=== PATIENT | male | born 1955 | race Caucasian/White ===

== ENCOUNTER 2017-05-23 20:20 | Inpatient (IN) ==
--- NOTE | 2017-05-23 21:07 | Emergency Department Note ---
Disposition Clinical Impression: Left foot infection, Artery occlusion Disposition: Admitted As Inpatient Time of Disposition: 23:22 General Adult HPI - General Chief complaint: ED Wound/Laceration Stated complaint: left great toe black Time Seen by Provider: 05/23/17 20:53 Source: patient Limitations: physical limitation Nursing Notes Reviewed: Yes Vital Signs Reviewed: Yes - History of Present Illness HPI Narrative: 62-year-old male past medical history of diabetes, smoking, peripheral arterial disease, chronic ulcer on left large toe, recent angioplasty, presents to the emergency department with concern for increasing plaque ulceration. Patient also states that they have been having wound care following redness in the left foot. Patient states that the redness has been increasing. Patient also reports subjective fevers. Pain Scale: 10 - Related Data Home Medications Medication Instructions Recorded Confirmed Gabapentin [Neurontin] 300 mg PO QID 05/18/15 05/16/17 OxyCODONE/APAP 7.5/325 [Percocet 1 each PO Q8HR PRN 05/18/15 05/16/17 7.5/325] Insulin NPH Hum/Reg Insulin Hm 20 - 30 unit SQ BID 05/15/17 05/16/17 [Novolin 70-30 100 Unit/ml Vial] Lovastatin [Altoprev] 40 mg PO HS 05/15/17 05/16/17 metFORMIN [Glucophage] 500 mg PO BIDWM 05/16/17 05/16/17 Previous Rx's Medication Instructions Recorded Clopidogrel Bisulfate [Plavix] 75 mg PO DAILY #30 tablet 05/15/17 Allergies Allergy/AdvReac Type Severity Reaction Status Date / Time ticlopidine [From Ticlid] Allergy Hives Verified 05/16/17 17:18 All systems ED: reviewed and negative except as stated. Review of Systems: As Per HPI Constitutional: Reports: fever Musculoskeletal: Reports: other (foot pain, redness) Past Medical History - Past Medical History Medical history: Reports: arthritis, asthma, atrial fibrillation, cardiomyopathy , CHF, COPD, coronary artery disease, diabetes, GERD, hyperlipidemia, hypertension, myocardial infarction Surgical history: Reports: angioplasty/stent, coronary bypass (CABG), orthopedic , other, pacemaker/AICD, other Psychiatric history: Reports: anxiety, depression - Social History Smoking Status: Former smoker Smokeless Tobacco Status: No Alcohol use: Reports: none Drug use: Reports: none Physical Exam General: 62-year-old male, rocking back and forth, appears uncomfortable Head: autraumatic, EOMI, no conjuncitval pallor, no scleral icterus, Mouth: oral mucous membranes moist Neck: neck soft, trachea midline Chest:: Equal chest wall rise Lungs: Normal lungs sounds bilaterally, no wheezes, no respiratory distress Heart: normal heart sounds, normal rate and rhythm, Abdomen: soft, non-tender, no rigidity, no guarding, no rebdound tenderness Lower Extremities: no pedal edema, calves non-tender, black eschar on the dorsum of the left hallux, 1+ dorsalis pedis pulse, erythema extending into the midfoot, warmth Integumentary: Skin warm, dry, and intact Neuro: Alert Psych: normal affect, normal mood - General Limitations: physical limitation General appearance: alert Course Vital Signs Temperature 98.1 F 05/23/17 20:23 Pulse Rate 74 05/23/17 20:23 Respiratory Rate 16 05/23/17 20:23 Blood Pressure 150/79 05/23/17 20:23 O2 Sat by Pulse Oximetry 98 05/23/17 20:23 Temperature 98.1 F 05/23/17 20:23 Pulse Rate 69 05/23/17 23:10 Respiratory Rate 18 05/23/17 23:10 Blood Pressure 121/70 05/23/17 23:10 O2 Sat by Pulse Oximetry 99 05/23/17 23:10 Oxygen Delivery Oxygen Delivery Room Air Medical Decision Making - [facility] Narrative Medical decision making narrative: 62-year-old male presents to the emergency department with concern for possible osteomyelitis, cellulitis, gangrene, vessel occlusion of the left foot. We are obtaining a CTA to further identify possible etiology, CBC, BMP as well. We will provide analgesia with morphine. The patient's CTA of the left lower extremity reveals occlusion of the left anterior tibial artery. Plastic surgery was consulted regarding recommendations case. They stated that this did not warrant any surgery at this time as this is a chronic wound and most likely foot infection. He also has a mild leukocytosis of 12.1. Patient has diabetes which is concerning for possible organismss such as pseudomonas. I have provided the patient with vancomycin and Zosyn as broad-spectrum antibiotics. I admitted the patient to the hospitalist. I discussed the plan with the patient and . Patient's is not in any pain at this time. Aorta w/Runoff CTA 05/23/17 20:59 IMPRESSION: 1. Moderate aortoiliac plaque disease. No significant inflow disease. 2. Bilateral renal artery stenosis. The left renal artery stenosis is complex and likely high-grade. 3. Right-sided runoff evaluation is limited by motion artifact. Patent SFA and popliteal artery likely with cereal disease, difficult to quantitate. Three-vessel runoff proximally. Primary runoff distally via the posterior tibial artery. Consider correlation with duplex study. 4. Cereal SFA and popliteal disease on the left. No focal high-grade stenosis. Three-vessel runoff with occlusion of the anterior tibial artery as it crosses the ankle. 5. Bilateral nonobstructive nephrolithiasis. 6. Mild diffuse colonic stool burden. 7. Mild anasarca. D/ / 05/23/2017 22:56:05 Torey Barnes MD / [email or web address] Interpreting Provider: Torey Barnes MD Vital Signs Temperature 98.1 F 05/23/17 20:23 Pulse Rate 74 05/23/17 20:23 Respiratory Rate 16 05/23/17 20:23 Blood Pressure 150/79 05/23/17 20:23 O2 Sat by Pulse Oximetry 98 05/23/17 20:23 Temperature 98.1 F 05/23/17 20:23 Pulse Rate 69 05/23/17 23:10 Respiratory Rate 18 05/23/17 23:10 Blood Pressure 121/70 05/23/17 23:10 O2 Sat by Pulse Oximetry 99 05/23/17 23:10 Oxygen Delivery Oxygen Delivery Room Air - Lab Data Result diagrams: 05/23/17 21:09 05/23/17 21:09 Lab Results 05/23/17 05/23/17 Range/Units 21:09 21:09 WBC 12.1 H (4.3-11.1) K/mcL RBC 4.76 (4.19-5.50) M/mcL Hgb 14.3 (12.9-16.9) g/dL Hct 42.4 (37.5-50.1) % MCV 89.1 (83.0-100.0) fL MCH 30.0 (28.0-33.3) pg MCHC 33.7 (31.6-35.5) g/dL RDW 12.8 (11.5-14.5) % Plt Count 368 (140-400) K/mcL MPV 9.4 (9.4-12.4) fL Immature Gran % 0.5 (0-4) % Seg Neutrophils % 65.2 % Lymphocytes % 23.2 % Monocytes % 9.3 % Eosinophils % 1.2 % Basophils % 0.6 % Neutrophils # 7.9 (1.6-8.9) K/mcL Lymphocytes # 2.8 (0.6-4.6) K/mcL Monocytes # 1.1 (0.0-1.3) K/mcL Eosinophils # 0.1 (0.0-0.6) K/mcL Basophils # 0.1 (0.0-0.2) K/mcL Sodium 136 (136-145) mEq/L Potassium 3.9 (3.5-4.5) mEq/L Chloride 102 (98-109) mEq/L Carbon Dioxide 27 (19-29) mEq/L BUN 8 (8-26) mg/dL Creatinine 0.74 (0.72-1.25) mg/dL Est GFR ( Amer) > 60 (> 60) Est GFR (Non-Af Amer) > 60 (> 60) BUN/Creatinine Ratio 11 (6-26) Glucose 133 H (70-99) mg/dL Calculated Osmolality 282 (280-300) Calcium 9.9 (8.6-10.8) mg/dL Attestation Statement - Attestation Attestation: I examined this patient and my medical decision-making was reviewed with the Resident Physician. I agree with the documented findings, disposition and treatment plan as described except to the extent set forth below. Patient presents to the ED with a chief complaint of a purple toe. Patient is status post angioplasty to the SFA and popliteal on the left with Dr. Estrada on the . He has been doing fine until a few days ago. His great toe is progressively gone black. Mr. Lan Escher on the dorsum of it. Erythema extending two thirds of the way up the foot. Plan. CTA aorta with runoff.
[2017-05-23] MEDS ORDERED: *HR* Morphine 2 MG/ML SYRINGE IVP ONE (21:08)
[2017-05-23 21:22] LABS: Basophils # 0.1 K/mcL (0.0-0.2); Basophils % 0.6 %; Eosinophils # 0.1 K/mcL (0.0-0.6); Eosinophils % 1.2 %; Hematocrit 42.4 % (37.5-50.1); Hemoglobin 14.3 g/dL (12.9-16.9); Immature Granulocytes % 0.5 % (0-4); Lymphocytes # 2.8 K/mcL (0.6-4.6); Lymphocytes % 23.2 %; Mean Corpuscular HGB Conc 33.7 g/dL (31.6-35.5); Mean Corpuscular Volume 89.1 fL (83.0-100.0); Mean Platelet Volume 9.4 fL (9.4-12.4); Monocytes # 1.1 K/mcL (0.0-1.3); Monocytes % 9.3 %; Neutrophils # 7.9 K/mcL (1.6-8.9); Platelet Count 368 K/mcL (140-400); Red Blood Count 4.76 M/mcL (4.19-5.50); Red Cell Distribution Width 12.8 % (11.5-14.5); Segmented Neutrophils % 65.2 %
[2017-05-23 21:34] LABS: BUN/Creatinine Ratio 11 (6-26); Blood Urea Nitrogen 8 mg/dL (8-26); Calcium 9.9 mg/dL (8.6-10.8); Carbon Dioxide 27 mEq/L (19-29); Chloride 102 mEq/L (98-109); Glucose 133 mg/dL (70-99); Osmolality,Calculated 282 (280-300); Potassium 3.9 mEq/L (3.5-4.5); Sodium 136 mEq/L (136-145); eGFR For African Americans > 60 (> 60); eGFR For Non-African Americans > 60 (> 60)
[2017-05-23] MEDS ORDERED: Vancomycin 1,250 MG in D5% in Water 250 ML IVPB ONE (23:12)
[2017-05-23] MEDS ORDERED: Piperacillin/Tazobactam 4.5 GM in D5% in Water (Mini-Bag+) 100 ML IVPB ONE (23:13)
[2017-05-24] MEDS ORDERED: Ondansetron 4 MG/2 ML VIAL IVP PRN ×2 (01:06→19:09)
[2017-05-24] MEDS ORDERED: Naloxone 0.4 MG/ML INJ IVP PRN ×2 (01:06→19:09)
[2017-05-24] MEDS ORDERED: *HR* Heparin 5,000 UNIT/ML VIAL IVP ONE (01:06)
[2017-05-24] MEDS ORDERED: *HR* Heparin 5,000 UNIT/ML VIAL IVP PRN ×2 (01:06)
[2017-05-24] MEDS ORDERED: Acetaminophen 325 MG TABLET PO PRN ×2 (01:06→19:09)
[2017-05-24] MEDS ORDERED: Dextrose Gel 15 GM PO PRN ×4 (01:10→19:09)
[2017-05-24] MEDS ORDERED: *HR* Dextrose 50 % in Water (Syg) 50 ML SYRINGE IVP PRN ×2 (01:10→19:09)
[2017-05-24] MEDS ORDERED: D5% in Water 1,000 ML IVC PRN ×2 (01:10→19:09)
--- NOTE | 2017-05-24 01:14 | Internal Med History&Physical ---
<Reyes Chin - Last Filed: 05/24/17 01:41> Date of Encounter: 05/24/17 Time of Encounter: 01:12 Assessment and Plan (1) Left foot infection Current visit: Yes Status: Chronic - Pt reports black eschar on left great toe secondary to uncontrolled diabetes. - Pt reports worsening of wound with surrounding erythema and edema extending to mid foot. - Serous drainage. No dorsalis pedis pulses palpable. Non septic. Normal lactic acid. - CTA showed occlusion of the anterior tibial artery on left as it crosses the ankle. No soft tissues changes noted. - BOLIVAR, Arterial doppler, foot xray pending. - Vascular surgery consulted for concern of ischemia. Recommended obtaining the above labs and will see the patient in the morning. - Will start vanc, zosyn, heparin gtt (2) Ischemic ulcer of left foot Current visit: Yes Status: Suspected Distal tip of left great toe. - Reports no sensation, no pain. Black in color. - Possibly secondary to ischemia vs diabetic infection. - Further management as above. - Additional ulcers in left heel and lateral distal foot. Chronic, sees wound care as outpatient. Qualifiers: Non-pressure ulcer stage: limited to breakdown of skin Qualified Code(s): L97.521 - Non-pressure chronic ulcer of other part of left foot limited to breakdown of skin (3) Coronary artery disease Current visit: Yes Status: Chronic - Pt denies chest pain. - Has been on plavix since arterial ballooning on 05/15. Reports no other prescribed blood thinners. - Stable. Qualifiers: Coronary Disease-Associated Artery/Lesion type: bypass graft Ruby vs. transplanted heart: morongo heart Associated angina: without angina Qualified Code(s): I25.810 - Atherosclerosis of coronary artery bypass graft(s) without angina pectoris (4) Hypertension Current visit: Yes Status: Chronic - Evidence of bilateral renal artery stenosis on CTA done in ED . - Severe on left. - BP under control in ED. - Continue home meds and further workup and management as outpatient. Qualifiers: Hypertension type: secondary to other renal disorders Qualified Code(s): I15.1 - Hypertension secondary to other renal disorders; N28.89 - Other specified disorders of kidney and ureter; N28.89 - Other specified disorders of kidney and ureter (5) CHF (congestive heart failure) Current visit: Yes Status: Chronic - With evidence of ischemic cardiomyopathy s/p CABG - Pt takes home plavix. - No ASA use. Will be cautious with fluids. Qualifiers: Congestive heart failure type: unspecified congestive heart failure type Congestive heart failure chronicity: chronic Qualified Code(s): I50.9 - Heart failure, unspecified (6) COPD (chronic obstructive pulmonary disease) Current visit: Yes Status: Chronic - Admits to continuing to smoke every day. - No SOB - Encouraged to quit smoking. Qualifiers: COPD type: emphysema Emphysema type: unspecified Qualified Code(s): J43.9 - Emphysema, unspecified (7) Tobacco dependence Current visit: Yes Status: Chronic - Encouraged to quit smoking. Pt states he has cut down but is unwilling to quit. (8) Renal artery stenosis Current visit: Yes Status: Chronic - As demonstrated in CTA in ED. - Bilateral with severe on left. - BP and renal function wnl. - Manage as outpatient. (9) Diabetes mellitus Current visit: Yes Status: Chronic - Diabetes with complications involving peripheral circulation. - Multiple non healing ulcers on left foot - Black eschar on 1st toe and lateral left foot. - Uncontrolled per pt and chart review. - Will obtain new A1c. 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 Not on A/C per cardiolgist - Continue BB. Heparin gtt started for toe ischemia. Qualifiers: Atrial fibrillation type: chronic Qualified Code(s): I48.2 - Chronic atrial fibrillation (11) DVT prophylaxis Current visit: Yes Status: Acute - Heparin drip for possible ischemia as above., Internal Medicine - H&P: HPI Chief complaint: left foot infection Admitted From: Emergency Dept Plans for Post Hospital Care: Home History of present illness: Mr. Wylie is a 62 year old male with past medical history of uncontrolled diabetes, peripheral vascular disease, CAD status post CABG, tobacco abuse, atrial fibrillation, congestive heart failure presents emergency room with concerns of a left foot infection. He states that he has been dealing with a chronic left great toe eschar for the past couple of months. He recently underwent a balloon angioplasty on 05/[address] Hopkins with good results. 2 days following his procedure, he has noticed the wounds increasing in size, with surrounding erythema and edema. His has noticed a thin yellow discharge from the wound. They also note a fever of 100.5. Patient admits to some nausea and has noticed that the tip of his great toe has turned purple/ black and has no feeling. He does have a history of diabetic neuropathy and states that prior to his procedure he had no feelings in his extremity at all, however he does feel some sensation now. He denies any symptoms of chills, shortness of breath from baseline, is in bowel movements, vomiting, weakness. He denies any pain in the extremity, however he does feel tingling, and paresthesias. In the emergency department, vital signs were stable. He did have a mildly elevated white count at 12.1. Lactic acid within normal limits. CTA runoff the lower shrubbery was obtained due to concern of ischemic change, showed undetermine patency of angioplasties however did note complete occlusion of the anterior tibial artery as it crosses the ankle. Vascular surgery was consulted in the emergency department and will see in the morning. Of note, admitting team again called vascular surgery due to further concerns of ischemia and inability to feel dorsalis pedis pulse. Recommend obtaining BOLIVAR as well as arterial Doppler studies on left lower extremity. Do not believe this is an surgical emergency at this time. Past Med Surg Social Fam HX - Past Medical History Medical history: arthritis, asthma, atrial fibrillation, cardiomyopathy, CHF, COPD, coronary artery disease, diabetes, GERD, hyperlipidemia, hypertension, myocardial infarction Psychiatric history: anxiety, depression - Past Surgical History Surgical History: angioplasty/stent, coronary bypass (CABG), orthopedic, other, pacemaker/AICD, other - Social History Smoking Status: Former smoker Smokeless Tobacco Status: No Alcohol use: none Drug use: none - Family History Father Hx Family Cancer: Yes Mother Living Status: Still Living Hx Family Cancer: Yes (kidney cancer) Internal Medicine - H&P: Meds Gabapentin [Neurontin] 300 mg PO QID 05/18/15 [History] OxyCODONE/APAP 7.5/325 [Percocet 7.5/325] 1 each PO Q8HR PRN 05/18/15 [History] Clopidogrel Bisulfate [Plavix] 75 mg PO DAILY #30 tablet 05/15/17 [Rx] Insulin NPH Hum/Reg Insulin Hm [Novolin 70-30 100 Unit/ml Vial] 20 - 30 unit SQ BID 05/15/17 [History] Lovastatin [Altoprev] 40 mg PO HS 05/15/17 [History] metFORMIN [Glucophage] 500 mg PO BIDWM 05/16/17 [History] 3 Allergy/AdvReac Type Severity Reaction Status Date / Time ticlopidine [From Ticlid] Allergy Hives Verified 05/16/17 17:18 All Systems PM: A 10-system review of systems was performed and is negative for pertinent findings except as documented above in the HPI. - Constitutional Constitutional: chills, fever(s), no fatigue, no lethargy - Cardiovascular Cardiovascular ROS IM: claudication, edema, irregular heart rhythm, no chest pain, no dyspnea, no dyspnea on exertion, no lightheadedness, no palpitations - Respiratory Respiratory: no cough, no dyspnea, no dyspnea on exertion - Gastrointestinal Gastrointestinal: nausea, no abdominal pain, no constipation, no diarrhea, no vomiting - Musculoskeletal Musculoskeletal ROS IM: limited range of motion, numbness, stiffness, tingling - Integumentary Integumentary IM: erythema, new lesions, non-healing lesions, sores - Neurological Neurological ROS: numbness, tingling - Constitutional Vitals: Temp Pulse Resp BP Pulse Ox 98.1 F 69 18 121/70 99 05/23/17 20:23 05/23/17 23:10 05/23/17 23:10 05/23/17 23:10 05/23/17 23:10 Exam: Gen.: Vitals noted. No acute distress. AAOx3. Tremors during interview. HEENT: PERRL/EOMI, oropharynx clear, Normocephalic, atraumatic. MMM. Cardiac: Irregularly irregular, no murmur, +S1/S2 Pulmonary: CTA bilaterally, no wheezes, rales or rhonchi, equal chest expansion Abdomen: soft, nontender, BS noted, no guarding Extremities: Erythema and edema of left foot extending to midfoot. Black eschar on dorsal great toe as well as left lateral foot. Non healing ulcer on left heal. No dorsalis pedis or tibial pulses appreciated. No sensation in distal toe. Black distal tip of toe. Temperature normal to touch. Able to move toe. Neuro: A&Ox3, moves all extremities Psych: Appropriate mood and behavior Internal Med - H&P Results - Labs CBC & Chem 7: 05/23/17 21:09 05/23/17 21:09 <Nahid Arevalo T - Last Filed: 05/24/17 02:36> Date of Encounter: 05/24/17 Internal Medicine - H&P: HPI History of present illness: Mr. Wylie is a 62 year old male All Systems PM: A 10-system review of systems was performed and is negative for pertinent findings except as documented above in the HPI. - Constitutional Vitals: Temp Pulse Resp BP Pulse Ox 97.6 F 78 16 122/71 99 05/24/17 01:22 05/24/17 01:22 05/24/17 01:22 05/24/17 01:22 05/24/17 01:22 Internal Med - H&P Results - Labs CBC & Chem 7: 05/23/17 21:09 05/23/17 21:09 - Attending Attestation I have independently seen and examined this patient on 05/24/17 and discussed plan of care with the patient, his at the bedside and the resident physician 59 M with tobacco abuse, CHF, CAD, Afib not on anticoagulation, DM, PAD with recent angioplasty to LLE , presented with worsening size of chronic L big toe arterial ulcer, associated with pain, swelling and redness, he also had a fever of 100.5 at home. He denies hx of trauma preceding these symptoms, symptoms have been ongoing for one week On exam, he is no form of distress, significant finding is in hid LLE which showed erythema up to mid Lt foot, Lt big toe eschar about the size of a quarter , with surrounding collection , Right big toe is purple. He has no dorsalis pedis pulsation and his Left tibia artery pulsation is faint Labs and Imaging reviewed: Leukocytosis with left shift, Chem WNL. Aortogram shows bilateral YUVAL, Left >R (high grade), occlusion of tibia artery as it crossed the ankle A/P: Left foot cellulitis, Left big toe gangrene. YUVAL. PAD. CHF. Tobacco abuse Uncontrolled DM Start heparin drip, agree with Zahra, Dr. Sandoval was contacted and knows about the patient. Foot X-ray to rule out gas gangrene. Check A1C. Pain Control. YUVAL to be worked up by PCP-patient has no renal abnormalities and his blood pressure is acceptable, resume home meds Rest of details as in resident physicians documentation
[2017-05-24] MEDS ORDERED: Heparin 25,000 UNIT/500 ML D5W 25,000 UNIT/500 ML MLS IVC SCH (01:15)
[2017-05-24 01:36] LABS: Prothrombin Time 11.1 Seconds (9.4-12.1)
[2017-05-24 01:38] LABS: Activated Partial Thrombo Time 33.5 Seconds (26.0-36.0)
[2017-05-24] MEDS ORDERED: Vancomycin 1,250 MG in D5% in Water 250 ML IVPB SCH ×2 (02:00→14:00)
[2017-05-24 02:42] LABS: Hemoglobin A1C 12.1 %
[2017-05-24 04:42] LABS: Basophils # 0.1 K/mcL (0.0-0.2); Basophils % 0.7 %; Eosinophils # 0.3 K/mcL (0.0-0.6); Eosinophils % 2.6 %; Hematocrit 41.3 % (37.5-50.1); Hemoglobin 13.8 g/dL (12.9-16.9); Immature Granulocytes % 0.6 % (0-4); Lymphocytes # 3.5 K/mcL (0.6-4.6); Lymphocytes % 29.2 %; Mean Corpuscular HGB Conc 33.4 g/dL (31.6-35.5); Mean Corpuscular Hemoglobin 29.9 pg (28.0-33.3); Mean Corpuscular Volume 89.6 fL (83.0-100.0); Mean Platelet Volume 9.7 fL (9.4-12.4); Monocytes # 1.1 K/mcL (0.0-1.3); Monocytes % 9.4 %; Neutrophils # 6.9 K/mcL (1.6-8.9); Platelet Count 362 K/mcL (140-400); Red Blood Count 4.61 M/mcL (4.19-5.50); Red Cell Distribution Width 12.9 % (11.5-14.5); Segmented Neutrophils % 57.5 %
[2017-05-24 04:57] LABS: BUN/Creatinine Ratio 10 (6-26); Blood Urea Nitrogen 7 mg/dL (8-26); Calcium 10.1 mg/dL (8.6-10.8); Carbon Dioxide 30 mEq/L (19-29); Chloride 101 mEq/L (98-109); Glucose 111 mg/dL (70-99); Osmolality,Calculated 279 (280-300); Potassium 3.7 mEq/L (3.5-4.5); Sodium 135 mEq/L (136-145); eGFR For African Americans > 60 (> 60); eGFR For Non-African Americans > 60 (> 60)
[2017-05-24] MEDS: *HR* HYDROcodone/Acet 5/325 mg TABLET PO PRN ×2 (05:18→12:19)
--- NOTE | 2017-05-24 08:43 | Vascular/Endovasc Consult Note ---
Date of Encounter: 05/24/17 Time of Encounter: 08:30 Assessment and Plan (1) Left foot infection Current Visit: Yes Status: Chronic The patient has had successful revascularization of the left lower extremity however the left great toe was completely necrotic and now has led to cellulitis and infection associated with diabetes in the left foot. I recommended left great toe amputation. He will require intravenous antibiotic therapy. He will also require aggressive treatment of his diabetes. The bleeding is higher on aspirin and Plavix. However, I think maintaining aspirin and Plavix is a central because of his recent angioplasty. - History of Present Illness Consult date: 05/24/17 Consult reason: Necrotic right great toe History of present illness: Mr. Wylie is a 62 year old male followed in the wound clinic by Dr. Morfin. He had a left heel ulcer as well as a left great toe ulcer. This was found to be ischemic. He underwent treatment by vascular surgery with angioplasty of left superficial femoral artery occlusion and left popliteal artery stenosis. The angioplasty was successful and the patient was placed on aspirin and Plavix. He was seen in the wound clinic last week and his right great toe was necrotic. Treatment was changed from segmental and gentamicin to Betadine paint. The patient has developed more pain and leukocytosis and his left foot. The left great toe was completely necrotic and now an area of erythema has formed on the dorsum of the foot. He has leukocytosis. His foot is warm and pink. I can feel a posterior tibial pulse. CTA arteriogram demonstrates anterior tibial artery occlusion however the areas of angioplasty of the superficial femoral artery and popliteal artery are patent. I have recommended amputation of the left great toe with debridement. It should be done on an urgent basis. Past Med Surg Social Fam HX - Past Medical History Medical history: arthritis, asthma, atrial fibrillation, cardiomyopathy, CHF, COPD, coronary artery disease, diabetes, GERD, hyperlipidemia, hypertension, myocardial infarction Psychiatric history: anxiety, depression - Past Surgical History Surgical History: angioplasty/stent, coronary bypass (CABG), orthopedic, other, pacemaker/AICD, other - Social History Smoking Status: Former smoker Smokeless Tobacco Status: No Alcohol use: none Drug use: none - Family History Mother Living Status: Still Living Hx Family Cancer: Yes (kidney cancer) Father Living Status: Age at : 61 Hx Family Cancer: Yes Medications and Allergies Gabapentin [Neurontin] 300 mg PO QID 05/18/15 [History] OxyCODONE/APAP 7.5/325 [Percocet 7.5/325] 1 each PO Q8HR PRN 05/18/15 [History] Clopidogrel Bisulfate [Plavix] 75 mg PO DAILY #30 tablet 05/15/17 [Rx] Insulin NPH Hum/Reg Insulin Hm [Novolin 70-30 100 Unit/ml Vial] 20 - 30 unit SQ BID 05/15/17 [History] Lovastatin [Altoprev] 40 mg PO HS 05/15/17 [History] metFORMIN [Glucophage] 500 mg PO BIDWM 05/16/17 [History] 3 Allergy/AdvReac Type Severity Reaction Status Date / Time ticlopidine [From Ticlid] Allergy Hives Verified 05/16/17 17:18 All Systems Review: A 10-system review of systems was performed and is negative for pertinent findings except as documented above in the HPI. Exam Vital Signs, Last 4 Hours Temp Pulse Resp BP Pulse Ox 05/24/17 07:48 97.9 F 70 16 145/98 98 General: Present: Conversant, No Apparent Distress HEENT: Present: Atraumatic, Normocephaly, Trachea midline, Pupils equal Neck: Present: Other (No adenopathy neck is supple with good range of motion.) Cardiac: Present: Reg Rate and Rhythm, Normal S1 and S2, No Murmur Lungs: Present: Normal Breath Sounds, No Wheeze, Rales, Rhonchi Neuro: Present: Alert and responsive, No focal deficits noted, Cranial nerves grossly intact, Motor nerves grossly intact, Other (Diabetic peripheral neuropathy ) Abdomen: Present: Soft, Non-tender, Other (Masses ) Vascular: Present: Pulse, normal (Left posterior tibial pulses palpable. His foot is warm and pink. There is erythema on the dorsum of the foot. Plantar aspect is free of any infection. The left great toe was completely necrotic ) Skin: Present: Wound/ulcer(s) (Left heel ulceration previously measured and described. Left great toe completely necrotic. Dorsum of the foot is erythematous.) Consult Discharge Plan - Plan Referrals: Cora Pinto CNP [Primary Care Provider] -
--- NOTE | 2017-05-24 08:45 | Event Note ---
Date of Encounter: 05/24/17 Time of Encounter: 08:44 62-year-old male with history of hypertension, diabetes, peripheral arterial disease, coronary artery disease, admitted with black discoloration and pain in left toe. Patient was noted to have wet gangrene of left first toe associated with surrounding cellulitis and lower extremity edema. Patient seen and examined at bedside. Reports pain and swelling left leg and foot, awaiting OR. Chest-S1, S2 heard. Lungs are clear to auscultation. Left great toe-black, wet gangrene with surrounding erythema, tenderness, edema in the left foot and lower leg Left great toe gangrene due to PAD, DM- Vascular surgery consulted, plan for left 1st toe amputation today; has been started on IV Heparin drip for possible acute arterial occlusion; continue Plavix; pain control with PRN IV Dilaudid; DM- Type 2, on insulin, with PAD- continue Accu-Chek blood glucose monitoring with basal bolus insulin regimen. Hemoglobin A1c noted to be tall 0.1%. Blood sugars noted to be elevated. Diabetic diet when tolerated.
[2017-05-24] MEDS: Insulin LISPRO 300 UNITS/3 ML VIAL SQ SCH ×3 (08:50→16:35)
[2017-05-24] MEDS: Gabapentin 300 MG CAPSULE PO SCH ×3 (09:06→21:35)
[2017-05-24] MEDS: Piperacillin/Tazobactam 3.375 GM in D5% in Water 50 ML IVPB SCH ×2 (09:07→16:38)
[2017-05-24] MEDS ORDERED: *HR* OxyCODONE/APAP 7.5/325 TABLET PO PRN ×2 (12:46→19:09)
--- NOTE | 2017-05-24 15:34 | Anesthesia Evaluation PreOp ---
Date of Encounter: 05/24/17 Time of Encounter: 17:25 - Past History Planned Operation: Lap. 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: Denies Any Significant HX Other Medical History: Renal (renal artery stenosis), GERD, Other (Iscemic Left Foot Ulcer, myoclonus RUE) Anesthesia History: No Prior Anesthetic Complications, Past Anesthesia Alcohol Use: none Drug use: none Medications and Allergies Gabapentin [Neurontin] 300 mg PO QID 05/18/15 [History] OxyCODONE/APAP 7.5/325 [Percocet 7.5/325] 1 each PO Q6H PRN 05/18/15 [History] Clopidogrel Bisulfate [Plavix] 75 mg PO DAILY #30 tablet 05/15/17 [Rx] Insulin NPH Hum/Reg Insulin Hm [Novolin 70-30 100 Unit/ml Vial] 25 unit SQ QAM 05/15/17 [History] Lovastatin [Altoprev] 40 mg PO HS 05/15/17 [History] metFORMIN [Glucophage] 500 mg PO BIDWM 05/16/17 [History] Baclofen [Lioresal] 10 mg PO TID 05/24/17 [History] Carvedilol 12.5 mg PO BID 05/24/17 [History] Duloxetine HCl [Cymbalta] 60 mg PO BID 05/24/17 [History] Insulin NPH Hum/Reg Insulin Hm [Novolin 70-30 100 Unit/ml Vial] 30 unit SQ QPM 05/24/17 [History] Pantoprazole Sodium [Protonix] 40 mg PO DAILY 05/24/17 [History] 3 Allergy/AdvReac Type Severity Reaction Status Date / Time ticlopidine [From Ticlid] Allergy Hives Verified 05/24/17 10:04 - Meds/Allergy Pre-op Review Medications Reviewed: Yes Allergies Reviewed: Yes Beta Blockers on Current Med List: No Anesthesia Results - Labs 05/24/17 03:43 05/24/17 03:43 Echo 2014 Low normal EF, - Imaging EKG: report reviewed (ELECTRONIC VENTRICULAR PACEMAKER BASELINE ARTIFACT COMPLICATES ACCURATE INTERPRETATION) Anesthesia Exam O2 Sat Height 1.88 m Height 1.88 m Height 1.88 m Weight 86.8 kg Weight 87.5 kg Weight 78.471 kg O2 Sat by Pulse Oximetry 99 O2 Sat by Pulse Oximetry 98 O2 Sat by Pulse Oximetry 98 O2 Sat by Pulse Oximetry 99 O2 Sat by Pulse Oximetry 99 O2 Sat by Pulse Oximetry 98 Vital Signs Temp Pulse Resp BP Pulse Ox 98.1 F 74 16 150/79 98 05/23/17 20:23 05/23/17 20:23 05/23/17 20:23 05/23/17 20:23 05/23/17 20:23 Vital Signs/O2 Sat, Most Current Temp Pulse Resp BP Pulse Ox 97.8 F 71 18 161/84 99 05/24/17 12:03 05/24/17 12:03 05/24/17 12:03 05/24/17 12:03 05/24/17 12:03 Height: 6'2'' Weight: 191# NPO (# of Hours): > 8 hrs Pain Scale: 0 Pain Scale Used: Numeric (1 - 10) - HEENT Pupil (Motor): Pupils equal, EOMI Mallampati: III Teeth: Edentulous Oral Opening: Greater than 3 - 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
[2017-05-24] MEDS ORDERED: *HR* Midazolam HCl 2 MG/2 ML VIAL ONE (16:34)
[2017-05-24] MEDS ORDERED: *HR* Propofol 200 MG/20 ML VIAL IVP ONE (16:34)
[2017-05-24] MEDS ORDERED: *HR* Succinylcholine 200 MG/10 ML VIAL IVP ONE (16:37)
[2017-05-24] MEDS ORDERED: Dexamethasone 4 MG/ML VIAL ONE (16:37)
[2017-05-24] MEDS ORDERED: Lidocaine -MPF 2% 2 ML VIAL ONE (16:37)
[2017-05-24] MEDS ORDERED: Ondansetron 4 MG/2 ML VIAL ONE (16:37)
[2017-05-24] MEDS ORDERED: Albuterol 2.5 MG/3 ML NEBULIZER ONE (16:40)
[2017-05-24] MEDS ORDERED: *HR* Promethazine 25 MG/ML VIAL IVP PRN ×2 (17:25→19:09)
[2017-05-24] MEDS ORDERED: *HR* Labetalol 20 MG/4 ML SYRINGE IVP PRN ×2 (17:25→19:09)
[2017-05-24] MEDS ORDERED: *HR* HYDROmorphone (PF) 1 MG/ML SYRINGE IVP PRN ×3 (17:25→19:09)
[2017-05-24] MEDS ORDERED: Ondansetron 4 MG/2 ML VIAL IVP ONE ×2 (17:25→19:09)
[2017-05-24] MEDS ORDERED: Albuterol 2.5 MG/3 ML NEBULIZER IH ONE ×2 (17:25→19:09)
--- NOTE | 2017-05-24 18:24 | Operative Note ---
Date of procedure: 05/24/17 Pre-op diagnosis: Left great toe necrosis with left foot cellulitis Post-op diagnosis: other (#1 left great toe necrosis #2 tenosynovitis extensor tendon #3 osteomyelitis metatarsal head) Procedure: #1 left great toe amputation #2 left first metatarsal head resection #3 debridement left extensor tendon Anesthesia: DULCE MARIA Surgeon: Yoseph Sandoval Estimated blood loss (cc): 20 Specimen: #1 left great toe #2 left metatarsal head #3 left extensor tendon first dig Condition: stable Disposition: PACU Procedure in Detail: After informed consent the patient is taken to the major operative suite and placed in supine position and given adequate general anesthetic. The left foot is prepped and draped in sterile fashion utilizing Betadine solution and sterile draping techniques. Timeouts taken. The patient is identified. The lateralizing garcia identified. I made a teardrop-shaped incision around the base of the left great toe extension on the dorsum of the foot. I dissected down to the level of the first metatarsal head. This circumferentially dissected. The flexor tendon was divided and the plantar fascia was divided. The extensor tendon was full of pus. This was drawn out of the sheath until all the pus was gone and the tendon appeared normal. The tendon was divided at this point.(The head of the metatarsal bone was soft and crumbled medially. This was right where the extensor tendon came into contact with the dorsum of the metatarsal head. This appeared to be osteomyelitis. I decided to divide the first metatarsal to midshaft. Using periosteal elevator made at circumferential dissection at the midshaft and divided the midshaft first metatarsal. This is done with a oscillating saw. Hemostasis was excellent. The first digit and first metatarsal head were both removed. There were 2 sesamoid bones embedded in the plantar fascia. I felt that these were contaminated in the inflammatory process of the metatarsal head and I resected both bones. I irrigated with copious amounts IN-containing solution electrocautery was used for hemostasis. All tissues appear well vascularized and the debridement and resection had removed all devitalized tissue. I again reviewed with copious amounts of antibiotic containing solution. Cultures of the joint capsule and base of the first phalangeal head were cultured. I close the deep tissue with interrupted 2-0 Vicryl subcutaneous tissue with interrupted 2-0 Vicryl and I left the skin open. I placed iodoform packs at 3 locations deep in the wound. A bulky dressing was applied. He tolerated the procedure well.
--- NOTE | 2017-05-24 19:01 | Anesthesia Evaluation Post Op ---
Date of Encounter: 05/24/17 Time of Encounter: 19:00 - Vital Signs Vital Signs: Last Vital Signs Temp 97.8 F 05/24/17 18:33 Pulse 70 05/24/17 18:53 Resp 18 05/24/17 18:53 BP 133/77 05/24/17 18:53 Pulse Ox 98 05/24/17 18:53 - Lungs Lungs: Clear Ascult./Percussion - Airway Airway: Non-obstructed - Cardiovascular Regular Rate - Mental Status Mental Status: Alert & Oriented, Answers Appropriately - Pain Pain Scale: 3 - Nausea Vomiting Nausea Vomiting: Not Present - Hydration Hydration: NPO - Discharge PostOp Status: Transfer Patient to floor
[2017-05-24] MEDS ORDERED: Piperacillin/Tazobactam 3.375 GM in D5% in Water 50 ML IVPB SCH (20:00)
[2017-05-25] MEDS ORDERED: Piperacillin/Tazobactam 3.375 GM in D5% in Water 50 ML IVPB SCH
[2017-05-25] MEDS: Vancomycin 1,250 MG in D5% in Water 250 ML IVPB SCH ×2 (02:15→14:47)
[2017-05-25] MEDS: Piperacillin/Tazobactam 3.375 GM in D5% in Water 50 ML IVPB SCH ×3 (06:03→20:59)
[2017-05-25] MEDS ORDERED: GI Cocktail 40 ML EACH PO ONE (06:25)
[2017-05-25] MEDS ORDERED: Acetaminophen 325 MG TABLET PO PRN (08:27)
[2017-05-25] MEDS: Insulin LISPRO 300 UNITS/3 ML VIAL SQ SCH ×4 (08:48→20:55)
[2017-05-25] MEDS: Gabapentin 300 MG CAPSULE PO SCH ×4 (08:48→20:54)
[2017-05-25 08:58] LABS: Basophils # 0.1 K/mcL (0.0-0.2); Basophils % 0.6 %; Eosinophils % 0.3 %; Hematocrit 42.3 % (37.5-50.1); Hemoglobin 14.1 g/dL (12.9-16.9); Immature Granulocytes % 0.7 % (0-4); Lymphocytes # 2.4 K/mcL (0.6-4.6); Mean Corpuscular HGB Conc 33.3 g/dL (31.6-35.5); Mean Corpuscular Hemoglobin 29.4 pg (28.0-33.3); Mean Corpuscular Volume 88.3 fL (83.0-100.0); Mean Platelet Volume 9.6 fL (9.4-12.4); Monocytes % 8.3 %; Platelet Count 439 K/mcL (140-400); Red Blood Count 4.79 M/mcL (4.19-5.50); Red Cell Distribution Width 12.6 % (11.5-14.5); Segmented Neutrophils % 69.1 %
--- NOTE | 2017-05-25 08:59 | Internal Med Progress Note ---
Date of Encounter: 05/25/17 Time of Encounter: 08:55 - Assessment and plan (1) Gangrene due to peripheral vascular disease Current Visit: Yes Status: Acute Assessment and plan: Presented with painful wet gangrene of left first toe. Vascular surgery consulted, status post amputation of left first toe, left first metatarsal head resection and debridement of left extensor tendon, postoperative day one. Continue pain control with when necessary IV Dilaudid and oral Percocet. Physical and occupational therapy evaluation. Local wound care per surgery recommendations. On IV Vancomycin and Zosyn, f/up blood cultures; IV anticoagulation has been discontinued. Continue Plavix. (2) Ischemic ulcer of left foot Current Visit: Yes Status: Acute Assessment and plan: plan as above; Qualifiers: Non-pressure ulcer stage: limited to breakdown of skin Qualified Code(s): L97.521 - Non-pressure chronic ulcer of other part of left foot limited to breakdown of skin (3) PAD (peripheral artery disease) Current Visit: Yes Status: Chronic Assessment and plan: continue Plavix; (4) Coronary artery disease Current Visit: Yes Status: Chronic Assessment and plan: continue home meds; Qualifiers: Coronary Disease-Associated Artery/Lesion type: bypass graft [place] vs. transplanted heart: [place] heart Associated angina: without angina Qualified Code(s): I25.810 - Atherosclerosis of coronary artery bypass graft(s) without angina pectoris (5) Hypertension Current Visit: Yes Status: Chronic Assessment and plan: BP elevated; not on Coreg at home, not filled script recently; resume Coreg; Qualifiers: Hypertension type: essential hypertension Qualified Code(s): I10 - Essential (primary) hypertension (6) Ischemic cardiomyopathy Current Visit: Yes Status: Chronic (7) COPD (chronic obstructive pulmonary disease) Current Visit: Yes Status: Chronic Qualifiers: COPD type: emphysema Emphysema type: unspecified Qualified Code(s): J43.9 - Emphysema, unspecified (8) Tobacco dependence Current Visit: Yes Status: Chronic Assessment and plan: Nicotine transdermal patch; (9) Diabetes mellitus Current Visit: Yes Status: Chronic Assessment and plan: Blood sugars elevated; start basal insulin and continue Accucheck blood glucose monitoring with sliding scale insulin; diabetic diet; HbA1C noted to be 11.8%; Qualifiers: Diabetes mellitus type: type 2 Diabetes mellitus complication status: with circulatory complication Diabetes mellitus complication detail: with peripheral angiopathy with gangrene Diabetes mellitus care home insulin use: with care home use Qualified Code(s): 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 2 diabetes mellitus with diabetic peripheral angiopathy with gangrene; Z79.4 - prison (current) use of insulin; Z79.4 - prison (current) use of insulin; Z79.4 - prison ( current) use of insulin; Z79.4 - prison (current) use of insulin (10) Atrial fibrillation Current Visit: Yes Status: Chronic Assessment and plan: continue Coreg; not on anticoagulation as outpatient; Qualifiers: Atrial fibrillation type: chronic Qualified Code(s): I48.2 - Chronic atrial fibrillation - Subjective Interval history: Feels better; left foot pain is controlled with pain meds; tolerates oral diet; blood sugars noted to be high; - Constitutional Vitals: Temp Pulse Resp BP Pulse Ox 97.5 F L 71 16 162/83 92 05/25/17 07:31 05/25/17 07:31 05/25/17 07:31 05/25/17 07:31 05/25/17 07:31 General appearance: Present: A&O X 3, answers questions appropriately - Respiratory Respiratory exam: Present: CTAB. Absent: accessory muscle use, rales, rhonchi, wheezes - Cardiovascular Cardiovascular exam: Present: RRR, +S1, +S2. Absent: diastolic murmur, gallop, rubs, systolic murmur - GI/Abdominal GI/Abdominal exam: Present: normal bowel sounds, soft, no peritoneal signs. Absent: distended, tenderness - Extremities Exam Extremities exam: Present: warm, radial pulses palpable and symmetrical. Absent : calf tenderness, cyanotic, pedal edema Additional comments: left great toe amputation; in surgical dressing Internal Medicine: Result - Labs CBC & Chem 7: 05/25/17 08:36 05/25/17 08:36 - ABG Interpretation ABG results: PT/INR, D-dimer PT 11.1 Seconds (9.4-12.1) 05/23/17 21:29 - VTE Documentation of Mechanical Device: Intermittent pneumatic compression device Consult Discharge Plan - Plan Referrals: Cora Pinto, PROP SETTER [Primary Care Provider] -
[2017-05-25 09:09] LABS: BUN/Creatinine Ratio 15 (6-26); Blood Urea Nitrogen 14 mg/dL (8-26); Calcium 9.9 mg/dL (8.6-10.8); Carbon Dioxide 25 mEq/L (19-29); Chloride 100 mEq/L (98-109); Glucose 483 mg/dL (70-99); Osmolality,Calculated 298 (280-300); Potassium 4.7 mEq/L (3.5-4.5); Sodium 133 mEq/L (136-145); eGFR For African Americans > 60 (> 60); eGFR For Non-African Americans > 60 (> 60)
[2017-05-25] MEDS: Insulin DETEMIR 100 UNIT/ML X5UNITS SQ SCH ×2 (10:16→20:59)
--- NOTE | 2017-05-25 13:53 | General Surgery Progress Note ---
<AminataKerry Fortino - Last Filed: 05/25/17 13:57> Date of Encounter: 05/25/17 Time of Encounter: 13:00 - Assessment and Plan (1) Left foot infection Current Visit: Yes Status: Chronic POD #1 left great toe amputation, left first metatarsal head resection, debridement left extensor tendon IV antibiotics- Vancomycin, Zosyn Cultures pending Daily wound care Supportive care and pain control Will continue to follow and assess progress (2) PAD (peripheral artery disease) Current Visit: Yes Status: Chronic (3) CHF (congestive heart failure) Current Visit: Yes Status: Chronic Qualifiers: Congestive heart failure type: unspecified congestive heart failure type Congestive heart failure chronicity: chronic Qualified Code(s): I50.9 - Heart failure, unspecified (4) COPD (chronic obstructive pulmonary disease) Current Visit: Yes Status: Chronic Qualifiers: COPD type: emphysema Emphysema type: unspecified Qualified Code(s): J43.9 - Emphysema, unspecified (5) Coronary artery disease Current Visit: Yes Status: Chronic Qualifiers: Coronary Disease-Associated Artery/Lesion type: bypass graft [place] vs. transplanted heart: [place] heart Associated angina: without angina Qualified Code(s): I25.810 - Atherosclerosis of coronary artery bypass graft(s) without angina pectoris (6) Diabetes mellitus Current Visit: Yes Status: Chronic Qualifiers: Diabetes mellitus type: type 2 Diabetes mellitus complication status: with circulatory complication Diabetes mellitus complication detail: with peripheral angiopathy without gangrene Diabetes mellitus long term care pharmacist insulin use : with prison use Qualified Code(s): E11.51 - Type 2 diabetes mellitus with diabetic peripheral angiopathy without gangrene; Z79.4 - jail (current ) use of insulin; Z79.4 - jail (current) use of insulin; Z79.4 - jail (current) use of insulin; Z79.4 - jail (current) use of insulin (7) Tobacco dependence Current Visit: Yes Status: Chronic (8) Heel ulcer Current Visit: No Status: Chronic Qualifiers: Laterality: left Non-pressure ulcer stage: unspecified non-pressure ulcer stage Qualified Code(s): L97.429 - Non-pressure chronic ulcer of left heel and midfoot with unspecified severity Subjective Patient reports: no new complaints, feels better, still having pain, pain is less, tolerating a regular diet, voiding w/o difficulty, afebrile Objective Vital Signs - Last 8 Hours Temp Pulse Resp BP Pulse Ox 05/25/17 11:41 98 F 71 16 126/78 97 05/25/17 10:52 123/67 05/25/17 07:31 97.5 F L 71 16 162/83 92 Intake and Output 05/24/17 05/25/17 05/25/17 23:59 07:59 15:59 Intake Total 987 / 987 50 / 50 530 / 530 Output Total 140 / 140 500 / 500 750 / 750 Balance 847 / 847 -450 / -450 -220 / -220 Intake: IV Fluids 167 / 167 50 / 50 50 / 50 Zosyn 3.375 GM In Dextrose 5% ( 50 / 50 50 / 50 ADD-[place]) 50 ML @ 12.5 mls/ hr IVPB Q8H ANT Rx#:[id number] Vancocin 1,250 MG In Dextrose 5 167 / 167 % 250 ML @ 166.667 mls/hr IVPB Q12H ANT Rx#:[id number] Oral 820 / 820 480 / 480 Output: Urine 120 / 120 500 / 500 750 / 750 Estimated Blood Loss Other: Meal Breakfast Percent of Meal Consumed 40% # Voids 1 Weight 87.3 kg Blood Glucose* 165 374 383 Patient Weight 05/25/17 23:59 Weight 87.3 kg - General physical appearance well developed, well nourished, no distress - Eyes normal ocular movement - ENT normal mucosa, atraumatic, normocephalic - Neck Neck exam: trachea midline - Respiratory normal respiratory effort, clear to auscultation - Abdomen Abdomen: Present: soft, non tender - Incision Incision: Present: serosanguinous (small amount), open (Left great toe amputation) - Neurologic CN 2-12 grossly intact, other (Tremor noted) - Psychiatric oriented to time, oriented to person, oriented to place, speech is normal, memory intact - Labs 05/25/17 08:36 05/25/17 08:36 Diabetes panel 05/25/17 Range/Units 08:36 Sodium 133 L (136-145) mEq/L Potassium 4.7 H D (3.5-4.5) mEq/L Chloride 100 (98-109) mEq/L Carbon Dioxide 25 (19-29) mEq/L BUN 14 (8-26) mg/dL Creatinine 0.95 (0.72-1.25) mg/dL Glucose 483 H (70-99) mg/dL Calcium 9.9 (8.6-10.8) mg/dL Calcium panel 05/25/17 Range/Units 08:36 Calcium 9.9 (8.6-10.8) mg/dL Pituitary panel 05/25/17 Range/Units 08:36 Sodium 133 L (136-145) mEq/L Potassium 4.7 H D (3.5-4.5) mEq/L Chloride 100 (98-109) mEq/L Carbon Dioxide 25 (19-29) mEq/L BUN 14 (8-26) mg/dL Creatinine 0.95 (0.72-1.25) mg/dL Glucose 483 H (70-99) mg/dL Calcium 9.9 (8.6-10.8) mg/dL Adrenal panel 05/25/17 Range/Units 08:36 Sodium 133 L (136-145) mEq/L Potassium 4.7 H D (3.5-4.5) mEq/L Chloride 100 (98-109) mEq/L Carbon Dioxide 25 (19-29) mEq/L BUN 14 (8-26) mg/dL Creatinine 0.95 (0.72-1.25) mg/dL Glucose 483 H (70-99) mg/dL Calcium 9.9 (8.6-10.8) mg/dL - VTE Documentation of Mechanical Device: Intermittent pneumatic compression device Consult Discharge Plan - Plan Referrals: Cora Pitno, MANAGER GOLF [Primary Care Provider] - - Attending Attestation For this encounter, I have reviewed the BIT SANDER or PA documentation, treatment plan, and medical decision making; and I have had face to face time with this patient. <Yoseph Sandoval - Last Filed: 05/26/17 07:06> Date of Encounter: 05/25/17 - Assessment and Plan (1) Left foot infection Current Visit: Yes Status: Chronic Objective Vital Signs - Last 8 Hours Temp Pulse Resp BP Pulse Ox 05/26/17 03:52 97.4 F L 71 15 121/74 96 05/26/17 00:24 98 F 69 16 113/77 93 Intake and Output 05/25/17 05/25/17 05/26/17 15:59 23:59 07:59 Intake Total 530 / 530 420 / 420 50 / 50 Output Total 750 / 750 700 / 700 550 / 550 Balance -220 / -220 -280 / -280 -500 / -500 Intake: IV Fluids 50 / 50 300 / 300 50 / 50 Zosyn 3.375 GM In Dextrose 5% ( 50 / 50 50 / 50 50 / 50 ADD-[place]) 50 ML @ 12.5 mls/ hr IVPB Q8H ANT Rx#:[id number] Vancocin 1,000 MG In Dextrose 5 250 / 250 % 250 ML @ 167 mls/hr IVPB Q12H ANT Rx#:[id number] Oral 480 / 480 120 / 120 Output: Urine 750 / 750 700 / 700 550 / 550 Other: Meal Breakfast Dinner Percent of Meal Consumed 40% 100% Weight 94.6 kg Blood Glucose* 383 141 Patient Weight 05/26/17 23:59 Weight 94.6 kg - Labs 05/26/17 05:20 05/26/17 05:20 Diabetes panel 05/25/17 05/26/17 Range/Units 08:36 05:20 Sodium 133 L 139 (136-145) mEq/L Potassium 4.7 H D 4.0 (3.5-4.5) mEq/L Chloride 100 104 (98-109) mEq/L Carbon Dioxide 25 30 H (19-29) mEq/L BUN 14 11 (8-26) mg/dL Creatinine 0.95 0.76 (0.72-1.25) mg/dL Glucose 483 H 67 L (70-99) mg/dL Calcium 9.9 9.8 (8.6-10.8) mg/dL Calcium panel 05/25/17 05/26/17 Range/Units 08:36 05:20 Calcium 9.9 9.8 (8.6-10.8) mg/dL Pituitary panel 05/25/17 05/26/17 Range/Units 08:36 05:20 Sodium 133 L 139 (136-145) mEq/L Potassium 4.7 H D 4.0 (3.5-4.5) mEq/L Chloride 100 104 (98-109) mEq/L Carbon Dioxide 25 30 H (19-29) mEq/L BUN 14 11 (8-26) mg/dL Creatinine 0.95 0.76 (0.72-1.25) mg/dL Glucose 483 H 67 L (70-99) mg/dL Calcium 9.9 9.8 (8.6-10.8) mg/dL Adrenal panel 05/25/17 05/26/17 Range/Units 08:36 05:20 Sodium 133 L 139 (136-145) mEq/L Potassium 4.7 H D 4.0 (3.5-4.5) mEq/L Chloride 100 104 (98-109) mEq/L Carbon Dioxide 25 30 H (19-29) mEq/L BUN 14 11 (8-26) mg/dL Creatinine 0.95 0.76 (0.72-1.25) mg/dL Glucose 483 H 67 L (70-99) mg/dL Calcium 9.9 9.8 (8.6-10.8) mg/dL - Attending Attestation The patient was seen and evaluated on morning rounds. His dressing is dry. His preoperative pain in his left foot is gone. We will initiate once a day iodoform packing and transition to negative pressure wound therapy as soon as possible. Yoseph Sandoval MD FACS
[2017-05-25] MEDS: Vancomycin 1,000 MG in D5% in Water 250 ML IVPB SCH (14:53)
[2017-05-25] MEDS: *HR* OxyCODONE/APAP 7.5/325 TABLET PO PRN (18:04)
[2017-05-25] MEDS: *HR* Heparin 5,000 UNIT/ML VIAL SQ SCH (18:42)
[2017-05-25] MEDS: *HR* HYDROmorphone (PF) 1 MG/ML SYRINGE IVP PRN (22:20)
[2017-05-25] MEDS: Melatonin 3 MG TABLET PO PRN (22:20)
[2017-05-26] MEDS: Vancomycin 1,000 MG in D5% in Water 250 ML IVPB SCH ×2 (01:14→13:50)
[2017-05-26] MEDS: Piperacillin/Tazobactam 3.375 GM in D5% in Water 50 ML IVPB SCH ×3 (05:29→21:10)
[2017-05-26] MEDS: *HR* Heparin 5,000 UNIT/ML VIAL SQ SCH ×2 (05:29→17:00)
[2017-05-26 06:16] LABS: Basophils # 0.1 K/mcL (0.0-0.2); Basophils % 0.6 %; Eosinophils # 0.2 K/mcL (0.0-0.6); Eosinophils % 1.9 %; Hematocrit 39.7 % (37.5-50.1); Immature Granulocytes % 0.3 % (0-4); Lymphocytes # 3.2 K/mcL (0.6-4.6); Mean Corpuscular HGB Conc 32.7 g/dL (31.6-35.5); Mean Corpuscular Hemoglobin 29.5 pg (28.0-33.3); Mean Platelet Volume 9.6 fL (9.4-12.4); Monocytes # 0.8 K/mcL (0.0-1.3); Monocytes % 8.4 %; Neutrophils # 5.2 K/mcL (1.6-8.9); Platelet Count 388 K/mcL (140-400); Red Blood Count 4.41 M/mcL (4.19-5.50); Red Cell Distribution Width 12.8 % (11.5-14.5); Segmented Neutrophils % 54.8 %
[2017-05-26 06:34] LABS: BUN/Creatinine Ratio 14 (6-26); Blood Urea Nitrogen 11 mg/dL (8-26); Calcium 9.8 mg/dL (8.6-10.8); Carbon Dioxide 30 mEq/L (19-29); Chloride 104 mEq/L (98-109); Glucose 67 mg/dL (70-99); Osmolality,Calculated 286 (280-300); Sodium 139 mEq/L (136-145); eGFR For African Americans > 60 (> 60); eGFR For Non-African Americans > 60 (> 60)
[2017-05-26] MEDS: Gabapentin 300 MG CAPSULE PO SCH ×5 (07:44→20:50)
[2017-05-26] MEDS: *HR* OxyCODONE/APAP 7.5/325 TABLET PO PRN ×2 (07:52→20:52)
[2017-05-26] MEDS: Insulin LISPRO 300 UNITS/3 ML VIAL SQ SCH ×5 (07:53→21:11)
[2017-05-26] MEDS: Insulin DETEMIR 100 UNIT/ML X5UNITS SQ SCH ×2 (07:53→21:11)
[2017-05-26] MEDS: *HR* HYDROmorphone (PF) 1 MG/ML SYRINGE IVP PRN (10:51)
--- NOTE | 2017-05-26 11:49 | General Surgery Progress Note ---
<AminataKerry Fortino - Last Filed: 05/26/17 11:46> Date of Encounter: 05/26/17 Time of Encounter: 10:30 - Assessment and Plan (1) Left foot infection Current Visit: Yes Status: Chronic POD #2 left great toe amputation, left first metatarsal head resection, debridement left extensor tendon IV antibiotics- Vancomycin, Zosyn Cultures pending Daily wound care- iodoform packing Place wound vac 05/27/17 Will need home wound vac therapy and home health at discharge Consult to home health care initiated Supportive care and pain control Will continue to follow and assess progress (2) PAD (peripheral artery disease) Current Visit: Yes Status: Chronic (3) CHF (congestive heart failure) Current Visit: Yes Status: Chronic Stable without exacerbation Management per medicine service Qualifiers: Congestive heart failure type: unspecified congestive heart failure type Congestive heart failure chronicity: chronic Qualified Code(s): I50.9 - Heart failure, unspecified (4) COPD (chronic obstructive pulmonary disease) Current Visit: Yes Status: Chronic Stable without exacerbation Management per medicine service Qualifiers: COPD type: emphysema Emphysema type: unspecified Qualified Code(s): J43.9 - Emphysema, unspecified (5) Coronary artery disease Current Visit: Yes Status: Chronic Qualifiers: Coronary Disease-Associated Artery/Lesion type: bypass graft [place] vs. 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: with retirement use Qualified Code(s): 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 2 diabetes mellitus with diabetic peripheral angiopathy with gangrene; Z79.4 - watermaster (current) use of insulin; Z79.4 - watermaster (current) use of insulin; Z79.4 - FPC ( current) use of insulin; Z79.4 - FPC (current) use of insulin (7) Tobacco dependence Current Visit: Yes Status: Chronic Smoking cessation education (8) Heel ulcer Current Visit: No Status: Chronic Qualifiers: Laterality: left Non-pressure ulcer stage: unspecified non-pressure ulcer stage Qualified Code(s): L97.429 - Non-pressure chronic ulcer of left heel and midfoot with unspecified severity Subjective Patient reports: no new complaints, still having pain, pain is less, tolerating a regular diet, voiding w/o difficulty, afebrile Objective Vital Signs - Last 8 Hours Temp Pulse Resp BP Pulse Ox 05/26/17 11:34 97.6 F 70 12 132/74 98 05/26/17 07:32 97.9 F 70 16 135/67 97 05/26/17 03:52 97.4 F L 71 15 121/74 96 Intake and Output 05/25/17 05/26/17 05/26/17 23:59 07:59 15:59 Intake Total 420 / 420 80 / 80 480 / 480 Output Total 700 / 700 1300 / 1300 Balance -280 / -280 -1220 / -1220 480 / 480 Intake: IV Fluids 300 / 300 50 / 50 Zosyn 3.375 GM In Dextrose 5% ( 50 / 50 50 / 50 ADD-Collins) 50 ML @ 12.5 mls/ hr IVPB Q8H [facility] Rx#:[id number] Vancocin 1,000 MG In Dextrose 5 250 / 250 % 250 ML @ 167 mls/hr IVPB Q12H [facility] Rx#:[id number] Oral 120 / 120 30 / 30 480 / 480 Output: Urine 700 / 700 1300 / 1300 Other: Meal Dinner Breakfast Percent of Meal Consumed 100% 100% Weight 94.6 kg Blood Glucose* 141 53 157 Patient Weight 05/26/17 23:59 Weight 94.6 kg - General physical appearance well developed, well nourished, no distress, chronically ill - Eyes normal ocular movement - ENT atraumatic, normocephalic - Neck Neck exam: trachea midline - Respiratory normal respiratory effort - Abdomen Abdomen: Present: soft, non tender - Integumentary other (Left foot with small amount of serous drainage noted from wound. No surrounding erythema or induration noted. Measures 6 X 1 X 2cm without tunnelling or undermining. ) - Neurologic CN 2-12 grossly intact - Psychiatric oriented to time, oriented to person, oriented to place, speech is normal, memory intact - Labs 05/26/17 05:20 05/26/17 05:20 Diabetes panel 05/26/17 Range/Units 05:20 Sodium 139 (136-145) mEq/L Potassium 4.0 (3.5-4.5) mEq/L Chloride 104 (98-109) mEq/L Carbon Dioxide 30 H (19-29) mEq/L BUN 11 (8-26) mg/dL Creatinine 0.76 (0.72-1.25) mg/dL Glucose 67 L (70-99) mg/dL Calcium 9.8 (8.6-10.8) mg/dL Calcium panel 05/26/17 Range/Units 05:20 Calcium 9.8 (8.6-10.8) mg/dL Pituitary panel 05/26/17 Range/Units 05:20 Sodium 139 (136-145) mEq/L Potassium 4.0 (3.5-4.5) mEq/L Chloride 104 (98-109) mEq/L Carbon Dioxide 30 H (19-29) mEq/L BUN 11 (8-26) mg/dL Creatinine 0.76 (0.72-1.25) mg/dL Glucose 67 L (70-99) mg/dL Calcium 9.8 (8.6-10.8) mg/dL Adrenal panel 05/26/17 Range/Units 05:20 Sodium 139 (136-145) mEq/L Potassium 4.0 (3.5-4.5) mEq/L Chloride 104 (98-109) mEq/L Carbon Dioxide 30 H (19-29) mEq/L BUN 11 (8-26) mg/dL Creatinine 0.76 (0.72-1.25) mg/dL Glucose 67 L (70-99) mg/dL Calcium 9.8 (8.6-10.8) mg/dL - VTE Documentation of Mechanical Device: Intermittent pneumatic compression device Consult Discharge Plan - Plan Referrals: Cora Pinto, ENERGY PROJECT ENGINEER [Primary Care Provider] - - Attending Attestation For this encounter, I have reviewed the SHALE MINER or PA documentation, treatment plan, and medical decision making; and I have had face to face time with this patient. <Yoseph Sandoval - Last Filed: 05/27/17 07:11> Date of Encounter: 05/19/17 - Assessment and Plan (1) Left foot infection Current Visit: Yes Status: Chronic Objective Vital Signs - Last 8 Hours Temp Pulse Resp BP Pulse Ox 05/27/17 06:59 97.5 F L 73 16 152/88 95 05/27/17 04:32 97.9 F 73 16 125/77 96 05/27/17 00:01 98.2 F 72 16 121/78 95 Intake and Output 05/26/17 05/26/17 05/27/17 15:59 23:59 07:59 Intake Total 1140 / 1140 290 / 290 50 / 50 Output Total 800 / 800 500 / 500 Balance 340 / 340 290 / 290 -450 / -450 Intake: IV Fluids 300 / 300 50 / 50 50 / 50 Zosyn 3.375 GM In Dextrose 5% ( 50 / 50 50 / 50 50 / 50 ADD-Collins) 50 ML @ 12.5 mls/ hr IVPB Q8H [facility] Rx#:[id number] Vancocin 1,000 MG In Dextrose 5 250 / 250 % 250 ML @ 167 mls/hr IVPB Q12H [facility] Rx#:[id number] Oral 840 / 840 240 / 240 Output: Urine 800 / 800 500 / 500 Other: Meal Lunch Dinner Percent of Meal Consumed 100% 80% Weight 94.6 kg Blood Glucose* 231 205 135 Patient Weight 05/27/17 23:59 Weight 94.6 kg - Labs 05/27/17 00:31 05/27/17 00:31 Diabetes panel 05/27/17 Range/Units 00:31 Sodium 139 (136-145) mEq/L Potassium 3.9 (3.5-4.5) mEq/L Chloride 106 (98-109) mEq/L Carbon Dioxide 26 (19-29) mEq/L BUN 10 (8-26) mg/dL Creatinine 0.73 (0.72-1.25) mg/dL Glucose 137 H (70-99) mg/dL Calcium 9.4 (8.6-10.8) mg/dL Calcium panel 05/27/17 Range/Units 00:31 Calcium 9.4 (8.6-10.8) mg/dL Pituitary panel 05/27/17 Range/Units 00:31 Sodium 139 (136-145) mEq/L Potassium 3.9 (3.5-4.5) mEq/L Chloride 106 (98-109) mEq/L Carbon Dioxide 26 (19-29) mEq/L BUN 10 (8-26) mg/dL Creatinine 0.73 (0.72-1.25) mg/dL Glucose 137 H (70-99) mg/dL Calcium 9.4 (8.6-10.8) mg/dL Adrenal panel 05/27/17 Range/Units 00:31 Sodium 139 (136-145) mEq/L Potassium 3.9 (3.5-4.5) mEq/L Chloride 106 (98-109) mEq/L Carbon Dioxide 26 (19-29) mEq/L BUN 10 (8-26) mg/dL Creatinine 0.73 (0.72-1.25) mg/dL Glucose 137 H (70-99) mg/dL Calcium 9.4 (8.6-10.8) mg/dL - Attending Attestation The patient was seen and evaluated on morning rounds. The wound this Condition. We will continue with iodoform packing at this point and transitioning to negative pressure wound dressing in the near future. Yoseph Sandoval MD FACS
[2017-05-26] MEDS ORDERED: *HR* HYDROmorphone (PF) 1 MG/ML SYRINGE IVP PRN (13:28)
[2017-05-26] MEDS: Melatonin 3 MG TABLET PO PRN (20:50)
--- NOTE | 2017-05-26 22:17 | Internal Med Progress Note ---
Date of Encounter: 05/26/17 Time of Encounter: 15:14 - Assessment and plan (1) Status post amputation of left foot Current Visit: Yes Status: Acute Assessment and plan: POD #2 left great toe amputation, Continue Vancomycin, Zosyn Surgery following, recommendations appreciated. Follow-up cultures. Wound vac placement tomorrow. (2) Coronary artery disease Current Visit: Yes Status: Chronic Assessment and plan: continue home meds; Qualifiers: Coronary Disease-Associated Artery/Lesion type: bypass graft [place] vs. transplanted heart: [place] heart Associated angina: without angina Qualified Code(s): I25.810 - Atherosclerosis of coronary artery bypass graft(s) without angina pectoris (3) Nicotine dependence with nicotine-induced disorder Current Visit: No Status: Chronic Qualifiers: Nicotine product type: cigarettes Qualified Code(s): F17.219 - Nicotine dependence, cigarettes, with unspecified nicotine-induced disorders (4) CHF (congestive heart failure) Current Visit: Yes Status: Chronic Assessment and plan: Suspected HF reduced EF from echo in 2015, but stated that was poorly visualized Qualifiers: Congestive heart failure type: unspecified congestive heart failure type Congestive heart failure chronicity: chronic Qualified Code(s): I50.9 - Heart failure, unspecified (5) COPD (chronic obstructive pulmonary disease) Current Visit: Yes Status: Chronic Qualifiers: COPD type: emphysema Emphysema type: unspecified Qualified Code(s): J43.9 - Emphysema, unspecified (6) Diabetes mellitus Current Visit: Yes Status: Chronic Assessment and plan: Basal insulin and continue Accucheck blood glucose monitoring with sliding scale insulin; diabetic diet; HbA1C noted to be 11.8%; Reduce HS insulin to prevent any further hypoglycemic episodes. 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 supervisor insulin use: with extermination supervisor use Qualified Code(s): 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 2 diabetes mellitus with diabetic peripheral angiopathy with gangrene; Z79.4 - halfway (current) use of insulin; Z79.4 - halfway (current) use of insulin; Z79.4 - technician terminal and repeater ( current) use of insulin; Z79.4 - halfway (current) use of insulin (7) Atrial fibrillation Current Visit: Yes Status: Chronic Qualifiers: Atrial fibrillation type: chronic Qualified Code(s): I48.2 - Chronic atrial fibrillation (8) PAD (peripheral artery disease) Current Visit: Yes Status: Chronic - Subjective Interval history: No complaints, no acute events. - Constitutional Vitals: Temp Pulse Resp BP Pulse Ox 97.9 F 69 16 143/88 96 05/26/17 19:42 05/26/17 19:42 05/26/17 19:42 05/26/17 19:42 05/26/17 19:42 General appearance: Present: A&O X 3, answers questions appropriately Internal Medicine: Result - Labs CBC & Chem 7: 05/26/17 05:20 05/26/17 05:20 Labs: Short CBC 05/26/17 Range/Units 05:20 WBC 9.5 (4.3-11.1) K/mcL Hgb 13.0 (12.9-16.9) g/dL Hct 39.7 (37.5-50.1) % Plt Count 388 (140-400) K/mcL Neutrophils # 5.2 (1.6-8.9) K/mcL BMP 05/26/17 05:20 Sodium 139 Potassium 4.0 Chloride 104 Carbon Dioxide 30 H BUN 11 Creatinine 0.76 Glucose 67 L Calcium 9.8 - ABG Interpretation ABG results: PT/INR, D-dimer PT 11.1 Seconds (9.4-12.1) 05/23/17 21:29 - VTE Documentation of Mechanical Device: Intermittent pneumatic compression device Consult Discharge Plan - Plan Referrals: Cora Pinto, SENIOR ENVIRONMENTAL ENGINEER [Primary Care Provider] -
[2017-05-27 00:39] LABS: Basophils # 0.1 K/mcL (0.0-0.2); Basophils % 0.9 %; Eosinophils # 0.2 K/mcL (0.0-0.6); Hematocrit 37.3 % (37.5-50.1); Hemoglobin 12.5 g/dL (12.9-16.9); Immature Granulocytes % 0.5 % (0-4); Lymphocytes # 2.9 K/mcL (0.6-4.6); Lymphocytes % 32.8 %; Mean Corpuscular HGB Conc 33.5 g/dL (31.6-35.5); Mean Corpuscular Hemoglobin 29.8 pg (28.0-33.3); Mean Corpuscular Volume 88.8 fL (83.0-100.0); Mean Platelet Volume 9.1 fL (9.4-12.4); Monocytes # 0.8 K/mcL (0.0-1.3); Monocytes % 8.6 %; Neutrophils # 4.9 K/mcL (1.6-8.9); Platelet Count 406 K/mcL (140-400); Red Cell Distribution Width 12.5 % (11.5-14.5); Segmented Neutrophils % 55.2 %
[2017-05-27 00:51] LABS: BUN/Creatinine Ratio 14 (6-26); Blood Urea Nitrogen 10 mg/dL (8-26); Calcium 9.4 mg/dL (8.6-10.8); Carbon Dioxide 26 mEq/L (19-29); Chloride 106 mEq/L (98-109); Glucose 137 mg/dL (70-99); Osmolality,Calculated 289 (280-300); Potassium 3.9 mEq/L (3.5-4.5); Sodium 139 mEq/L (136-145); eGFR For African Americans > 60 (> 60); eGFR For Non-African Americans > 60 (> 60)
[2017-05-27] MEDS: Vancomycin 1,000 MG in D5% in Water 250 ML IVPB SCH (01:04)
[2017-05-27] MEDS: Piperacillin/Tazobactam 3.375 GM in D5% in Water 50 ML IVPB SCH (04:32)
[2017-05-27] MEDS: *HR* Heparin 5,000 UNIT/ML VIAL SQ SCH ×2 (04:32→16:52)
[2017-05-27] MEDS: *HR* OxyCODONE/APAP 7.5/325 TABLET PO PRN ×4 (04:36→21:00)
[2017-05-27] MEDS: Gabapentin 300 MG CAPSULE PO SCH ×4 (08:07→21:01)
[2017-05-27] MEDS ORDERED: Aminoglycoside Consult 1 EACH MC ONE (08:08)
[2017-05-27] MEDS: Insulin DETEMIR 100 UNIT/ML X5UNITS SQ SCH ×2 (08:11→21:41)
[2017-05-27] MEDS: Insulin LISPRO 300 UNITS/3 ML VIAL SQ SCH ×4 (08:15→21:40)
[2017-05-27] MEDS: Melatonin 3 MG TABLET PO PRN (21:01)
--- NOTE | 2017-05-27 21:54 | Internal Med Progress Note ---
Date of Encounter: 05/27/17 Time of Encounter: 13:50 - Assessment and plan (1) Status post amputation of left foot Current Visit: Yes Status: Acute Assessment and plan: POD #3 left great toe amputation. Change antibiotics to PO Augmentin and Cipro Post surgical wound care Plan is home with home health with wound vac. Will have pt/ot evaluate patient to see if this is appropriate or if needing SNF. (2) Coronary artery disease Current Visit: Yes Status: Chronic Assessment and plan: continue home meds; Qualifiers: Coronary Disease-Associated Artery/Lesion type: bypass graft [place] vs. transplanted heart: [place] heart Associated angina: without angina Qualified Code(s): I25.810 - Atherosclerosis of coronary artery bypass graft(s) without angina pectoris (3) Nicotine dependence with nicotine-induced disorder Current Visit: No Status: Chronic Qualifiers: Nicotine product type: cigarettes Qualified Code(s): F17.219 - Nicotine dependence, cigarettes, with unspecified nicotine-induced disorders (4) CHF (congestive heart failure) Current Visit: Yes Status: Chronic Qualifiers: Congestive heart failure type: unspecified congestive heart failure type Congestive heart failure chronicity: chronic Qualified Code(s): I50.9 - Heart failure, unspecified (5) COPD (chronic obstructive pulmonary disease) Current Visit: Yes Status: Chronic Qualifiers: COPD type: emphysema Emphysema type: unspecified Qualified Code(s): J43.9 - Emphysema, unspecified (6) Diabetes mellitus Current Visit: Yes Status: Chronic Qualifiers: Diabetes mellitus type: type 2 Diabetes mellitus complication status: with circulatory complication Diabetes mellitus complication detail: with peripheral angiopathy with gangrene Diabetes mellitus residential insulin use: with facilities supervisor use Qualified Code(s): 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 2 diabetes mellitus with diabetic peripheral angiopathy with gangrene; Z79.4 - penitentiary (current) use of insulin; Z79.4 - penitentiary (current) use of insulin; Z79.4 - penitentiary ( current) use of insulin; Z79.4 - penitentiary (current) use of insulin (7) Atrial fibrillation Current Visit: Yes Status: Chronic Qualifiers: Atrial fibrillation type: chronic Qualified Code(s): I48.2 - Chronic atrial fibrillation (8) PAD (peripheral artery disease) Current Visit: Yes Status: Chronic - Subjective Interval history: 05/27. Wound vac for today. Patient has swayed back and forth between home with HH versus SNF. Patient insists he cannot go home at this point. He lists several different reasons, including his dogs in the way, and fear that wound wont heal properly at home. He states that it is best for him to stay until Thursday, 05/29 or to go to SNF. He does not mention why this specific date. He denies fevers/chills/n/v. - Constitutional Vitals: Temp Pulse Resp BP Pulse Ox 98.1 F 80 17 149/81 92 05/27/17 19:48 05/27/17 19:48 05/27/17 19:48 05/27/17 19:48 05/27/17 19:48 General appearance: Present: A&O X 3, answers questions appropriately - Respiratory Respiratory exam: Present: CTAB. Absent: accessory muscle use, rales, rhonchi, wheezes - Cardiovascular Cardiovascular exam: Present: RRR, +S1, +S2. Absent: diastolic murmur, gallop, rubs, systolic murmur - Extremities Exam Additional comments: Left foot dressing c/d/i, no erythema, no purulent drainage. Internal Medicine: Result - Labs CBC & Chem 7: 05/27/17 00:31 05/27/17 00:31 Labs: Short CBC 05/27/17 Range/Units 00:31 WBC 8.9 (4.3-11.1) K/mcL Hgb 12.5 L (12.9-16.9) g/dL Hct 37.3 L (37.5-50.1) % Plt Count 406 H (140-400) K/mcL Neutrophils # 4.9 (1.6-8.9) K/mcL BMP 05/27/17 00:31 Sodium 139 Potassium 3.9 Chloride 106 Carbon Dioxide 26 BUN 10 Creatinine 0.73 Glucose 137 H Calcium 9.4 - ABG Interpretation ABG results: PT/INR, D-dimer PT 11.1 Seconds (9.4-12.1) 05/23/17 21:29 - VTE Documentation of Mechanical Device: Intermittent pneumatic compression device Consult Discharge Plan - Plan Referrals: Cora Pinto, RN RADIATION [Primary Care Provider] -
[2017-05-28 04:40] LABS: Basophils # 0.1 K/mcL (0.0-0.2); Basophils % 0.9 %; Eosinophils # 0.2 K/mcL (0.0-0.6); Eosinophils % 2.4 %; Hematocrit 38.2 % (37.5-50.1); Hemoglobin 12.6 g/dL (12.9-16.9); Immature Granulocytes % 0.5 % (0-4); Lymphocytes # 3.3 K/mcL (0.6-4.6); Lymphocytes % 37.8 %; Mean Corpuscular Hemoglobin 29.6 pg (28.0-33.3); Mean Corpuscular Volume 89.7 fL (83.0-100.0); Mean Platelet Volume 9.4 fL (9.4-12.4); Monocytes # 0.8 K/mcL (0.0-1.3); Monocytes % 8.6 %; Neutrophils # 4.3 K/mcL (1.6-8.9); Platelet Count 423 K/mcL (140-400); Red Blood Count 4.26 M/mcL (4.19-5.50); Red Cell Distribution Width 12.7 % (11.5-14.5); Segmented Neutrophils % 49.8 %
[2017-05-28 04:47] LABS: BUN/Creatinine Ratio 17 (6-26); Blood Urea Nitrogen 12 mg/dL (8-26); Calcium 9.9 mg/dL (8.6-10.8); Carbon Dioxide 27 mEq/L (19-29); Chloride 107 mEq/L (98-109); Glucose 146 mg/dL (70-99); Osmolality,Calculated 288 (280-300); Potassium 3.9 mEq/L (3.5-4.5); Sodium 138 mEq/L (136-145); eGFR For African Americans > 60 (> 60); eGFR For Non-African Americans > 60 (> 60)
[2017-05-28] MEDS: *HR* Heparin 5,000 UNIT/ML VIAL SQ SCH ×2 (06:34→17:42)
[2017-05-28] MEDS: Gabapentin 300 MG CAPSULE PO SCH ×4 (08:22→21:20)
[2017-05-28] MEDS: Insulin DETEMIR 100 UNIT/ML X5UNITS SQ SCH ×2 (08:23→21:21)
[2017-05-28] MEDS: Insulin LISPRO 300 UNITS/3 ML VIAL SQ SCH ×4 (08:26→21:21)
[2017-05-28] MEDS: *HR* OxyCODONE/APAP 7.5/325 TABLET PO PRN ×2 (16:47→21:46)
--- NOTE | 2017-05-28 22:39 | Internal Med Progress Note ---
Date of Encounter: 05/28/17 Time of Encounter: 13:36 - Assessment and plan (1) Status post amputation of left foot Current Visit: Yes Status: Acute Assessment and plan: 05/24 left great toe amputation. Augmentin and Cipro Post-op Management per surgery, recommendations appreciated. PT/OT recs SNF upon discharge. (2) Coronary artery disease Current Visit: Yes Status: Chronic Assessment and plan: continue home meds; Qualifiers: Coronary Disease-Associated Artery/Lesion type: bypass graft [place] vs. transplanted heart: [place] heart Associated angina: without angina Qualified Code(s): I25.810 - Atherosclerosis of coronary artery bypass graft(s) without angina pectoris (3) Nicotine dependence with nicotine-induced disorder Current Visit: No Status: Chronic Qualifiers: Nicotine product type: cigarettes Qualified Code(s): F17.219 - Nicotine dependence, cigarettes, with unspecified nicotine-induced disorders (4) CHF (congestive heart failure) Current Visit: Yes Status: Chronic Assessment and plan: Suspected HF reduced EF from echo in 2014, but stated that was poorly visualized Qualifiers: Congestive heart failure type: unspecified congestive heart failure type Congestive heart failure chronicity: chronic Qualified Code(s): I50.9 - Heart failure, unspecified (5) COPD (chronic obstructive pulmonary disease) Current Visit: Yes Status: Chronic Qualifiers: COPD type: emphysema Emphysema type: unspecified Qualified Code(s): J43.9 - Emphysema, unspecified (6) Diabetes mellitus Current Visit: Yes Status: Chronic Assessment and plan: Basal insulin and continue Accucheck blood glucose monitoring with sliding scale insulin; diabetic diet; HbA1C noted to be 11.8%; Qualifiers: Diabetes mellitus type: type 2 Diabetes mellitus complication status: with circulatory complication Diabetes mellitus complication detail: with peripheral angiopathy with gangrene Diabetes mellitus chcf insulin use: with chcf use Qualified Code(s): 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 2 diabetes mellitus with diabetic peripheral angiopathy with gangrene; Z79.4 - halfway (current) use of insulin; Z79.4 - halfway (current) use of insulin; Z79.4 - termite renewal inspector ( current) use of insulin; Z79.4 - halfway (current) use of insulin (7) Atrial fibrillation Current Visit: Yes Status: Chronic Qualifiers: Atrial fibrillation type: chronic Qualified Code(s): I48.2 - Chronic atrial fibrillation (8) PAD (peripheral artery disease) Current Visit: Yes Status: Chronic - Subjective Interval history: 05/27. Wound vac placed, PT/OT recs SNF 05/28: no complaints, no acute events. Unsure if he wants to go to SNF or home. Today is ving and tomorrow is Thursday, he will have a limited window to get approval for SNF. Original plan was for home with wound vac. - Constitutional Vitals: Temp Pulse Resp BP Pulse Ox 97.3 F L 70 17 124/76 94 05/28/17 19:45 05/28/17 19:45 05/28/17 19:45 05/28/17 19:45 05/28/17 19:45 General appearance: Present: A&O X 3, answers questions appropriately Exam: - Respiratory Respiratory exam: Present: CTAB. Absent: accessory muscle use, rales, rhonchi, wheezes - Cardiovascular Cardiovascular exam: Present: RRR, +S1, +S2. Absent: diastolic murmur, gallop, rubs, systolic murmur - Extremities Exam Additional comments: Left foot wound vac on region of amputation Internal Medicine: Result - Labs CBC & Chem 7: 05/28/17 04:11 05/28/17 04:11 Labs: Short CBC 05/28/17 Range/Units 04:11 WBC 8.7 (4.3-11.1) K/mcL Hgb 12.6 L (12.9-16.9) g/dL Hct 38.2 (37.5-50.1) % Plt Count 423 H (140-400) K/mcL Neutrophils # 4.3 (1.6-8.9) K/mcL BMP 05/28/17 04:11 Sodium 138 Potassium 3.9 Chloride 107 Carbon Dioxide 27 BUN 12 Creatinine 0.69 L Glucose 146 H Calcium 9.9 - ABG Interpretation ABG results: PT/INR, D-dimer PT 11.1 Seconds (9.4-12.1) 05/23/17 21:29 - VTE Documentation of Mechanical Device: Intermittent pneumatic compression device Consult Discharge Plan - Plan Referrals: Cora Pinto, INSTRUCTOR NURSE [Primary Care Provider] -
[2017-05-29 03:37] LABS: Basophils # 0.1 K/mcL (0.0-0.2); Basophils % 1.2 %; Eosinophils # 0.2 K/mcL (0.0-0.6); Eosinophils % 2.6 %; Hematocrit 38.9 % (37.5-50.1); Hemoglobin 12.8 g/dL (12.9-16.9); Immature Granulocytes % 0.9 % (0-4); Lymphocytes # 3.6 K/mcL (0.6-4.6); Lymphocytes % 41.9 %; Mean Corpuscular HGB Conc 32.9 g/dL (31.6-35.5); Mean Corpuscular Hemoglobin 29.2 pg (28.0-33.3); Mean Corpuscular Volume 88.8 fL (83.0-100.0); Mean Platelet Volume 9.5 fL (9.4-12.4); Monocytes # 0.7 K/mcL (0.0-1.3); Neutrophils # 3.9 K/mcL (1.6-8.9); Platelet Count 453 K/mcL (140-400); Red Blood Count 4.38 M/mcL (4.19-5.50); Red Cell Distribution Width 12.6 % (11.5-14.5); Segmented Neutrophils % 45.4 %
[2017-05-29 03:50] LABS: BUN/Creatinine Ratio 12 (6-26); Blood Urea Nitrogen 10 mg/dL (8-26); Calcium 9.4 mg/dL (8.6-10.8); Carbon Dioxide 25 mEq/L (19-29); Chloride 108 mEq/L (98-109); Glucose 287 mg/dL (70-99); Osmolality,Calculated 296 (280-300); Potassium 4.1 mEq/L (3.5-4.5); Sodium 138 mEq/L (136-145); eGFR For African Americans > 60 (> 60); eGFR For Non-African Americans > 60 (> 60)
[2017-05-29] MEDS: *HR* OxyCODONE/APAP 7.5/325 TABLET PO PRN ×2 (04:49→21:51)
[2017-05-29] MEDS: *HR* Heparin 5,000 UNIT/ML VIAL SQ SCH ×2 (05:55→17:46)
[2017-05-29] MEDS: Gabapentin 300 MG CAPSULE PO SCH ×4 (08:17→21:51)
[2017-05-29] MEDS: Insulin LISPRO 300 UNITS/3 ML VIAL SQ SCH ×4 (08:18→21:53)
[2017-05-29] MEDS: Insulin DETEMIR 100 UNIT/ML X5UNITS SQ SCH ×2 (09:14→21:57)
--- NOTE | 2017-05-29 13:07 | Event Note ---
Date of Encounter: 05/29/17 Time of Encounter: 12:30 Wound Vac change completed. Wound beds with granulation tissue. No s/s of infection noted. aprox 50 ml SS drainage noted in canister prior to [place] change. Pt tolerated well. - Patient Status Disposition: Still a Patient Condition: Good - Discharge Instructions Follow Up With: Cora Pinto CNP [Primary Care Provider] - Yoseph Sandoval MD [Partnered Physician] - (In WOUND CARE aprox 1-2 weeks after d/ c) - Diet and Activity Activity: as per physical therapy, increase activity as tolerated Diet: diabetic diet
--- NOTE | 2017-05-29 18:27 | Internal Med Progress Note ---
Date of Encounter: 05/29/17 Time of Encounter: 18:25 - Assessment and plan (1) Status post amputation of left foot Current Visit: Yes Status: Acute Assessment and plan: 05/24 left great toe amputation. Now on Augmentin and Cipro Awaiting placement to SNF (2) Coronary artery disease Current Visit: Yes Status: Chronic Assessment and plan: continue home meds; Qualifiers: Coronary Disease-Associated Artery/Lesion type: bypass graft [place] vs. transplanted heart: [place] heart Associated angina: without angina Qualified Code(s): I25.810 - Atherosclerosis of coronary artery bypass graft(s) without angina pectoris (3) Nicotine dependence with nicotine-induced disorder Current Visit: No Status: Chronic Qualifiers: Nicotine product type: cigarettes Qualified Code(s): F17.219 - Nicotine dependence, cigarettes, with unspecified nicotine-induced disorders (4) CHF (congestive heart failure) Current Visit: Yes Status: Chronic Assessment and plan: Suspected HF reduced EF from echo in 2014, but stated that was poorly visualized Qualifiers: Congestive heart failure type: unspecified congestive heart failure type Congestive heart failure chronicity: chronic Qualified Code(s): I50.9 - Heart failure, unspecified (5) COPD (chronic obstructive pulmonary disease) Current Visit: Yes Status: Chronic Qualifiers: COPD type: emphysema Emphysema type: unspecified Qualified Code(s): J43.9 - Emphysema, unspecified (6) Diabetes mellitus Current Visit: Yes Status: Chronic Assessment and plan: Basal insulin and continue Accucheck blood glucose monitoring with sliding scale insulin; diabetic diet; HbA1C noted to be 11.8%; Qualifiers: Diabetes mellitus type: type 2 Diabetes mellitus complication status: with circulatory complication Diabetes mellitus complication detail: with peripheral angiopathy with gangrene Diabetes mellitus custodial insulin use: with conservation science officer use Qualified Code(s): 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 2 diabetes mellitus with diabetic peripheral angiopathy with gangrene; Z79.4 - care home (current) use of insulin; Z79.4 - care home (current) use of insulin; Z79.4 - care home ( current) use of insulin; Z79.4 - care home (current) use of insulin (7) Atrial fibrillation Current Visit: Yes Status: Chronic Assessment and plan: continue Coreg; not on anticoagulation as outpatient; Qualifiers: Atrial fibrillation type: chronic Qualified Code(s): I48.2 - Chronic atrial fibrillation (8) PAD (peripheral artery disease) Current Visit: Yes Status: Chronic Assessment and plan: continue Plavix; - Subjective Interval history: 05/27. Wound vac placed, PT/OT recs SNF 05/28: no complaints, no acute events. Unsure if he wants to go to SNF or home. 05/29: doing well medically, awaiting placement. - Constitutional Vitals: Temp Pulse Resp BP Pulse Ox 98.2 F 72 18 132/77 94 05/29/17 16:56 05/29/17 16:56 05/29/17 16:56 05/29/17 16:56 05/29/17 16:56 General appearance: Present: A&O X 3, answers questions appropriately Exam: - Respiratory Respiratory exam: Present: CTAB. Absent: accessory muscle use, rales, rhonchi, wheezes - Cardiovascular Cardiovascular exam: Present: RRR, +S1, +S2. Absent: diastolic murmur, gallop, rubs, systolic murmur - Extremities Exam Additional comments: Left foot wound vac on region of amputation Internal Medicine: Result - Labs CBC & Chem 7: 05/29/17 02:51 05/29/17 02:51 Labs: Short CBC 05/29/17 Range/Units 02:51 WBC 8.5 (4.3-11.1) K/mcL Hgb 12.8 L (12.9-16.9) g/dL Hct 38.9 (37.5-50.1) % Plt Count 453 H (140-400) K/mcL Neutrophils # 3.9 (1.6-8.9) K/mcL BMP 05/29/17 02:51 Sodium 138 Potassium 4.1 Chloride 108 Carbon Dioxide 25 BUN 10 Creatinine 0.84 Glucose 287 H Calcium 9.4 - ABG Interpretation ABG results: PT/INR, D-dimer PT 11.1 Seconds (9.4-12.1) 05/23/17 21:29 - VTE Documentation of Mechanical Device: Intermittent pneumatic compression device Consult Discharge Plan - Plan Referrals: Yoseph Sandoval MD [Partnered Physician] - (In WOUND CARE aprox 1-2 weeks after d/ c) Cora Pinto CNP [Primary Care Provider] -
[2017-05-30] MEDS: *HR* OxyCODONE/APAP 7.5/325 TABLET PO PRN ×2 (05:43→20:24)
[2017-05-30] MEDS: *HR* Heparin 5,000 UNIT/ML VIAL SQ SCH ×2 (05:43→17:27)
[2017-05-30 06:29] LABS: Basophils # 0.1 K/mcL (0.0-0.2); Basophils % 1.3 %; Eosinophils # 0.3 K/mcL (0.0-0.6); Eosinophils % 3.1 %; Hematocrit 41.3 % (37.5-50.1); Hemoglobin 13.3 g/dL (12.9-16.9); Immature Granulocytes % 0.8 % (0-4); Lymphocytes # 3.2 K/mcL (0.6-4.6); Lymphocytes % 37.1 %; Mean Corpuscular HGB Conc 32.2 g/dL (31.6-35.5); Mean Corpuscular Hemoglobin 28.6 pg (28.0-33.3); Mean Corpuscular Volume 88.8 fL (83.0-100.0); Mean Platelet Volume 9.4 fL (9.4-12.4); Monocytes # 0.7 K/mcL (0.0-1.3); Monocytes % 7.6 %; Neutrophils # 4.4 K/mcL (1.6-8.9); Platelet Count 496 K/mcL (140-400); Red Blood Count 4.65 M/mcL (4.19-5.50); Red Cell Distribution Width 12.6 % (11.5-14.5); Segmented Neutrophils % 50.1 %
[2017-05-30 06:42] LABS: BUN/Creatinine Ratio 16 (6-26); Blood Urea Nitrogen 12 mg/dL (8-26); Calcium 9.7 mg/dL (8.6-10.8); Carbon Dioxide 26 mEq/L (19-29); Chloride 106 mEq/L (98-109); Glucose 177 mg/dL (70-99); Osmolality,Calculated 290 (280-300); Potassium 3.4 mEq/L (3.5-4.5); Sodium 138 mEq/L (136-145); eGFR For African Americans > 60 (> 60); eGFR For Non-African Americans > 60 (> 60)
[2017-05-30] MEDS: Insulin LISPRO 300 UNITS/3 ML VIAL SQ SCH ×7 (08:05→20:54)
[2017-05-30] MEDS: Gabapentin 300 MG CAPSULE PO SCH ×4 (08:05→20:24)
[2017-05-30] MEDS: Insulin DETEMIR 100 UNIT/ML X5UNITS SQ SCH ×2 (08:58→20:55)
--- NOTE | 2017-05-30 17:15 | Internal Med Progress Note ---
Date of Encounter: 05/30/17 Time of Encounter: 17:12 - Assessment and plan (1) Status post amputation of left foot Current Visit: Yes Status: Acute Assessment and plan: 05/24 left great toe amputation. Now on Augmentin and Cipro Awaiting placement to SNF (2) Coronary artery disease Current Visit: Yes Status: Chronic Assessment and plan: continue home meds; Qualifiers: Coronary Disease-Associated Artery/Lesion type: bypass graft [place] vs. transplanted heart: [place] heart Associated angina: without angina Qualified Code(s): I25.810 - Atherosclerosis of coronary artery bypass graft(s) without angina pectoris (3) Nicotine dependence with nicotine-induced disorder Current Visit: No Status: Chronic Qualifiers: Nicotine product type: cigarettes Qualified Code(s): F17.219 - Nicotine dependence, cigarettes, with unspecified nicotine-induced disorders (4) CHF (congestive heart failure) Current Visit: Yes Status: Chronic Assessment and plan: Suspected HF reduced EF from echo in 2014, but stated that was poorly visualized Qualifiers: Congestive heart failure type: unspecified congestive heart failure type Congestive heart failure chronicity: chronic Qualified Code(s): I50.9 - Heart failure, unspecified (5) COPD (chronic obstructive pulmonary disease) Current Visit: Yes Status: Chronic Qualifiers: COPD type: emphysema Emphysema type: unspecified Qualified Code(s): J43.9 - Emphysema, unspecified (6) Diabetes mellitus Current Visit: Yes Status: Chronic Assessment and plan: Basal insulin and continue Accucheck blood glucose monitoring with sliding scale insulin; diabetic diet; HbA1C noted to be 11.8%; Qualifiers: Diabetes mellitus type: type 2 Diabetes mellitus complication status: with circulatory complication Diabetes mellitus complication detail: with peripheral angiopathy with gangrene Diabetes mellitus intermediate insulin use: with watermelon harvesting supervisor use Qualified Code(s): 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 2 diabetes mellitus with diabetic peripheral angiopathy with gangrene; Z79.4 - FDC (current) use of insulin; Z79.4 - FDC (current) use of insulin; Z79.4 - FDC ( current) use of insulin; Z79.4 - FDC (current) use of insulin (7) Atrial fibrillation Current Visit: Yes Status: Chronic Assessment and plan: continue Coreg; not on anticoagulation as outpatient; Qualifiers: Atrial fibrillation type: chronic Qualified Code(s): I48.2 - Chronic atrial fibrillation (8) PAD (peripheral artery disease) Current Visit: Yes Status: Chronic Assessment and plan: continue Plavix; - Subjective Interval history: 05/27. Wound vac placed, PT/OT recs SNF 05/28: no complaints, no acute events. Unsure if he wants to go to SNF or home. 05/30: doing well. Awaiting placement to SNF - Constitutional Vitals: Temp Pulse Resp BP Pulse Ox 98.2 F 73 17 156/89 98 05/30/17 16:19 05/30/17 16:19 05/30/17 16:19 05/30/17 16:19 05/30/17 16:19 General appearance: Present: A&O X 3, answers questions appropriately Exam: - Respiratory Respiratory exam: Present: CTAB. Absent: accessory muscle use, rales, rhonchi, wheezes - Cardiovascular Cardiovascular exam: Present: RRR, +S1, +S2. Absent: diastolic murmur, gallop, rubs, systolic murmur - Extremities Exam Additional comments: Left foot wound vac on region of amputation Internal Medicine: Result - Labs CBC & Chem 7: 05/30/17 05:04 05/30/17 05:04 Labs: Short CBC 05/30/17 Range/Units 05:04 WBC 8.7 (4.3-11.1) K/mcL Hgb 13.3 (12.9-16.9) g/dL Hct 41.3 (37.5-50.1) % Plt Count 496 H (140-400) K/mcL Neutrophils # 4.4 (1.6-8.9) K/mcL BMP 05/30/17 05:04 Sodium 138 Potassium 3.4 L Chloride 106 Carbon Dioxide 26 BUN 12 Creatinine 0.76 Glucose 177 H Calcium 9.7 - ABG Interpretation ABG results: PT/INR, D-dimer PT 11.1 Seconds (9.4-12.1) 05/23/17 21:29 - VTE Documentation of Mechanical Device: Intermittent pneumatic compression device Consult Discharge Plan - Plan Referrals: Yoseph Sandoval MD [Partnered Physician] - (In WOUND CARE aprox 1-2 weeks after d/ c) Cora Pinto CNP [Primary Care Provider] -
[2017-05-31] MEDS: *HR* OxyCODONE/APAP 7.5/325 TABLET PO PRN ×2 (05:35→21:07)
[2017-05-31] MEDS: *HR* Heparin 5,000 UNIT/ML VIAL SQ SCH ×2 (05:35→17:23)
[2017-05-31 07:05] LABS: Basophils # 0.1 K/mcL (0.0-0.2); Basophils % 1.3 %; Eosinophils # 0.3 K/mcL (0.0-0.6); Eosinophils % 2.6 %; Hematocrit 39.9 % (37.5-50.1); Hemoglobin 13.2 g/dL (12.9-16.9); Immature Granulocytes % 0.8 % (0-4); Lymphocytes % 31.2 %; Mean Corpuscular HGB Conc 33.1 g/dL (31.6-35.5); Mean Corpuscular Hemoglobin 29.6 pg (28.0-33.3); Mean Corpuscular Volume 89.5 fL (83.0-100.0); Mean Platelet Volume 9.1 fL (9.4-12.4); Monocytes # 0.8 K/mcL (0.0-1.3); Monocytes % 8.1 %; Neutrophils # 5.4 K/mcL (1.6-8.9); Platelet Count 493 K/mcL (140-400); Red Blood Count 4.46 M/mcL (4.19-5.50); Red Cell Distribution Width 12.9 % (11.5-14.5)
[2017-05-31 07:19] LABS: BUN/Creatinine Ratio 17 (6-26); Blood Urea Nitrogen 14 mg/dL (8-26); Calcium 9.4 mg/dL (8.6-10.8); Carbon Dioxide 25 mEq/L (19-29); Chloride 105 mEq/L (98-109); Glucose 232 mg/dL (70-99); Osmolality,Calculated 290 (280-300); Sodium 136 mEq/L (136-145); eGFR For African Americans > 60 (> 60); eGFR For Non-African Americans > 60 (> 60)
[2017-05-31] MEDS: Insulin LISPRO 300 UNITS/3 ML VIAL SQ SCH ×7 (07:59→20:56)
[2017-05-31] MEDS: Gabapentin 300 MG CAPSULE PO SCH ×4 (07:59→21:07)
[2017-05-31] MEDS: Insulin DETEMIR 100 UNIT/ML X5UNITS SQ SCH ×2 (08:02→20:56)
--- NOTE | 2017-05-31 18:07 | Internal Med Progress Note ---
Date of Encounter: 05/31/17 Time of Encounter: 14:18 - Assessment and plan (1) Status post amputation of left foot Current Visit: Yes Status: Acute Assessment and plan: 05/24 left great toe amputation. Now on Augmentin and Cipro. Awaiting placement to SNF (2) Coronary artery disease Current Visit: Yes Status: Chronic Assessment and plan: continue home meds; Qualifiers: Coronary Disease-Associated Artery/Lesion type: bypass graft [place] vs. transplanted heart: [place] heart Associated angina: without angina Qualified Code(s): I25.810 - Atherosclerosis of coronary artery bypass graft(s) without angina pectoris (3) Nicotine dependence with nicotine-induced disorder Current Visit: No Status: Chronic Qualifiers: Nicotine product type: cigarettes Qualified Code(s): F17.219 - Nicotine dependence, cigarettes, with unspecified nicotine-induced disorders (4) CHF (congestive heart failure) Current Visit: Yes Status: Chronic Assessment and plan: Suspected HF reduced EF from echo in 2014, but stated that was poorly visualized Qualifiers: Congestive heart failure type: unspecified congestive heart failure type Congestive heart failure chronicity: chronic Qualified Code(s): I50.9 - Heart failure, unspecified (5) COPD (chronic obstructive pulmonary disease) Current Visit: Yes Status: Chronic Qualifiers: COPD type: emphysema Emphysema type: unspecified Qualified Code(s): J43.9 - Emphysema, unspecified (6) Diabetes mellitus Current Visit: Yes Status: Chronic Assessment and plan: Basal insulin and continue Accucheck blood glucose monitoring with sliding scale insulin; diabetic diet; HbA1C noted to be 11.8%; Qualifiers: Diabetes mellitus type: type 2 Diabetes mellitus complication status: with circulatory complication Diabetes mellitus complication detail: with peripheral angiopathy with gangrene Diabetes mellitus half-way insulin use: with exterminator termite use Qualified Code(s): 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 2 diabetes mellitus with diabetic peripheral angiopathy with gangrene; Z79.4 - termite inspector (current) use of insulin; Z79.4 - halfway (current) use of insulin; Z79.4 - halfway ( current) use of insulin; Z79.4 - halfway (current) use of insulin (7) Atrial fibrillation Current Visit: Yes Status: Chronic Assessment and plan: continue Coreg; not on anticoagulation as outpatient; Qualifiers: Atrial fibrillation type: chronic Qualified Code(s): I48.2 - Chronic atrial fibrillation (8) PAD (peripheral artery disease) Current Visit: Yes Status: Chronic Assessment and plan: continue Plavix; - Subjective Interval history: Wound vac placed 05/27. Currently awaiting SNF - Constitutional Vitals: Temp Pulse Resp BP Pulse Ox 97.7 F 100 17 154/96 97 05/31/17 11:31 05/31/17 15:32 05/31/17 15:32 05/31/17 15:32 05/31/17 15:32 General appearance: Present: A&O X 3, answers questions appropriately Exam: - Respiratory Respiratory exam: Present: CTAB. Absent: accessory muscle use, rales, rhonchi, wheezes - Cardiovascular Cardiovascular exam: Present: RRR, +S1, +S2. Absent: diastolic murmur, gallop, rubs, systolic murmur - Extremities Exam Additional comments: Left foot wound vac on, clean Internal Medicine: Result - Labs CBC & Chem 7: 05/31/17 06:41 05/31/17 06:41 Labs: Short CBC 05/31/17 Range/Units 06:41 WBC 9.6 (4.3-11.1) K/mcL Hgb 13.2 (12.9-16.9) g/dL Hct 39.9 (37.5-50.1) % Plt Count 493 H (140-400) K/mcL Neutrophils # 5.4 (1.6-8.9) K/mcL BMP 05/31/17 06:41 Sodium 136 Potassium 4.0 Chloride 105 Carbon Dioxide 25 BUN 14 Creatinine 0.84 Glucose 232 H Calcium 9.4 - ABG Interpretation ABG results: PT/INR, D-dimer PT 11.1 Seconds (9.4-12.1) 05/23/17 21:29 - VTE Documentation of Mechanical Device: Intermittent pneumatic compression device Consult Discharge Plan - Plan Referrals: Yoseph Sandoval MD [Partnered Physician] - (In WOUND CARE aprox 1-2 weeks after d/ c) Cora Pinto CNP [Primary Care Provider] -
[2017-06-01] MEDS: *HR* Heparin 5,000 UNIT/ML VIAL SQ SCH ×2 (05:19→18:16)
[2017-06-01] MEDS: *HR* OxyCODONE/APAP 7.5/325 TABLET PO PRN ×3 (05:20→21:04)
[2017-06-01] MEDS: Gabapentin 300 MG CAPSULE PO SCH ×4 (08:22→21:04)
[2017-06-01] MEDS: Insulin LISPRO 300 UNITS/3 ML VIAL SQ SCH ×7 (08:22→23:18)
[2017-06-01] MEDS: Insulin DETEMIR 100 UNIT/ML X5UNITS SQ SCH ×2 (08:23→21:04)
--- NOTE | 2017-06-01 14:38 | Event Note ---
Date of Encounter: 06/01/17 Time of Encounter: 14:35 Left great toe amputation site: Wound vac in place. Three areas require packing/foam bridge. 1)midline area and 2 areas on the dorsal aspect (all surgical incision areas). Pack with black foam. Cover with wound vac tape. Bridge areas and cover with wound vac tape every M/W/F. Per SW, unsure if patient will be d/c'd today as it requires prior authorization from insurance. Bedside RN to complete wound vac change if he does not d/c. OK to d/c from surgical perspective and follow-up in wound care in two weeks
--- NOTE | 2017-06-02 02:35 | Discharge Summary ---
Date of Encounter: 06/01/17 Time of Encounter: 18:33 - Discharge Diagnosis (1) Gangrene due to peripheral vascular disease Priority: Primary Status: Acute (2) Status post amputation of toe of left foot Priority: Secondary Status: Acute Comments: 05/24/17: Left great toe amputation, left first metatarsal head resection, debridement left extensor tendon (3) Coronary artery disease Priority: Secondary Status: Chronic Qualifiers: Coronary Disease-Associated Artery/Lesion type: bypass graft [place] vs. transplanted heart: [place] heart Associated angina: without angina Qualified Code(s): I25.810 - Atherosclerosis of coronary artery bypass graft(s) without angina pectoris (4) Nicotine dependence with nicotine-induced disorder Priority: Secondary Status: Chronic Qualifiers: Nicotine product type: cigarettes Qualified Code(s): F17.219 - Nicotine dependence, cigarettes, with unspecified nicotine-induced disorders (5) CHF (congestive heart failure) Priority: Secondary Status: Chronic Qualifiers: Congestive heart failure type: unspecified congestive heart failure type Congestive heart failure chronicity: chronic Qualified Code(s): I50.9 - Heart failure, unspecified (6) COPD (chronic obstructive pulmonary disease) Priority: Secondary Status: Chronic Qualifiers: COPD type: emphysema Emphysema type: unspecified Qualified Code(s): J43.9 - Emphysema, unspecified (7) Diabetes mellitus Priority: Secondary Status: Chronic Qualifiers: Diabetes mellitus type: type 2 Diabetes mellitus complication status: with circulatory complication Diabetes mellitus complication detail: with peripheral angiopathy with gangrene Diabetes mellitus terminologist insulin use: with terminologist use Qualified Code(s): 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 2 diabetes mellitus with diabetic peripheral angiopathy with gangrene; Z79.4 - long-term (current) use of insulin; Z79.4 - long-term (current) use of insulin; Z79.4 - terminal gauger ( current) use of insulin; Z79.4 - long-term (current) use of insulin (8) Atrial fibrillation Priority: Secondary Status: Chronic Qualifiers: Atrial fibrillation type: chronic Qualified Code(s): I48.2 - Chronic atrial fibrillation (9) PAD (peripheral artery disease) Priority: Secondary Status: Chronic (10) Ischemic ulcer of heel with fat layer exposed Priority: Secondary Status: Acute Qualifiers: Laterality: left Qualified Code(s): L97.422 - Non-pressure chronic ulcer of left heel and midfoot with fat layer exposed - Discharge Medications Home Medications: Gabapentin [Neurontin] 300 mg PO TID 05/18/15 [History] OxyCODONE/APAP 7.5/325 [Percocet 7.5/325] 1 each PO Q6H PRN 05/18/15 [History] Clopidogrel Bisulfate [Plavix] 75 mg PO DAILY #30 tablet 05/15/17 [Rx] Insulin NPH Hum/Reg Insulin Hm [Novolin 70-30 100 Unit/ml Vial] 20 unit SQ QAM 05/15/17 [History] Lovastatin [Altoprev] 40 mg PO HS 05/15/17 [History] Baclofen [Lioresal] 10 mg PO TID 05/24/17 [History] Carvedilol 3.125 mg PO BIDWM 05/24/17 [History] Duloxetine HCl [Cymbalta] 60 mg PO BID 05/24/17 [History] Insulin NPH Hum/Reg Insulin Hm [Novolin 70-30 100 Unit/ml Vial] 30 unit SQ QPM 05/24/17 [History] Pantoprazole Sodium [Protonix] 40 mg PO DAILY 05/24/17 [History] Metformin HCl [Glucophage] 1,000 mg PO BID 05/25/17 [History] Allergies/Adverse Reactions: 3 Allergy/AdvReac Type Severity Reaction Status Date / Time ticlopidine [From Ticlid] Allergy Hives Verified 05/25/17 08:37 Date of admission: 05/24/17 00:39 Primary care physician: Cora Pinto CNP Consults: 05/24/17 01:11 Consult to Vascular Surgery [CONS] Stat Consulting Provider: Vascular Surgery [place] Reason for Consult: left great toe ischemia r/o Call Completed: Yes 05/26/17 05:01 Consult to Physical Therapy [CONS] Routine Comment: Evaluate, develop and implement POC Reason for Consult: Left great toe amputated OT [Consult to Occupational Therapy] [CONS] Routine Comment: Evaluate, develop and implement POC Reason for Consult: Left great toe amputated 05/26/17 11:45 Consult to Caseworker [CONS] Routine Reason for SW Consult: will need wound vac and home health at discharge; surgery team will place wound vac 05/27/17 prior to discharge and home health will need to see Thursday for next change. Scheduled changes every MWF. 05/27/17 15:49 Consult to Wound Care [CONS] Routine Reason for Consult: diabetic wound to left heel Time Notified: 15:51 Call Completed: Yes 05/27/17 16:02 Consult to Physician [CONS] Routine Consulting Provider: Tanmay Morfin Reason for Consult: ulcer to left heel Call Completed: Yes - Patient Status Disposition: Transfer SNF Condition: Good Functional capacity at discharge: wheelchair bound Overall status at discharge: patient is progressing back to baseline - Discharge Instructions Follow Up With: Yoseph Sandoval MD [Partnered Physician] - (In WOUND CARE aprox 1-2 weeks after d/ c) Cora Pinto CNP [Primary Care Provider] - (Office will not make the patient follow up until we have discharge order in. Ask for us to please call back at that time or to have the patient call and schedule themselfs) - Diet and Activity Activity: as per physical therapy Diet: diabetic diet Hospital course: Mr. Wylie is a 62 year old male with past medical history of diabetic neuropathy and ulcer, peripheral vascular disease, CAD status post CABG, tobacco abuse, atrial fibrillation, congestive heart failure who presented to ED for left foot infection. He had left great toe eschar for past few months. He did a balloon angioplasty on 05/15 with good results. Two days following procedure, the wound increased in size and became erythematous and edematous with yellow discharge and eventually turned black. He also complained of fevers during that time. In ED his vital signs were stable, with mildly elevated WBC of 12.1. Lactic acid was within normal limits. A CTA runoff of lower [place] was obtained due to concern of ischemic change. It showed undetermined patency of angioplasties. 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 Vascular surgery was consulted. Since the left great toe was completely necrotic and and led to cellulitis and infection associated with diabetes in the left foot. It was recommended that he undergoes amputation. He was continued on IV vancomycin and Zosyn. His chances of bleeding was higher on aspirin and Plavix. However, this needed continued whenever able due to his recent angioplasty. On 05/24, patient underwent left great toe amputation, left first metatarsal head resection, and debridement left extensor tendon. He tolerated procedure well. He was continued on IV vancomycin and Zosyn for 3 days post-operatively. In conjunction with Hospitalist and Surgical team, patient was switched to PO Cipro and Augmentin. Patient did well post-operatively as he had no leukocytosis and remained afebrile. Wound vac was placed on 05/27. A holiday weekend delayed disposition. Patient was evaluated by PT/OT whom recommended SNF for patient. He will be discharged with 14 days total of Augmentin and Cipro to complete 3 weeks of therapy post-operatively. He may resume his home medications. - Time Spent with Patient Total time spent providing and/or coordinating discharge services: - Constitutional Vitals: Temp Pulse Resp BP Pulse Ox 97.8 F 71 17 146/77 96 06/01/17 23:45 06/01/17 23:45 06/01/17 23:45 06/01/17 23:45 06/01/17 23:45 General appearance: Present: A&O X 3, answers questions appropriately Exam: - Respiratory Respiratory exam: Present: CTAB. Absent: accessory muscle use, rales, rhonchi, wheezes - Cardiovascular Cardiovascular exam: Present: RRR, +S1, +S2. Absent: diastolic murmur, gallop, rubs, systolic murmur - Extremities Exam Additional comments: Left foot wound vac on region of amputation - VTE Documentation of Mechanical Device: Intermittent pneumatic compression device
[2017-06-02] MEDS ORDERED: *HR* Morphine 2 MG/ML SYRINGE IVP ONE (04:30)
[2017-06-02] MEDS ORDERED: *HR* Morphine 2 MG/ML SYRINGE ONE (04:30)
[2017-06-02] MEDS: *HR* OxyCODONE/APAP 7.5/325 TABLET PO PRN ×2 (05:04→15:12)
[2017-06-02] MEDS: *HR* Heparin 5,000 UNIT/ML VIAL SQ SCH ×2 (05:05→17:54)
[2017-06-02] MEDS: Insulin LISPRO 300 UNITS/3 ML VIAL SQ SCH ×7 (07:49→21:13)
[2017-06-02] MEDS: Gabapentin 300 MG CAPSULE PO SCH ×4 (09:01→21:11)
[2017-06-02] MEDS: Insulin DETEMIR 100 UNIT/ML X5UNITS SQ SCH ×2 (09:01→21:11)
--- NOTE | 2017-06-02 15:51 | Event Note ---
Date of Encounter: 06/02/17 Time of Encounter: 10:00 I independently saw and examined this patient on 06/02/17, plan of care is as detailed in the resident physician's documentation 62 M DM, CAD, COPD, CHF, s/p Lt toe amputation due to gangrene He is clinically stable for discharge and is just awaiting placement He denies new complains Physical exam is unremarkable, dressing on Lt big toe is clear and underlying skin is clear Labs are not recent but unremarkable Agree with current management, for discharge when medically clear Rest as in resident physician's documentation
--- NOTE | 2017-06-02 16:51 | Internal Med Progress Note ---
<RebeccaMatt chase - Last Filed: 06/02/17 16:49> Date of Encounter: 06/02/17 Time of Encounter: 08:00 - Assessment and plan (1) Status post amputation of toe of left foot Current Visit: Yes Status: Acute Assessment and plan: 05/24 left great toe amputation. Now on Augmentin and Cipro. We are awaiting precertification for placement to SNF ([facility]) Also awaiting approval of wound VAC (2) Coronary artery disease Current Visit: Yes Status: Chronic Assessment and plan: continue home meds; Qualifiers: Coronary Disease-Associated Artery/Lesion type: bypass graft [place] vs. transplanted heart: [place] heart Associated angina: without angina Qualified Code(s): I25.810 - Atherosclerosis of coronary artery bypass graft(s) without angina pectoris (3) Nicotine dependence with nicotine-induced disorder Current Visit: No Status: Chronic Assessment and plan: Encourage smoking cessation Qualifiers: Nicotine product type: cigarettes Qualified Code(s): F17.219 - Nicotine dependence, cigarettes, with unspecified nicotine-induced disorders (4) CHF (congestive heart failure) Current Visit: Yes Status: Chronic Assessment and plan: Judicious with fluid replacement Suspected HF reduced EF from echo in 2015, but stated that was poorly visualized Qualifiers: Congestive heart failure type: unspecified congestive heart failure type Congestive heart failure chronicity: chronic Qualified Code(s): I50.9 - Heart failure, unspecified (5) COPD (chronic obstructive pulmonary disease) Current Visit: Yes Status: Chronic Assessment and plan: Stable. Not in exacerbation this hospitalization Qualifiers: COPD type: emphysema Emphysema type: unspecified Qualified Code(s): J43.9 - Emphysema, unspecified (6) Diabetes mellitus Current Visit: Yes Status: Chronic Assessment and plan: Blood glucose has been in the low-mid 100s during hospital stay Basal insulin and continue Accucheck blood glucose monitoring with sliding scale insulin; diabetic diet; HbA1C noted to be 11.8%; Qualifiers: Diabetes mellitus type: type 2 Diabetes mellitus complication status: with circulatory complication Diabetes mellitus complication detail: with peripheral angiopathy with gangrene Diabetes mellitus fci insulin use: with fci use Qualified Code(s): 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 2 diabetes mellitus with diabetic peripheral angiopathy with gangrene; Z79.4 - FCI (current) use of insulin; Z79.4 - [facility]CI (current) use of insulin; Z79.4 - long term care administrator ( current) use of insulin; Z79.4 - [facility]CI (current) use of insulin (7) Atrial fibrillation Current Visit: Yes Status: Chronic Assessment and plan: Rate has been well controlled in 70s during hospital stay continue Coreg; not on anticoagulation as outpatient; Qualifiers: Atrial fibrillation type: chronic Qualified Code(s): I48.2 - Chronic atrial fibrillation (8) PAD (peripheral artery disease) Current Visit: Yes Status: Chronic Assessment and plan: continue Plavix; - Subjective Interval history: Patient seen and examined at bedside this morning. He says he is having some foot pain but this is getting better. He denies chest pain, shortness of breath or new complaints. There is a wound VAC in place - Constitutional Vitals: Temp Pulse Resp BP Pulse Ox 97.9 F 71 18 137/81 92 06/02/17 16:09 06/02/17 16:09 06/02/17 16:09 06/02/17 16:09 06/02/17 16:09 General appearance: Present: A&O X 3, answers questions appropriately - Respiratory Respiratory exam: Present: CTAB. Absent: accessory muscle use, rales, rhonchi, wheezes - Cardiovascular Cardiovascular exam: Present: RRR, +S1, +S2. Absent: diastolic murmur, gallop, rubs, systolic murmur - GI/Abdominal GI/Abdominal exam: Present: normal bowel sounds, soft, no peritoneal signs. Absent: distended, tenderness Internal Medicine: Result - Labs CBC & Chem 7: 05/31/17 06:41 05/31/17 06:41 - ABG Interpretation ABG results: PT/INR, D-dimer PT 11.1 Seconds (9.4-12.1) 05/23/17 21:29 - VTE Documentation of Mechanical Device: Intermittent pneumatic compression device Consult Discharge Plan - Plan Referrals: Yoseph Sandoval MD [Partnered Physician] - (In WOUND CARE aprox 1-2 weeks after d/ c) Cora Pinto CNP [Primary Care Provider] - (Office will not make the patient follow up until we have discharge order in. Ask for us to please call back at that time or to have the patient call and schedule themselfs) <Nahid Arevalo - Last Filed: 06/02/17 17:38> Date of Encounter: 06/02/17 - Constitutional Vitals: Temp Pulse Resp BP Pulse Ox 97.9 F 71 18 137/81 92 06/02/17 16:09 06/02/17 16:09 06/02/17 16:09 06/02/17 16:09 06/02/17 16:09 Internal Medicine: Result - Labs CBC & Chem 7: 05/31/17 06:41 05/31/17 06:41 - ABG Interpretation ABG results: PT/INR, D-dimer PT 11.1 Seconds (9.4-12.1) 05/23/17 21:29 - Attending Attestation Seen and examined independently on 06/02/17, see my event note of same day Clinically stable
[2017-06-03] MEDS: *HR* Heparin 5,000 UNIT/ML VIAL SQ SCH (05:02)
[2017-06-03] MEDS: Insulin LISPRO 300 UNITS/3 ML VIAL SQ SCH ×6 (08:50→17:12)
[2017-06-03] MEDS: Gabapentin 300 MG CAPSULE PO SCH ×3 (08:50→17:13)
[2017-06-03] MEDS: Insulin DETEMIR 100 UNIT/ML X5UNITS SQ SCH (09:04)
--- NOTE | 2017-06-03 12:06 | Event Note ---
Date of Encounter: 06/03/17 Time of Encounter: 12:04 I independently saw and examined this patient on 06/03/17, plan of care is as detailed in the resident physician's documentation, and is as discussed with the patient 62 M DM, CAD, PAD with multiple procedures, COPD, CHFrEF, Afib s/p Lt toe amputation due to gangrene He is clinically stable for discharge and is just awaiting placement He is very agitated this morning, and insisting on being discharged home. Past social work case manager, patient has obliterated [employer] and it is waiting for a wound VAC to be elevated. This was explained to the patient, and he does not seem to be palliated. He however denies new complains Physical exam is unremarkable, dressing on Lt big toe is clear and underlying skin is clear Labs are not recent but unremarkable Agree with current management, for discharge when socially cleared Rest as in resident physician's documentation
--- NOTE | 2017-06-03 12:52 | Physician Discharge Referral ---
ExtendedCare Referral Info Transfer To: [facility] Provider in Charge: Christ Arevalo Provider in Charge after Transfer: PCP Institutional Level of Care: Skilled - Diagnosis (1) Coronary artery disease Priority: Secondary Status: Chronic (2) Hypertension Priority: Secondary Status: Chronic (3) Nicotine dependence with nicotine-induced disorder Priority: Secondary Status: Chronic (4) Ischemic cardiomyopathy Priority: Secondary Status: Chronic (5) CHF (congestive heart failure) Priority: Secondary Status: Chronic (6) COPD (chronic obstructive pulmonary disease) Priority: Secondary Status: Chronic (7) Ischemic ulcer of left foot Priority: Secondary Status: Acute (8) Renal artery stenosis Priority: Secondary Status: Chronic (9) Diabetes mellitus Priority: Secondary Status: Chronic (10) Atrial fibrillation Priority: Secondary Status: Chronic (11) PAD (peripheral artery disease) Priority: Secondary Status: Chronic (12) Gangrene due to peripheral vascular disease Priority: Primary Status: Resolved (13) Status post amputation of toe of left foot Priority: Primary Status: Acute Prognosis: Fair Aware of Diagnosis: Patient Aware of Prognosis: Patient - Transfer Medications Home Medications: Gabapentin [Neurontin] 300 mg PO TID 05/18/15 [History] OxyCODONE/APAP 7.5/325 [Percocet 7.5/325] 1 each PO Q6H PRN 05/18/15 [History] Clopidogrel Bisulfate [Plavix] 75 mg PO DAILY #30 tablet 05/15/17 [Rx] Insulin NPH Hum/Reg Insulin Hm [Novolin 70-30 100 Unit/ml Vial] 20 unit SQ QAM 05/15/17 [History] Lovastatin [Altoprev] 40 mg PO HS 05/15/17 [History] Baclofen [Lioresal] 10 mg PO TID 05/24/17 [History] Carvedilol 3.125 mg PO BIDWM 05/24/17 [History] Duloxetine HCl [Cymbalta] 60 mg PO BID 05/24/17 [History] Insulin NPH Hum/Reg Insulin Hm [Novolin 70-30 100 Unit/ml Vial] 30 unit SQ QPM 05/24/17 [History] Pantoprazole Sodium [Protonix] 40 mg PO DAILY 05/24/17 [History] Metformin HCl [Glucophage] 1,000 mg PO BID 05/25/17 [History] Amoxicillin/Clavulanate [Augmentin] 875 mg PO BIDWM tablet 06/03/17 [Rx] Ciprofloxacin [Cipro] 500 mg PO BID tablet 06/03/17 [Rx] Allergies/Adverse Reactions: 3 Allergy/AdvReac Type Severity Reaction Status Date / Time ticlopidine [From Ticlid] Allergy Hives Verified 05/25/17 08:37 - Respiratory Orders Oxygen / L per min (2-3 L PRN) Smoking Cessation: Smoking cessation has been advised. For more information, call the [place] Tobacco Quit Line at 4-491-PMZR-NOW. - Advance Directives Code Status: Full Code - Mobility Orders Ambulate - Rehabiliation Orders Rehab Potential: Good - Diet Orders No Added Salt (PARAG), Renal, Cardiac CERTIFICATION: I certify that the transfer of the above named patient to an Extended Care Facility is necessary for the continuing treatment of the diagnosis listed. The above information is true and accurate reflection of patient's current condition. Confidential - Redisclosure prohibited without a patient's written consent.
[2017-06-03] MEDS: *HR* OxyCODONE/APAP 7.5/325 TABLET PO PRN (14:21)
[2017-06-03 16:33] VITALS: BP 148/72
== END 2017-06-03 18:10 | DRG 256 ==
LOC: 2ANU 20:20 → EMEROO 20:20 → SUATTDRO 05-24 00:39 → 2ANU 05-24 00:47
PROVIDERS: ADMIT Internal Medicine; ATTEND Internal Medicine

== ENCOUNTER 2018-04-25 20:17 | Inpatient (IN) ==
[2018-04-25] MEDS ORDERED: Piperacillin/Tazobactam 3.375 GM in 0.9 % Sodium Chloride Mini Bag 100 ML IVPB ONE (22:18)
--- NOTE | 2018-04-25 22:21 | Emergency Department Note ---
Disposition Clinical Impression: Diabetic foot, Necrotic toes Cellulitis Qualifiers: Site of cellulitis: extremity Site of cellulitis of extremity: toe Laterality: right Qualified Code(s): L03.031 - Cellulitis of right toe Disposition: Admitted As Inpatient Condition: Fair Time of Disposition: 23:17 General Adult HPI - General Chief complaint: ED Extremity Injury, Lower Stated complaint: "Necrosis of Right Big Toe" Time Seen by Provider: 04/25/18 21:42 Source: patient Mode of arrival: ambulatory Limitations: no limitations Nursing Notes Reviewed: Yes Vital Signs Reviewed: Yes - History of Present Illness HPI Narrative: 63-year-old male with history of diabetes and prior [id number] agitation presents for evaluation of a necrotic right big toe. Patient states these had a diabetic right toe chronically. States he does follow with Dr. Morfin. Does see Dr. Morfin in the wound care clinic. Family is concerned because it looks more necrotic and black than typically. States that the necrosis has progressed over the past 24 hours. Denies any fevers. Denies any other symptoms. No chest penetrance of breath. No nausea vomiting. Family states that the patient recently had an angioplasty with Dr. Hopkins earlier this last week as a attempted to place stents however they were unsuccessful. Family states that they do anticipate to do a bypass in 2 days. Patient states he is not on any type of blood thinning medication. No fevers. Pain Scale: 6 - Related Data Home Medications Medication Instructions Recorded Confirmed Gabapentin [Neurontin] 300 mg PO TID 05/18/15 01/09/18 Lovastatin [Altoprev] 40 mg PO HS 05/15/17 01/09/18 Baclofen [Lioresal] 10 mg PO TID 05/24/17 01/09/18 Carvedilol 3.125 mg PO BIDWM 05/24/17 01/09/18 Duloxetine HCl [Cymbalta] 60 mg PO BID 05/24/17 01/09/18 Pantoprazole Sodium [Protonix] 40 mg PO DAILY 05/24/17 01/09/18 Metformin HCl [Glucophage] 1,000 mg PO BID 05/25/17 01/09/18 Previous Rx's Medication Instructions Recorded Clopidogrel Bisulfate [Plavix] 75 mg PO DAILY #30 tablet 05/15/17 Acetaminophen [Tylenol] 650 mg PO Q6HR PRN tablet 01/20/18 Folic Acid 1 mg PO DAILY tablet 01/20/18 HYDROcodone/Acet 5/325 mg [[place] 1 tab PO Q6HR PRN 3 Days #12 tablet 01/20/18 5-325 mg] Heparin 5,000 unit SQ Q12HCO vial 01/20/18 Insulin DETEMIR [Levemir] 12 unit SQ HS [id number] 01/20/18 Insulin LISPRO [HumaLOG] 0 units SQ HS vial 01/20/18 Insulin LISPRO [HumaLOG] 0 units SQ TIDAC vial 01/20/18 Lisinopril [Zestril] 10 mg PO DAILY tablet 01/20/18 Nicotine Patch [Nicoderm] 21 mg TD DAILY patch.td24 01/20/18 OxyCODONE/APAP 7.5/325 [Percocet 1 each PO Q6H PRN 3 Days #12 tablet 01/20/18 7.5/325 MG] Polyethylene Glycol 3350 [MiraLAX] 17 gm PO BID PRN powd.pack 01/20/18 Potassium Chloride 20 meq PO BID tab.er.prt 01/20/18 Thiamine (B-1) [Vitamin B-1] 100 mg PO TID tablet 01/20/18 amLODIPine [Norvasc] 10 mg PO DAILY tablet 01/20/18 Doxycycline 100 mg PO BID #20 capsule 03/01/18 Allergies Allergy/AdvReac Type Severity Reaction Status Date / Time ticlopidine [From Ticlid] Allergy Hives Verified 05/25/17 08:37 carbidopa [From Sinemet] AdvReac Confusion Verified 06/08/17 15:42 levodopa [From Sinemet] AdvReac Confusion Verified 06/08/17 15:42 All systems ED: reviewed and negative except as stated. Constitutional: Denies: fever Cardiovascular: Denies: chest pain Respiratory: Denies: cough, dyspnea, wheezes Gastrointestinal: Denies: abdominal pain, nausea, vomiting Past Medical History - Past Medical History Source: patient Medical history: Reports: arthritis, asthma, atrial fibrillation, car diomyopathy, CHF, COPD, coronary artery disease, diabetes, GERD, hyperlipidemia, hypertension, myocardial infarction Surgical history: Reports: angioplasty/stent, coronary bypass (CABG), orthopedic, other, pacemaker/AICD, other Psychiatric history: Reports: anxiety, depression - Social History Smoking Status: Current every day smoker Smokeless Tobacco Status: No Alcohol use: Reports: none Drug use: Reports: none Physical Exam - General Limitations: no limitations General appearance: alert, in no apparent distress, other (Appears chronically ill) - Head Head exam: atraumatic, normocephalic, normal inspection - Eye Eye exam: Present: normal appearance, PERRL, EOMI - ENT ENT exam: normal exam - Neck Neck exam: Present: normal inspection - Chest Chest inspection: Present: normal inspection, symmetric chest wall rise - Respiratory Respiratory exam: Absent: respiratory distress, accessory muscle use - Cardiovascular Cardiovascular exam: Present: regular rate, normal rhythm - Abdominal Exam Abdominal exam: Present: soft, Non-Tender - Expanded Lower Extremity Exam Hip/Pelvis exam: Present: normal inspection, full ROM. Absent: tenderness Upper leg exam: Present: normal inspection, full ROM. Absent: tenderness Knee exam: Present: other (Left lzsfx-[id number]-plau amputation) Lower leg exam: Present: normal inspection Ankle exam: Present: normal inspection Foot/toe exam: Present: other (Patient does have necrotic with black eschar involving the right great toe. Patient does have some blueness surrounding the base of the right great toe. Capillary refill just proximal to that is approximately 4-5 seconds. Mild mottling at the base of the toe.) - Back Exam Back exam: Present: normal inspection - Neurological Exam Neurological exam: Present: alert, oriented X3 - Skin Skin exam: Present: warm, dry, intact, normal color Course Course Narrative: Patient presents for concerns of a necrotic toe. Patient will get basic labs will discuss the case with podiatry. Patient will likely require admission with antibiotics given the extent of necrosis. - Consultations Consultation #1: Discussed the case with Dr. Gillette who recommends admission and they will see the patient tomorrow. Time: 22:19 Vital Signs Temperature 98.1 F 04/25/18 20:25 Pulse Rate 82 04/25/18 20:25 Respiratory Rate 18 04/25/18 20:25 Blood Pressure 149/82 04/25/18 20:25 O2 Sat by Pulse Oximetry 97 04/25/18 20:25 Temperature 98.1 F 04/25/18 20:25 Pulse Rate 82 04/25/18 20:25 Respiratory Rate 18 04/25/18 20:25 Blood Pressure 149/82 04/25/18 20:25 O2 Sat by Pulse Oximetry 97 04/25/18 20:25 Oxygen Delivery Oxygen Delivery Room Air Medical Decision Making - MDM Narrative Medical decision making narrative: Patient presents for concerns of worsening necrotic right great toe. Patient's had a history of necrotic ulcer given prior chart review. Family is concerned because it has progressed over the past 24 hours. Patient has been evaluated by vascular surgery. Does have plan vascular intervention next week. This case was discussed with the on-call examining chair assembler who recommended admitting the patient to hospitalist and they will see the patient to plan for interventions. Patient does have concerns of necrotic ulceration of the right great toe. Given the extensive necrosis as well as x-ray findings concerning a cellulitis the patient was started on broad-spectrum antibiotics. Patient did get basic labs. Patient's agreeable with current plan of care. - Lab Data Result diagrams: 04/25/18 22:59 04/25/18 22:59 - Radiology Data Radiology results reviewed: Yes I reviewed the patient's radiology results. Toe X-Ray 04/25/18 22:09 IMPRESSION: Soft tissue swelling of the 1st digit and forefoot suggesting cellulitis. No soft tissue gas. No acute bone or joint abnormality. D/ / 04/25/2018 22:52:58 Mario Munoz MD / danelle Interpreting Provider: Mario Munoz MD S.B.ANonaRNona - S.B.ANonaRNona Situation: Demographics Background: Presenting Complaint Assessment: Vital Signs, Course and respsone to treatment Recommendation: Barrier(s) to disposition, Recommendation based on pending studies, treatments, or consults S.B.A.R. Report Given to: Dr. Sawant S.B.ANonaRNona Repor Time: 23:17 Attestation Statement - Attestation Attestation: I, Tanmay Tafoya, examined this patient and my medical decision-making was reviewed with the INCOME TAX ANALYST/PA/Advanced Practice Nurse/Resident Physician. I agree with the documented findings, disposition and treatment plan as described except to the extent set forth below. 63-year-old male presents emergency Department with concerns of pain and discoloration to the right great toe. Patient has a history of necrosis which is following Dr. Morfin and Dr. Estrada. He had a recent catheterization of the right lower extremity which was unable to be stented. Dr. Estrada has recommended vascular bypass surgery to try to salvage the right toe. We spoke with the examining chair assembler, Dr. Dupont, who agreed with plan for admission to the hospital for further care and evaluation of the right toe. Patient started on antibiotics emergency department.
[2018-04-25 23:20] LABS: Basophils # 0.2 K/mcL (0.0-0.2); Eosinophils # 0.3 K/mcL (0.0-0.6); Hematocrit 43.5 % (37.5-50.1); Hemoglobin 14.4 g/dL (12.9-16.9); Immature Granulocytes % 0.6 % (0-4); Lymphocytes # 3.9 K/mcL (0.6-4.6); Lymphocytes % 27.3 %; Mean Corpuscular HGB Conc 33.1 g/dL (31.6-35.5); Mean Corpuscular Hemoglobin 27.6 pg (28.0-33.3); Mean Corpuscular Volume 83.3 fL (83.0-100.0); Mean Platelet Volume 9.8 fL (9.4-12.4); Monocytes # 0.8 K/mcL (0.0-1.3); Monocytes % 5.6 %; Neutrophils # 9.1 K/mcL (1.6-8.9); Platelet Count 499 K/mcL (140-400); Red Blood Count 5.22 M/mcL (4.19-5.50); Red Cell Distribution Width 13.2 % (11.5-14.5); Segmented Neutrophils % 63.5 %
[2018-04-25 23:39] LABS: BUN/Creatinine Ratio 22 (6-26); Blood Urea Nitrogen 20 mg/dL (8-23); Calcium 10.4 mg/dL (8.6-10.3); Carbon Dioxide 24 mEq/L (23-29); Chloride 101 mEq/L (98-107); Glucose 324 mg/dL (70-105); Osmolality,Calculated 293 (280-300); Potassium 3.7 mEq/L (3.5-5.1); Sodium 134 mEq/L (136-145); eGFR For Non-African Americans > 60 (> 60)
[2018-04-26] MEDS ORDERED: 0.9 % Sodium Chloride 1,000 ML IVC ONE (00:06)
[2018-04-26] MEDS ORDERED: OXYCODONE Oral CONC 10 MG/0.5 ML ORAL.SYG SL PRN ×2 (02:24)
[2018-04-26] MEDS ORDERED: Naloxone 0.4 MG/ML INJ IVP PRN ×2 (02:24→07:35)
[2018-04-26] MEDS ORDERED: *HR* Dextrose 50 % in Water (Syg) 50 ML SYRINGE IVP PRN (07:38)
[2018-04-26] MEDS ORDERED: D5% in Water 1,000 ML IVC PRN (07:38)
[2018-04-26] MEDS ORDERED: Dextrose Gel 15 GM/37.5 ML TUBE PO PRN ×2 (07:38)
[2018-04-26] MEDS ORDERED: *HR* HYDROcodone/Acet 5/325 mg TABLET PO PRN (07:40)
--- NOTE | 2018-04-26 07:46 | Internal Med History&Physical ---
Date of Encounter: 04/26/18 Time of Encounter: 07:45 Internal Medicine - H&P: HPI Chief complaint: gangrene of the left foretoe Admitted From: Home Plans for Post Hospital Care: Home History of present illness: Mr. Wylie is a 63 year old male past medical history significant for arthritis, peripheral artery disease, diabetes, left BKA, A. fib, hypertension, and CHF. Patient presented to ED because as per patient his right big toe has been turning blue for the past couple of days. Patient denies trauma to the extrem ity, denies pain, fever/chills. He reports that he is scheduled to have a some vascular procedure done of that extremity tomorrow. And also reports that a vascular procedure was attempt on that extremity but that it was not successful. Patient also reports that he had a similar issue with his left leg about in December and they decided to amputate the extremity. Patient denies nausea, vomiting, abdominal pain, shortness of breath or headache. Past Med Surg Social Fam HX - Past Medical History Medical history: arthritis, asthma, atrial fibrillation, cardiomyopathy, CHF, COPD, coronary artery disease, diabetes, GERD, hyperlipidemia, hypertension, myocardial infarction Additional medical history: tremors Psychiatric history: anxiety, depression - Past Surgical History Surgical History: angioplasty/stent, coronary bypass (CABG), orthopedic, other, pacemaker/AICD, other Additional surgical history: left BKA - Social History Smoking Status: Current every day smoker Packs per day: 1 Smokeless Tobacco Status: No Alcohol use: none Drug use: none - Family History Mother Living Status: Still Living Hx Family Cancer: Yes (kidney cancer) Father Living Status: Hx Family Cancer: Yes Internal Medicine - H&P: Meds Gabapentin [Neurontin] 300 mg PO TID 05/18/15 [History] Clopidogrel Bisulfate [Plavix] 75 mg PO DAILY #30 tablet 05/15/17 [Rx] Lovastatin [Altoprev] 40 mg PO HS 05/15/17 [History] Baclofen [Lioresal] 10 mg PO TID 05/24/17 [History] Carvedilol 3.125 mg PO BIDWM 05/24/17 [History] Duloxetine HCl [Cymbalta] 60 mg PO BID 05/24/17 [History] Pantoprazole Sodium [Protonix] 40 mg PO DAILY 05/24/17 [History] Metformin HCl [Glucophage] 1,000 mg PO BID 05/25/17 [History] Acetaminophen [Tylenol] 650 mg PO Q6HR PRN tablet 01/20/18 [Rx] Folic Acid 1 mg PO DAILY tablet 01/20/18 [Rx] HYDROcodone/Acet 5/325 mg [[place] 5-325 mg] 1 tab PO Q6HR PRN 3 Days #12 tablet 01/20/18 [Rx] Heparin 5,000 unit SQ Q12HCO vial 01/20/18 [Rx] Insulin DETEMIR [Levemir] 12 unit SQ HS [id number] 01/20/18 [Rx] Insulin LISPRO [HumaLOG] 0 units SQ HS vial 01/20/18 [Rx] Insulin LISPRO [HumaLOG] 0 units SQ TIDAC vial 01/20/18 [Rx] Lisinopril [Zestril] 10 mg PO DAILY tablet 01/20/18 [Rx] Nicotine Patch [Nicoderm] 21 mg TD DAILY patch.td24 01/20/18 [Rx] OxyCODONE/APAP 7.5/325 [Percocet 7.5/325 MG] 1 each PO Q6H PRN 3 Days #12 tablet 01/20/18 [Rx] Polyethylene Glycol 3350 [MiraLAX] 17 gm PO BID PRN powd.pack 01/20/18 [Rx] Potassium Chloride 20 meq PO BID tab.er.prt 01/20/18 [Rx] Thiamine (B-1) [Vitamin B-1] 100 mg PO TID tablet 01/20/18 [Rx] amLODIPine [Norvasc] 10 mg PO DAILY tablet 01/20/18 [Rx] Doxycycline 100 mg PO BID #20 capsule 03/01/18 [Rx] Allergy/AdvReac Type Severity Reaction Status Date / Time ticlopidine [From Ticlid] Allergy Hives Verified 05/25/17 08:37 carbidopa [From Sinemet] AdvReac Confusion Verified 06/08/17 15:42 levodopa [From Sinemet] AdvReac Confusion Verified 06/08/17 15:42 All Systems PM: A 10-system review of systems was performed and is negative for pertinent findings except as documented above in the HPI. - Constitutional Constitutional: no anorexia, no chills, no fever(s), no weakness - EENT Eyes: no irritation Nose, mouth and throat: no nasal congestion - Cardiovascular Cardiovascular ROS IM: no chest pain, no dyspnea on exertion, no irregular heart rhythm, no orthopnea, no paroxysmal nocturnal dyspnea - Respiratory Respiratory: no cough, no dyspnea, no snoring - Gastrointestinal Gastrointestinal: no abdominal pain, no nausea, no vomiting - Genitourinary Genitourinary ROS male: no dysuria, no urinary frequency, no urinary urgency - Musculoskeletal Musculoskeletal ROS IM: no joint swelling - Integumentary Integumentary IM: no erythema - Neurological Neurological ROS: no behavioral changes - Psychiatric Psychiatric: no anxiety - Endocrine Endocrine IM: no polydipsia, no polyphagia, no polyuria - Allergic/Immunologic Allergic/Immunologic: no wheezing Additional comments: Rest of the review of systems negative. - Constitutional Vitals: Temp Pulse Resp BP Pulse Ox 97.9 F 69 15 154/81 98 04/26/18 06:57 04/26/18 06:57 04/26/18 06:57 04/26/18 06:57 04/26/18 06:57 Exam: General: Alert and oriented 4. In mild distress due to gangrene in his right toe Skin: Normal color, no rash, no lesions. HEENT: EOM, pupils equal, round and reactive. Cardiovascular: Irregularly irregular, Normal S1 & S2, no rubs, murmurs or gallops. Lungs: Clear to auscultation, no wheezes or crackles. Abdomen: Soft, non-tender, no rigidity. NABS in all 4 quadrants. Extremities: Left BKA, gangrene of the right big toe. Neurological: Normal cognition and motor skills. Rest of the physical exam is non contributory Internal Med - H&P Results - Labs CBC & Chem 7: 04/25/18 22:59 04/25/18 22:59 Labs: Short CBC 04/25/18 Range/Units 22:59 WBC 14.3 H (4.3-11.1) K/mcL Hgb 14.4 (12.9-16.9) g/dL Hct 43.5 (37.5-50.1) % Plt Count 499 H (140-400) K/mcL Neutrophils # 9.1 H (1.6-8.9) K/mcL BMP 04/25/18 22:59 Sodium 134 L Potassium 3.7 Chloride 101 Carbon Dioxide 24 BUN 20 Creatinine 0.93 Glucose 324 H Calcium 10.4 H - Impressions ITS Impressions Toe X-Ray 04/25/18 22:09 IMPRESSION: Soft tissue swelling of the 1st digit and forefoot suggesting cellulitis. No soft tissue gas. No acute bone or joint abnormality. D/ / 04/25/2018 22:52:58 Mario Munoz MD / [email or web address] Interpreting Provider: Mario Munoz MD - Assessment and plan (1) Necrotic toes Current Visit: Yes Status: Acute Assessment and plan: Patient with gangrene of the right foretoe. Plan started on empiric antibiotics Telesales Supervisor consult will consult vascular surgery as patient is scheduled for an angioplasty tomorrow. wound care consult Pain control with norco 5/325mg/PO Q6HRs (2) Type 2 diabetes mellitus Current Visit: No Status: Chronic Assessment and plan: hyperglycemic on presentation. Plan started on levemir 10 units SubQ BID Lispro sliding scale ac Lispro 4 units AC carb controlled diet. 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 no acutely exacerbated. Plan patient on carvedilol and lisinopril will consider adding low dose furosemide. Qualifiers: Heart failure type: unspecified Heart failure chronicity: chronic Qualified Code(s): I50.9 - Heart failure, unspecified (4) Coronary artery disease Current Visit: No Status: Chronic Assessment and plan: Patient on Plavix and aspirin. Qualifiers: Coronary Disease-Associated Artery/Lesion type: unspecified vessel or lesion type Associated angina: angina presence unspecified Qualified Code(s): I25.10 - Atherosclerotic heart disease of [place] coronary artery without angina pectoris (5) PAD (peripheral artery disease) Current Visit: Yes Status: Acute Assessment and plan: Patient on dual antiplatelet therapy. Vascular surgery has been consulted as patient is a scheduled for angioplasty tomorrow. (6) Atrial fibrillation Current Visit: No Status: Chronic Assessment and plan: Patient with a Hx of A. fib rate controlled on Cavedilol. Continue current management. unclear why not on anticoagulation. Qualifiers: Atrial fibrillation type: chronic Qualified Code(s): I48.2 - Chronic atrial fibrillation (7) DVT prophylaxis Current Visit: No Status: Acute Assessment and plan: Started on heparin 5000 units subcutaneous twice a day for DVT prophylaxis. (8) GERD (gastroesophageal reflux disease) Current Visit: Yes Status: Chronic Assessment and plan: Continue PPI. Qualifiers: Esophagitis presence: esophagitis presence not specified Qualified Code(s): K21.9 - Gastro-esophageal reflux disease without esophagitis - Time Spent With Patient Total time spent is greater than 50% in coordination of care (as documented) at patient's floor/unit and/or counseling patient: 25 - 35 minutes
[2018-04-26 08:27] LABS: Basophils # 0.2 K/mcL (0.0-0.2); Basophils % 1.4 %; Eosinophils # 0.5 K/mcL (0.0-0.6); Hematocrit 37.3 % (37.5-50.1); Immature Granulocytes % 0.4 % (0-4); Lymphocytes # 3.6 K/mcL (0.6-4.6); Lymphocytes % 32.4 %; Mean Corpuscular HGB Conc 33.8 g/dL (31.6-35.5); Mean Corpuscular Hemoglobin 27.9 pg (28.0-33.3); Mean Corpuscular Volume 82.7 fL (83.0-100.0); Mean Platelet Volume 9.7 fL (9.4-12.4); Monocytes # 0.7 K/mcL (0.0-1.3); Monocytes % 6.4 %; Neutrophils # 6.2 K/mcL (1.6-8.9); Platelet Count 407 K/mcL (140-400); Red Blood Count 4.51 M/mcL (4.19-5.50); Red Cell Distribution Width 13.2 % (11.5-14.5); Segmented Neutrophils % 55.4 %
[2018-04-26 08:36] LABS: Prothrombin Time 11.6 Seconds (9.4-12.1)
[2018-04-26 08:38] LABS: Activated Partial Thrombo Time 34.3 Seconds (26.0-36.0)
[2018-04-26 08:49] LABS: BUN/Creatinine Ratio 19 (6-26); Blood Urea Nitrogen 13 mg/dL (8-23); Calcium 9.4 mg/dL (8.6-10.3); Carbon Dioxide 23 mEq/L (23-29); Chloride 107 mEq/L (98-107); Glucose 285 mg/dL (70-105); Magnesium 1.5 mg/dL (1.6-2.6); Osmolality,Calculated 292 (280-300); Phosphorous 2.7 mg/dL (2.7-4.5); Potassium 3.1 mEq/L (3.5-5.1); Sodium 136 mEq/L (136-145); eGFR For Non-African Americans > 60 (> 60)
[2018-04-26 08:57] LABS: Hemoglobin 12.6 g/dL (12.9-16.9)
[2018-04-26] MEDS ORDERED: Magnesium Oxide 400 MG TABLET PO ONE (09:08)
[2018-04-26] MEDS: Piperacillin/Tazobactam 3.375 GM in 0.9 % Sodium Chloride Mini Bag 100 ML IVPB SCH ×3 (10:08→23:55)
[2018-04-26] MEDS: amLODIPine 5 MG TABLET PO SCH (10:15)
[2018-04-26] MEDS: Insulin LISPRO 300 UNITS/3 ML VIAL SQ SCH ×5 (10:15→18:17)
--- NOTE | 2018-04-26 10:43 | Podiatry Consult Note ---
Date of Encounter: 04/26/18 Time of Encounter: 09:00 Assessment and Plan (1) Dry gangrene Current visit: Yes Status: Acute Necrotic right hallux Cleanse with warm soap and water, apply Adaptic, cover loosely with cleaning, NO compression Dressing to be changed daily. Antibiotics as ordered per primary. Will order ESR, CRP, hemoglobin A1c. Vascular consulted per primary. Will await recommendations. Plan amputation of right hallux after vascular recommendations. (2) PAD (peripheral artery disease) Current visit: Yes Status: Acute Vascular to follow. Will await recommendations (3) Type 2 diabetes mellitus Current visit: Yes Status: Chronic Strict glucose control while in hospital. Primary to follow. Continue diabetic diet. Will order HGB A1C. 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 Wylie is a 63 year old male who presented to the hospital last evening 04/25/18, for worsening right hallux necrosis. Patient has PMH of arthritis, asthma, A.FIB, cardiomyopathy, CHF, COPD, CAD, DM, GERD, hyperlipidemia, HTN, MS, tremors, anxiety, depression, angioplasty/stent, coronary bypass (CABG), orthopedic, pacemaker/AICD, left BKA. Patient reports blood glucose levels at home running anywhere from 110-400. Rates taking long-acting and short-acting insulin. Patient reports smoking 1 PPD. Denies any alcohol or illicit drug use. Patient follows with Dr. Estrada. Last seen 04/22/18 for angiogram. 100% blockage to right mid and distal superficial, 100% to right anterior tibial, 75% to left renal, and 100% 2 left peroneal. Patient reports he was to have right lower extremity bypass tomorrow 04/27/18. Patient is known to the podiatry clinic follows with Dr. Morfin in the wound clinic. Patient reports he has had issues with his vasculature for " a long time." Reports over the last few months the right hallux has been getting worse despite following in wound care. Reports over the last 2 days necrosis was worsened which prompted him to come to the ER. Denies any N/V/D. Denies any fevers or chills. Past Med Surg Social Fam HX - Past Medical History Medical history: arthritis, asthma, atrial fibrillation, cardiomyopathy, CHF, COPD, coronary artery disease, diabetes, GERD, hyperlipidemia, hypertension, myocardial infarction Additional medical history: tremors Psychiatric history: anxiety, depression - Past Surgical History Surgical History: angioplasty/stent, coronary bypass (CABG), orthopedic, other, pacemaker/AICD, other Additional surgical history: left BKA - Social History Smoking Status: Current every day smoker Packs per day: 1 Smokeless Tobacco Status: No Alcohol use: none Drug use: none - Family History Mother Living Status: Still Living Hx Family Cancer: Yes (kidney cancer) Father Living Status: Hx Family Cancer: Yes Medications and Allergies Gabapentin [Neurontin] 300 mg PO TID 05/18/15 [History] Clopidogrel Bisulfate [Plavix] 75 mg PO DAILY #30 tablet 05/15/17 [Rx] Lovastatin [Altoprev] 40 mg PO HS 05/15/17 [History] Baclofen [Lioresal] 10 mg PO TID 05/24/17 [History] Carvedilol 3.125 mg PO BIDWM 05/24/17 [History] Duloxetine HCl [Cymbalta] 60 mg PO BID 05/24/17 [History] Pantoprazole Sodium [Protonix] 40 mg PO DAILY 05/24/17 [History] Metformin HCl [Glucophage] 1,000 mg PO BID 05/25/17 [History] Acetaminophen [Tylenol] 650 mg PO Q6HR PRN tablet 01/20/18 [Rx] Folic Acid 1 mg PO DAILY tablet 01/20/18 [Rx] HYDROcodone/Acet 5/325 mg [[place] 5-325 mg] 1 tab PO Q6HR PRN 3 Days #12 tablet 01/20/18 [Rx] Heparin 5,000 unit SQ Q12HCO vial 01/20/18 [Rx] Insulin DETEMIR [Levemir] 12 unit SQ HS q9noras 01/20/18 [Rx] Insulin LISPRO [HumaLOG] 0 units SQ HS vial 01/20/18 [Rx] Insulin LISPRO [HumaLOG] 0 units SQ TIDAC vial 01/20/18 [Rx] Lisinopril [Zestril] 10 mg PO DAILY tablet 01/20/18 [Rx] Nicotine Patch [Nicoderm] 21 mg TD DAILY patch.td24 01/20/18 [Rx] OxyCODONE/APAP 7.5/325 [Percocet 7.5/325 MG] 1 each PO Q6H PRN 3 Days #12 tablet 01/20/18 [Rx] Polyethylene Glycol 3350 [MiraLAX] 17 gm PO BID PRN powd.pack 01/20/18 [Rx] Potassium Chloride 20 meq PO BID tab.er.prt 01/20/18 [Rx] Thiamine (B-1) [Vitamin B-1] 100 mg PO TID tablet 01/20/18 [Rx] amLODIPine [Norvasc] 10 mg PO DAILY tablet 01/20/18 [Rx] Doxycycline 100 mg PO BID #20 capsule 03/01/18 [Rx] Allergy/AdvReac Type Severity Reaction Status Date / Time ticlopidine [From Ticlid] Allergy Hives Verified 05/25/17 08:37 carbidopa [From Sinemet] AdvReac Confusion Verified 06/08/17 15:42 levodopa [From Sinemet] AdvReac Confusion Verified 06/08/17 15:42 All Systems Reviewed: The remainder of the systems were reviewed and are negative Review of systems: Constitutional: Denies recent weight gain or weight loss Vascular: Known PVD, CAD, reports neuropathy Neurologic: Denies fainting or seizures. Dermatologic: Reports wounds to right great to and top of foot. Musculoskeletal: L BKA, reports difficulty walking due previous BKA and tremors Physical Exam - Constitutional Vitals: Temp Pulse Resp BP Pulse Ox 97.9 F 69 15 154/81 98 04/26/18 06:57 04/26/18 06:57 04/26/18 06:57 04/26/18 06:57 04/26/18 06:57 Exam: Constitiutional: Alert oriented 3. Pleasant disposition Vascular: Doppler PT/DP right foot, doppler popliteal artery left BKA, CFT sluggish right foot toes 25, trace edema right foot Neurologic: Diminished light touch and pinprick test, normal plantar response Dermatologic: Necrotic right hallux consistent with dry gangrene, right dorsal wound with necrotic center measuring 2 x 2 centimeters Musculoskeletal: 3/5 muscle strength to right foot. Minimal active range of motion to dorsiflexion, plantar flexion, inversion, and eversion to right foot Results - Labs Result Diagrams: 04/26/18 08:05 04/26/18 08:05 Labs: Abnormal lab results WBC 11.2 K/mcL (4.3-11.1) H 04/26/18 08:05 Hgb 12.6 g/dL (12.9-16.9) L D 04/26/18 08:05 Hct 37.3 % (37.5-50.1) L 04/26/18 08:05 MCV 82.7 fL (83.0-100.0) L 04/26/18 08:05 MCH 27.9 pg (28.0-33.3) L 04/26/18 08:05 Plt Count 407 K/mcL (140-400) H 04/26/18 08:05 Potassium 3.1 mEq/L (3.5-5.1) L 04/26/18 08:05 Glucose 285 mg/dL (70-105) H 04/26/18 08:05 Magnesium 1.5 mg/dL (1.6-2.6) L 04/26/18 08:05 H & H 04/25/18 04/26/18 Range/Units 22:59 08:05 Hgb 14.4 12.6 L D (12.9-16.9) g/dL Hct 43.5 37.3 L (37.5-50.1) % All other labs normal. Consult Discharge Plan - Plan Referrals: Cora Pinto, WATCH ENGINEER [Primary Care Provider] -
--- NOTE | 2018-04-26 11:44 | Event Note ---
Date of Encounter: 04/26/18 Time of Encounter: 11:20 I was alerted by the hospitalist service that the patient was admitted overnight because of progression of the right first toe ischemia. The patient is scheduled for a right femoral to below the knee popliteal artery bypass graft tomorrow. We will proceed with this operation as planned. I reviewed again with the patient what our operative intervention is in explain the operation as well. The patient agrees to proceed as recommended. Patient will be nothing by mouth after midnight except for medications. Anticipate surgery for tomorrow for the right lower extremity at approximately 11:30 AM to noon.
[2018-04-26] MEDS: Insulin DETEMIR 100 UNIT/ML X5UNITS SQ SCH ×2 (12:00→21:32)
[2018-04-26] MEDS: Aspirin Enteric Coated 81 MG Tablet PO SCH (12:00)
[2018-04-26 13:44] LABS: Estimated Average Glucose 243 mg/dl; Hemoglobin A1C 10.1 %
[2018-04-26] MEDS: traMADol 50 MG TABLET PO PRN ×2 (15:59→19:46)
[2018-04-26] MEDS: Potassium Chloride Elixir 20 MEQ/15 ML UDC PO SCH ×2 (16:02→21:32)
[2018-04-26] MEDS ORDERED: Ondansetron 4 MG/2 ML VIAL IVP PRN (18:28)
[2018-04-27] MEDS: traMADol 50 MG TABLET PO PRN (06:26)
[2018-04-27 08:16] LABS: Basophils # 0.1 K/mcL (0.0-0.2); Basophils % 1.1 %; Eosinophils # 0.4 K/mcL (0.0-0.6); Eosinophils % 3.1 %; Hematocrit 39.4 % (37.5-50.1); Hemoglobin 12.9 g/dL (12.9-16.9); Immature Granulocytes % 0.4 % (0-4); Lymphocytes # 2.7 K/mcL (0.6-4.6); Lymphocytes % 20.9 %; Mean Corpuscular HGB Conc 32.7 g/dL (31.6-35.5); Mean Corpuscular Hemoglobin 27.7 pg (28.0-33.3); Mean Corpuscular Volume 84.5 fL (83.0-100.0); Mean Platelet Volume 9.8 fL (9.4-12.4); Monocytes # 0.8 K/mcL (0.0-1.3); Monocytes % 6.4 %; Neutrophils # 8.7 K/mcL (1.6-8.9); Platelet Count 428 K/mcL (140-400); Red Blood Count 4.66 M/mcL (4.19-5.50); Red Cell Distribution Width 13.3 % (11.5-14.5); Segmented Neutrophils % 68.1 %
[2018-04-27 08:27] LABS: Alanine Aminotransferase 6 Units/L (7-52); Albumin 2.8 g/dL (3.5-5.7); Alkaline Phosphatase 95 Units/L (34-104); Aspartate Amino Transferase 6 Units/L (13-39); BUN/Creatinine Ratio 13 (6-26); Bilirubin,Total 0.3 mg/dL (0.3-1.0); Blood Urea Nitrogen 9 mg/dL (8-23); Calcium 9.7 mg/dL (8.6-10.3); Carbon Dioxide 24 mEq/L (23-29); Chloride 109 mEq/L (98-107); Globulin 2.8 g/dL (2.4-3.5); Glucose 183 mg/dL (70-105); Osmolality,Calculated 289 (280-300); Potassium 3.5 mEq/L (3.5-5.1); Sodium 138 mEq/L (136-145); Total Protein 5.6 g/dL (6.4-8.9); eGFR For Non-African Americans > 60 (> 60)
[2018-04-27] MEDS: Insulin LISPRO 300 UNITS/3 ML VIAL SQ SCH ×2 (09:23→09:24)
[2018-04-27] MEDS ORDERED: *HR* FentaNYL (PF) 100 MCG/2 ML VIAL ONE ×3 (09:24→17:43)
[2018-04-27] MEDS ORDERED: *HR* Propofol 200 MG/20 ML VIAL IVP ONE (09:24)
[2018-04-27] MEDS ORDERED: *HR* Succinylcholine 200 MG/10 ML VIAL IVP ONE (09:24)
[2018-04-27] MEDS ORDERED: *HR* Midazolam HCl 2 MG/2 ML VIAL ONE ×2 (09:24→19:58)
[2018-04-27] MEDS ORDERED: Lidocaine -MPF 2% 2 ML VIAL ONE (09:24)
[2018-04-27] MEDS ORDERED: *HR* Rocuronium Bromide 50 MG/5 ML VIAL ONE ×2 (09:24→14:09)
[2018-04-27] MEDS ORDERED: *HR* Heparin 5,000 UNIT/ML VIAL ONE (09:36)
[2018-04-27] MEDS: Potassium Chloride Elixir 20 MEQ/15 ML UDC PO SCH ×2 (09:40→21:16)
[2018-04-27] MEDS: amLODIPine 5 MG TABLET PO SCH (09:40)
[2018-04-27] MEDS: Aspirin Enteric Coated 81 MG Tablet PO SCH (09:41)
[2018-04-27] MEDS: Piperacillin/Tazobactam 3.375 GM in 0.9 % Sodium Chloride Mini Bag 100 ML IVPB SCH ×2 (09:41→22:56)
[2018-04-27] MEDS: Insulin DETEMIR 100 UNIT/ML X5UNITS SQ SCH ×2 (09:42→21:16)
[2018-04-27] MEDS ORDERED: EPHEDrine 50 MG/ML VIAL ONE (10:35)
[2018-04-27] MEDS ORDERED: Heparin 1,000 UNITS/500 mL 500 ML ONE (11:05)
[2018-04-27] MEDS ORDERED: ceFAZolin 1,000 MG, Sodium Chloride IRRigation 1,000 ML IR ONE ×2 (11:10→20:15)
--- NOTE | 2018-04-27 11:25 | Anesthesia Evaluation PreOp ---
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 (anxiety/depression, tremors) Other Medical History: Renal, Diabetes Type II Anesthesia History: No Prior Anesthetic Complications, Past Anesthesia (CABG, AICD, stents, left AKA(6 days ago)) Alcohol Use: none Drug use: none Medications and Allergies Gabapentin [Neurontin] 300 mg PO TID 05/18/15 [History] Clopidogrel Bisulfate [Plavix] 75 mg PO DAILY #30 tablet 05/15/17 [Rx] Lovastatin [Altoprev] 40 mg PO HS 05/15/17 [History] Baclofen [Lioresal] 10 mg PO TID 05/24/17 [History] Carvedilol 3.125 mg PO BIDWM 05/24/17 [History] Duloxetine HCl [Cymbalta] 60 mg PO BID 05/24/17 [History] Pantoprazole Sodium [Protonix] 40 mg PO DAILY 05/24/17 [History] Metformin HCl [Glucophage] 1,000 mg PO BID 05/25/17 [History] Acetaminophen [Tylenol] 650 mg PO Q6HR PRN tablet 01/20/18 [Rx] Folic Acid 1 mg PO DAILY tablet 01/20/18 [Rx] HYDROcodone/Acet 5/325 mg [[place] 5-325 mg] 1 tab PO Q6HR PRN 3 Days #12 tablet 01/20/18 [Rx] Heparin 5,000 unit SQ Q12HCO vial 01/20/18 [Rx] Insulin DETEMIR [Levemir] 12 unit SQ HS [id number] 01/20/18 [Rx] Insulin LISPRO [HumaLOG] 0 units SQ HS vial 01/20/18 [Rx] Insulin LISPRO [HumaLOG] 0 units SQ TIDAC vial 01/20/18 [Rx] Lisinopril [Zestril] 10 mg PO DAILY tablet 01/20/18 [Rx] Nicotine Patch [Nicoderm] 21 mg TD DAILY patch.td24 01/20/18 [Rx] OxyCODONE/APAP 7.5/325 [Percocet 7.5/325 MG] 1 each PO Q6H PRN 3 Days #12 tablet 01/20/18 [Rx] Polyethylene Glycol 3350 [MiraLAX] 17 gm PO BID PRN powd.pack 01/20/18 [Rx] Potassium Chloride 20 meq PO BID tab.er.prt 01/20/18 [Rx] Thiamine (B-1) [Vitamin B-1] 100 mg PO TID tablet 01/20/18 [Rx] Doxycycline 100 mg PO BID #20 capsule 03/01/18 [Rx] Omeprazole [PriLOSEC] 20 mg PO DAILY 04/27/18 [History] Sertraline [Zoloft] 25 mg PO DAILY 04/27/18 [History] amLODIPine [Norvasc] 5 mg PO DAILY 04/27/18 [History] risperiDONE [Risperidone] 0.5 mg PO DAILY 04/27/18 [History] 3 Allergy/AdvReac Type Severity Reaction Status Date / Time ticlopidine [From Ticlid] Allergy Hives Verified 05/25/17 08:37 carbidopa [From Sinemet] AdvReac Confusion Verified 06/08/17 15:42 levodopa [From Sinemet] AdvReac Confusion Verified 06/08/17 15:42 - Meds/Allergy Pre-op Review Medications Reviewed: Yes Allergies Reviewed: Yes Beta Blockers on Current Med List: Yes (coreg) If Beta Blockers taken, Date/Time (Last Dose taken): today 0940 Anesthesia Results - Labs 04/27/18 07:56 04/27/18 07:56 - Imaging EKG: report reviewed (ELECTRONIC VENTRICULAR PACEMAKER ABNORMAL RHYTHM ECG) Additional studies: echo 2015: poor quality, appears to have low normal EF, no pulm HTN Anesthesia Exam Selected Entries 04/27/18 10:10 Temperature 97.6 F Pulse Rate 70 Respiratory Rate 15 Blood Pressure 156/89 O2 Sat by Pulse Oximetry 96 Oxygen Delivery Method Room Air Weight: 86kg NPO (# of Hours): 8 - HEENT Pupil (Motor): EOMI Mallampati: II Teeth: Missing, Poor dentition Oral Opening: Greater than 3 - 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
[2018-04-27] MEDS ORDERED: Heparin 1,000 UNITS/500 mL 1,000 ML ONE (12:40)
[2018-04-27] MEDS ORDERED: *HR* Phenylephrine 10 MG/ML VIAL ONE (12:47)
[2018-04-27 13:31] LABS: ABG Base Excess -3 mEq/L (-2 to 3); ABG Chloride 106 mEq/L (98-107); ABG Glucose 141 mg/dL (60-95); ABG HCO3 21 mEq/L (21-27); ABG Ionized Calcium 1.36 mmol/L (1.15-1.35); ABG Oxygen Saturation 100 % (95-98); ABG PCO2 32 mmHg (35-45); ABG PH 7.41 pH Units (7.32-7.45); ABG PO2 312 mmHg (85-104); ABG TCO2 22 mEq/L (20-26)
[2018-04-27] MEDS ORDERED: Ondansetron 4 MG/2 ML VIAL ONE (13:36)
[2018-04-27] MEDS ORDERED: *HR* Labetalol 20 MG/4 ML SYRINGE IVP PRN ×2 (14:24→20:15)
[2018-04-27] MEDS ORDERED: *HR* HYDROmorphone (PF) 1 MG/ML SYRINGE IVP PRN ×2 (14:24→20:15)
[2018-04-27] MEDS ORDERED: *HR* Promethazine 25 MG/ML VIAL IVP PRN ×2 (14:24→20:15)
[2018-04-27] MEDS ORDERED: *HR* OxyCODONE Immed Rel 5 MG TABLET PO PRN (14:24)
[2018-04-27] MEDS ORDERED: Neostigmine Methylsulfate 3 MG/3 ML SYRINGE ONE (15:28)
--- NOTE | 2018-04-27 15:30 | Internal Med Progress Note ---
<Vaishali Trevino - Last Filed: 04/27/18 16:10> Hospitalist Progress Note - Encounter Date of Encounter: 04/27/18 Time of Encounter: 15:22 - Subjective Interval History: Pt seen and examined at bedside in no acute distress. Plan for surgery today: right femoral to below knee politeal artery bypass graft. Notes mild abdominal pain, but denies fevers/chills, headache, SOB, chest pain, nausea, vomiting, diarrhea. - Exam Vitals: Temp Pulse Resp BP Pulse Ox 97.6 F 70 15 156/89 96 04/27/18 10:10 04/27/18 10:10 04/27/18 10:10 04/27/18 10:10 04/27/18 10:10 Exam: GEN: Pt resting comfortably in bed; in no acute distres; VSS HEENT: Normocephalic, atraumatic; EOMI; full ROM of neck CARDIO: RRR, no murmurs, rubs, gallops RESP: CTAB, no wheezes, rales, rhonchi ABD: soft, non-distended, non-tender NEURO: CN II - XII intact EXT: Left BKA; Right necrotic first toe of R Foot - Assessment and Plan (1) Necrotic toes Current Visit: Yes Status: Acute Assessment and Plan: Presents with dry gangrene of right hallux Surgery Today: Right femoral to below knee popliteal artery bypass graft Podiatry recommendation: clean with warm soap and water daily; apply adaptic; Dressing changes daily PLAN: Cont Vanc and Pip/Tazo F/U Vascular Surgery Recommendation Podiatry plans for right hallux amputation upon f/u with vascular (2) PAD (peripheral artery disease) Current Visit: Yes Status: Acute Assessment and Plan: Dual-antiplatelet therapy PLAN: Cont Aspirin and Plavix F/U with vascular consultations (3) Type 2 diabetes mellitus Current Visit: Yes Status: Chronic Assessment and Plan: Hx of DM Type II PLAN: Cont Levemir 10U BID Sliding Scale Carb Controlled Diet F/U HbA1c (4) Coronary artery disease Current Visit: No Status: Chronic Assessment and Plan: Cont on Aspirin and Plavix (5) CHF (congestive heart failure) Current Visit: No Status: Chronic Assessment and Plan: PE: No SOB, chest pain PLAN: Cont carvedilol and lisinopril (6) Atrial fibrillation Current Visit: No Status: Chronic Assessment and Plan: RAte controlled on Carvedilol. Dual antiplatelet therapy CHADS-VASc Score = 4 PLAN: Cont carvedilol Cont aspirin, Plavix (7) GERD (gastroesophageal reflux disease) Current Visit: No Status: Chronic Assessment and Plan: Stable on medication PLAN: Cont prilosec and zofran PRN (8) DVT prophylaxis Current Visit: No Status: Acute Assessment and Plan: Dual antiplatelet therapy PLAN: Cont aspirin and plavix (9) History of left below knee amputation Current Visit: No Status: Chronic (10) AICD (automatic cardioverter/defibrillator) present Current Visit: No Status: Chronic - Time Spent with Patient Total time spent is greater than 50% in coordination of care (as documented) at patient's floor/unit and/or counseling patient: less than 15 minutes Plan of Care Discussed with: patient Internal Medicine: Result - Labs CBC & Chem 7: 04/27/18 07:56 04/27/18 07:56 Labs: Short CBC 04/27/18 Range/Units 07:56 WBC 12.8 H (4.3-11.1) K/mcL Hgb 12.9 (12.9-16.9) g/dL Hct 39.4 (37.5-50.1) % Plt Count 428 H (140-400) K/mcL Neutrophils # 8.7 (1.6-8.9) K/mcL BMP 04/27/18 07:56 Sodium 138 Potassium 3.5 Chloride 109 H Carbon Dioxide 24 BUN 9 Creatinine 0.67 L Glucose 183 H Calcium 9.7 Liver Function 04/27/18 Range/Units 07:56 Total Bilirubin 0.3 (0.3-1.0) mg/dL AST 6 L (13-39) Units/L ALT 6 L (7-52) Units/L Alkaline Phosphatase 95 (34-104) Units/L Albumin 2.8 L (3.5-5.7) g/dL - ABG Interpretation ABG results: ABG ABG pH 7.41 pH Units (7.32-7.45) 04/27/18 13:28 ABG pCO2 32 mmHg (35-45) L 04/27/18 13:28 ABG pO2 312 mmHg (85-104) H 04/27/18 13:28 ABG O2 Saturation 100 % (95-98) H 04/27/18 13:28 PT/INR, D-dimer PT 11.6 Seconds (9.4-12.1) 04/26/18 08:05 Consult Discharge Plan - Plan Referrals: Cora Pinto, KINESEOLOGIST [Primary Care Provider] - <Lucas Winters - Last Filed: 04/27/18 17:46> Hospitalist Progress Note - Exam Vitals: Temp Pulse Resp BP Pulse Ox 97.6 F 70 15 156/89 96 04/27/18 10:10 04/27/18 10:10 04/27/18 10:10 04/27/18 10:10 04/27/18 10:10 - Assessment and Plan (1) Coronary artery disease Current Visit: No Status: Chronic (2) CHF (congestive heart failure) Current Visit: No Status: Chronic (3) DVT prophylaxis Current Visit: No Status: Acute (4) Atrial fibrillation Current Visit: No Status: Chronic (5) Type 2 diabetes mellitus Current Visit: Yes Status: Chronic (6) Necrotic toes Current Visit: Yes Status: Acute (7) PAD (peripheral artery disease) Current Visit: Yes Status: Acute (8) GERD (gastroesophageal reflux disease) Current Visit: Yes Status: Chronic - Time Spent with Patient Total time spent is greater than 50% in coordination of care (as documented) at patient's floor/unit and/or counseling patient: Internal Medicine: Result - Labs CBC & Chem 7: 04/27/18 07:56 04/27/18 07:56 Labs: Short CBC 04/27/18 Range/Units 07:56 WBC 12.8 H (4.3-11.1) K/mcL Hgb 12.9 (12.9-16.9) g/dL Hct 39.4 (37.5-50.1) % Plt Count 428 H (140-400) K/mcL Neutrophils # 8.7 (1.6-8.9) K/mcL BMP 04/27/18 07:56 Sodium 138 Potassium 3.5 Chloride 109 H Carbon Dioxide 24 BUN 9 Creatinine 0.67 L Glucose 183 H Calcium 9.7 Liver Function 04/27/18 Range/Units 07:56 Total Bilirubin 0.3 (0.3-1.0) mg/dL AST 6 L (13-39) Units/L ALT 6 L (7-52) Units/L Alkaline Phosphatase 95 (34-104) Units/L Albumin 2.8 L (3.5-5.7) g/dL - ABG Interpretation ABG results: ABG ABG pH 7.41 pH Units (7.32-7.45) 04/27/18 13:28 ABG pCO2 32 mmHg (35-45) L 04/27/18 13:28 ABG pO2 312 mmHg (85-104) H 04/27/18 13:28 ABG O2 Saturation 100 % (95-98) H 04/27/18 13:28 PT/INR, D-dimer PT 11.6 Seconds (9.4-12.1) 04/26/18 08:05 - Attending Attestation I examined this patient and my medical decision-making was reviewed with the Resident Physician. I agree with the documented findings, disposition and treatment plan as described except to the extent set forth below. _ <Vaishali Trevino - Last Filed: 04/27/18 16:10> (3) Type 2 diabetes mellitus Qualifiers: Diabetes mellitus jail insulin use: unspecified special education assistant insulin use status Diabetes mellitus complication status: with other specified complication Qualified Code(s): E11.69 - Type 2 diabetes mellitus with other specified complication (4) Coronary artery disease Qualifiers: Coronary Disease-Associated Artery/Lesion type: unspecified vessel or lesion type Associated angina: angina presence unspecified Qualified Code(s): I25.10 - Atherosclerotic heart disease of [place] coronary artery without angina pectoris (5) CHF (congestive heart failure) Qualifiers: Heart failure type: unspecified Heart failure chronicity: chronic Qualified Code(s): I50.9 - Heart failure, unspecified (6) Atrial fibrillation Qualifiers: Atrial fibrillation type: chronic Qualified Code(s): I48.2 - Chronic atrial fibrillation (7) GERD (gastroesophageal reflux disease) Qualifiers: Esophagitis presence: esophagitis presence not specified Qualified Code(s): K21.9 - Gastro-esophageal reflux disease without esophagitis <TravisdoreenBiju Jeniffertamera - Last Filed: 04/27/18 17:46> (1) Coronary artery disease Qualifiers: Coronary Disease-Associated Artery/Lesion type: unspecified vessel or lesion type Associated angina: angina presence unspecified Qualified Code(s): I25.10 - Atherosclerotic heart disease of [place] coronary artery without angina pectoris (2) CHF (congestive heart failure) Qualifiers: Heart failure type: unspecified Heart failure chronicity: chronic Qualified Code(s): I50.9 - Heart failure, unspecified (4) Atrial fibrillation Qualifiers: Atrial fibrillation type: chronic Qualified Code(s): I48.2 - Chronic atrial fibrillation (5) Type 2 diabetes mellitus Qualifiers: Diabetes mellitus jail insulin use: unspecified special education assistant insulin use status Diabetes mellitus complication status: with other specified complication Qualified Code(s): E11.69 - Type 2 diabetes mellitus with other specified complication (8) GERD (gastroesophageal reflux disease) Qualifiers: Esophagitis presence: esophagitis presence not specified Qualified Code(s): K21.9 - Gastro-esophageal reflux disease without esophagitis
--- NOTE | 2018-04-27 18:43 | Operative Note ---
Date of procedure: 04/27/18 Pre-op diagnosis: limb threatening ischemia of right foot Post-op diagnosis: same Procedure: right femoral-posterior tibial in situ saphenous vein bypass graft right common femoral endarterectomy Complications: 0 Anesthesia: GETA Surgeon: Roberto Estrada Was there an clinical data assistant present: No Estimated blood loss (cc): 200 Specimen: 0 Condition: stable Disposition: PACU Procedure in Detail: History Mr. Wylie is a 63-year-old white male with severe peripheral vascular occlusive disease. He is 30 status post a left [id number] amputation. He has developed marked ischemia of the right first toe. He now comes the operating room for limb salvage for the right lower extremity. Procedure After informed consent was obtained the patient was taken to the operating room. General anesthesia was established. The right lower extremity was sterilely prepped and draped. A timeout protocol was observed. An incision was made in the right groin to dissect the femoral artery. After control was obtained of the femoral artery the greater saphenous vein was identified. This was then dissected further length of the thigh and proximal calf through interrupted incisions. The vein was found to be soft and normal in size and caliber. It was judged appropriate to be used for vascular conduit for bypass grafting. Also because of the high quality of the vein it was judged reasonable to proceed with in situ saphenous vein bypass grafting. Dissection was then made of the tibial peroneal trunk and posterior tibial artery. The preoperative angiogram had identified that there was a single vessel runoff to the right leg through the posterior tibial artery. There was significant stenosis at the takeoff of the tibial peroneal trunk. Therefore the anastomosis needed to be created onto the proximal posterior tibial artery itself. This vessel was normal in size but calcific. 5000 units of heparin were then administered intravenously. After 3 minute delay the greater saphenous vein was dissected at its point of entry into the common femoral vein and clamped. It was then divided and the proximal aspect was oversewn with a 6-0 Prolene. An arteriotomy was then made of the distal common femoral artery. A large plaque was identified. A formal endarterectomy was necessary of this plaque. This was performed of the distal common femoral artery as well as the orifice of the profunda femoris artery. The area was then copiously irrigated with heparinized saline. The proximal anastomosis was then made using Endo vein to side of artery using 6-0 Prolene suture. After this was done the vein was divided distally. It was then flushed antegrade with heparinized saline. A 2 and 2.5 mm diameter valvulotome was then inserted. These valvulotomes lyse the valves and excellent pulsatile flow was achieved through the bypass graft. The vein was then back flushed with heparinized saline and clamped. An arteriotomy was then made at the proximal posterior tibial artery. The vein was then anastomosed in end-to-side fashion to the proximal posterior tibial artery using 6-0 Prolene suture. After appropriate backbleeding and flushing the graft was opened. Pulsatile flow was achieved into the posterior tibial artery. Excellent Doppler signals were identified throughout the area and at the level of the posterior tibial artery at the ankle. The wounds were then irrigated and hemostasis achieved. The vein was then checked for any residual AV fistulas. These were identified and ligated. The wounds were then closed after irrigation with antibiotic containing solution. Nonabsorbable sutures were used. Dry sterile dressings were applied. The patient was extubated. He was taken from the operating room to the recovery room in stable condition. There were no intraoperative complications.
[2018-04-27] MEDS ORDERED: Dexamethasone 4 MG/ML VIAL ONE (19:42)
[2018-04-27] MEDS ORDERED: *HR* Dextrose 50 % in Water (Syg) 50 ML SYRINGE IVP PRN (20:15)
[2018-04-27] MEDS ORDERED: *HR* HYDROcodone/Acet 5/325 mg TABLET PO PRN (20:15)
[2018-04-27] MEDS ORDERED: D5% in Water 1,000 ML IVC PRN (20:15)
[2018-04-27] MEDS ORDERED: Naloxone 0.4 MG/ML INJ IVP PRN (20:15)
[2018-04-27] MEDS ORDERED: traMADol 50 MG TABLET PO PRN (20:15)
[2018-04-27] MEDS ORDERED: Dextrose Gel 15 GM/37.5 ML TUBE PO PRN ×2 (20:15)
[2018-04-27] MEDS: Baclofen 10 MG TABLET PO SCH (21:17)
[2018-04-27] MEDS: Gabapentin 300 MG CAPSULE PO SCH (21:17)
[2018-04-27] MEDS: *HR* OxyCODONE/APAP 7.5/325 TABLET PO PRN (21:17)
--- NOTE | 2018-04-27 22:15 | Anesthesia Evaluation Post Op ---
Date of Encounter: 04/27/18 Time of Encounter: 22:14 - Vital Signs Vital Signs: Vital Signs/O2 Sat, Most Current Temp Pulse Resp BP Pulse Ox 97.5 F L 70 16 138/69 98 04/27/18 19:54 04/27/18 19:54 04/27/18 19:54 04/27/18 19:54 04/27/18 19:54 - Lungs Lungs: Clear Ascult./Percussion - Airway Airway: Non-obstructed - Cardiovascular Regular Rate - Mental Status Mental Status: Alert & Oriented, Answers Appropriately - Pain Pain Scale: 4 Pain Scale used: Numeric (1 - 10) - Nausea Vomiting Nausea Vomiting: Not Present - Hydration Hydration: Tolerates oral liquids, Bhagat catheter - Discharge PostOp Status: Transfer Patient to floor
[2018-04-28] MEDS: *HR* OxyCODONE/APAP 7.5/325 TABLET PO PRN (06:07)
[2018-04-28] MEDS ORDERED: Magnesium Sulfate 2 GM in D5% in Water 100 ML IVPB ONE (08:02)
--- NOTE | 2018-04-28 08:09 | Internal Med Progress Note ---
Hospitalist Progress Note - Encounter Date of Encounter: 04/28/18 Time of Encounter: 08:07 - Subjective Interval History: No issues, no acute events. Denies fevers/chills, n/v, diaphoresis. Does have typical post-op pain in right leg. - Exam Vitals: Temp Pulse Resp BP Pulse Ox 98.5 F 70 18 132/80 98 04/28/18 07:11 04/28/18 07:11 04/28/18 07:11 04/28/18 07:11 04/28/18 07:11 Exam: GEN: Pt resting comfortably in bed; NAD HEENT: NT/AC CARDIO: RRR, no m/r/g RESP: CTAB EXT: Left AKA. Right foot in clean dressing without drainage or bleeding. - Assessment and Plan (1) Necrotic toes Current Visit: Yes Status: Acute Assessment and Plan: Was started on Vanc/Zosyn emperically. Will consult ID for antibiotic recommendations. POD #1 s/p Right femoral-posterior tibial saphenous vein bypass graft and right common femoral endarterectomy. Stable. Continue aspirin/Plavix. Vascular following, recommendations appreciated. (2) Coronary artery disease Current Visit: No Status: Chronic Assessment and Plan: Patient on Plavix and aspirin. (3) CHF (congestive heart failure) Current Visit: No Status: Chronic Assessment and Plan: euvolemic. no acutely exacerbated. Plan patient on carvedilol and lisinopril (4) Atrial fibrillation Current Visit: No Status: Chronic Assessment and Plan: Patient with a Hx of A. fib rate controlled on Cavedilol. Continue current management. unclear why not on anticoagulation. Med rec not done, we will review and see. (5) Type 2 diabetes mellitus Current Visit: Yes Status: Chronic Assessment and Plan: hyperglycemic on presentation. Plan Continue Basal and sliding scale. carb controlled diet. (6) PAD (peripheral artery disease) Current Visit: Yes Status: Acute Assessment and Plan: POD #1 s/p Right femoral-posterior tibial saphenous vein bypass graft and right common femoral endarterectomy. Stable. Continue aspirin/Plavix. Vascular following, recommendations appreciated. (7) GERD (gastroesophageal reflux disease) Current Visit: Yes Status: Chronic Assessment and Plan: Continue PPI. (8) DVT prophylaxis Current Visit: No Status: Acute Assessment and Plan: Heparin SQ BID. - Time Spent with Patient Total time spent is greater than 50% in coordination of care (as documented) at patient's floor/unit and/or counseling patient: Internal Medicine: Result - Labs CBC & Chem 7: 04/27/18 07:56 04/27/18 07:56 Labs: Short CBC 04/27/18 Range/Units 07:56 WBC 12.8 H (4.3-11.1) K/mcL Hgb 12.9 (12.9-16.9) g/dL Hct 39.4 (37.5-50.1) % Plt Count 428 H (140-400) K/mcL Neutrophils # 8.7 (1.6-8.9) K/mcL BMP 04/27/18 07:56 Sodium 138 Potassium 3.5 Chloride 109 H Carbon Dioxide 24 BUN 9 Creatinine 0.67 L Glucose 183 H Calcium 9.7 Liver Function 04/27/18 Range/Units 07:56 Total Bilirubin 0.3 (0.3-1.0) mg/dL AST 6 L (13-39) Units/L ALT 6 L (7-52) Units/L Alkaline Phosphatase 95 (34-104) Units/L Albumin 2.8 L (3.5-5.7) g/dL - ABG Interpretation ABG results: ABG ABG pH 7.41 pH Units (7.32-7.45) 04/27/18 13:28 ABG pCO2 32 mmHg (35-45) L 04/27/18 13:28 ABG pO2 312 mmHg (85-104) H 04/27/18 13:28 ABG O2 Saturation 100 % (95-98) H 04/27/18 13:28 PT/INR, D-dimer PT 11.6 Seconds (9.4-12.1) 04/26/18 08:05 Consult Discharge Plan - Plan Referrals: Cora Pinto, [employer] ON CALL [Primary Care Provider] - (2) Coronary artery disease Qualifiers: Coronary Disease-Associated Artery/Lesion type: unspecified vessel or lesion type Associated angina: angina presence unspecified Qualified Code(s): I25.10 - Atherosclerotic heart disease of [place] coronary artery without angina pectoris (3) CHF (congestive heart failure) Qualifiers: Heart failure type: unspecified Heart failure chronicity: chronic Qualified Code(s): I50.9 - Heart failure, unspecified (4) Atrial fibrillation Qualifiers: Atrial fibrillation type: chronic Qualified Code(s): I48.2 - Chronic atrial fibrillation (5) Type 2 diabetes mellitus Qualifiers: 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
--- NOTE | 2018-04-28 09:06 | Podiatry Progress Note ---
Date of Encounter: 04/28/18 Time of Encounter: 09:00 - Assessment and Plan (1) Dry gangrene Current Visit: Yes Status: Acute Necrotic right hallux Cleansed right hallux and right dorsal foot with warm soap and water, applied Adaptic, covered loosely with Kerlex and secured with medipore NO compression. Dressing to be changed daily. Continue antibiotics as ordered per primary. ESR 44, CRP 14, HGB A1C 10.4% Vascular recommends waiting 48 hours post right fem-tib bypass and right femoral endarterectomy prior to right hallux amputation Plan amputation of right hallux evening or Thursday. We will make nothing by mouth after breakfast . (2) PAD (peripheral artery disease) Current Visit: Yes Status: Acute Right fem-tib bypass and right femoral endarterectomy 04/27/18. Vascular to follow. (3) Type 2 diabetes mellitus Current Visit: Yes Status: Chronic Recommend strict glucose control while in hospital. Blood glucose levels greater than 170 on medium sliding scale. Continue diabetic diet. Hemoglobin A1c 10.4 Primary managing. 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 Eating breakfast in bed. Patient reports minimal pain rating 3/10. Patient nurse and room reports patient being transferred to [facility]. Objective - Vital Signs Vital Signs: Vital Signs Temp Pulse Resp BP Pulse Ox 04/28/18 07:11 98.5 F 70 18 132/80 98 04/28/18 04:02 99.1 F 70 16 130/79 98 04/28/18 04:00 70 130/79 04/28/18 03:00 70 133/78 04/28/18 02:00 70 141/75 04/28/18 01:00 70 138/78 04/28/18 00:00 71 141/74 04/27/18 23:00 70 133/74 04/27/18 22:00 70 128/85 04/27/18 21:30 98.3 F 69 18 132/84 98 04/27/18 21:00 70 126/71 04/27/18 20:45 70 122/67 04/27/18 20:30 70 129/75 04/27/18 20:15 97.4 F L 70 22 120/72 100 04/27/18 19:54 97.5 F L 70 16 138/69 98 04/27/18 19:44 97.5 F L 70 18 126/74 99 04/27/18 19:34 97.5 F L 70 15 130/83 98 04/27/18 19:24 97.5 F L 70 14 135/64 98 04/27/18 19:14 70 14 124/73 98 04/27/18 19:04 70 16 127/78 98 04/27/18 18:54 98.3 F 70 16 128/80 98 04/27/18 10:10 97.6 F 70 15 156/89 96 Intake and Output 04/27/18 04/28/18 04/28/18 23:59 07:59 15:59 Intake Total 250 / 250 Output Total 1100 / 1100 400 / 400 Balance -1100 / -1100 -150 / -150 Intake: IV Fluids 250 / 250 Vancocin 1,250 MG In 0.9 % 250 / 250 Sodium Chloride 250 ML @ 166.67 mls/hr IVPB Q12H [facility] Rx#: [id number] Output: Estimated Blood Loss 200 / 200 Urine Amount (Catheter) 600 / 600 Catheter 300 / 300 400 / 400 Other: Weight 86.5 kg Blood Glucose* 128 126 Patient Weight 04/28/18 23:59 Weight 86.5 kg - Exam Exam: Constitutional: Awake alert oriented 3 Vascular: Doppler DP/PT right, Doppler popliteal left. Neurologic: diminished light touch and pinprick sensation right lower extremity, normal plantar response Dermatologic: dorsal aspect of right foot with large erythema with necrotic center measuring 2 x 2 centimeters, right hallux necrotic with petechiae noted at the base. Musculoskeletal: left BKA, 3/5 muscle strength right lower extremity - Lab Result Diagrams: 04/27/18 07:56 04/27/18 07:56 Labs: Abnormal lab results WBC 12.8 K/mcL (4.3-11.1) H 04/27/18 07:56 MCH 27.7 pg (28.0-33.3) L 04/27/18 07:56 Plt Count 428 K/mcL (140-400) H 04/27/18 07:56 ESR 44 mm/hr (0-10) H 04/26/18 12:47 ABG pCO2 32 mmHg (35-45) L 04/27/18 13:28 ABG pO2 312 mmHg (85-104) H 04/27/18 13:28 ABG O2 Saturation 100 % (95-98) H 04/27/18 13:28 ABG Base Excess -3 mEq/L (-2 to 3) L 04/27/18 13:28 ABG Hematocrit 34.0 % (37.5-50.1) L 04/27/18 13:28 Glucose 141 mg/dL (60-95) H 04/27/18 13:28 Chloride 109 mEq/L (98-107) H 04/27/18 07:56 Creatinine 0.67 mg/dL (0.70-1.30) L 04/27/18 07:56 Glucose 183 mg/dL (70-105) H 04/27/18 07:56 POC Glucose 128 mg/dL (70-99) H 04/27/18 20:45 Hemoglobin A1c 10.1 % (-5.6) H 04/26/18 12:47 Magnesium 1.5 mg/dL (1.6-2.6) L 04/26/18 08:05 AST 6 Units/L (13-39) L 04/27/18 07:56 ALT 6 Units/L (7-52) L 04/27/18 07:56 C-Reactive Protein 14 mg/L (Less than 10) H 04/26/18 12:47 Serum Total Protein 5.6 g/dL (6.4-8.9) L 04/27/18 07:56 Albumin 2.8 g/dL (3.5-5.7) L 04/27/18 07:56 Albumin/Globulin Ratio 1.0 (1.1-2.2) L 04/27/18 07:56 Arterial Blood Ionized Calcium 1.36 mmol/L (1.15-1.35) H 04/27/18 13:28 Vancomycin Trough 14 mcg/mL (5-10) H 04/28/18 00:30 Consult Discharge Plan - Plan Referrals: Cora Pinto, [employer] PROGRAMMER [Primary Care Provider] -
[2018-04-28] MEDS: amLODIPine 5 MG TABLET PO SCH (09:08)
[2018-04-28] MEDS: Aspirin Enteric Coated 81 MG Tablet PO SCH (09:09)
[2018-04-28] MEDS: Gabapentin 300 MG CAPSULE PO SCH ×3 (09:09→22:27)
[2018-04-28] MEDS: Baclofen 10 MG TABLET PO SCH ×2 (09:10→20:54)
[2018-04-28] MEDS: Piperacillin/Tazobactam 3.375 GM in 0.9 % Sodium Chloride Mini Bag 100 ML IVPB SCH (09:20)
[2018-04-28] MEDS: Insulin LISPRO 300 UNITS/3 ML VIAL SQ SCH ×6 (09:24→20:50)
[2018-04-28] MEDS: Potassium Chloride Elixir 20 MEQ/15 ML UDC PO SCH ×2 (09:33→22:27)
[2018-04-28] MEDS: Insulin DETEMIR 100 UNIT/ML X5UNITS SQ SCH ×2 (12:00→20:50)
--- NOTE | 2018-04-28 12:22 | Infectious Disease Consult ---
Date of Encounter: 04/28/18 Time of Encounter: 12:20 Assessment and Plan (1) Leukocytosis Status: Acute Assessment and plan: The patient had leukocytosis on admission. Likely secondary to right great toe gangrene. Improved initially, but back up yesterday. Repeat CBC now and daily while hospitalized. Qualifiers: Qualified Code(s): D72.829 - Elevated white blood cell count, unspecified (2) Dry gangrene Status: Acute Assessment and plan: Location: Right foot great toe. Likely secondary to PAD. X-ray of the right foot shows soft tissue swelling, but no bone abnormality or soft tissue gas. Podiatry consulted. Planning to perform amputation later this week. No cultures have been obtained since there is no drainage and nothing to culture. ESR 44, CRP 14. Clinically, I do not think this is infectious, but will continue IV antibiotics for now until we get intra-op culture/pathology back. Wound care and activity restrictions per the Podiatry team. Continue Vancomycin IV. Pharmacy to dose. Goal trough ~15. Continue Zosyn 3.375 grams IV Q8H. Duration of treatment depends on the clinical picture. Monitor renal function and for drug toxicity and dose-adjust antibiotics. (3) Altered mental state Status: Acute Assessment and plan: Etiology unclear: medication? Consider CT of the head. Further workup and management per the primary team. Qualifiers: Qualified Code(s): R41.0 - Disorientation, unspecified (4) PAD (peripheral artery disease) Status: Chronic Assessment and plan: Vascular surgery consulted. Status post right femoral-tibial in situ saphenous vein bypass graft and right common endarterectomy 04/27/[address] Estrada. (5) Hypertension Status: Chronic Qualifiers: Qualified Code(s): I10 - Essential (primary) hypertension (6) Ischemic cardiomyopathy Status: Chronic (7) COPD (chronic obstructive pulmonary disease) Status: Chronic Qualifiers: Qualified Code(s): J44.9 - Chronic obstructive pulmonary disease, unspecified (8) Diabetes mellitus Status: Chronic Assessment and plan: Uncontrolled. HgbA1C 10.1%. Recommend aggressive glucose monitoring and control to promote wound healing and prevent re-infection. Management per the primary team. Qualifiers: Qualified Code(s): 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 2 diabetes mellitus with diabetic peripheral angiopathy with gangrene; Z79.4 - half-way (current) use of insulin; Z79.4 - half-way (current) use of insulin; Z79.4 - technician terminal and repeater (current) use of insulin; Z79.4 - technician terminal and repeater (current) use of insulin (9) Atrial fibrillation Status: Chronic Qualifiers: Qualified Code(s): I48.2 - Chronic atrial fibrillation (10) History of left below knee amputation Status: Chronic Assessment and plan: Status post left AKA 01/2018 secondary to PAD and necrosis of the left foot. (11) AICD (automatic cardioverter/defibrillator) present Status: Chronic Infectious Disease HPI - Data of Consult Patient: known to practice within the last 3 years Consult date: 04/28/18 Requesting Physician: William Rodriguez MD Primary Care Provider: Cora Pinto CNP - Consult Narrative Reason for consult: Right great toe necrosis History of present illness: Mr. Wylie is a 63 year old male with a past medical history of uncontrolled diabetes, asthma, A. fib, cardiomyopathy, CHF, COPD, hypertension, left AKA 01/14/18 secondary to PAD. The patient was admitted to the hospital April 25 for right great toe necrosis. We are consulted April 28 for antibiotic recommendations for right great toe necrosis. Briefly, the patient's a 63-year-old male with past medical history as stated above. The patient is noted to the ID services we were consulted on his case back in January. At that time, the patient presented with complaints of a left foot second toe that was dusky. The left foot second toe was amputated and he continued to have necrosis of toes # 3, 4, and #5 and the plantar aspect of the left foot. Vascular eventually took him back to surgery and performed a left AKA as the foot was deemed unsalvageable. Since then, the patient has developed a necrotic ulcer to the right great toe. He has been following with Dr. Morfin in the wound clinic and had worsening of the wound last week. On 04/22/18 he underwent angiogram that showed 100% blockage of the right mid and distal SFA, 100% anterior tibial, 75% left renal, and 100% left peroneal. These blockages were not amenable to stenting and he was scheduled for vascular procedure to be completed yesterday. In the interim, the patient's toe progressively got more black so he presented to the ER for evaluation. Upon arrival to the ER , the patient was afebrile and hemodynamically stable. WBC was elevated at 14 with neutrophilic predominance. Right great toe x-ray showed soft tissue swelling of the 1st digit and forefoot consistent with cellulitis, but no gas or bone abnormality. Blood cultures were drawn x 2 sets. He was started on IV antibiotics and admitted to the hospital for further evaluation. Since admission, the patient has been evaluated by Podiatry who plans to take the patient to the OR later this week for amputation of the right great toe. Vascular surgery has been consulted and took the patient to OR 04/27/18 and performed a right femoral-posterior tibial in situ saphenous vein bypass graft and right common femoral endarterectomy. His WBC initially normalized, but went back up yesterday. No labs have been checked today. Blood cultures drawn on the ED are NGTD. Currently, the patient is on IV Vanc and Zosyn. We've been asked to evaluate and make further recommendations. During my exam today, the patient appears somnolent and minimally participative in the exam. He states he hurts "all over" but does not provide any other ROS information. CC: William Rodriguez MD Past Med Surg Social Fam HX - Past Medical History Source: old records reviewed, nursing notes reviewed Medical history: arthritis, asthma, atrial fibrillation, cardiomyopathy, CHF, COPD, coronary artery disease, diabetes, GERD, hyperlipidemia, hypertension, myocardial infarction Additional medical history: tremors Psychiatric history: anxiety, depression - Past Surgical History Surgical History: angioplasty/stent, coronary bypass (CABG), orthopedic, other, pacemaker/AICD, other Additional surgical history: left BKA - Social History Smoking Status: Current every day smoker Packs per day: 1 Smokeless Tobacco Status: No Alcohol use: none Drug use: none - Family History Father Living Status: Hx Family Cancer: Yes Mother Living Status: Still Living Hx Family Cancer: Yes (kidney cancer) Infectious Disease-CN:Meds RX: Gabapentin [Neurontin] 300 mg PO TID 05/18/15 [History] RX: Acetaminophen [Tylenol] 650 mg PO Q6HR PRN tablet 01/20/18 [Rx] RX: Folic Acid 1 mg PO DAILY tablet 01/20/18 [Rx] RX: Lisinopril [Zestril] 10 mg PO DAILY tablet 01/20/18 [Rx] RX: OxyCODONE/APAP 7.5/325 [Percocet 7.5/325 MG] 1 each PO Q6H PRN 3 Days #12 tablet 01/20/18 [Rx] RX: Thiamine (B-1) [Vitamin B-1] 100 mg PO TID tablet 01/20/18 [Rx] RX: Omeprazole [PriLOSEC] 20 mg PO DAILY 04/27/18 [History] RX: Sertraline [Zoloft] 25 mg PO DAILY 04/27/18 [History] RX: amLODIPine [Norvasc] 5 mg PO DAILY 04/27/18 [History] risperiDONE [Risperidone] 0.5 mg PO DAILY 04/27/18 [History] Magnesium Oxide [Magnesium] 400 mg PO DAILY 04/28/18 [History] RX: Fluconazole [Diflucan] 100 mg PO QID 04/28/18 [History] RX: Insulin DETEMIR [Levemir] 27 unit SQ HS 04/28/18 [History] RX: Insulin LISPRO [HumaLOG] 14 units SQ TIDAC 04/28/18 [History] Allergy/AdvReac Type Severity Reaction Status Date / Time ticlopidine [From Ticlid] Allergy Hives Verified 05/25/17 08:37 carbidopa [From Sinemet] AdvReac Confusion Verified 06/08/17 15:42 levodopa [From Sinemet] AdvReac Confusion Verified 06/08/17 15:42 All systems: reviewed and no additional remarkable complaints except as stated Exam - Constitutional Vitals: Temp Pulse Resp BP Pulse Ox 97.6 F 70 18 99/65 92 04/28/18 10:29 04/28/18 10:29 04/28/18 10:29 04/28/18 10:29 04/28/18 10:29 General appearance: average body habitus, no acute distress, no febrile - Head Head exam: Present: atraumatic, normal inspection, normocephalic - Eye Eye exam: Present: EOMI, normal appearance, PERRL Pupils: Present: normal accommodation - ENT ENT exam: Present: mucous membranes moist - Neck Neck exam: Present: normal inspection - Respiratory Respiratory exam: Present: CTAB. Absent: rales, respiratory distress, rhonchi, wheezes - Cardiovascular Cardiovascular exam: Present: irregular rhythm, +S1, +S2. Absent: tachycardia - GI/Abdominal GI/Abdominal exam: Present: normal bowel sounds, soft. Absent: distended, tenderness - Extremities Exam Extremities exam: Present: pedal edema (Mild, right foot.). Absent: joint sw elling, normal inspection (RLE surgical sites with dressing with small amount of shadow drainage noted. Right great toe necrotic and non-tender. ), tenderness Additional comments: Left AKA well-healed with small scab noted. No erythema, warmth, or edema noted. - Neurological Exam Neurological exam: Present: alert, oriented X3, no focal deficits - Psychiatric Psychiatric exam: Present: normal affect, normal mood - Skin Skin exam: Present: dry, intact, normal color, warm Infectious Disease CN: Results - Labs CBC & Chem 7: 04/29/18 04:09 04/29/18 04:09 Cultures: Cultures 04/25/18 23:04 Blood Culture - Preliminary Peripheral Venipuncture Culture is incubating and being continuously monitored for growth. Final report to follow. 04/25/18 23:01 Blood Culture - Preliminary Peripheral Venipuncture Culture is incubating and being continuously monitored for growth. Final report to follow. Consult Discharge Plan - Plan Referrals: Roberto Estrada MD [Partnered Physician] - (Follow-up with Dr. Estrada in vascular surgery clinic in 2 weeks.) Cora Pinto CNP [Primary Care Provider] - - Attending Attestation I examined this patient and my medical decision-making was reviewed with the Resident Physician. I agree with the documented findings, disposition and treatment plan as described except to the extent set forth below. This is an addendum to original report dictated by Anahi Gordillo CNP. Please refer to Anahi's note for full detail. Patient is a 63-year-old gentleman who is known to our service has severe peripheral artery disease history dry necrosis of the left great toe and the le ft foot eventually had a left [id number] amputation in January had right great toe dusky looking dry gangrene. Patient underwent an angiogram of the right lower extremity on 04/22/2018 which revealed 100% anterior tibial, 75% left renal and 100% of the left peroneal arteries were blocked. Patient underwent a right femoral posterior tibial in situ saphenous vein bypass graft and right common femoral endarterectomy on 04/27/2018 and we were consulted for recommendations. Assessment and plan: Leukocytosis Dry gangrene Altered mental status Peripheral artery disease Hypertension Ischemic cardiomyopathy COPD Recommendations: I am not sure that there is an infectious etiology to his dry gangrene but we are unable to really find out right now until we get further information. In the meantime continue broad-spectrum antibiotics until pathology and cultures are back and it that time we will make further recommendations. Monitor labs and for drug toxicity
--- NOTE | 2018-04-28 12:33 | Vascular/[facility] Progress Note ---
Date of Encounter: 04/28/18 Time of Encounter: 08:05 - Assessment and plan (1) PAD (peripheral artery disease) Current Visit: Yes Status: Chronic Patent right lower extremity bypass graft and endarterectomy site. Improve perfusion with improved color and temperature to right lower extremity. Improved Doppler signals at right ankle. From vascular surgery perspective patient may proceed with toe amputation as early as tomorrow. - Subjective Procedure(s) Performed: Patient is postoperative day #1 following right femoral to posterior tibial artery bypass graft with in situ saphenous vein and right common femoral artery endarterectomy. Patient complains of burning along surgical incisions on right thigh. Right foot is warm and pink. Increased color and temperature and capillary refill as compared to preoperatively. Patient has multiphasic Doppler signal present at right posterior tibial artery. Vital Signs, Last 4 Hours Temp Pulse Resp BP Pulse Ox 04/28/18 10:29 97.6 F 70 18 99/65 92 04/28/18 10:00 96 - Physical Examination General: Present: Conversant, No Apparent Distress Vascular: Present: Color/Temperature (Increase and improved color and temperature to right foot.), Surgical incisions (Dry dressings over right lower extremity surgical sites.), Other (Patient has multiphasic Doppler signal over right posterior tibial artery. Patient has now Doppler signals over the dorsalis pedis and peroneal artery at the ankle. These last 2 Doppler signals were not present immediately following surgery last night.). Absent: Cyanosis, Edema Results 04/27/18 07:56 04/27/18 07:56 Consult Discharge Plan - Plan Referrals: Cora Pinto CNP [Primary Care Provider] - Roberto Estrada MD [Partnered Physician] - (Follow-up with Dr. Estrada in vascular surgery clinic in 2 weeks.)
[2018-04-28 13:06] LABS: BUN/Creatinine Ratio 9 (6-26); Blood Urea Nitrogen 11 mg/dL (8-23); Calcium 9.2 mg/dL (8.6-10.3); Carbon Dioxide 24 mEq/L (23-29); Chloride 110 mEq/L (98-107); Glucose 67 mg/dL (70-105); Osmolality,Calculated 286 (280-300); Potassium 3.6 mEq/L (3.5-5.1); Sodium 139 mEq/L (136-145); eGFR For Non-African Americans 59 (> 60)
[2018-04-28 13:24] LABS: Hematocrit 33.3 % (37.5-50.1); Hemoglobin 10.9 g/dL (12.9-16.9); Immature Granulocytes % 0.5 % (0-4); Lymphocytes % 19.3 %; Mean Corpuscular HGB Conc 32.7 g/dL (31.6-35.5); Mean Corpuscular Hemoglobin 28.4 pg (28.0-33.3); Mean Corpuscular Volume 86.7 fL (83.0-100.0); Mean Platelet Volume 9.6 fL (9.4-12.4); Monocytes % 8.2 %; Platelet Count 357 K/mcL (140-400); Red Blood Count 3.84 M/mcL (4.19-5.50); Red Cell Distribution Width 13.7 % (11.5-14.5); Segmented Neutrophils % 69.2 %
[2018-04-28 13:25] LABS: Basophils # 0.1 K/mcL (0.0-0.2); Basophils % 0.7 %; Eosinophils # 0.3 K/mcL (0.0-0.6); Eosinophils % 2.1 %; Lymphocytes # 2.5 K/mcL (0.6-4.6); Monocytes # 1.1 K/mcL (0.0-1.3)
[2018-04-28 15:49] LABS: ABG Base Excess 0 mEq/L (-2 to 3); ABG HCO3 26 mEq/L (21-27); ABG Oxygen Saturation 91 % (95-98); ABG PCO2 47 mmHg (35-45); ABG PH 7.35 pH Units (7.32-7.45); ABG PO2 65 mmHg (85-104); ABG TCO2 27 mEq/L (20-26)
--- NOTE | 2018-04-28 15:49 | Event Note ---
Date of Encounter: 04/28/18 Time of Encounter: 15:34 Re assessing this afternoon I noted patient to be more somnolent. He is responsive to stimuli and obeys commands but appears confused as well. Neuro exam showed no focal neuro deficits. CN II-XII were grossly in tact. Sensation was normal. Lower extremity function could not be done because patient has left AKA and right foot post-op. CVS: RRR, lungs had course breath sounds with wheezing and rales. He is in no acute distress. Vital signs at bedside reviewed. BP, HR, normal. Saturating 98% O2 on room air, afebrile. He is able to say his name but does display some confusion. Glucose was lower in AM as well at 67. No sedating and/or pain medications were given today. - Stat ABG, BMP, LFT, CBC - Stat CT head - Stat glucose POC - Ammonia, CXR, neurochecks. - Hold sedating medications.
[2018-04-28 16:43] LABS: Basophils # 0.1 K/mcL (0.0-0.2); Basophils % 0.7 %; Eosinophils # 0.3 K/mcL (0.0-0.6); Eosinophils % 2.3 %; Hematocrit 35.7 % (37.5-50.1); Hemoglobin 11.5 g/dL (12.9-16.9); Immature Granulocytes % 0.4 % (0-4); Lymphocytes # 2.5 K/mcL (0.6-4.6); Lymphocytes % 18.4 %; Mean Corpuscular HGB Conc 32.2 g/dL (31.6-35.5); Mean Corpuscular Hemoglobin 28.1 pg (28.0-33.3); Mean Corpuscular Volume 87.3 fL (83.0-100.0); Mean Platelet Volume 9.6 fL (9.4-12.4); Monocytes # 1.1 K/mcL (0.0-1.3); Neutrophils # 9.5 K/mcL (1.6-8.9); Platelet Count 368 K/mcL (140-400); Red Blood Count 4.09 M/mcL (4.19-5.50); Red Cell Distribution Width 13.5 % (11.5-14.5); Segmented Neutrophils % 70.2 %
[2018-04-28 17:01] LABS: Alanine Aminotransferase 5 Units/L (7-52); Albumin 2.7 g/dL (3.5-5.7); Alkaline Phosphatase 81 Units/L (34-104); Aspartate Amino Transferase 8 Units/L (13-39); BUN/Creatinine Ratio 8 (6-26); Bilirubin,Total 0.4 mg/dL (0.3-1.0); Blood Urea Nitrogen 11 mg/dL (8-23); Calcium 9.6 mg/dL (8.6-10.3); Carbon Dioxide 25 mEq/L (23-29); Chloride 109 mEq/L (98-107); Globulin 2.8 g/dL (2.4-3.5); Glucose 96 mg/dL (70-105); Osmolality,Calculated 289 (280-300); Potassium 3.4 mEq/L (3.5-5.1); Sodium 140 mEq/L (136-145); Total Protein 5.5 g/dL (6.4-8.9); eGFR For Non-African Americans 51 (> 60)
[2018-04-28] MEDS ORDERED: Ringers Solution, Lactated 500 ML IVC ONE (17:14)
[2018-04-28] MEDS ORDERED: Piperacillin/Tazobactam 3.375 GM in 0.9 % Sodium Chloride Mini Bag 100 ML IVPB SCH (22:00)
[2018-04-28] MEDS: Ringers Solution, Lactated 1,000 ML IVC SCH (22:55)
[2018-04-29 04:32] LABS: Basophils # 0.1 K/mcL (0.0-0.2); Basophils % 0.7 %; Eosinophils # 0.3 K/mcL (0.0-0.6); Hemoglobin 11.2 g/dL (12.9-16.9); Immature Granulocytes % 0.4 % (0-4); Lymphocytes # 2.5 K/mcL (0.6-4.6); Lymphocytes % 18.9 %; Mean Corpuscular Hemoglobin 27.9 pg (28.0-33.3); Mean Corpuscular Volume 87.3 fL (83.0-100.0); Monocytes # 1.1 K/mcL (0.0-1.3); Monocytes % 8.5 %; Neutrophils # 9.4 K/mcL (1.6-8.9); Platelet Count 351 K/mcL (140-400); Red Blood Count 4.01 M/mcL (4.19-5.50); Red Cell Distribution Width 13.6 % (11.5-14.5); Segmented Neutrophils % 69.5 %
[2018-04-29 04:49] LABS: Calcium 9.3 mg/dL (8.6-10.3); Potassium 3.8 mEq/L (3.5-5.1)
[2018-04-29] MEDS ORDERED: *HR* Heparin 5,000 UNIT/ML VIAL SQ SCH (06:00)
[2018-04-29] MEDS: amLODIPine 5 MG TABLET PO SCH (08:40)
[2018-04-29] MEDS: Gabapentin 300 MG CAPSULE PO SCH ×2 (08:41→14:59)
[2018-04-29] MEDS: Ringers Solution, Lactated 1,000 ML IVC SCH ×2 (08:41→08:42)
[2018-04-29] MEDS: Aspirin Enteric Coated 81 MG Tablet PO SCH (08:41)
[2018-04-29] MEDS: Potassium Chloride Elixir 20 MEQ/15 ML UDC PO SCH ×2 (08:43→22:51)
[2018-04-29] MEDS: Piperacillin/Tazobactam 3.375 GM in 0.9 % Sodium Chloride Mini Bag 100 ML IVPB SCH ×2 (08:43→17:31)
[2018-04-29] MEDS: Insulin LISPRO 300 UNITS/3 ML VIAL SQ SCH ×4 (08:44→17:25)
[2018-04-29] MEDS: Insulin DETEMIR 100 UNIT/ML X5UNITS SQ SCH (08:53)
--- NOTE | 2018-04-29 10:46 | Podiatry Progress Note ---
Date of Encounter: 04/29/18 Time of Encounter: 08:00 - Assessment and Plan (1) Dry gangrene Current Visit: Yes Status: Acute Necrotic right hallux Doppler right foot DP/PT pulses. Cleansed right hallux and right dorsal foot with warm soap and water, applied Adaptic, covered loosely with 4x4 dry gauze, Kerlex, and secured with paper tape NO compression. Dressing to be changed daily. Continue antibiotics as ordered per primary. ESR 44, CRP 14, HGB A1C 10.4% on 04/26/18, recheck ESR and CRP Vascular recommends waiting 48 hours post right fem-tib bypass and right femoral endarterectomy prior to right hallux amputation Plan amputation of right hallux Thursday. We will make nothing by mouth when appropriate. (2) PAD (peripheral artery disease) Current Visit: Yes Status: Chronic Right fem-tib bypass and right femoral endarterectomy 04/27/18. Vascular to follow. (3) Type 2 diabetes mellitus Current Visit: Yes Status: Chronic Recommend strict glucose control while in hospital. Blood glucose levels running low 100s on medium sliding scale. Patient had episode of hypoglycemia yesterday. On diabetic diet. Primary managing Hemoglobin A1c 10.4 Qualifiers: Diabetes mellitus exterminator termite insulin use: unspecified exterminator termite insulin use status Diabetes mellitus complication status: with other specified complication Qualified Code(s): E11.69 - Type 2 diabetes mellitus with other specified complication Subjective Interval history: Patient awake alert oriented x 1. Laying in bed. Patient reports worsening pain to right foot. Objective - Vital Signs Vital Signs: Vital Signs Temp Pulse Resp BP Pulse Ox 04/29/18 07:22 69 18 140/79 97 04/29/18 05:07 70 17 135/69 97 04/29/18 01:13 62 17 134/72 99 04/28/18 21:00 95 04/28/18 20:43 97.8 F 70 18 95 04/28/18 15:35 98.4 F 70 17 113/71 95 04/28/18 12:00 92 04/28/18 10:29 97.6 F 70 18 99/65 92 04/28/18 10:00 96 Intake and Output 04/28/18 04/29/18 04/29/18 23:59 07:59 15:59 Intake Total 0 / 0 560 / 560 Output Total 175 / 175 0 / 0 Balance -175 / -175 560 / 560 Intake: IV Fluids 560 / 560 Lactated Ringers 1,000 ML @ 100 210 / 210 mls/hr IVC .Q10H ANT Rx#: [id number] Zosyn 3.375 GM In 0.9 % Sodium 100 / 100 Chloride (Mini-Bag +) 100 ML @ 25 mls/hr IVPB Q8H ANT Rx#: [id number] Vancocin 1,250 MG In 0.9 % 250 / 250 Sodium Chloride 250 ML @ 166.67 mls/hr IVPB Q12H ANT Rx#: [id number] Oral 0 / 0 Output: Urine 0 / 0 0 / 0 Straight Cath 175 / 175 Other: Meal Dinner Percent of Meal Consumed 0% Weight 85 kg Blood Glucose* 85 134 Patient Weight 04/29/18 23:59 Weight 85 kg - Exam Exam: Constitiutional: Alert and oriented x1 -person. Vascular: doppler DP/PT bilaterally, CFT <3 sec, sluggish, to digits 2-5 right foot, LBKA, warm to cool from tibia to toes RLE Neurologic: Diminished light touch and pinprick test, Abnormal position sense dorsiflexion/plantar flexion Dermatologic: Dorsal right foot wound, with 2 areas of opening 1 Necrotic center. measuring 2 x 2 centimeters, 1 with beefy red center measuring 1 x 1 cm, right hallux necrotic with petichiae at base. Musculoskeletal: 3/5 muscle strength RLE, tremors noted. - Lab Result Diagrams: 04/29/18 04:09 04/29/18 04:09 Labs: Abnormal lab results WBC 13.5 K/mcL (4.3-11.1) H 04/29/18 04:09 RBC 4.01 M/mcL (4.19-5.50) L 04/29/18 04:09 Hgb 11.2 g/dL (12.9-16.9) L 04/29/18 04:09 Hct 35.0 % (37.5-50.1) L 04/29/18 04:09 MCH 27.9 pg (28.0-33.3) L 04/29/18 04:09 Neutrophils # 9.4 K/mcL (1.6-8.9) H 04/29/18 04:09 ESR 44 mm/hr (0-10) H 04/26/18 12:47 ABG pCO2 47 mmHg (35-45) H 04/28/18 15:46 ABG pO2 65 mmHg (85-104) L 04/28/18 15:46 ABG Total CO2 27 mEq/L (20-26) H 04/28/18 15:46 ABG O2 Saturation 91 % (95-98) L 04/28/18 15:46 ABG Hematocrit 34.0 % (37.5-50.1) L 04/27/18 13:28 Glucose 141 mg/dL (60-95) H 04/27/18 13:28 Chloride 110 mEq/L (98-107) H 04/29/18 04:09 Carbon Dioxide 21 mEq/L (23-29) L 04/29/18 04:09 Creatinine 1.45 mg/dL (0.70-1.30) H 04/29/18 04:09 Est GFR ( Amer) 59 (> 60) L 04/29/18 04:09 Est GFR (Non-Af Amer) 49 (> 60) L 04/29/18 04:09 Glucose 108 mg/dL (70-105) H 04/29/18 04:09 Hemoglobin A1c 10.1 % (-5.6) H 04/26/18 12:47 Magnesium 1.5 mg/dL (1.6-2.6) L 04/26/18 08:05 AST 8 Units/L (13-39) L 04/28/18 16:23 ALT 5 Units/L (7-52) L 04/28/18 16:23 C-Reactive Protein 14 mg/L (Less than 10) H 04/26/18 12:47 Serum Total Protein 5.5 g/dL (6.4-8.9) L 04/28/18 16:23 Albumin 2.7 g/dL (3.5-5.7) L 04/28/18 16:23 Albumin/Globulin Ratio 1.0 (1.1-2.2) L 04/28/18 16:23 Arterial Blood Ionized Calcium 1.36 mmol/L (1.15-1.35) H 04/27/18 13:28 Vancomycin Trough 14 mcg/mL (5-10) H 04/28/18 00:30 Microbiology, Last 48 Hours 04/28/18 18:00 Blood Culture - Preliminary Peripheral Venipuncture Culture is incubating and being continuously monitor ed for growth. Final report to follow. 04/28/18 18:20 Blood Culture - Preliminary Peripheral Venipuncture Culture is incubating and being continuously monitored for growth. Final report to follow. Consult Discharge Plan - Plan Referrals: Roberto Estrada MD [Partnered Physician] - (Follow-up with Dr. Estrada in vascular surgery clinic in 2 weeks.) Cora Pinto CNP [Primary Care Provider] -
--- NOTE | 2018-04-29 10:57 | Infectious Disease Progress No ---
Date of Encounter: 04/29/18 Time of Encounter: 10:44 - Assessment and Plan (1) Leukocytosis Current Visit: No Status: Acute The patient had leukocytosis on admission. Likely secondary to right great toe gangrene. Improved initially, but back up yesterday. Remains mildly elevated this morning. Repeat CBC daily while hospitalized. Qualifiers: Leukocytosis type: unspecified Qualified Code(s): D72.829 - Elevated white blood cell count, unspecified (2) Dry gangrene Current Visit: Yes Status: Acute Location: Right foot great toe. Likely secondary to PAD. X-ray of the right foot shows soft tissue swelling, but no bone abnormality or soft tissue gas. Podiatry consulted. Planning to perform amputation later this week. No cultures have been obtained since there is no drainage and nothing to culture. ESR 44, CRP 14. Clinically, I do not think this is infectious, but will continue IV antibiotics for now until we get intra-op culture/pathology back. Wound care and activity restrictions per the Podiatry team. Continue Vancomycin IV. Pharmacy to dose. Goal trough ~15. Continue Zosyn 3.375 grams IV Q8H. Duration of treatment depends on the clinical picture. Monitor renal function and for drug toxicity and dose-adjust antibiotics. (3) Altered mental state Current Visit: No Status: Resolved Etiology unclear, but likely secondary to recent anesthesia. CT head negative. More awake today, but remains confused. Further workup and management per the primary team. Qualifiers: Altered mental status type: delirium Qualified Code(s): R41.0 - Disorientation, unspecified (4) Acute kidney injury Current Visit: Yes Status: Acute Etiology unclear. Serum creatinine 1.45 this morning. Continue to trend. Dose-adjust medications. Avoid nephrotoxins as able. Consider nephrology to evaluate if continues to worsen. (5) PAD (peripheral artery disease) Current Visit: No Status: Chronic Vascular surgery consulted. Status post right femoral-tibial in situ saphenous vein bypass graft and right common endarterectomy 04/27/[address] Estrada. (6) Hypertension Current Visit: No Status: Chronic Qualifiers: Hypertension type: essential hypertension Qualified Code(s): I10 - Essential (primary) hypertension (7) Ischemic cardiomyopathy Current Visit: No Status: Chronic (8) COPD (chronic obstructive pulmonary disease) Current Visit: No Status: Chronic Qualifiers: COPD type: unspecified COPD Qualified Code(s): J44.9 - Chronic obstructive pulmonary disease, unspecified (9) Diabetes mellitus Current Visit: No Status: Chronic Uncontrolled. HgbA1C 10.1%. Recommend aggressive glucose monitoring and control to promote wound healing and prevent re-infection. Management per the primary team. 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 insulin use: with care home use Diabetes mellitus complication status: with circulatory complication Diabetes mellitus complication detail: with peripheral angiopathy with gangrene Qualified Code(s): 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 2 diabetes mellitus with diabetic peripheral angiopathy with gangrene; Z79.4 - MCC (current) use of insulin; Z79.4 - terminal gauger (current) use of insulin; Z79.4 - MCC (current) use of insulin; Z79.4 - MCC (current) use of insulin (10) Atrial fibrillation Current Visit: No Status: Chronic Qualifiers: Atrial fibrillation type: chronic Qualified Code(s): I48.2 - Chronic atrial fibrillation (11) History of left below knee amputation Current Visit: No Status: Chronic Status post left AKA 01/2018 secondary to PAD and necrosis of the left foot. (12) AICD (automatic cardioverter/defibrillator) present Current Visit: No Status: Chronic - Subjective Interval history: Patient seen and examined. Overnight events noted. Family is at the bedside. Patient is more awake and alert this morning, but remains confused breath, or cough. Denies any nausea or vomiting or diarrhea. Denies any abdominal pain or urinary complaints. Denies any oral thrush or any skin lesions. He does report pain in the right leg at the surgical sites. Per his family, the patient does not tolerate anesthesia well and was confused for 2 days after his last surgery. Infect Dis PN-Objective Data - Labs CBC & Chem 7: 04/30/18 03:19 04/30/18 03:19 Labs: Laboratory Results - last 24 hr 04/28/18 04/28/18 04/28/18 07:14 11:05 12:35 WBC RBC Hgb Hct MCV MCH MCHC RDW Plt Count MPV Immature Gran % Seg Neutrophils % Lymphocytes % Monocytes % Eosinophils % Basophils % Neutrophils # Lymphocytes # Monocytes # Eosinophils # Basophils # ESR ABG pH ABG pCO2 ABG pO2 ABG HCO3 ABG Total CO2 ABG O2 Saturation ABG Base Excess Inspired O2 Sodium 139 Potassium 3.6 Chloride 110 H Carbon Dioxide 24 BUN 11 Creatinine 1.23 Est GFR ( Amer) > 60 Est GFR (Non-Af Amer) 59 L BUN/Creatinine Ratio 9 Glucose 67 L POC Glucose 126 H 85 Calculated Osmolality 286 Lactic Acid Calcium 9.2 Total Bilirubin AST ALT Alkaline Phosphatase Ammonia C-Reactive Protein Serum Total Protein Albumin Globulin Albumin/Globulin Ratio Specimen Rejected 04/28/18 04/28/18 04/28/18 12:35 13:08 15:46 WBC 13.0 H RBC 3.84 L Hgb 10.9 L D Hct 33.3 L MCV 86.7 MCH 28.4 MCHC 32.7 RDW 13.7 Plt Count 357 MPV 9.6 Immature Gran % 0.5 Seg Neutrophils % 69.2 Lymphocytes % 19.3 Monocytes % 8.2 Eosinophils % 2.1 Basophils % 0.7 Neutrophils # 9.0 H Lymphocytes # 2.5 Monocytes # 1.1 Eosinophils # 0.3 Basophils # 0.1 ESR ABG pH 7.35 ABG pCO2 47 H ABG pO2 65 L ABG HCO3 26 ABG Total CO2 27 H ABG O2 Saturation 91 L ABG Base Excess 0 Inspired O2 21.0 Sodium Potassium Chloride Carbon Dioxide BUN Creatinine Est GFR ( Amer) Est GFR (Non-Af Amer) BUN/Creatinine Ratio Glucose POC Glucose Calculated Osmolality Lactic Acid Calcium Total Bilirubin AST ALT Alkaline Phosphatase Ammonia C-Reactive Protein Serum Total Protein Albumin Globulin Albumin/Globulin Ratio Specimen Rejected Volume 04/28/18 04/28/18 04/28/18 16:23 16:23 16:23 WBC 13.5 H RBC 4.09 L Hgb 11.5 L Hct 35.7 L MCV 87.3 MCH 28.1 MCHC 32.2 RDW 13.5 Plt Count 368 MPV 9.6 Immature Gran % 0.4 Seg Neutrophils % 70.2 Lymphocytes % 18.4 Monocytes % 8.0 Eosinophils % 2.3 Basophils % 0.7 Neutrophils # 9.5 H Lymphocytes # 2.5 Monocytes # 1.1 Eosinophils # 0.3 Basophils # 0.1 ESR ABG pH ABG pCO2 ABG pO2 ABG HCO3 ABG Total CO2 ABG O2 Saturation ABG Base Excess Inspired O2 Sodium 140 Potassium 3.4 L Chloride 109 H Carbon Dioxide 25 BUN 11 Creatinine 1.39 H Est GFR ( Amer) > 60 Est GFR (Non-Af Amer) 51 L BUN/Creatinine Ratio 8 Glucose 96 POC Glucose Calculated Osmolality 289 Lactic Acid 0.9 Calcium 9.6 Total Bilirubin 0.4 AST 8 L ALT 5 L Alkaline Phosphatase 81 Ammonia C-Reactive Protein Serum Total Protein 5.5 L Albumin 2.7 L Globulin 2.8 Albumin/Globulin Ratio 1.0 L Specimen Rejected 04/28/18 04/29/18 04/29/18 16:23 04:09 04:09 WBC 13.5 H RBC 4.01 L Hgb 11.2 L Hct 35.0 L MCV 87.3 MCH 27.9 L MCHC 32.0 RDW 13.6 Plt Count 351 MPV 10.0 Immature Gran % 0.4 Seg Neutrophils % 69.5 Lymphocytes % 18.9 Monocytes % 8.5 Eosinophils % 2.0 Basophils % 0.7 Neutrophils # 9.4 H Lymphocytes # 2.5 Monocytes # 1.1 Eosinophils # 0.3 Basophils # 0.1 ESR ABG pH ABG pCO2 ABG pO2 ABG HCO3 ABG Total CO2 ABG O2 Saturation ABG Base Excess Inspired O2 Sodium 139 Potassium 3.8 Chloride 110 H Carbon Dioxide 21 L BUN 12 Creatinine 1.45 H Est GFR ( Amer) 59 L Est GFR (Non-Af Amer) 49 L BUN/Creatinine Ratio 8 Glucose 108 H POC Glucose Calculated Osmolality 288 Lactic Acid Calcium 9.3 Total Bilirubin AST ALT Alkaline Phosphatase Ammonia 24 C-Reactive Protein 180 H Serum Total Protein Albumin Globulin Albumin/Globulin Ratio Specimen Rejected 04/29/18 08:29 WBC RBC Hgb Hct MCV MCH MCHC RDW Plt Count MPV Immature Gran % Seg Neutrophils % Lymphocytes % Monocytes % Eosinophils % Basophils % Neutrophils # Lymphocytes # Monocytes # Eosinophils # Basophils # ESR 68 H ABG pH ABG pCO2 ABG pO2 ABG HCO3 ABG Total CO2 ABG O2 Saturation ABG Base Excess Inspired O2 Sodium Potassium Chloride Carbon Dioxide BUN Creatinine Est GFR ( Amer) Est GFR (Non-Af Amer) BUN/Creatinine Ratio Glucose POC Glucose Calculated Osmolality Lactic Acid Calcium Total Bilirubin AST ALT Alkaline Phosphatase Ammonia C-Reactive Protein Serum Total Protein Albumin Globulin Albumin/Globulin Ratio Specimen Rejected Cultures: Cultures 04/28/18 18:00 Blood Culture - Preliminary Peripheral Venipuncture Culture is incubating and being continuously monitored for growth. Final report to follow. 04/28/18 18:20 Blood Culture - Preliminary Peripheral Venipuncture Culture is incubating and being continuously monitored for growth. Final report to follow. 04/25/18 23:04 Blood Culture - Preliminary Peripheral Venipuncture Culture is incubating and being continuously monitored for growth. Final report to follow. 04/25/18 23:01 Blood Culture - Preliminary Peripheral Venipuncture Culture is incubating and being continuously m onitored for growth. Final report to follow. - Impressions Impressions Chest X-Ray 04/28/18 16:05 IMPRESSION: No evidence of acute process in the chest. D/ / Jeremiah Brennan / Jeremiah Brennan Interpreting Provider: Jeremiah Brennan Head CT 04/28/18 16:05 IMPRESSION: No acute intracranial abnormality. D/ / Jeremiah rBennan / Jeremiah Brennan Interpreting Provider: Jeremiah Brennan Exam - Constitutional Vitals: Temp Pulse Resp BP Pulse Ox 97.8 F 69 18 140/79 95 04/28/18 20:43 04/29/18 07:22 04/29/18 07:22 04/29/18 07:22 04/29/18 09:05 General appearance: average body habitus, cooperative, no acute distress - Head Head exam: Present: atraumatic, normal inspection, normocephalic - Eye Eye exam: Present: EOMI, normal appearance, PERRL Pupils: Present: normal accommodation - ENT ENT exam: Present: mucous membranes dry - Neck Neck exam: Present: normal inspection - Respiratory Respiratory exam: Present: CTAB. Absent: rales, respiratory distress, rhonchi, wheezes - Cardiovascular Cardiovascular exam: Present: RRR, +S1, +S2 - GI/Abdominal GI/Abdominal exam: Present: normal bowel sounds, soft. Absent: distended, tenderness - Extremities Exam Extremities exam: Absent: normal inspection (Right lower extremity surgical site dressings with small amount of old shunt or drainage noted. No surrounding erythema, warmth, or drainage noted. No tenderness or fluctuance noted. Right foot dressing is clean, dry, and intact with heel protector boot noted.), pedal edema Additional comments: Left AKA stump well healed with small scab noted. No surrounding erythema, warmth, tenderness, or drainage, or fluctuance noted. - Neurological Exam Neurological exam: Present: alert, oriented X3, no focal deficits - Psychiatric Psychiatric exam: Present: normal affect, normal mood - Skin Skin exam: Present: dry, intact, normal color, warm Consult Discharge Plan - Plan Referrals: Roberto Estrada MD [Partnered Physician] - (Follow-up with Dr. Estrada in vascular surgery clinic in 2 weeks.) Cora Pinto CNP [Primary Care Provider] - - Attending Attestation I examined this patient and my medical decision-making was reviewed with the Resident Physician. I agree with the documented findings, disposition and treatment plan as described except to the extent set forth below.
--- NOTE | 2018-04-29 12:00 | Vascular/[facility] Progress Note ---
Date of Encounter: 04/29/18 Time of Encounter: 11:58 - Assessment and plan (1) PAD (peripheral artery disease) Current Visit: Yes Status: Chronic Postoperative day #2 following right femoral to posterior tibial artery in situ saphenous vein bypass graft with right common femoral artery endarterectomy. Patient has improved perfusion of the right foot. May proceed with podiatric surgery at any time from a vascular surgery perspective. Patient to follow-up with me in the vascular surgery clinic in approximately 2 weeks. - Subjective Interval history: No complaints. Patient appears somnolent and mildly confused. He has a slow verbal response to my questions. Vital Signs, Last 4 Hours Temp Pulse Resp BP Pulse Ox 04/29/18 11:51 98.3 F 70 19 145/78 98 04/29/18 09:05 95 - Physical Examination Vascular: Present: Surgical incisions (Surgical incisions are clean and dry. Dressings were removed today and wounds were inspected. The patient has a pa lpable pulse over the in situ saphenous vein graft by the knee. The right foot is wrapped in dressings but is warm and pink.) Results 04/29/18 04:09 04/29/18 04:09 Lab Results, Last 24 hours 04/28/18 04/28/18 04/28/18 12:35 13:08 16:23 WBC 13.0 H 13.5 H Hgb 10.9 L D 11.5 L Hct 33.3 L 35.7 L Plt Count 357 368 Sodium 139 Potassium 3.6 Chloride 110 H Carbon Dioxide 24 BUN 11 Creatinine 1.23 Glucose 67 L Calcium 9.2 Total Bilirubin AST ALT Alkaline Phosphatase 04/28/18 04/29/18 04/29/18 16:23 04:09 04:09 WBC 13.5 H Hgb 11.2 L Hct 35.0 L Plt Count 351 Sodium 140 139 Potassium 3.4 L 3.8 Chloride 109 H 110 H Carbon Dioxide 25 21 L BUN 11 12 Creatinine 1.39 H 1.45 H Glucose 96 108 H Calcium 9.6 9.3 Total Bilirubin 0.4 AST 8 L ALT 5 L Alkaline Phosphatase 81 Consult Discharge Plan - Plan Referrals: Cora Pinto CNP [Primary Care Provider] - Roberto Estrada MD [Partnered Physician] - (Follow-up with Dr. Estrada in vascular surgery clinic in 2 weeks.)
--- NOTE | 2018-04-29 12:58 | Neurology - Consult Note ---
<Roger Gaffney - Last Filed: 04/29/18 13:05> Date of Encounter: 04/29/18 Time of Encounter: 13:05 Assessment and Plan (1) Acute encephalopathy Current Visit: Yes Status: Acute Patient is postop day 2 from vascular surgery, as long as has sepsis secondary to gangrene of right big toe. Neuro exam is non-focal, nonlateralizing, except for patient is not oriented to self, place, time, situation. Patient does not have any nuchal rigidity, fever. CT head is negative. Ammonia level within normal limits. Patient's reported that he becomes very confused after surgeries in the past and usually this resolves on its own. Likely has mental status changes secondary to postop delirium as well as metabolic from infection. (2) Necrotic toes Current Visit: Yes Status: Acute History of Present Illness Chief complaint: right big toe is blue HPI: Mr. Wylie is a 63 year old male who presented on 04/26/18 because his right big toe was turning blue for a couple days. Patient had a right femoral to posterior tibial artery in situ saphenous vein bypass graft with right Common femoral artery endarterectomy on 04/27/18. Since patient's surgery he has developed altered mental status, increased somnolence. Patient's ABG, ammonia levl are normal. CT head was normal. Patient at baseline is conversational alert and oriented 3. During my examination process patient is not alert to self, place, time, situation. He is able to follow commands and is calm. Patient was hypoglycemic yesterday and was given an amp of glucose but remained altered regardless of resolution of hypoglycemia. Patient cannot get MRI as he has a pacemaker. He is also not able to receive contrast imaging due to worse salma kidney function. Neurology was consulted due to this altered mental status. Past Med Surg Social Fam HX - Past Medical History Medical history: arthritis, asthma, atrial fibrillation, cardiomyopathy, CHF, COPD, coronary artery disease, diabetes, GERD, hyperlipidemia, hypertension, myocardial infarction Additional medical history: tremors Psychiatric history: anxiety, depression - Past Surgical History Surgical History: angioplasty/stent, coronary bypass (CABG), orthopedic, other, pacemaker/AICD, other Additional surgical history: left BKA - Social History Smoking Status: Current every day smoker Packs per day: 1 Smokeless Tobacco Status: No Alcohol use: none Drug use: none - Family History Mother Living Status: Still Living Hx Family Cancer: Yes (kidney cancer) Father Living Status: Hx Family Cancer: Yes Medications and Allergies Gabapentin [Neurontin] 300 mg PO TID 05/18/15 [History] Acetaminophen [Tylenol] 650 mg PO Q6HR PRN tablet 01/20/18 [Rx] Folic Acid 1 mg PO DAILY tablet 01/20/18 [Rx] Lisinopril [Zestril] 10 mg PO DAILY tablet 01/20/18 [Rx] OxyCODONE/APAP 7.5/325 [Percocet 7.5/325 MG] 1 each PO Q6H PRN 3 Days #12 tablet 01/20/18 [Rx] Thiamine (B-1) [Vitamin B-1] 100 mg PO TID tablet 01/20/18 [Rx] Omeprazole [PriLOSEC] 20 mg PO DAILY 04/27/18 [History] Sertraline [Zoloft] 25 mg PO DAILY 04/27/18 [History] amLODIPine [Norvasc] 5 mg PO DAILY 04/27/18 [History] risperiDONE [Risperidone] 0.5 mg PO DAILY 04/27/18 [History] Fluconazole [Diflucan] 100 mg PO QID 04/28/18 [History] Insulin DETEMIR [Levemir] 27 unit SQ HS 04/28/18 [History] Insulin LISPRO [HumaLOG] 14 units SQ TIDAC 04/28/18 [History] Magnesium Oxide [Magnesium] 400 mg PO DAILY 04/28/18 [History] Allergy/AdvReac Type Severity Reaction Status Date / Time ticlopidine [From Ticlid] Allergy Hives Verified 05/25/17 08:37 carbidopa [From Sinemet] AdvReac Confusion Verified 06/08/17 15:42 levodopa [From Sinemet] AdvReac Confusion Verified 06/08/17 15:42 ROS unobtainable: due to mental status All Systems: The remainder of the systems were reviewed and are negative Physical Examination - Vital Signs Vital Signs: Initial Vital Signs Temp Pulse Resp BP Pulse Ox 98.1 F 82 18 149/82 97 04/25/18 20:25 04/25/18 20:25 04/25/18 20:25 04/25/18 20:25 04/25/18 20:25 - Exam Exam: General: pleasant, without distress HEENT: Head atraumatic, normocephalic, EOMI, PERRL, absent ear discharge or trauma, Moist Mucous Membranes, uvula midline Neck: nontender to palpation, absent lymphadenopathy, Cardiovascualr: Regular rate and rhythm with no murmur, absent gallops or rubs, absent pedal edema, radial pulses 2 out of 4. Midline scar from previous CABG Lungs: Clear to auscultation bilaterally, not in respiratory distress Abdomen: Soft nontender, nondistended positive bowel sounds, absent hepatomegaly Skin: Multiple lacerations right lower extremity secondary to recent vascular surgery intact without purulent drainage. MSK: absent clubbing, cyanosis, joints without swelling Psych: She is confused, altered. - Constitutional General appearance: comfortable - Neurologic Sensorimotor examination: intact Detailed motor examination: other (Left below-knee amputation. Right foot in cast ) Motor examination - right side: 5/5: deltoids, biceps, triceps, wrist flexion, wrist extension, ios developer, hip flexors, tibialis Anterior, quadriceps Motor examination - left side: 5/5: deltoids, biceps, triceps, wrist flexion, wrist extension, hip flexors, ios developer Detailed sensory examination: intact Reflex and gait examination: other (Gait not tested as patient has left BKA) Reflexes: Biceps: 2+, Triceps: 2+, Brachioradialis: 2+, Patella: 2+, Achilles: 2+ Mental Status Examination: awake, alert, not reliable historian (Not oriented to person place time situation) Cranial nerve examination: PERRL, EOMI, visual rome intact, sensory to face intact, mastication intact, no facial asymmetry is present, no dysarthria, hearing is intact symmetrically, soft palate elevates bilaterally upon phonation, flexes SCM and trapezius muscles symmetrically with full power, tongue protrudes midline, no atrophy or facial fasiculations present Cerebellar examination: no dysmetria, performs finger to nose and heel to robbins symmetrically without ataxia Results - Laboratory Findings CBC and BMP: 04/29/18 04:09 04/29/18 04:09 Abnormal lab findings: Abnormal lab results WBC 13.5 K/mcL (4.3-11.1) H 04/29/18 04:09 RBC 4.01 M/mcL (4.19-5.50) L 04/29/18 04:09 Hgb 11.2 g/dL (12.9-16.9) L 04/29/18 04:09 Hct 35.0 % (37.5-50.1) L 04/29/18 04:09 MCH 27.9 pg (28.0-33.3) L 04/29/18 04:09 Neutrophils # 9.4 K/mcL (1.6-8.9) H 04/29/18 04:09 ESR 68 mm/hr (0-10) H 04/29/18 08:29 ABG pCO2 47 mmHg (35-45) H 04/28/18 15:46 ABG pO2 65 mmHg (85-104) L 04/28/18 15:46 ABG Total CO2 27 mEq/L (20-26) H 04/28/18 15:46 ABG O2 Saturation 91 % (95-98) L 04/28/18 15:46 ABG Hematocrit 34.0 % (37.5-50.1) L 04/27/18 13:28 Glucose 141 mg/dL (60-95) H 04/27/18 13:28 Chloride 110 mEq/L (98-107) H 04/29/18 04:09 Carbon Dioxide 21 mEq/L (23-29) L 04/29/18 04:09 Creatinine 1.45 mg/dL (0.70-1.30) H 04/29/18 04:09 Est GFR ( Amer) 59 (> 60) L 04/29/18 04:09 Est GFR (Non-Af Amer) 49 (> 60) L 04/29/18 04:09 Glucose 108 mg/dL (70-105) H 04/29/18 04:09 POC Glucose 159 mg/dL (70-99) H 04/29/18 11:45 Hemoglobin A1c 10.1 % (-5.6) H 04/26/18 12:47 Magnesium 1.5 mg/dL (1.6-2.6) L 04/26/18 08:05 AST 8 Units/L (13-39) L 04/28/18 16:23 ALT 5 Units/L (7-52) L 04/28/18 16:23 C-Reactive Protein 180 mg/L (Less than 10) H 04/29/18 04:09 Serum Total Protein 5.5 g/dL (6.4-8.9) L 04/28/18 16:23 Albumin 2.7 g/dL (3.5-5.7) L 04/28/18 16:23 Albumin/Globulin Ratio 1.0 (1.1-2.2) L 04/28/18 16:23 Arterial Blood Ionized Calcium 1.36 mmol/L (1.15-1.35) H 04/27/18 13:28 Vancomycin Trough 14 mcg/mL (5-10) H 04/28/18 00:30 Consult Discharge Plan - Plan Referrals: Roberto Estrada MD [Partnered Physician] - (Follow-up with Dr. Estrada in vascular surgery clinic in 2 weeks.) Cora Pinto CNP [Primary Care Provider] - <Carmelo Ann I - Last Filed: 04/29/18 16:45> Assessment and Plan (1) Acute encephalopathy Current Visit: Yes Status: Acute Pt was seen and examined, my medical decision was reviewed with the Resident Physician, I agree with the documented findings, disposition and treatment plas as described except to the extent set forth below Patient who has a multiple medical conditions and been admitted with gangrene is still noted to have a postop confusion without any focal lateralizing sign to be suggestive of a stroke CT of the head has been negative unable to get an MRI because of the pacemaker No clinical sinus symptoms to be suggestive of 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 Suspect it is predominantly related to metabolic toxic encephalopathy, exacerbated with medical condition and anesthesia Patient remain at high risk for delirium suggest to continue to treat underlying condition may use Seroquel on as-needed basis if patient get agitated try to avoid any narcotics if it is possible, as it may make the confusion worse Carmelo Ann MD History of Present Illness HPI: Mr. Wylie is a 63 year old male All Systems: The remainder of the systems were reviewed and are negative Physical Examination - Vital Signs Vital Signs: Initial Vital Signs Temp Pulse Resp BP Pulse Ox 98.1 F 82 18 149/82 97 04/25/18 20:25 04/25/18 20:25 04/25/18 20:25 04/25/18 20:25 04/25/18 20:25 Results - Laboratory Findings CBC and BMP: 04/29/18 04:09 04/29/18 04:09 Abnormal lab findings: Abnormal lab results WBC 13.5 K/mcL (4.3-11.1) H 04/29/18 04:09 RBC 4.01 M/mcL (4.19-5.50) L 04/29/18 04:09 Hgb 11.2 g/dL (12.9-16.9) L 04/29/18 04:09 Hct 35.0 % (37.5-50.1) L 04/29/18 04:09 MCH 27.9 pg (28.0-33.3) L 04/29/18 04:09 Neutrophils # 9.4 K/mcL (1.6-8.9) H 04/29/18 04:09 ESR 68 mm/hr (0-10) H 04/29/18 08:29 ABG pCO2 47 mmHg (35-45) H 04/28/18 15:46 ABG pO2 65 mmHg (85-104) L 04/28/18 15:46 ABG Total CO2 27 mEq/L (20-26) H 04/28/18 15:46 ABG O2 Saturation 91 % (95-98) L 04/28/18 15:46 ABG Hematocrit 34.0 % (37.5-50.1) L 04/27/18 13:28 Glucose 141 mg/dL (60-95) H 04/27/18 13:28 Chloride 110 mEq/L (98-107) H 04/29/18 04:09 Carbon Dioxide 21 mEq/L (23-29) L 04/29/18 04:09 Creatinine 1.45 mg/dL (0.70-1.30) H 04/29/18 04:09 Est GFR ( Amer) 59 (> 60) L 04/29/18 04:09 Est GFR (Non-Af Amer) 49 (> 60) L 04/29/18 04:09 Glucose 108 mg/dL (70-105) H 04/29/18 04:09 POC Glucose 159 mg/dL (70-99) H 04/29/18 11:45 Hemoglobin A1c 10.1 % (-5.6) H 04/26/18 12:47 Magnesium 1.5 mg/dL (1.6-2.6) L 04/26/18 08:05 AST 8 Units/L (13-39) L 04/28/18 16:23 ALT 5 Units/L (7-52) L 04/28/18 16:23 C-Reactive Protein 180 mg/L (Less than 10) H 04/29/18 04:09 Serum Total Protein 5.5 g/dL (6.4-8.9) L 04/28/18 16:23 Albumin 2.7 g/dL (3.5-5.7) L 04/28/18 16:23 Albumin/Globulin Ratio 1.0 (1.1-2.2) L 04/28/18 16:23 Arterial Blood Ionized Calcium 1.36 mmol/L (1.15-1.35) H 04/27/18 13:28 Vancomycin Trough 14 mcg/mL (5-10) H 04/28/18 00:30
--- NOTE | 2018-04-29 13:44 | Internal Med Progress Note ---
<TrevinoVaishali - Last Filed: 04/29/18 14:46> Hospitalist Progress Note - Encounter Date of Encounter: 04/29/18 Time of Encounter: 13:30 - Subjective Interval History: Pt seen and examined at bedside today in no acute distress. POD#2 s/p right femoral-posterior tibial in situ saphenous vein bypass graft and right common femoral endarterectomy. Pt continues to have altered mental status. Oriented to self, but not place or time. Remains confused, but not agitated. Denies fevers, headache, chest pain, SOB, abdominal pain. Moderate pain in right lower extremity to be expected after surgery. - Exam Vitals: Temp Pulse Resp BP Pulse Ox 98.3 F 70 19 145/78 98 04/29/18 11:51 04/29/18 11:51 04/29/18 11:51 04/29/18 11:51 04/29/18 11:51 Exam: GEN: Seen and examined at bedside; no acute distress; AOx1 - oriented to person, but not place or time HEENT: Atraumatic, normocephalic; EOMI; Supple, Full ROM, no lymphadenopathy CARD: RRR, no murmurs, rubs, gallops RESP: CTAB, no wheezes, rhonchi, rales ABD: Soft, non-tender, non-distended, bowel sounds present EXT: Left BKA NEURO: AOx1; No focal neurologic deficits; No nuchal rigidity; good strength upper extremities and lower right extremity - Assessment and Plan (1) Altered mental state Current Visit: No Status: Acute Assessment and Plan: Pt POD#2 s/p right femoral-posterior tibial in situ saphenous vein bypass graft and right common femoral endarterectomy Noted to have altered mentation yesterday afternoon - serum glucose in 50s, and given d50 but still altered. BMP showed elevated creatinine Elevated white count since presentation ABG - mild hypoxia CXR - unremarkable Lactic Acid - wnl CT head w/out contrast - negative Ammonia - wnl Today, AOx1 - oriented to person, but not place nor time; no focal deficits; pleasant, cooperative - not agitated Per discussion with patient's , pt had prolonged altered mentation after previous surgery, and has resolved on its own in the past PLAN: Cont to monitor for mental status changes Hold sedating medications for now Accucheck q6h - hold basal insulin, and continue with sliding scale for now Likely due to post-op delirium or possibly metabolic due to infection CBC, CMP tomorrow AM (2) Necrotic toes Current Visit: Yes Status: Acute Assessment and Plan: Right Hallux necrosis - dry gangrene POD#1 right femoral-posterior tibial in situ saphenous vein bypass graft and right common femoral endarterectomy PLAN: Continue aspirin, Plavix Plan for right hallux amputation tomorrow morning; NPO after midnight Per vascular, may proceed with surgery tomorrow - follow-up in clinic in 2 weeks CBC tomorrow AM (3) Coronary artery disease Current Visit: No Status: Chronic Assessment and Plan: Hx of CAD BP 145/78 PLAN: Cont aspirin and plavix Cont lipitor, carvdilol, amlodipine (4) PAD (peripheral artery disease) Current Visit: Yes Status: Chronic Assessment and Plan: POD #2 s/p right femoral-posterior tibial in situ saphenous vein bypass graft and right common femoral endarterectomy PLAN: Cont Aspirin/ Plavix Per vascular, stable for right hallux amputation tomorrow (5) Type 2 diabetes mellitus Current Visit: Yes Status: Chronic Assessment and Plan: Hx T2DM Hyperglycemic on presentation HgbA1c = 10.1 PLAN: Hold basal insulin for now Cont sliding scale Diabetic diet (6) CHF (congestive heart failure) Current Visit: No Status: Chronic Assessment and Plan: No acute exacerbation PLAN: Cont carvedilol and lisinopril (7) Atrial fibrillation Current Visit: No Status: Chronic Assessment and Plan: Hx of Afib. rate contolled on carvedilol. PLAN: Cont carvedilol Cont aspirin, plavix (8) GERD (gastroesophageal reflux disease) Current Visit: No Status: Chronic Assessment and Plan: Cont PPI (9) DVT prophylaxis Current Visit: No Status: Acute Assessment and Plan: Heparin SQ BID (10) History of left below knee amputation Current Visit: No Status: Chronic (11) AICD (automatic cardioverter/defibrillator) present Current Visit: No Status: Chronic - Time Spent with Patient Total time spent is greater than 50% in coordination of care (as documented) at patient's floor/unit and/or counseling patient: less than 15 minutes Plan of Care Discussed with: patient Internal Medicine: Result - Labs CBC & Chem 7: 04/29/18 04:09 04/29/18 04:09 Labs: Short CBC 04/28/18 04/28/18 04/29/18 Range/Units 13:08 16:23 04:09 WBC 13.0 H 13.5 H 13.5 H (4.3-11.1) K/mcL Hgb 10.9 L D 11.5 L 11.2 L (12.9-16.9) g/dL Hct 33.3 L 35.7 L 35.0 L (37.5-50.1) % Plt Count 357 368 351 (140-400) K/mcL Neutrophils # 9.0 H 9.5 H 9.4 H (1.6-8.9) K/mcL BMP 04/28/18 04/29/18 16:23 04:09 Sodium 140 139 Potassium 3.4 L 3.8 Chloride 109 H 110 H Carbon Dioxide 25 21 L BUN 11 12 Creatinine 1.39 H 1.45 H Glucose 96 108 H Calcium 9.6 9.3 Liver Function 04/28/18 Range/Units 16:23 Total Bilirubin 0.4 (0.3-1.0) mg/dL AST 8 L (13-39) Units/L ALT 5 L (7-52) Units/L Alkaline Phosphatase 81 (34-104) Units/L Albumin 2.7 L (3.5-5.7) g/dL - ABG Interpretation ABG results: ABG ABG pH 7.35 pH Units (7.32-7.45) 04/28/18 15:46 ABG pCO2 47 mmHg (35-45) H 04/28/18 15:46 ABG pO2 65 mmHg (85-104) L 04/28/18 15:46 ABG O2 Saturation 91 % (95-98) L 04/28/18 15:46 PT/INR, D-dimer PT 11.6 Seconds (9.4-12.1) 04/26/18 08:05 - Impressions Impressions Chest X-Ray 04/28/18 16:05 IMPRESSION: No evidence of acute process in the chest. D/ / Jeremiah Brennan / Jeremiah Brennan Interpreting Provider: Jeremiah Brennan Head CT 04/28/18 16:05 IMPRESSION: No acute intracranial abnormality. D/ / Jeremiah Brennan / Jeremiah Brennan Interpreting Provider: Jeremiah Brennan Consult Discharge Plan - Plan Referrals: Roberto Estrada MD [Partnered Physician] - (Follow-up with Dr. Estrada in [facility] as[facility] surgery clinic in 2 weeks.) Cora Pinto CNP [Primary Care Provider] - <Lucas Winters - Last Filed: 04/29/18 15:44> Hospitalist Progress Note - Exam Vitals: Temp Pulse Resp BP Pulse Ox 98.3 F 70 19 145/78 98 04/29/18 11:51 04/29/18 11:51 04/29/18 11:51 04/29/18 11:51 04/29/18 11:51 - Assessment and Plan (1) Necrotic toes Current Visit: Yes Status: Acute (2) Acute encephalopathy Current Visit: Yes Status: Acute - Time Spent with Patient Total time spent is greater than 50% in coordination of care (as documented) at patient's floor/unit and/or counseling patient: Internal Medicine: Result - Labs CBC & Chem 7: 04/29/18 04:09 04/29/18 04:09 Labs: Short CBC 04/28/18 04/29/18 Range/Units 16:23 04:09 WBC 13.5 H 13.5 H (4.3-11.1) K/mcL Hgb 11.5 L 11.2 L (12.9-16.9) g/dL Hct 35.7 L 35.0 L (37.5-50.1) % Plt Count 368 351 (140-400) K/mcL Neutrophils # 9.5 H 9.4 H (1.6-8.9) K/mcL BMP 04/28/18 04/29/18 16:23 04:09 Sodium 140 139 Potassium 3.4 L 3.8 Chloride 109 H 110 H Carbon Dioxide 25 21 L BUN 11 12 Creatinine 1.39 H 1.45 H Glucose 96 108 H Calcium 9.6 9.3 Liver Function 04/28/18 Range/Units 16:23 Total Bilirubin 0.4 (0.3-1.0) mg/dL AST 8 L (13-39) Units/L ALT 5 L (7-52) Units/L Alkaline Phosphatase 81 (34-104) Units/L Albumin 2.7 L (3.5-5.7) g/dL - ABG Interpretation ABG results: ABG ABG pH 7.35 pH Units (7.32-7.45) 04/28/18 15:46 ABG pCO2 47 mmHg (35-45) H 04/28/18 15:46 ABG pO2 65 mmHg (85-104) L 04/28/18 15:46 ABG O2 Saturation 91 % (95-98) L 04/28/18 15:46 PT/INR, D-dimer PT 11.6 Seconds (9.4-12.1) 04/26/18 08:05 - Impressions Impressions Chest X-Ray 04/28/18 16:05 IMPRESSION: No evidence of acute process in the chest. D/ / Jeremiah Brennan / Jeremiah Brennan Interpreting Provider: Jeremiah Brennan Head CT 04/28/18 16:05 IMPRESSION: No acute intracranial abnormality. D/ / Jeremiah Brennan / Jeremiah Brennan Interpreting Provider: Jeremiah Brennan - Attending Attestation I examined this patient and my medical decision-making was reviewed with the Resident Physician. I agree with the documented findings, disposition and treatment plan as described except to the extent set forth below. 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: unspecified [facility] insulin use status Diabetes mellitus complication status: with other specified complication Qualified Code(s): E11.69 - Type 2 diabetes mellitus with other specified complication (6) CHF (congestive heart failure) Qualifiers: Heart failure type: unspecified Heart failure chronicity: chronic Qualified Code(s): I50.9 - Heart failure, unspecified (7) Atrial fibrillation Qualifiers: Atrial fibrillation type: chronic Qualified Code(s): I48.2 - Chronic atrial fibrillation (8) GERD (gastroesophageal reflux disease) Qualifiers: Esophagitis presence: esophagitis presence not specified Qualified Code(s): K21.9 - Gastro-esophageal reflux disease without esophagitis
[2018-04-29] MEDS: D5% in 0.45% NACL 1,000 ML IVC SCH (17:31)
[2018-04-29] MEDS: Thiamine (B-1) 100 MG TABLET PO SCH (22:51)
--- NOTE | 2018-04-29 23:07 | Anesthesia Evaluation PreOp ---
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 (anxiety, depression) Other Medical History: Other (tremors) Anesthesia History: No Prior Anesthetic Complications, Past Anesthesia (R fem pop 2 days ago, L AKA, CABG, AICD) Alcohol Use: none Drug use: none Medications and Allergies Gabapentin [Neurontin] 300 mg PO TID 05/18/15 [History] Acetaminophen [Tylenol] 650 mg PO Q6HR PRN tablet 01/20/18 [Rx] Folic Acid 1 mg PO DAILY tablet 01/20/18 [Rx] Lisinopril [Zestril] 10 mg PO DAILY tablet 01/20/18 [Rx] OxyCODONE/APAP 7.5/325 [Percocet 7.5/325 MG] 1 each PO Q6H PRN 3 Days #12 tablet 01/20/18 [Rx] Thiamine (B-1) [Vitamin B-1] 100 mg PO TID tablet 01/20/18 [Rx] Omeprazole [PriLOSEC] 20 mg PO DAILY 04/27/18 [History] Sertraline [Zoloft] 25 mg PO DAILY 04/27/18 [History] amLODIPine [Norvasc] 5 mg PO DAILY 04/27/18 [History] risperiDONE [Risperidone] 0.5 mg PO DAILY 04/27/18 [History] Fluconazole [Diflucan] 100 mg PO QID 04/28/18 [History] Insulin DETEMIR [Levemir] 27 unit SQ HS 04/28/18 [History] Insulin LISPRO [HumaLOG] 14 units SQ TIDAC 04/28/18 [History] Magnesium Oxide [Magnesium] 400 mg PO DAILY 04/28/18 [History] Allergy/AdvReac Type Severity Reaction Status Date / Time ticlopidine [From Ticlid] Allergy Hives Verified 05/25/17 08:37 carbidopa [From Sinemet] AdvReac Confusion Verified 12/04/17 15:42 levodopa [From Sinemet] AdvReac Confusion Verified 06/08/17 15:42 - Meds/Allergy Pre-op Review Medications Reviewed: Yes Allergies Reviewed: Yes Beta Blockers on Current Med List: Yes Anesthesia Results - Labs 04/29/18 04:09 04/29/18 04:09 - Imaging EKG: report reviewed (vpaced) Additional studies: echo 2015: poor quality, appears to have low normal EF, no pulm HTN Anesthesia Exam Vital Signs/O2 Sat, Most Current Temp Pulse Resp BP Pulse Ox 98.2 F 70 15 148/79 98 04/29/18 21:43 04/29/18 21:43 04/29/18 21:43 04/29/18 21:43 04/29/18 22:00 Weight: 85kg NPO (# of Hours): MN - HEENT Pupil (Motor): Pupils equal, EOMI Mallampati: II Teeth: Missing, Poor dentition Oral Opening: Greater than 3 - WOOD CRAFTSMAN LOC: Oriented WOOD CRAFTSMAN Motor: Normal RUE, Normal LUE, Normal RLE, Normal LLE, Normal Face WOOD CRAFTSMAN Sensory: Normal: RUE, LUE, RLE, LLE, Face - Cardiac Rhythm: Regular - Pulmonary Breath Sounds: bilateral Clear Respiratory Effort: Symmetrical Anesthesia Assess/Plan ASA Score: 4 Modified [place] Scale for Level of Consciousness: Cooperative, oriented, and tranquil Anesthetic Plan: General, MAC Monitoring Plan: Standard Monitors Recovery Plan: PACU <Reyes Palmer - Last Filed: 04/30/18 12:02> Date of Encounter: 04/30/18 Anesthesia Results - Labs 04/30/18 03:19 04/30/18 03:19 Anesthesia Exam - Cardiac Murmur: None Anesthesia Assess/Plan ASA Score: 4 Modified [place] Scale for Level of Consciousness: Cooperative, oriented, and tranquil Anesthetic Plan: General, MAC Monitoring Plan: Standard Monitors Recovery Plan: PACU
[2018-04-30] MEDS: Insulin LISPRO 300 UNITS/3 ML VIAL SQ SCH ×5 (00:49→20:24)
[2018-04-30] MEDS: Piperacillin/Tazobactam 3.375 GM in 0.9 % Sodium Chloride Mini Bag 100 ML IVPB SCH ×3 (00:49→15:51)
[2018-04-30 04:56] LABS: Basophils # 0.1 K/mcL (0.0-0.2); Basophils % 0.8 %; Eosinophils # 0.2 K/mcL (0.0-0.6); Eosinophils % 1.9 %; Hematocrit 32.1 % (37.5-50.1); Hemoglobin 10.4 g/dL (12.9-16.9); Immature Granulocytes % 0.5 % (0-4); Lymphocytes # 1.7 K/mcL (0.6-4.6); Lymphocytes % 14.1 %; Mean Corpuscular HGB Conc 32.4 g/dL (31.6-35.5); Mean Corpuscular Hemoglobin 27.9 pg (28.0-33.3); Mean Corpuscular Volume 86.1 fL (83.0-100.0); Mean Platelet Volume 10.3 fL (9.4-12.4); Monocytes # 1.2 K/mcL (0.0-1.3); Monocytes % 9.9 %; Neutrophils # 8.9 K/mcL (1.6-8.9); Platelet Count 369 K/mcL (140-400); Red Blood Count 3.73 M/mcL (4.19-5.50); Red Cell Distribution Width 13.7 % (11.5-14.5); Segmented Neutrophils % 72.8 %
[2018-04-30 05:15] LABS: Calcium 9.7 mg/dL (8.6-10.3); Potassium 3.4 mEq/L (3.5-5.1)
[2018-04-30] MEDS ORDERED: Bacitracin 50,000 UNIT, Sodium Chloride IRRigation 1,000 ML IR ONE ×2 (06:00→13:51)
[2018-04-30] MEDS: Potassium Chloride Elixir 20 MEQ/15 ML UDC PO SCH ×2 (07:37→18:08)
[2018-04-30] MEDS: amLODIPine 5 MG TABLET PO SCH (07:38)
[2018-04-30] MEDS: D5% in 0.45% NACL 1,000 ML IVC SCH (07:38)
[2018-04-30] MEDS: Thiamine (B-1) 100 MG TABLET PO SCH ×3 (07:38→20:24)
[2018-04-30] MEDS ORDERED: Potassium Chloride 20 MEQ, Lidocaine 1% 2 ML in D5% in Water 250 ML IVPB ONE (08:26)
[2018-04-30] MEDS ORDERED: Magnesium Oxide 400 MG TABLET PO SCH (09:00)
[2018-04-30] MEDS ORDERED: risperiDONE 1 MG TABLET PO SCH (09:00)
[2018-04-30] MEDS ORDERED: Gabapentin 300 MG CAPSULE PO SCH (09:00)
--- NOTE | 2018-04-30 10:44 | Infectious Disease Progress No ---
Date of Encounter: 04/30/18 Time of Encounter: 10:42 - Assessment and Plan (1) Leukocytosis Current Visit: No Status: Acute The patient had leukocytosis on admission. Likely secondary to right great toe gangrene. Improved. Remains mildly elevated this morning. Repeat CBC daily while hospitalized. Qualifiers: Leukocytosis type: unspecified Qualified Code(s): D72.829 - Elevated white blood cell count, unspecified (2) Dry gangrene Current Visit: Yes Status: Acute Location: Right foot great toe. Likely secondary to PAD. X-ray of the right foot shows soft tissue swelling, but no bone abnormality or soft tissue gas. Podiatry consulted. Planning to perform amputation later this week. No cultures have been obtained since there is no drainage and nothing to culture. ESR 44, CRP 14. Clinically, I do not think this is infectious, but will continue IV antibiotics for now until we get intra-op culture/pathology back. Wound care and activity restrictions per the Podiatry team. Scheduled for the OR later today. Continue Vancomycin IV. Pharmacy to dose. Goal trough ~15. Continue Zosyn 3.375 grams IV Q8H. Duration of treatment depends on the clinical picture. Monitor renal function and for drug toxicity and dose-adjust antibiotics. (3) Altered mental state Current Visit: No Status: Resolved Etiology unclear, but likely secondary to recent anesthesia. CT head negative. Appears back to baseline. Further workup and management per the primary team. Qualifiers: Altered mental status type: delirium Qualified Code(s): R41.0 - Disorientation, unspecified (4) Acute kidney injury Current Visit: Yes Status: Acute Etiology unclear. Serum creatinine trending up. Continue to trend. Dose-adjust medications. Avoid nephrotoxins as able. Consider nephrology to evaluate if continues to worsen. (5) PAD (peripheral artery disease) Current Visit: No Status: Chronic Vascular surgery consulted. Status post right femoral-tibial in situ saphenous vein bypass graft and right common endarterectomy 04/27/[address] Estrada. (6) Hypertension Current Visit: No Status: Chronic Qualifiers: Hypertension type: essential hypertension Qualified Code(s): I10 - Essential (primary) hypertension (7) Ischemic cardiomyopathy Current Visit: No Status: Chronic (8) COPD (chronic obstructive pulmonary disease) Current Visit: No Status: Chronic Qualifiers: COPD type: unspecified COPD Qualified Code(s): J44.9 - Chronic obstructive pulmonary disease, unspecified (9) Diabetes mellitus Current Visit: No Status: Chronic Uncontrolled. HgbA1C 10.1%. Recommend aggressive glucose monitoring and control to promote wound healing and prevent re-infection. Management per the primary team. Qualifiers: Diabetes mellitus type: type 2 Diabetes mellitus care home insulin use: with care home use Diabetes mellitus complication status: with circulatory complication Diabetes mellitus complication detail: with peripheral angiopathy with gangrene Qualified Code(s): 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 2 diabetes mellitus with diabetic peripheral angiopathy with gangrene; Z79.4 - watermaster (current) use of insulin; Z79.4 - snf (current) use of insulin; Z79.4 - snf (current) use of insulin; Z79.4 - watermaster (current) use of insulin (10) Atrial fibrillation Current Visit: No Status: Chronic Qualifiers: Atrial fibrillation type: chronic Qualified Code(s): I48.2 - Chronic atrial fibrillation (11) History of left below knee amputation Current Visit: No Status: Chronic Status post left AKA 01/2018 secondary to PAD and necrosis of the left foot. (12) AICD (automatic cardioverter/defibrillator) present Current Visit: No Status: Chronic - Subjective Interval history: Patient seen and examined. No acute events noted overnight. Family is at the bedside. Patient is more awake and alert this morning, appears less confused today. Denies shortness of breath, chest pain, or cough. Denies any nausea or vomiting or diarrhea. Denies any abdominal pain or urinary complaints. Denies any oral thrush or any skin lesions. He does report pain in the right leg at the surgical sites. Per his family, the patient does not tolerate anesthesia well and was confused for 2 days after his last surgery. Infect Dis PN-Objective Data - Labs CBC & Chem 7: 04/30/18 03:19 04/30/18 03:19 Labs: Laboratory Results - last 24 hr 04/28/18 04/28/18 04/28/18 15:52 16:24 20:46 WBC RBC Hgb Hct MCV MCH MCHC RDW Plt Count MPV Immature Gran % Seg Neutrophils % Lymphocytes % Monocytes % Eosinophils % Basophils % Neutrophils # Lymphocytes # Monocytes # Eosinophils # Basophils # Sodium Potassium Chloride Carbon Dioxide BUN Creatinine Est GFR ( Amer) Est GFR (Non-Af Amer) BUN/Creatinine Ratio Glucose POC Glucose 53 L 89 85 Calculated Osmolality Calcium 04/29/18 04/29/18 04/29/18 01:12 07:25 11:45 WBC RBC Hgb Hct MCV MCH MCHC RDW Plt Count MPV Immature Gran % Seg Neutrophils % Lymphocytes % Monocytes % Eosinophils % Basophils % Neutrophils # Lymphocytes # Monocytes # Eosinophils # Basophils # Sodium Potassium Chloride Carbon Dioxide BUN Creatinine Est GFR ( Amer) Est GFR (Non-Af Amer) BUN/Creatinine Ratio Glucose POC Glucose 106 H 134 H 159 H Calculated Osmolality Calcium 04/29/18 04/29/18 04/30/18 16:36 23:06 03:19 WBC 12.2 H RBC 3.73 L Hgb 10.4 L Hct 32.1 L MCV 86.1 MCH 27.9 L MCHC 32.4 RDW 13.7 Plt Count 369 MPV 10.3 Immature Gran % 0.5 Seg Neutrophils % 72.8 Lymphocytes % 14.1 Monocytes % 9.9 Eosinophils % 1.9 Basophils % 0.8 Neutrophils # 8.9 Lymphocytes # 1.7 Monocytes # 1.2 Eosinophils # 0.2 Basophils # 0.1 Sodium Potassium Chloride Carbon Dioxide BUN Creatinine Est GFR ( Amer) Est GFR (Non-Af Amer) BUN/Creatinine Ratio Glucose POC Glucose 93 78 Calculated Osmolality Calcium 04/30/18 04/30/18 03:19 05:14 WBC RBC Hgb Hct MCV MCH MCHC RDW Plt Count MPV Immature Gran % Seg Neutrophils % Lymphocytes % Monocytes % Eosinophils % Basophils % Neutrophils # Lymphocytes # Monocytes # Eosinophils # Basophils # Sodium 139 Potassium 3.4 L Chloride 109 H Carbon Dioxide 23 BUN 13 Creatinine 1.57 H Est GFR ( Amer) 54 L Est GFR (Non-Af Amer) 45 L BUN/Creatinine Ratio 8 Glucose 92 POC Glucose 106 H Calculated Osmolality 288 Calcium 9.7 Cultures: Cultures 04/28/18 18:00 Blood Culture - Preliminary Peripheral Venipuncture Culture is incubating and being continuously monitored for growth. Final report to follow. 04/28/18 18:20 Blood Culture - Preliminary Peripheral Venipuncture Culture is incubating and being continuously monitored for growth. Final report to follow. 04/25/18 23:04 Blood Culture - Preliminary Peripheral Venipuncture Culture is incubating and being continuously monitored for growth. Final report to follow. 04/25/18 23:01 Blood Culture - Preliminary Peripheral Venipuncture Culture is incubating and being continuously monitored for growth. Final report to follow. Exam - Constitutional Vitals: Temp Pulse Resp BP Pulse Ox 97.5 F L 70 19 140/79 98 04/30/18 07:20 04/30/18 07:20 04/30/18 07:20 04/30/18 07:20 04/30/18 07:20 General appearance: average body habitus, cooperative, no acute distress - Head Head exam: Present: atraumatic, normal inspection, normocephalic - Eye Eye exam: Present: EOMI, normal appearance, PERRL Pupils: Present: normal accommodation - ENT ENT exam: Present: mucous membranes moist Additional comments: Very poor dentition noted. - Neck Neck exam: Present: normal inspection - Respiratory Respiratory exam: Present: CTAB. Absent: rales, respiratory distress, rhonchi, wheezes - Cardiovascular Cardiovascular exam: Present: RRR, +S1, +S2 - GI/Abdominal GI/Abdominal exam: Present: normal bowel sounds, soft. Absent: distended, tenderness Additional comments: Bhagat catheter noted to be draining clear yellow urine. - Extremities Exam Extremities exam: Absent: joint swelling, normal inspection (RLE surgical sites MORALES and well-healed with wound edges well-approximated. No erythema,warmth, tenderness, or drainage noted. Right foot dressing and heel protector boot C/D/I.), pedal edema, tenderness Additional comments: Left AKA stump without redness, warmth, or drainage. - Neurological Exam Neurological exam: Present: alert, oriented X3, no focal deficits - Psychiatric Psychiatric exam: Present: agitated, normal affect - Skin Skin exam: Present: dry, intact, normal color, warm Consult Discharge Plan - Plan Referrals: Roberto Estrada MD [Partnered Physician] - (Follow-up with Dr. Estrada in vascular surgery clinic in 2 weeks.) Cora Pinto CNP [Primary Care Provider] - - Attending Attestation I examined this patient and my medical decision-making was reviewed with the Resident Physician. I agree with the documented findings, disposition and treatment plan as described except to the extent set forth below.
[2018-04-30] MEDS ORDERED: Bupivacaine/EPI 1:200k 0.25%PF 10 ML VIAL INFILT ONE (11:54)
[2018-04-30] MEDS ORDERED: Propofol 500 MG/50 ML INFUS..BTL ONE (12:11)
[2018-04-30] MEDS ORDERED: Lidocaine -MPF 2% 2 ML VIAL ONE (12:52)
[2018-04-30] MEDS ORDERED: Dextrose Gel 15 GM/37.5 ML TUBE PO PRN ×2 (13:51)
[2018-04-30] MEDS ORDERED: Naloxone 0.4 MG/ML INJ IVP PRN (13:51)
[2018-04-30] MEDS ORDERED: *HR* Dextrose 50 % in Water (Syg) 50 ML SYRINGE IVP PRN (13:51)
[2018-04-30] MEDS ORDERED: D5% in Water 1,000 ML IVC PRN (13:51)
[2018-04-30] MEDS ORDERED: D5% in 0.45% NACL 1,000 ML IVC SCH (13:51)
[2018-04-30] MEDS ORDERED: Acetaminophen 325 MG TABLET PO PRN (15:44)
[2018-04-30] MEDS: *HR* HYDROcodone/Acet 5/325 mg TABLET PO PRN (15:50)
[2018-04-30] MEDS: *HR* Heparin 5,000 UNIT/ML VIAL SQ SCH (17:48)
[2018-04-30] MEDS ORDERED: Insulin LISPRO 300 UNITS/3 ML VIAL SQ SCH (18:00)
--- NOTE | 2018-04-30 19:17 | Internal Med Progress Note ---
<TrevinoVaishali - Last Filed: 04/30/18 14:01> Hospitalist Progress Note - Encounter Date of Encounter: 04/30/18 Time of Encounter: 13:11 - Subjective Interval History: Pt seen and examined at bedside today in no acute distress. POD#3 s/p right femoral-posterior tibial in situ saphenous vein bypass graft and right common femoral endarterectomy. Pt cont to have altered mental status, currently AOx1 (to person, but not place nor time), but is more verbal and talkative than yesterday. Nursing reports no events overnight. Denies headache, chest pain, SOB, nausea, vomiting, diarrhea. Per patient's , pt had post-op delirium for several days after previous surgeries. Plan for right hallux amputation today. Currently NPO. - Exam Vitals: Temp Pulse Resp BP Pulse Ox 97.5 F L 70 19 140/79 98 04/30/18 07:20 04/30/18 07:20 04/30/18 07:20 04/30/18 07:20 04/30/18 07:20 Exam: GEN: Pt resting comfortably at bedside; Mildy agitated; confused; AOx1 (to person, not place, nor time); No acute distress HEENT: Atraumatic, normocephalic; EOMI; Rull ROM CARDIO: RRR, no rubs, murmurs, gallops RESP: CTAB, no wheezes, rales, rhonchi ABD: Soft, non-tender, non-distended; Bowel sounds presents; no guarding EXT: Left BKA NEURO: AOx1; CN 2-12 intact - Assessment and Plan (1) Necrotic toes Current Visit: Yes Status: Acute Assessment and Plan: 63 y/o M with PMHx Left BKA who presents with worsening right toe pain and ev idence of right hallux necrosis. Right Hallux Necrosis - dry gangrene POD#3 right femoral-posterior tibial in situ saphenous vein bypass graft and right common femoral endarterectomy Leukocytosis since admission - likely due to necrotic toe PLAN: Right Hallux amputation today Cont vanc and zosyn Held aspirin, plavix until post-op F/U with vascular surgery in 2 weeks (2) Altered mental state Current Visit: No Status: Resolved Assessment and Plan: Noted to have altered mentation post-op day 1 right femoral-posterior tibial in situ saphenous vein bypass graft and right common femoral endarterectomy Per , pt has had similar delirium after previous surgeries Initially serum glucose in 50s - given d50 without improvement Elevated WBCs since presentation Cont increasing creatinine ABG - mild hypoxia CXR - unremarkable Lactic Acid - wnl CT head w/out contrast - negative Ammonia - wnl Currently, AOx1 (to person, but not place nor time); Improved from yesterday - more verbal, but slightly agitated. PLAN: Cont to monitor for mental status changes Hold sedating medications Likely due to post-op delirium (3) Acute kidney injury Current Visit: Yes Status: Acute Assessment and Plan: Consistently increasing creatinine over the past 3 days (1.39 --> 1.45 --> 1.57) Bun/ Cr today = 13/1.57 Currently on Vanc and Zosyn Urinary retention today of 825mL PLAN: Renal dose abx Cont to monitor Cr IVF Consider nephrology consult if worsening Cr tomorrow - Dehydration vs medication induced nephrotoxicity vs post-renal obstruction (4) Coronary artery disease Current Visit: No Status: Chronic Assessment and Plan: Hx CAD BP = 140/79 PLAN: Cont aspirin and plavix post-op Cont lipitor, carvedilol, amlodipine (5) PAD (peripheral artery disease) Current Visit: Yes Status: Chronic Assessment and Plan: POD #3 s/p right femoral-posterior tibial in situ saphenous vein bypass graft and right common femoral endarterectomy PLAN: Cont aspirin/ plavix post-op Right Hallux Amputation today F/U with vasc surgery in 2 weeks (6) Type 2 diabetes mellitus Current Visit: Yes Status: Chronic Assessment and Plan: Hx T2DM HgBA1c = 10.1 PLAN: Accuchecks q6h Cont sliding scale Diabetic Diet (7) CHF (congestive heart failure) Current Visit: No Status: Chronic Assessment and Plan: No acute exacerbation PLAN: Cont carvedilol and lisinopril (8) Atrial fibrillation Current Visit: No Status: Chronic Assessment and Plan: Hx Afib rate controlled on caravedilol PLAN: Cont carvedilol Cont aspirin, plavix post-op (9) GERD (gastroesophageal reflux disease) Current Visit: No Status: Chronic Assessment and Plan: Cont PPI (10) DVT prophylaxis Current Visit: No Status: Acute Assessment and Plan: Heparin SQ BID - cont post op (11) History of left below knee amputation Current Visit: No Status: Chronic (12) AICD (automatic cardioverter/defibrillator) present Current Visit: No Status: Chronic - Time Spent with Patient Total time spent is greater than 50% in coordination of care (as documented) at patient's floor/unit and/or counseling patient: less than 15 minutes Plan of Care Discussed with: nurse Internal Medicine: Result - Labs CBC & Chem 7: 04/30/18 03:19 04/30/18 03:19 Labs: Short CBC 04/30/18 Range/Units 03:19 WBC 12.2 H (4.3-11.1) K/mcL Hgb 10.4 L (12.9-16.9) g/dL Hct 32.1 L (37.5-50.1) % Plt Count 369 (140-400) K/mcL Neutrophils # 8.9 (1.6-8.9) K/mcL BMP 04/30/18 03:19 Sodium 139 Potassium 3.4 L Chloride 109 H Carbon Dioxide 23 BUN 13 Creatinine 1.57 H Glucose 92 Calcium 9.7 - ABG Interpretation ABG results: ABG ABG pH 7.35 pH Units (7.32-7.45) 04/28/18 15:46 ABG pCO2 47 mmHg (35-45) H 04/28/18 15:46 ABG pO2 65 mmHg (85-104) L 04/28/18 15:46 ABG O2 Saturation 91 % (95-98) L 04/28/18 15:46 PT/INR, D-dimer PT 11.6 Seconds (9.4-12.1) 04/26/18 08:05 Consult Discharge Plan - Plan Referrals: Roberto Estrada MD [Partnered Physician] - (Follow-up with Dr. Estrada in vascular surgery clinic in 2 weeks.) Cora Pinot CNP [Primary Care Provider] - <Lucas Winters - Last Filed: 04/30/18 18:02> Hospitalist Progress Note - Exam Vitals: Temp Pulse Resp BP Pulse Ox 97.4 F L 70 19 137/79 97 04/30/18 15:32 04/30/18 15:32 04/30/18 15:32 04/30/18 15:32 04/30/18 15:32 - Assessment and Plan (1) Necrotic toes Current Visit: Yes Status: Acute (2) Acute encephalopathy Current Visit: Yes Status: Acute - Time Spent with Patient Total time spent is greater than 50% in coordination of care (as documented) at patient's floor/unit and/or counseling patient: Internal Medicine: Result - Labs CBC & Chem 7: 04/30/18 03:19 04/30/18 03:19 Labs: Short CBC 04/30/18 Range/Units 03:19 WBC 12.2 H (4.3-11.1) K/mcL Hgb 10.4 L (12.9-16.9) g/dL Hct 32.1 L (37.5-50.1) % Plt Count 369 (140-400) K/mcL Neutrophils # 8.9 (1.6-8.9) K/mcL BMP 04/30/18 03:19 Sodium 139 Potassium 3.4 L Chloride 109 H Carbon Dioxide 23 BUN 13 Creatinine 1.57 H Glucose 92 Calcium 9.7 - ABG Interpretation ABG results: ABG ABG pH 7.35 pH Units (7.32-7.45) 04/28/18 15:46 ABG pCO2 47 mmHg (35-45) H 04/28/18 15:46 ABG pO2 65 mmHg (85-104) L 04/28/18 15:46 ABG O2 Saturation 91 % (95-98) L 04/28/18 15:46 PT/INR, D-dimer PT 11.6 Seconds (9.4-12.1) 04/26/18 08:05 - Attending Attestation I examined this patient and my medical decision-making was reviewed with the Resident Physician. I agree with the documented findings, disposition and treatment plan as described except to the extent set forth below. <Vaishali Trevino - Last Filed: 04/30/18 14:01> (2) Altered mental state Qualifiers: Altered mental status type: delirium Qualified Code(s): R41.0 - Disorientation, unspecified (4) Coronary artery disease Qualifiers: Coronary Disease-Associated Artery/Lesion type: unspecified vessel or lesion type Associated angina: angina presence unspecified Qualified Code(s): I25.10 - Atherosclerotic heart disease of [place] coronary artery without angina pe ctoris (6) Type 2 diabetes mellitus Qualifiers: Diabetes mellitus mcfp insulin use: unspecified mcfp insulin use status Diabetes mellitus complication status: with other specified complication Qualified Code(s): E11.69 - Type 2 diabetes mellitus with other specified complication (7) CHF (congestive heart failure) Qualifiers: Heart failure type: unspecified Heart failure chronicity: chronic Qualified Code(s): I50.9 - Heart failure, unspecified (8) Atrial fibrillation Qualifiers: Atrial fibrillation type: chronic Qualified Code(s): I48.2 - Chronic atrial fibrillation (9) GERD (gastroesophageal reflux disease) Qualifiers: Esophagitis presence: esophagitis presence not specified Qualified Code(s): K21.9 - Gastro-esophageal reflux disease without esophagitis
--- NOTE | 2018-04-30 19:18 | Orthopedic Operative Note ---
Addendum entered and electronically signed by Juan Ramon Ashraf DPM 04/30/18 19:02: Following the procedure, a right foot dressing was applied using Xeroform, kerlix, and loose NINA wrap. Original Note: Date of procedure: 04/30/18 Pre-op diagnosis: right 1st toe infection, gangrene, peripheral vascular disease Post-op diagnosis: same Procedure: 04/30/18 13:29 1. Right partial first ray amputation. Implants: None Complications: None Anesthesia: MAC, local Local Anesthetics: 0.5% Sensorcaine HCL SubQ (cc), 1% Lidocaine HCL SubQ (cc) Surgeon: Juan Ramon Ashraf Was there an licensed physical therapist assistant present: No Estimated blood loss (cc): 5 Tourniquet Time (Minutes): 0 Specimen: Right 1st toe to pathology Condition: stable Disposition: floor Procedure in Detail: 04/30/18 13:30 INDICATIONS AND CONSENT Mr. Wylie is a 63 year old male with a history of peripheral vascular disease and previous left above knee amputation who presented to [facility] with acute on chronic right 1st toe infection with gangrene. On 04/27/2018 he had a right femoral to posterior tibial artery in situ saphenous vein bypass graft with right common femoral artery endarterectomy. There was noted to be dopplerable posterior tibial artery after the procedure. Surgical plan was to perform right 1st toe amputation for infection source control. We discussed the above procedures in detail. This included a discussion on the indications, contraindications, and possible complications including but not limited to: worsening infection, non-healing wound, pain, swelling, bleeding, blood clots, heart complications, nerve injury, vascular injury, loss of limb, loss of life, and need for further surgery. We also reviewed the expected post operative course, including a discussion on the non-weightbearing as tolerated status after this procedure. He related understanding of our discussion regarding this surgery. All questions were answered to his satisfaction, and a proper written informed consent was obtained, signed, and placed in the chart. No guarantees were given, stated or implied, as to the outcome of this procedure. PROCEDURE IN DETAIL The patient was seen in the pre-operative holding area by Anesthesia, where he was consented for MAC with local block. The patient was then brought back to the operative suite and placed on the operating room table in the supine position. A sign-in was performed. MAC anesthesia was then initiated per Anesthesia protocol. The right lower extremity was then scrubbed, prepped, draped in the usual sterile technique. A [place] timeout was performed and all parties in the room agreed. Given his vascular disease, no tourniquet was used during the procedure. The right first ray was injected with a total of 10 mL of 1% lidocaine plain in a Taylor block distribution. A fishmouth incision was then made at the level of the first metatarsophalangeal joint. The incision was car ried deep to the level of joint capsule. Of note, there was minimal bleeding during anatomic dissection. The toe was disarticulated at the metatarsophalangeal joint and the sesamoids were excised. The right first toe was then sent to pathology as a specimen cup. At this point, it was determined that surgical closure would cause tension on the wound, therefore the right first metatarsal head was removed using a bone saw. The right first metatarsal head was also sent to pathology. The 1st metatarsal and the soft tissue at the incision flaps appeared viable and healthy. The wound was then irrigated with 3 L of normal saline using cystoscopy tubing. The wound was then closed using 2-0 Vicryl for the subcutaneous tissue and 3-0 nylon for the skin under minimal tension. The right medial foot was then injected with 10 mL of 0.5% Marcaine plain and a Taylor block technique. The patient tolerated anesthesia and the procedure well, and was transferred to PAC-U with vital signs stable and vascular status intact to the right lower extremity as noted by active, but minimal bleeding. Needle and sponge counts were correct X 2 at the end of the case. Dr. Juan Ramon Ashraf was present, scrubbed, and participated in all vital aspects of the procedure. After a brief stay in PAC-U, the patient will be admitted back to the floor for continued monitoring. Wound dressing will be changed after 48 hours. Patient is aware that he is at risk for limb loss and this procedure could require further debridement or more proximal amputation. 04/30/18 18:08 04/30/18 18:11
--- NOTE | 2018-04-30 19:23 | Event Note ---
Date of Encounter: 04/30/18 Time of Encounter: 13:15 Came to see patients on round but he was in the OR for toe amputation. Patient is stable from a vascular standpoint. We will sign off for the time being. Patient is to follow-up in the vascular surgery clinic in 2 weeks.
[2018-04-30] MEDS: Gabapentin 300 MG CAPSULE PO SCH (20:24)
[2018-05-01] MEDS: Piperacillin/Tazobactam 3.375 GM in 0.9 % Sodium Chloride Mini Bag 100 ML IVPB SCH ×3 (00:37→16:11)
[2018-05-01 04:49] LABS: Basophils # 0.1 K/mcL (0.0-0.2); Basophils % 0.9 %; Eosinophils # 0.2 K/mcL (0.0-0.6); Hematocrit 30.1 % (37.5-50.1); Hemoglobin 9.7 g/dL (12.9-16.9); Immature Granulocytes % 0.4 % (0-4); Lymphocytes # 2.3 K/mcL (0.6-4.6); Lymphocytes % 21.8 %; Mean Corpuscular HGB Conc 32.2 g/dL (31.6-35.5); Mean Corpuscular Hemoglobin 28.4 pg (28.0-33.3); Mean Platelet Volume 10.6 fL (9.4-12.4); Monocytes % 9.3 %; Platelet Count 350 K/mcL (140-400); Red Blood Count 3.42 M/mcL (4.19-5.50); Red Cell Distribution Width 13.6 % (11.5-14.5); Segmented Neutrophils % 65.6 %
[2018-05-01 05:09] LABS: Calcium 9.5 mg/dL (8.6-10.3); Potassium 3.8 mEq/L (3.5-5.1)
[2018-05-01] MEDS: *HR* Heparin 5,000 UNIT/ML VIAL SQ SCH ×2 (06:41→16:11)
[2018-05-01] MEDS: Aspirin Enteric Coated 81 MG Tablet PO SCH (07:32)
[2018-05-01] MEDS: Thiamine (B-1) 100 MG TABLET PO SCH ×3 (07:32→22:33)
[2018-05-01] MEDS: Potassium Chloride Elixir 20 MEQ/15 ML UDC PO SCH ×2 (07:32→16:10)
[2018-05-01] MEDS: Gabapentin 300 MG CAPSULE PO SCH ×2 (07:32→22:33)
[2018-05-01] MEDS: Magnesium Oxide 400 MG TABLET PO SCH (07:33)
[2018-05-01] MEDS: risperiDONE 1 MG TABLET PO SCH (07:33)
[2018-05-01] MEDS: amLODIPine 5 MG TABLET PO SCH (07:33)
[2018-05-01] MEDS: *HR* HYDROcodone/Acet 5/325 mg TABLET PO PRN ×2 (07:36→16:10)
[2018-05-01] MEDS: Insulin LISPRO 300 UNITS/3 ML VIAL SQ SCH ×4 (07:36→22:33)
--- NOTE | 2018-05-01 09:45 | Internal Med Progress Note ---
Hospitalist Progress Note - Encounter Date of Encounter: 05/01/18 Time of Encounter: 16:05 - Subjective Interval History: No issues, no acute events. Denies fevers/chills, n/v, diaphoresis. States pain fairly controlled with pain medication. Denies fevers/chills, n/v. - Exam Vitals: Temp Pulse Resp BP Pulse Ox 97.7 F 70 16 138/80 93 05/01/18 07:29 05/01/18 07:29 05/01/18 07:29 05/01/18 07:29 05/01/18 07:29 Exam: GEN: Pt resting comfortably at bedside; Alert HEENT: Atraumatic, normocephalic; EOMI; Rull ROM CARDIO: RRR, no rubs, murmurs, gallops RESP: CTAB, no wheezes, rales, rhonchi ABD: Soft, non-tender, non-distended; Bowel sounds presents; no guarding EXT: Left AKA NEURO: CN II-XII grossly in tact. Cooperative with exam. AAO x2. Improved m entation since previous exam. - Assessment and Plan (1) S/P amputation Current Visit: Yes Status: Acute Assessment and Plan: Podiatry following, recommendations appreciated. (2) Necrotic toes Current Visit: Yes Status: Acute Assessment and Plan: Was started on Vanc/Zosyn emperically. Will consult ID for antibiotic recommendations. POD #4 s/p Right femoral-posterior tibial saphenous vein bypass graft and right common femoral endarterectomy. Stable. POD #1 s/p right toe partial amputation. Doing well. Continue aspirin/Plavix. (3) Acute encephalopathy Current Visit: Yes Status: Acute Assessment and Plan: Developed AMS and somnolence post femoral bypass surgery. He has become more alert over the past few days. Workup was negative. Etiology appears to be multifactorial likely toxic metabolic. Neurology evaluated patient. Patient mental status continues to improve. (4) History of left above knee amputation Current Visit: Yes Status: Acute (5) Acute kidney injury Current Visit: Yes Status: Acute Assessment and Plan: Gradually improved. Likely from Vancomycin. Dose has been decreased accordingly. (6) GERD (gastroesophageal reflux disease) Current Visit: Yes Status: Chronic Assessment and Plan: Continue PPI. (7) PAD (peripheral artery disease) Current Visit: Yes Status: Chronic Assessment and Plan: s/p Right femoral-posterior tibial saphenous vein bypass graft and right common femoral endarterectomy. Stable. Continue aspirin/Plavix. Follow-up with Vascular Surgery as outpatient. (8) Type 2 diabetes mellitus Current Visit: Yes Status: Chronic Assessment and Plan: hyperglycemic on presentation. Plan Continue Basal and sliding scale. carb controlled diet. (9) DVT prophylaxis Current Visit: No Status: Acute Assessment and Plan: Heparin SQ BID. (10) AICD (automatic cardioverter/defibrillator) present Current Visit: No Status: Chronic (11) Atrial fibrillation Current Visit: No Status: Chronic Assessment and Plan: Patient with a Hx of A. fib rate controlled on Cavedilol. Continue current management. unclear why not on anticoagulation. Patient is a poor historian. (12) CHF (congestive heart failure) Current Visit: No Status: Chronic Assessment and Plan: euvolemic. no acutely exacerbated. Plan patient on carvedilol and lisinopril (13) COPD (chronic obstructive pulmonary disease) Current Visit: No Status: Chronic (14) Hypertension Current Visit: No Status: Chronic (15) PAD (peripheral artery disease) Current Visit: No Status: Chronic - Time Spent with Patient Total time spent is greater than 50% in coordination of care (as documented) at patient's floor/unit and/or counseling patient: Internal Medicine: Result - Labs CBC & Chem 7: 05/01/18 03:58 05/01/18 03:58 Labs: Short CBC 05/01/18 Range/Units 03:58 WBC 10.6 (4.3-11.1) K/mcL Hgb 9.7 L (12.9-16.9) g/dL Hct 30.1 L (37.5-50.1) % Plt Count 350 (140-400) K/mcL Neutrophils # 7.0 (1.6-8.9) K/mcL BMP 05/01/18 03:58 Sodium 137 Potassium 3.8 Chloride 107 Carbon Dioxide 22 L BUN 13 Creatinine 1.45 H Glucose 166 H Calcium 9.5 - ABG Interpretation ABG results: ABG ABG pH 7.35 pH Units (7.32-7.45) 04/28/18 15:46 ABG pCO2 47 mmHg (35-45) H 04/28/18 15:46 ABG pO2 65 mmHg (85-104) L 04/28/18 15:46 ABG O2 Saturation 91 % (95-98) L 04/28/18 15:46 PT/INR, D-dimer PT 11.6 Seconds (9.4-12.1) 04/26/18 08:05 Consult Discharge Plan - Plan Referrals: Roberto Estrada MD [Partnered Physician] - (Follow-up with Dr. 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 Diabetes mellitus complication status: with other specified complication Qualified Code(s): E11.69 - Type 2 diabetes mellitus with other specified complication (11) Atrial fibrillation Qualifiers: Atrial fibrillation type: chronic Qualified Code(s): I48.2 - Chronic atrial fibrillation (12) CHF (congestive heart failure) Qualifiers: Heart failure type: unspecified Heart failure chronicity: chronic Qualified Code(s): I50.9 - Heart failure, unspecified (13) COPD (chronic obstructive pulmonary disease) Qualifiers: COPD type: unspecified COPD Qualified Code(s): J44.9 - Chronic obstructive pulmonary disease, unspecified (14) Hypertension Qualifiers: Hypertension type: essential hypertension Qualified Code(s): I10 - Essential (primary) hypertension
--- NOTE | 2018-05-01 12:37 | Podiatry Progress Note ---
Date of Encounter: 05/01/18 Time of Encounter: 12:34 - Assessment and Plan (1) S/P amputation Current Visit: Yes Status: Acute 1. Dressing will be changed tomorrow. 2. Follow up pathology results for antibiotic recommendations at discharge. 3. Sutures will be removed after 14 days. 4. Follow up with Dr. Juan Ramon Ashraf at [facility] 1 week after discharge. Subjective Principal diagnosis: toe gangrene Interval history: Patient progressing well POD 1 s/p right partial 1st ray amputation. Patient alert and oriented x3. Reports mild pain in the foot. Dressing intact. Leuko cytosis improving. Objective - Vital Signs Vital Signs: Vital Signs Temp Pulse Resp BP Pulse Ox 05/01/18 11:31 97.7 F 70 16 126/66 93 05/01/18 07:29 97.7 F 70 16 138/80 93 05/01/18 03:36 98.2 F 71 14 125/72 95 04/30/18 23:35 98 F 72 16 118/76 95 04/30/18 20:33 94 04/30/18 19:54 97.3 F L 70 18 96/55 94 04/30/18 15:32 97.4 F L 70 19 137/79 97 04/30/18 13:27 83 16 119/90 94 Intake and Output 04/30/18 05/01/18 05/01/18 23:59 07:59 15:59 Intake Total 1520 / 1520 100 / 100 480 / 480 Output Total 100 / 100 350 / 350 Balance 1420 / 1420 -250 / -250 480 / 480 Intake: IV Fluids 1100 / 1100 100 / 100 Zosyn 3.375 GM In 0.9 % Sodium 100 / 100 100 / 100 Chloride (Mini-Bag +) 100 ML @ 25 mls/hr IVPB Q8HR [facility] Rx#: [id number] Oral 420 / 420 480 / 480 Output: Catheter 100 / 100 350 / 350 Other: Meal Dinner Breakfast Percent of Meal Consumed 60% Weight 87.4 kg Blood Glucose* 278 208 216 Patient Weight 05/01/18 23:59 Weight 87.4 kg - Exam Exam: Right foot dressing intact. Capillary refill delayed to remaining digits. No streaking erythema. Able to actively move remaining digits on right. Left AKA. - Lab Result Diagrams: 05/01/18 03:58 05/01/18 03:58 Labs: Abnormal lab results RBC 3.42 M/mcL (4.19-5.50) L 05/01/18 03:58 Hgb 9.7 g/dL (12.9-16.9) L 05/01/18 03:58 Hct 30.1 % (37.5-50.1) L 05/01/18 03:58 ESR 68 mm/hr (0-10) H 04/29/18 08:29 ABG pCO2 47 mmHg (35-45) H 04/28/18 15:46 ABG pO2 65 mmHg (85-104) L 04/28/18 15:46 ABG Total CO2 27 mEq/L (20-26) H 04/28/18 15:46 ABG O2 Saturation 91 % (95-98) L 04/28/18 15:46 ABG Hematocrit 34.0 % (37.5-50.1) L 04/27/18 13:28 Glucose 141 mg/dL (60-95) H 04/27/18 13:28 Carbon Dioxide 22 mEq/L (23-29) L 05/01/18 03:58 Creatinine 1.45 mg/dL (0.70-1.30) H 05/01/18 03:58 Est GFR ( Amer) 59 (> 60) L 05/01/18 03:58 Est GFR (Non-Af Amer) 49 (> 60) L 05/01/18 03:58 Glucose 166 mg/dL (70-105) H 05/01/18 03:58 POC Glucose 311 mg/dL (70-99) H 04/30/18 16:37 Hemoglobin A1c 10.1 % (-5.6) H 04/26/18 12:47 Magnesium 1.5 mg/dL (1.6-2.6) L 04/26/18 08:05 AST 8 Units/L (13-39) L 04/28/18 16:23 ALT 5 Units/L (7-52) L 04/28/18 16:23 C-Reactive Protein 180 mg/L (Less than 10) H 04/29/18 04:09 Serum Total Protein 5.5 g/dL (6.4-8.9) L 04/28/18 16:23 Albumin 2.7 g/dL (3.5-5.7) L 04/28/18 16:23 Albumin/Globulin Ratio 1.0 (1.1-2.2) L 04/28/18 16:23 Arterial Blood Ionized Calcium 1.36 mmol/L (1.15-1.35) H 04/27/18 13:28 Vancomycin Trough 23 mcg/mL (5-10) H 04/30/18 10:13 Microbiology, Last 48 Hours 04/25/18 23:04 Blood Culture - Final Peripheral Venipuncture No growth. Final report. 04/25/18 23:01 Blood Culture - Final Peripheral Venipuncture No growth. Final report. Consult Discharge Plan - Plan Referrals: Roberto Estrada MD [Partnered Physician] - (Follow-up with Dr. Estrada in vascular surgery clinic in 2 weeks.) Cora Pinto CNP [Primary Care Provider] -
[2018-05-01] MEDS: *HR* OxyCODONE Immed Rel 5 MG TABLET PO PRN (23:09)
[2018-05-02] MEDS: Piperacillin/Tazobactam 3.375 GM in 0.9 % Sodium Chloride Mini Bag 100 ML IVPB SCH ×3 (01:25→16:57)
[2018-05-02 03:20] LABS: Basophils # 0.1 K/mcL (0.0-0.2); Basophils % 0.7 %; Eosinophils # 0.2 K/mcL (0.0-0.6); Eosinophils % 2.7 %; Hematocrit 31.1 % (37.5-50.1); Hemoglobin 10.1 g/dL (12.9-16.9); Immature Granulocytes % 0.4 % (0-4); Lymphocytes % 24.2 %; Mean Corpuscular HGB Conc 32.5 g/dL (31.6-35.5); Mean Corpuscular Hemoglobin 27.9 pg (28.0-33.3); Mean Corpuscular Volume 85.9 fL (83.0-100.0); Mean Platelet Volume 10.1 fL (9.4-12.4); Monocytes # 0.9 K/mcL (0.0-1.3); Monocytes % 10.4 %; Neutrophils # 5.1 K/mcL (1.6-8.9); Platelet Count 388 K/mcL (140-400); Red Blood Count 3.62 M/mcL (4.19-5.50); Red Cell Distribution Width 13.4 % (11.5-14.5); Segmented Neutrophils % 61.6 %
[2018-05-02 03:39] LABS: Calcium 9.4 mg/dL (8.6-10.3); Potassium 3.7 mEq/L (3.5-5.1)
[2018-05-02] MEDS: *HR* Heparin 5,000 UNIT/ML VIAL SQ SCH ×2 (06:01→16:58)
[2018-05-02] MEDS: *HR* OxyCODONE Immed Rel 5 MG TABLET PO PRN ×2 (06:09→22:55)
[2018-05-02] MEDS ORDERED: Aminoglycoside Consult 1 EACH MC ONE (07:20)
[2018-05-02] MEDS: risperiDONE 1 MG TABLET PO SCH (09:43)
[2018-05-02] MEDS: amLODIPine 5 MG TABLET PO SCH (09:44)
[2018-05-02] MEDS: Gabapentin 300 MG CAPSULE PO SCH ×2 (09:45→22:30)
[2018-05-02] MEDS: Aspirin Enteric Coated 81 MG Tablet PO SCH (09:46)
[2018-05-02] MEDS: Thiamine (B-1) 100 MG TABLET PO SCH ×3 (09:46→22:30)
[2018-05-02] MEDS: Magnesium Oxide 400 MG TABLET PO SCH (09:47)
--- NOTE | 2018-05-02 09:54 | Internal Med Progress Note ---
Hospitalist Progress Note - Encounter Date of Encounter: 05/02/18 Time of Encounter: 09:00 - Subjective Interval History: No issues, no acute events. Denies fevers/chills, n/v, diaphoresis. States pain fairly controlled with pain medication. Denies fevers/chills, n/v. - Exam Vitals: Temp Pulse Resp BP Pulse Ox 97.9 F 69 16 143/84 92 05/02/18 07:01 05/02/18 07:01 05/02/18 07:01 05/02/18 07:01 05/02/18 07:01 Exam: GEN: Pt resting comfortably at bedside; Alert HEENT: Atraumatic, normocephalic; EOMI; Rull ROM CARDIO: RRR, no rubs, murmurs, gallops RESP: CTAB, no wheezes, rales, rhonchi ABD: Soft, non-tender, non-distended; Bowel sounds presents; no guarding EXT: Left AKA NEURO: CN II-XII grossly in tact. Cooperative with exam. AAO x2. Not aware of place. - Assessment and Plan (1) S/P amputation Current Visit: Yes Status: Acute Assessment and Plan: Podiatry following, recommendations appreciated. (2) Necrotic toes Current Visit: Yes Status: Acute Assessment and Plan: Was started on Vanc/Zosyn emperically. POD #5 s/p Right femoral-posterior tibial saphenous vein bypass graft and right common femoral endarterectomy. Stable. POD #2 s/p right toe partial amputation. Continue aspirin/Plavix. Vanc is being held today because of worsening renal function. Will discuss with ID tomorrow. (3) Acute encephalopathy Current Visit: Yes Status: Acute Assessment and Plan: Developed AMS and somnolence post femoral bypass surgery. He has become more alert over the past few days. Workup was negative. Etiology appears to be multifactorial likely toxic metabolic. Neurology evaluated patient. Patient mental status continues to improve. (4) History of left above knee amputation Current Visit: Yes Status: Acute (5) Acute kidney injury Current Visit: Yes Status: Acute Assessment and Plan: Creatinine now ranging 1.4-1.5. Usually baseline around 0.9. Discussed with Nephrology. Due to left AKA, serum creatinine/renal function may actually be worse but does not accurately reflect on labs. Further recommendations pending. Will stop vancomycin for now and monitor to avoid worsening function. Will discuss with ID tomorrow. (6) GERD (gastroesophageal reflux disease) Current Visit: Yes Status: Chronic Assessment and Plan: Continue PPI. (7) PAD (peripheral artery disease) Current Visit: Yes Status: Chronic Assessment and Plan: s/p Right femoral-posterior tibial saphenous vein bypass graft and right common femoral endarterectomy. Stable. Continue aspirin/Plavix. Follow-up with Vascular Surgery as outpatient. (8) Type 2 diabetes mellitus Current Visit: Yes Status: Chronic Assessment and Plan: hyperglycemic on presentation. Plan Continue Basal and sliding scale. carb controlled diet. (9) DVT prophylaxis Current Visit: No Status: Acute Assessment and Plan: Heparin SQ BID. (10) AICD (automatic cardioverter/defibrillator) present Current Visit: No Status: Chronic (11) Atrial fibrillation Current Visit: No Status: Chronic Assessment and Plan: Patient with a Hx of A. fib rate controlled on Cavedilol. Continue current management. unclear why not on anticoagulation. Patient is a poor historian. (12) CHF (congestive heart failure) Current Visit: No Status: Chronic Assessment and Plan: euvolemic. no acutely exacerbated. Plan patient on carvedilol and lisinopril (13) COPD (chronic obstructive pulmonary disease) Current Visit: No Status: Chronic (14) Hypertension Current Visit: No Status: Chronic (15) PAD (peripheral artery disease) Current Visit: No Status: Chronic - Time Spent with Patient Total time spent is greater than 50% in coordination of care (as documented) at patient's floor/unit and/or counseling patient: Internal Medicine: Result - Labs CBC & Chem 7: 05/02/18 02:36 05/02/18 02:36 Labs: Short CBC 05/02/18 Range/Units 02:36 WBC 8.2 (4.3-11.1) K/mcL Hgb 10.1 L (12.9-16.9) g/dL Hct 31.1 L (37.5-50.1) % Plt Count 388 (140-400) K/mcL Neutrophils # 5.1 (1.6-8.9) K/mcL BMP 05/02/18 02:36 Sodium 135 L Potassium 3.7 Chloride 106 Carbon Dioxide 19 L BUN 14 Creatinine 1.50 H Glucose 203 H Calcium 9.4 - ABG Interpretation ABG results: ABG ABG pH 7.35 pH Units (7.32-7.45) 04/28/18 15:46 ABG pCO2 47 mmHg (35-45) H 04/28/18 15:46 ABG pO2 65 mmHg (85-104) L 04/28/18 15:46 ABG O2 Saturation 91 % (95-98) L 04/28/18 15:46 PT/INR, D-dimer PT 11.6 Seconds (9.4-12.1) 04/26/18 08:05 Consult Discharge Plan - Plan Additional Instructions: Dressing remains intact until 1st follow up appointment after discharge. Follow up with Dr. Juan Ramon Ashraf at [facility] 1 week after discharge. Referrals: Roberto Estrada MD [Partnered Physician] - (Follow-up with Dr. 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 insulin use status Diabetes mellitus complication status: with other specified complication Qualified Code(s): E11.69 - Type 2 diabetes mellitus with other specified complication (11) Atrial fibrillation Qualifiers: Atrial fibrillation type: chronic Qualified Code(s): I48.2 - Chronic atrial fibrillation (12) CHF (congestive heart failure) Qualifiers: Heart failure type: diastolic Heart failure chronicity: chronic Qualified Code(s): I50.32 - Chronic diastolic (congestive) heart failure (13) COPD (chronic obstructive pulmonary disease) Qualifiers: COPD type: unspecified COPD Qualified Code(s): J44.9 - Chronic obstructive pulmonary disease, unspecified (14) Hypertension Qualifiers: Hypertension type: essential hypertension Qualified Code(s): I10 - Essential (primary) hypertension
[2018-05-02] MEDS: Insulin LISPRO 300 UNITS/3 ML VIAL SQ SCH ×4 (09:56→22:31)
--- NOTE | 2018-05-02 12:12 | Podiatry Progress Note ---
Date of Encounter: 05/02/18 Time of Encounter: 12:08 - Assessment and Plan (1) S/P amputation Current Visit: Yes Status: Acute 1. Wound stable without evidence of infection or ischemia. Dressing changed today. Light NINA wrap applied without compression to hold surgical dressing in place. If dressing needs reinforced, do not apply compression with the NINA wrap. Current dressing can stay intact until discharge. 2. Follow up pathology results for antibiotic recommendations at discharge. Can likely discharge on short course of PO antibiotics. 3. Sutures will be removed after 14 days. 4. Follow up with Dr. Juan Ramon Ashraf at [facility] 1 week after discharge. Subjective Principal diagnosis: toe gangrene Interval history: Patient progressing well POD 2 s/p right partial 1st ray amputation. Patient alert and oriented x3. Reports mild pain in the foot but improving. Dressing intact. Leukocytosis resolved. Objective - Vital Signs Vital Signs: Vital Signs Temp Pulse Resp BP Pulse Ox 05/02/18 07:01 97.9 F 69 16 143/84 92 05/02/18 05:50 97.7 F 70 18 127/80 97 05/02/18 01:33 97.5 F L 70 18 135/82 98 05/01/18 21:22 97.8 F 70 18 96 05/01/18 16:29 97.5 F L 72 16 124/66 94 Intake and Output 05/01/18 05/02/18 05/02/18 23:59 07:59 15:59 Intake Total 350 / 350 100 / 100 Output Total 250 / 250 550 / 550 Balance 100 / 100 -450 / -450 Intake: IV Fluids 350 / 350 100 / 100 Zosyn 3.375 GM In 0.9 % Sodium 100 / 100 100 / 100 Chloride (Mini-Bag +) 100 ML @ 25 mls/hr IVPB Q8HR [facility] Rx#: [id number] Vancocin 1,250 MG In 0.9 % 250 / 250 Sodium Chloride 250 ML @ 166.67 mls/hr IVPB Q24H [facility] Rx#: [id number] Oral 0 / 0 0 / 0 Output: Catheter 250 / 250 550 / 550 Other: Weight 88.5 kg Blood Glucose* 204 228 Patient Weight 05/02/18 23:59 Weight 88.5 kg - Exam Exam: Vascular: DP and PT non-palpable, but dopplerable from previous vascular assessment. Capillary refill delayed to remaining digits. Dermatology: Right partial 1st ray amputation site well coapted with sutures intact. No erythema or drainage. No evidence of necrosis or ischemia. Musculoskeletal: Right hallux amputation. No calf pain on right. Able to actively move remaining digits and move at ankle joint without pain. Left AKA. Neuro: Sensation diminished right lower extremity. - Lab Result Diagrams: 05/02/18 02:36 05/02/18 02:36 Labs: Abnormal lab results RBC 3.62 M/mcL (4.19-5.50) L 05/02/18 02:36 Hgb 10.1 g/dL (12.9-16.9) L 05/02/18 02:36 Hct 31.1 % (37.5-50.1) L 05/02/18 02:36 MCH 27.9 pg (28.0-33.3) L 05/02/18 02:36 ESR 68 mm/hr (0-10) H 04/29/18 08:29 ABG pCO2 47 mmHg (35-45) H 04/28/18 15:46 ABG pO2 65 mmHg (85-104) L 04/28/18 15:46 ABG Total CO2 27 mEq/L (20-26) H 04/28/18 15:46 ABG O2 Saturation 91 % (95-98) L 04/28/18 15:46 ABG Hematocrit 34.0 % (37.5-50.1) L 04/27/18 13:28 Glucose 141 mg/dL (60-95) H 04/27/18 13:28 Sodium 135 mEq/L (136-145) L 05/02/18 02:36 Carbon Dioxide 19 mEq/L (23-29) L 05/02/18 02:36 Creatinine 1.50 mg/dL (0.70-1.30) H 05/02/18 02:36 Est GFR ( Amer) 57 (> 60) L 05/02/18 02:36 Est GFR (Non-Af Amer) 47 (> 60) L 05/02/18 02:36 Glucose 203 mg/dL (70-105) H 05/02/18 02:36 POC Glucose 204 mg/dL (70-99) H 05/01/18 21:29 Hemoglobin A1c 10.1 % (-5.6) H 04/26/18 12:47 Magnesium 1.5 mg/dL (1.6-2.6) L 04/26/18 08:05 AST 8 Units/L (13-39) L 04/28/18 16:23 ALT 5 Units/L (7-52) L 04/28/18 16:23 C-Reactive Protein 180 mg/L (Less than 10) H 04/29/18 04:09 Serum Total Protein 5.5 g/dL (6.4-8.9) L 04/28/18 16:23 Albumin 2.7 g/dL (3.5-5.7) L 04/28/18 16:23 Albumin/Globulin Ratio 1.0 (1.1-2.2) L 04/28/18 16:23 Arterial Blood Ionized Calcium 1.36 mmol/L (1.15-1.35) H 04/27/18 13:28 Vancomycin Trough 23 mcg/mL (5-10) H 04/30/18 10:13 Microbiology, Last 48 Hours 04/25/18 23:04 Blood Culture - Final Peripheral Venipuncture No growth. Final report. 04/25/18 23:01 Blood Culture - Final Peripheral Venipuncture No growth. Final report. Consult Discharge Plan - Plan Additional Instructions: Dressing remains intact until 1st follow up appointment after discharge. Follow up with Dr. Juan Ramon Ashraf at [facility] 1 week after discharge. Referrals: Roberto Estrada MD [Partnered Physician] - (Follow-up with Dr. Estrada in vascular surgery clinic in 2 weeks.) Cora Pinto CNP [Primary Care Provider] -
--- NOTE | 2018-05-02 12:51 | Nephrology Consult Note ---
Date of Encounter: 05/02/18 Time of Encounter: 11:15 Assessment and Plan (1) Acute kidney injury Current Visit: Yes Status: Acute Nonoliguric JARED that appears most likely due nephrotoxins. However his known comorbidities such as PAD, T2DM, Cardiac/AFib to make him more likely to develop CKD. 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 Volume status was appropriate and not hypervolumic. Recommend following a renal protective/supportive strategy as able by dosing renally cleared Rx by CrCl, avoiding nephrotoxins, strict I/Os, daily weights. I also recommend starting a renal work up with a retroperitoneal U/S, plus checking a UA with microscopy and even a 24hr Urine since his body size is reduced from average (hx of Lt BKA), and I suspect this could alter the eGFR -- and his CrCl may be actually worse than estimated. Will follow with you. My colleague Dr. Tavarez will be on-call tomorrow; and I'll provide a thorough sign-out. Thank you for consulting the [facility]. (2) S/P amputation Current Visit: Yes Status: Acute See above. 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: unspecified longterm insulin use status Diabetes mellitus complication status: with other specified complication Qualified Code(s): E11.69 - Type 2 diabetes mellitus with other specified complication (4) Ischemic cardiomyopathy Current Visit: No Status: Chronic See above (5) PAD (peripheral artery disease) Current Visit: No Status: Chronic See above History of Present Illness - Reason for Consult Consult date: 05/02/18 Acute Kidney Injury Requesting physician: Lucas Winters - Chief Complaint JARED - History of Present Illness Sidney Wylie is a very pleasant 63 y/o WM with a pmh of PAD s/p left BKA, tobacco use history and etc who presented with a necrotic toe earlier in the week. Nephrology was consulted d/t rising SCr. He underwent a Fem-pop bypass and earlier in this admission, and his SCr started to rise from a baseline of toni l. He denied taking OTC NSAIDs prior to this admission. He denied N/V/D or symptoms consistent with dysuria. He stated that he has not previously needed to see a underwriting consultant. He has been receiving Vancomycin IV for his necrotic toe. FHx: he denied a FHx of ESRD. Past Med Surg Social Fam HX - Past Medical History Medical history: arthritis, asthma, atrial fibrillation, cardiomyopathy, CHF, COPD, coronary artery disease, diabetes, GERD, hyperlipidemia, hypertension, myocardial infarction Additional medical history: tremors Psychiatric history: anxiety, depression - Past Surgical History Surgical History: angioplasty/stent, coronary bypass (CABG), orthopedic, other, pacemaker/AICD, other Additional surgical history: left BKA - Social History Smoking Status: Current every day smoker Packs per day: 1 Smokeless Tobacco Status: No Alcohol use: none Drug use: none - Family History Mother Living Status: Still Living Hx Family Cancer: Yes (kidney cancer) Father Living Status: Hx Family Cancer: Yes Medications and Allergies Gabapentin [Neurontin] 300 mg PO TID 05/18/15 [History] Acetaminophen [Tylenol] 650 mg PO Q6HR PRN tablet 01/20/18 [Rx] Folic Acid 1 mg PO DAILY tablet 01/20/18 [Rx] Lisinopril [Zestril] 10 mg PO DAILY tablet 01/20/18 [Rx] OxyCODONE/APAP 7.5/325 [Percocet 7.5/325 MG] 1 each PO Q6H PRN 3 Days #12 tablet 01/20/18 [Rx] Thiamine (B-1) [Vitamin B-1] 100 mg PO TID tablet 01/20/18 [Rx] Omeprazole [PriLOSEC] 20 mg PO DAILY 04/27/18 [History] Sertraline [Zoloft] 25 mg PO DAILY 04/27/18 [History] amLODIPine [Norvasc] 5 mg PO DAILY 04/27/18 [History] risperiDONE [Risperidone] 0.5 mg PO DAILY 04/27/18 [History] Fluconazole [Diflucan] 100 mg PO QID 04/28/18 [History] Insulin DETEMIR [Levemir] 27 unit SQ HS 04/28/18 [History] Insulin LISPRO [HumaLOG] 14 units SQ TIDAC 04/28/18 [History] Magnesium Oxide [Magnesium] 400 mg PO DAILY 04/28/18 [History] Allergy/AdvReac Type Severity Reaction Status Date / Time ticlopidine [From Ticlid] Allergy Hives Verified 05/25/17 08:37 carbidopa [From Sinemet] AdvReac Confusion Verified 06/08/17 15:42 levodopa [From Sinemet] AdvReac Confusion Verified 06/08/17 15:42 Review of Systems All Systems: reviewed and no additional remarkable complaints except as stated Exam - Vital Signs Vital signs: Initial Vital Signs Temp Pulse Resp BP Pulse Ox 98.1 F 82 18 149/82 97 04/25/18 20:25 04/25/18 20:25 04/25/18 20:25 04/25/18 20:25 04/25/18 20:25 Vital Signs - Last 8 Hours Temp Pulse Resp BP Pulse Ox 05/02/18 07:01 97.9 F 69 16 143/84 92 05/02/18 05:50 97.7 F 70 18 127/80 97 Intake and Output 05/01/18 05/02/18 05/02/18 23:59 07:59 15:59 Intake Total 350 / 350 100 / 100 Output Total 250 / 250 550 / 550 Balance 100 / 100 -450 / -450 Intake: IV Fluids 350 / 350 100 / 100 Zosyn 3.375 GM In 0.9 % Sodium 100 / 100 100 / 100 Chloride (Mini-Bag +) 100 ML @ 25 mls/hr IVPB Q8HR ANT Rx#: [id number] Vancocin 1,250 MG In 0.9 % 250 / 250 Sodium Chloride 250 ML @ 166.67 mls/hr IVPB Q24H ANT Rx#: [id number] Oral 0 / 0 0 / 0 Output: Catheter 250 / 250 550 / 550 Other: Weight 88.5 kg Blood Glucose* 204 228 Patient Weight 05/02/18 23:59 Weight 88.5 kg - General Appearance General appearance: well-developed, appears started age, fatigue, frail EENT: ATNC, PERRL, mucous membranes dry Neck: supple Respiratory: clear Cardiology: edema, regular rate, irregular rhythm, normal S1, normal S2 Gastrointestinal: normoactive bowel sounds, no tenderness Integumentary: no rash Neurologic: no focal deficit, no asterixis Additional Comments: Left BKA and right foot was in a boot. Psychiatric: depressed, cooperative Results - Lab Results 05/03/18 03:44 05/03/18 03:44 Most recent lab results ABG pH 7.35 pH Units (7.32-7.45) 04/28/18 15:46 ABG pCO2 47 mmHg (35-45) H 04/28/18 15:46 ABG pO2 65 mmHg (85-104) L 04/28/18 15:46 ABG HCO3 26 mEq/L (21-27) 04/28/18 15:46 ABG O2 Saturation 91 % (95-98) L 04/28/18 15:46 Calcium 9.4 mg/dL (8.6-10.3) 05/02/18 02:36 Phosphorus 2.7 mg/dL (2.7-4.5) 04/26/18 08:05 Magnesium 1.5 mg/dL (1.6-2.6) L 04/26/18 08:05 I reviewed the labs, vitals, imaging, progress notes, med lists. Consult Discharge Plan - Plan Additional Instructions: Dressing remains intact until 1st follow up appointment after discharge. Follow up with Dr. Juan Ramon Ashraf at [facility] 1 week after discharge. Referrals: Roberto Estrada MD [Partnered Physician] - (Follow-up with Dr. Estrada in vascular surgery clinic in 2 weeks.) Cora Pinto CNP [Primary Care Provider] -
[2018-05-03] MEDS: Piperacillin/Tazobactam 3.375 GM in 0.9 % Sodium Chloride Mini Bag 100 ML IVPB SCH ×2 (00:34→09:43)
[2018-05-03 04:10] LABS: Basophils # 0.1 K/mcL (0.0-0.2); Basophils % 0.7 %; Eosinophils # 0.2 K/mcL (0.0-0.6); Eosinophils % 3.1 %; Hematocrit 32.2 % (37.5-50.1); Hemoglobin 10.5 g/dL (12.9-16.9); Immature Granulocytes % 0.4 % (0-4); Lymphocytes # 2.2 K/mcL (0.6-4.6); Lymphocytes % 29.5 %; Mean Corpuscular HGB Conc 32.6 g/dL (31.6-35.5); Mean Corpuscular Hemoglobin 28.1 pg (28.0-33.3); Mean Corpuscular Volume 86.1 fL (83.0-100.0); Mean Platelet Volume 10.1 fL (9.4-12.4); Monocytes # 0.7 K/mcL (0.0-1.3); Monocytes % 9.5 %; Neutrophils # 4.3 K/mcL (1.6-8.9); Platelet Count 408 K/mcL (140-400); Red Blood Count 3.74 M/mcL (4.19-5.50); Red Cell Distribution Width 13.2 % (11.5-14.5); Segmented Neutrophils % 56.8 %
[2018-05-03 04:31] LABS: Calcium 9.6 mg/dL (8.6-10.3); Potassium 4.1 mEq/L (3.5-5.1)
[2018-05-03 04:53] LABS: Hepatitis A Antibody IgM Nonreactive (Nonreactive); Hepatitis B Core IgM Nonreactive (Nonreactive); Hepatitis B Surface Antigen Nonreactive (Nonreactive); Hepatitis C Virus Antibody Nonreactive (Nonreactive)
[2018-05-03] MEDS: *HR* Heparin 5,000 UNIT/ML VIAL SQ SCH ×2 (06:51→17:14)
[2018-05-03] MEDS: risperiDONE 1 MG TABLET PO SCH (09:41)
[2018-05-03] MEDS: Thiamine (B-1) 100 MG TABLET PO SCH ×3 (09:41→22:46)
[2018-05-03] MEDS: Aspirin Enteric Coated 81 MG Tablet PO SCH (09:41)
[2018-05-03] MEDS: amLODIPine 5 MG TABLET PO SCH (09:41)
[2018-05-03] MEDS: Magnesium Oxide 400 MG TABLET PO SCH (09:41)
[2018-05-03] MEDS: Gabapentin 300 MG CAPSULE PO SCH ×2 (09:41→22:46)
[2018-05-03] MEDS: Insulin LISPRO 300 UNITS/3 ML VIAL SQ SCH ×4 (09:42→22:46)
[2018-05-03] MEDS: *HR* HYDROcodone/Acet 5/325 mg TABLET PO PRN (09:52)
--- NOTE | 2018-05-03 09:59 | Infectious Disease Progress No ---
Date of Encounter: 05/03/18 Time of Encounter: 09:00 - Assessment and Plan (1) Leukocytosis Current Visit: No Status: Acute The patient had leukocytosis on admission. Likely secondary to right great toe gangrene. Resolved. Qualifiers: Leukocytosis type: unspecified Qualified Code(s): D72.829 - Elevated white blood cell count, unspecified (2) Dry gangrene Current Visit: Yes Status: Acute Location: Right foot great toe. Likely secondary to PAD. X-ray of the right foot shows soft tissue swelling, but no bone abnormality or s oft tissue gas. Podiatry consulted. Planning to perform amputation later this week. No cultures have been obtained since there is no drainage and nothing to culture. ESR 44, CRP 14. Clinically, I do not think this is infectious, but will continue IV antibiotics for now until we get intra-op culture/pathology back. Podiatry consulted. Status post 1st partial ray amputation 04/30/[address] Ashraf. Operative note reviewed. Case discussed with Dr. Ashraf. Low index of suspicion for infection at this point. States toes was removed and MT was resected to assist with wound closure. Pathology pending. Wound care and activity restrictions per the Podiatry team. Vanc stopped by the primary team. Discontinue Zosyn. Observe off antibiotics. (3) Altered mental state Current Visit: No Status: Resolved Etiology unclear, but likely secondary to recent anesthesia. CT head negative. Appears back to baseline. Further workup and management per the primary team. Qualifiers: Altered mental status type: delirium Qualified Code(s): R41.0 - Disorientation, unspecified (4) Acute kidney injury Current Visit: Yes Status: Acute Etiology unclear. Serum creatinine trending up. Continue to trend. Dose-adjust medications. Avoid nephrotoxins as able. Nephrology consulted and following. (5) PAD (peripheral artery disease) Current Visit: No Status: Chronic Vascular surgery consulted. Status post right femoral-tibial in situ saphenous vein bypass graft and right common endarterectomy 04/27/[address] Estrada. (6) Hypertension Current Visit: No Status: Chronic Qualifiers: Hypertension type: essential hypertension Qualified Code(s): I10 - Essential (primary) hypertension (7) Ischemic cardiomyopathy Current Visit: No Status: Chronic (8) COPD (chronic obstructive pulmonary disease) Current Visit: No Status: Chronic Qualifiers: COPD type: unspecified COPD Qualified Code(s): J44.9 - Chronic obstructive pulmonary disease, unspecified (9) Diabetes mellitus Current Visit: No Status: Chronic Uncontrolled. HgbA1C 10.1%. Recommend aggressive glucose monitoring and control to promote wound healing and prevent re-infection. Management per the primary team. Qualifiers: Diabetes mellitus type: type 2 Diabetes mellitus halfway insulin use: with halfway use Diabetes mellitus complication status: with circulatory complication Diabetes mellitus complication detail: with peripheral angiopathy with gangrene Qualified Code(s): 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 2 diabetes mellitus with diabetic peripheral angiopathy with gangrene; Z79.4 - long term (current) use of insulin; Z79.4 - [facility] (current) use of insulin; Z79.4 - [facility] (current) use of insulin; Z79.4 - [facility] (current) use of insulin (10) Atrial fibrillation Current Visit: No Status: Chronic Qualifiers: Atrial fibrillation type: chronic Qualified Code(s): I48.2 - Chronic atrial fibrillation (11) History of left below knee amputation Current Visit: No Status: Chronic Status post left AKA 01/2018 secondary to PAD and necrosis of the left foot. (12) AICD (automatic cardioverter/defibrillator) present Current Visit: No Status: Chronic - Subjective Interval history: Patient seen and examined. Weekend notes reviewed. No acute events noted overnight. Patient states he hurts " all over," but denies chest or abdominal pain. Denies shortness of breath, chest pain, or cough. Denies any nausea or vomiting or diarrhea. Denies any abdominal pain or urinary complaints. Denies any oral thrush or any skin lesions. He does report pain in the right leg at the surgical sites. States he hasn't eaten breakfast yet this morning. Infect Dis PN-Objective Data - Labs CBC & Chem 7: 05/03/18 03:44 05/03/18 03:44 Labs: Laboratory Results - last 24 hr 05/02/18 05/02/18 05/02/18 07:05 13:00 17:48 WBC RBC Hgb Hct MCV MCH MCHC RDW Plt Count MPV Immature Gran % Seg Neutrophils % Lymphocytes % Monocytes % Eosinophils % Basophils % Neutrophils # Lymphocytes # Monocytes # Eosinophils # Basophils # Sodium Potassium Chloride Carbon Dioxide BUN Creatinine Est GFR ( Amer) Est GFR (Non-Af Amer) BUN/Creatinine Ratio Glucose POC Glucose 228 H 210 H 240 H Calculated Osmolality Calcium Hepatitis A IgM Ab Hep Bs Antigen Hep B Core IgM Ab Hepatitis C Ab Screen 05/02/18 05/03/18 05/03/18 21:24 03:44 03:44 WBC 7.5 RBC 3.74 L Hgb 10.5 L Hct 32.2 L MCV 86.1 MCH 28.1 MCHC 32.6 RDW 13.2 Plt Count 408 H MPV 10.1 Immature Gran % 0.4 Seg Neutrophils % 56.8 Lymphocytes % 29.5 Monocytes % 9.5 Eosinophils % 3.1 Basophils % 0.7 Neutrophils # 4.3 Lymphocytes # 2.2 Monocytes # 0.7 Eosinophils # 0.2 Basophils # 0.1 Sodium 137 Potassium 4.1 Chloride 108 H Carbon Dioxide 22 L BUN 13 Creatinine 1.71 H Est GFR ( Amer) 49 L Est GFR (Non-Af Amer) 41 L BUN/Creatinine Ratio 8 Glucose 241 H POC Glucose 192 H Calculated Osmolality 292 Calcium 9.6 Hepatitis A IgM Ab Hep Bs Antigen Hep B Core IgM Ab Hepatitis C Ab Screen 05/03/18 05/03/18 03:44 07:42 WBC RBC Hgb Hct MCV MCH MCHC RDW Plt Count MPV Immature Gran % Seg Neutrophils % Lymphocytes % Monocytes % Eosinophils % Basophils % Neutrophils # Lymphocytes # Monocytes # Eosinophils # Basophils # Sodium Potassium Chloride Carbon Dioxide BUN Creatinine Est GFR ( Amer) Est GFR (Non-Af Amer) BUN/Creatinine Ratio Glucose POC Glucose 244 H Calculated Osmolality Calcium Hepatitis A IgM Ab Nonreactive Hep Bs Antigen Nonreactive Hep B Core IgM Ab Nonreactive Hepatitis C Ab Screen Nonreactive Cultures: Cultures 04/25/18 23:04 Blood Culture - Final Peripheral Venipuncture No growth. Final report. 04/25/18 23:01 Blood Culture - Final Peripheral Venipuncture No growth. Final report. 04/28/18 18:00 Blood Culture - Preliminary Peripheral Venipuncture Culture is incubating and being continuously monitored for growth. Final report to follow. 04/28/18 18:20 Blood Culture - Preliminary Peripheral Venipuncture Culture is incubating and being continuously monitored for growth. Final report to follow. Serology 05/03/18 Range/Units 03:44 Hepatitis A IgM Ab Nonreactive (Nonreactive) Hep Bs Antigen Nonreactive (Nonreactive) Hep B Core IgM Ab Nonreactive (Nonreactive) Hepatitis C Ab Screen Nonreactive (Nonreactive) Exam - Constitutional Vitals: Temp Pulse Resp BP Pulse Ox 98.1 F 70 12 137/83 95 05/03/18 07:33 05/03/18 07:33 05/03/18 07:33 05/03/18 07:33 05/03/18 07:33 General appearance: average body habitus, cooperative, no acute distress - Head Head exam: Present: atraumatic, normal inspection, normocephalic - Eye Eye exam: Present: EOMI, normal appearance, PERRL Pupils: Present: normal accommodation - ENT ENT exam: Present: mucous membranes moist Additional comments: Very poor dentition noted. - Neck Neck exam: Present: normal inspection - Respiratory Respiratory exam: Present: CTAB. Absent: rales, respiratory distress, rhonchi, wheezes - Cardiovascular Cardiovascular exam: Present: RRR, +S1, +S2 - GI/Abdominal GI/Abdominal exam: Present: normal bowel sounds, soft. Absent: distended, te nderness Additional comments: Bhagat catheter noted to be draining clear yellow urine. - Extremities Exam Extremities exam: Absent: normal inspection (Right lower extremity surgical sites open to air. The most proximal aspect of the right thigh surgical site has mild dehiscence without surrounding erythema or drainage. Otherwise, sites are well-healed without redness, tenderness, warmth, or drainage. Wound edges are well approximated. Right foot postop dressing is clean, dry, and intact.), pedal edema Additional comments: Left AKA stump without redness, warmth, or edema. - Neurological Exam Neurological exam: Present: alert, oriented X3, no focal deficits - Psychiatric Psychiatric exam: Present: normal affect, normal mood - Skin Skin exam: Present: dry, intact, normal color, warm Consult Discharge Plan - Plan Additional Instructions: Dressing remains intact until 1st follow up appointment after discharge. Follow up with Dr. Juan Ramon Ashraf at [facility] 1 week after discharge. Referrals: Roberto Estrada MD [Partnered Physician] - (Follow-up with Dr. Estrada in [facility] surgery clinic in 2 weeks.) Cora Pinto CNP [Primary Care Provider] - - Attending Attestation I examined this patient and my medical decision-making was reviewed with the Resident Physician. I agree with the documented findings, disposition and treat ment plan as described except to the extent set forth below.
--- NOTE | 2018-05-03 10:41 | Nephrology Progress Note ---
Addendum entered and electronically signed by Marco Tavarez MD 05/03/18 23:17: I examined this patient and discussed the medical decision-making with DUARTE Bolanos. I agree with the documented findings, disposition and treatment plan as described except to the extent set forth below. Addendum entered and electronically signed by Cici Dunaway CNP 05/03/18 12:29: Will decrease Gabapentin to 300mg daily until renal recovery Original Note: Date of Encounter: 05/03/18 Time of Encounter: 10:38 - Assessment and Plan (1) Acute kidney injury Current Visit: Yes Status: Acute Nonoliguric JARED that appears most likely due nephrotoxins. Scr 1.71, GFR 41 UOP 900ml Vanco was stopped yesterday; hope for kidney function to start improving Continue to avoid nephrotoxins if possible Awaiting rest of JARED workup labs and renal ultrasound; 24 hour urine in progress (2) PAD (peripheral artery disease) Current Visit: No Status: Chronic per primary team (3) Necrotic toes Current Visit: Yes Status: Acute per podiatry team Subjective Principal diagnosis: toe gangrene Interval history: Patient seen and examined. States he is feeling ok. Objective - Vital Signs Vital signs: Vital Signs Temp Pulse Resp BP Pulse Ox 05/03/18 07:33 98.1 F 70 12 137/83 95 05/03/18 05:48 98.1 F 70 18 141/84 95 05/03/18 01:32 97.5 F L 70 18 129/80 96 05/02/18 21:21 97.7 F 69 18 128/80 96 05/02/18 17:45 97.5 F L 70 16 126/76 94 Intake and Output 05/02/18 05/03/18 05/03/18 23:59 07:59 15:59 Intake Total 100 / 100 100 / 100 Output Total 350 / 350 1144 / 1144 Balance -250 / -250 -1044 / -1044 Intake: IV Fluids 100 / 100 100 / 100 Zosyn 3.375 GM In 0.9 % Sodium 100 / 100 100 / 100 Chloride (Mini-Bag +) 100 ML @ 25 mls/hr IVPB Q8HR [facility] Rx#: [id number] Oral 0 / 0 0 / 0 Output: Urine 200 / 200 500 / 500 Catheter 150 / 150 644 / 644 Other: Weight 87.3 kg Blood Glucose* 192 244 Patient Weight 05/03/18 23:59 Weight 87.3 kg - General Appearance General appearance: Present: well-developed, well-nourished EENT: Present: ATNC, mucous membranes moist, hearing intact, vision intact Neck: Present: supple Respiratory: Present: clear Cardiology: Present: no edema, normal S1, normal S2 Gastrointestinal: Present: no tenderness, no guarding Integumentary: Present: warm and dry Neurologic: Present: alert and oriented x3 Psychiatric: Present: mood/affect appropriate, cooperative - Lab 05/03/18 03:44 05/03/18 03:44 Most recent lab results ABG pH 7.35 pH Units (7.32-7.45) 04/28/18 15:46 ABG pCO2 47 mmHg (35-45) H 04/28/18 15:46 ABG pO2 65 mmHg (85-104) L 04/28/18 15:46 ABG HCO3 26 mEq/L (21-27) 04/28/18 15:46 ABG O2 Saturation 91 % (95-98) L 04/28/18 15:46 Calcium 9.6 mg/dL (8.6-10.3) 05/03/18 03:44 Phosphorus 2.7 mg/dL (2.7-4.5) 04/26/18 08:05 Magnesium 1.5 mg/dL (1.6-2.6) L 04/26/18 08:05 Consult Discharge Plan - Plan Additional Instructions: Dressing remains intact until 1st follow up appointment after discharge. Follow up with Dr. Juan Ramon Ashraf at [facility] 1 week after discharge. Referrals: Roberto Estrada MD [Partnered Physician] - (Follow-up with Dr. Estrada in vascular surgery clinic in 2 weeks.) Cora Pinto CNP [Primary Care Provider] -
--- NOTE | 2018-05-03 13:18 | Internal Med Progress Note ---
<TrevinoVaishali - Last Filed: 05/03/18 13:19> Hospitalist Progress Note - Encounter Date of Encounter: 05/03/18 Time of Encounter: 13:19 - Subjective Interval History: Pt seen and examined at bedside today resting comfortably in no acute distress. POD#6 s/p right femoral-posterior tibial in situ saphenous vein bypass graft an d right common femoral endarterectomy and POD #3 s/p right hallux amputation. Altered mental status improving - patient AOx3 today and progressing back to baseline. Nursing reports no events overnight. Pt currently denies headache, visual disturbances, chest pain, SOB, nausea, vomiting, diarrhea. - Exam Vitals: Temp Pulse Resp BP Pulse Ox 97.8 F 79 12 137/81 96 05/03/18 11:20 05/03/18 11:20 05/03/18 11:20 05/03/18 11:20 05/03/18 11:20 Exam: GEN: AOx3; NAD HEENT: Full ROM; EOMI CARD: RRR; no murmurs, rubs, gallops RESP: CTAB, no wheezes, rales, rhonchi ABD: Soft, non-tender, non distended NEURO: CN 2-12 intact; no focal neurologic deficits EXT: Left AKA - Assessment and Plan (1) S/P amputation Current Visit: Yes Status: Acute Assessment and Plan: POD#3 s/p right hallux amputation Wound stable w/out evidence of infection or ischemia per podiatry F/U with Dr. Ashraf outpatient 1 week after discharge; suture removal 14 days post-op (2) Necrotic toes Current Visit: Yes Status: Acute Assessment and Plan: S/P Right femoral-posterior tibial saphenous vein bypass graft and right common femoral endarterectomy POD#6 S/P Right hallux amputation POD#3 Resolving leukocytosis like secondary to dry gangrene of right hallux Per ID, will trial off antibiotics as infectious etiology unlikely Cont Aspirin and Plavix (3) Acute encephalopathy Current Visit: Yes Status: Resolved Assessment and Plan: Initially developed AMS s/p right femoral-posterior tibial saphenous vein bypass graft and right common femoral endarterectomy POD#6 Workup was negative; per , pt has had similar post operative presentation in the past Evaluated by neurology Pt progressing back to baseline; AOx3 today (4) Acute kidney injury Current Visit: Yes Status: Acute Assessment and Plan: Creatinine progessively worsening - 1.7 today; GFR = 49 Urine Output = 900 Hold vanc and zosyn - trial off antibiotics; avoiding nephrotoxins F/U 24 Urine, retroperitoneal U/s, UA with microscopy, urine protein/creatinine ratio (5) History of left above knee amputation Current Visit: Yes Status: Acute Assessment and Plan: Hx L AKA in 01/2018 (6) Coronary artery disease Current Visit: No Status: Chronic Assessment and Plan: Hx CAD Cont Aspirin, Plavix Cont lipitor, carvedilol, amlodipine (7) PAD (peripheral artery disease) Current Visit: Yes Status: Chronic Assessment and Plan: S/P right femoral-posterior tibial saphenous vein bypass graft and right common femoral endarterectomy POD#6 Cont Aspirin and Plavix F/U with vascular surgery outpatient (8) Type 2 diabetes mellitus Current Visit: Yes Status: Chronic Assessment and Plan: HgbA1c = 10.1% Cont basal insulin and sliding scale Will start Levemir 15U QHS (9) CHF (congestive heart failure) Current Visit: No Status: Chronic Assessment and Plan: Stable. Euvolemic. No acute exacerbation (10) Atrial fibrillation Current Visit: No Status: Chronic Assessment and Plan: Rate controlled on carvedilol (11) GERD (gastroesophageal reflux disease) Current Visit: No Status: Chronic Assessment and Plan: Cont Prilosec (12) DVT prophylaxis Current Visit: No Status: Acute Assessment and Plan: Heparin SQ BID (13) AICD (automatic cardioverter/defibrillator) present Current Visit: No Status: Chronic - Time Spent with Patient Total time spent is greater than 50% in coordination of care (as documented) at patient's floor/unit and/or counseling patient: less than 15 minutes Plan of Care Discussed with: patient Internal Medicine: Result - Labs CBC & Chem 7: 05/03/18 03:44 05/03/18 03:44 Labs: Short CBC 05/03/18 Range/Units 03:44 WBC 7.5 (4.3-11.1) K/mcL Hgb 10.5 L (12.9-16.9) g/dL Hct 32.2 L (37.5-50.1) % Plt Count 408 H (140-400) K/mcL Neutrophils # 4.3 (1.6-8.9) K/mcL BMP 05/03/18 03:44 Sodium 137 Potassium 4.1 Chloride 108 H Carbon Dioxide 22 L BUN 13 Creatinine 1.71 H Glucose 241 H Calcium 9.6 - ABG Interpretation ABG results: ABG ABG pH 7.35 pH Units (7.32-7.45) 04/28/18 15:46 ABG pCO2 47 mmHg (35-45) H 04/28/18 15:46 ABG pO2 65 mmHg (85-104) L 04/28/18 15:46 ABG O2 Saturation 91 % (95-98) L 04/28/18 15:46 PT/INR, D-dimer PT 11.6 Seconds (9.4-12.1) 04/26/18 08:05 Consult Discharge Plan - Plan Additional Instructions: Dressing remains intact until 1st follow up appointment after discharge. Follow up with Dr. Juan Ramon Ashraf at [facility] 1 week after discharge. Referrals: Roberto Estrada MD [Partnered Physician] - (Follow-up with Dr. Estrada in vascular surgery clinic in 2 weeks.) Cora Pinto CNP [Primary Care Provider] - <Lucas Winters - Last Filed: 05/04/18 01:01> Hospitalist Progress Note - Exam Vitals: Temp Pulse Resp BP Pulse Ox 97.8 F 70 18 148/86 96 05/03/18 23:37 05/03/18 23:37 05/03/18 23:37 05/03/18 23:37 05/03/18 19:45 - Assessment and Plan (1) S/P amputation Current Visit: Yes Status: Acute (2) Necrotic toes Current Visit: Yes Status: Acute (3) Acute encephalopathy Current Visit: Yes Status: Resolved (4) History of left above knee amputation Current Visit: Yes Status: Acute (5) Acute kidney injury Current Visit: Yes Status: Acute (6) GERD (gastroesophageal reflux disease) Current Visit: Yes Status: Chronic (7) PAD (peripheral artery disease) Current Visit: Yes Status: Chronic (8) Type 2 diabetes mellitus Current Visit: Yes Status: Chronic (9) DVT prophylaxis Current Visit: No Status: Acute (10) AICD (automatic cardioverter/defibrillator) present Current Visit: No Status: Chronic (11) Atrial fibrillation Current Visit: No Status: Chronic (12) CHF (congestive heart failure) Current Visit: No Status: Chronic (13) COPD (chronic obstructive pulmonary disease) Current Visit: No Status: Chronic (14) Hypertension Current Visit: No Status: Chronic (15) PAD (peripheral artery disease) Current Visit: No Status: Chronic - Time Spent with Patient Total time spent is greater than 50% in coordination of care (as documented) at patient's floor/unit and/or counseling patient: Internal Medicine: Result - Labs CBC & Chem 7: 05/03/18 03:44 05/03/18 03:44 Labs: Short CBC 05/03/18 Range/Units 03:44 WBC 7.5 (4.3-11.1) K/mcL Hgb 10.5 L (12.9-16.9) g/dL Hct 32.2 L (37.5-50.1) % Plt Count 408 H (140-400) K/mcL Neutrophils # 4.3 (1.6-8.9) K/mcL BMP 05/03/18 03:44 Sodium 137 Potassium 4.1 Chloride 108 H Carbon Dioxide 22 L BUN 13 Creatinine 1.71 H Glucose 241 H Calcium 9.6 - ABG Interpretation ABG results: ABG ABG pH 7.35 pH Units (7.32-7.45) 04/28/18 15:46 ABG pCO2 47 mmHg (35-45) H 04/28/18 15:46 ABG pO2 65 mmHg (85-104) L 04/28/18 15:46 ABG O2 Saturation 91 % (95-98) L 04/28/18 15:46 PT/INR, D-dimer PT 11.6 Seconds (9.4-12.1) 04/26/18 08:05 - Impressions Impressions Retroperitoneum Ultrasound 05/03/18 14:30 IMPRESSION: Calculus within the midpole region of the left kidney without associated hydronephrosis. D/ / 05/03/2018 15:52:47 George Zamora MD / andrey Interpreting Provider: George Zamora MD - Attending Attestation I examined this patient and my medical decision-making was reviewed with the Resident Physician. I agree with the documented findings, disposition and treatment plan as described except to the extent set forth below. 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 halfway insulin use status Diabetes mellitus complication status: with other specified complication Qualified Code(s): E11.69 - Type 2 diabetes mellitus with other specified complication (9) CHF (congestive heart failure) Qualifiers: Heart failure type: diastolic Heart failure chronicity: chronic Qualified Code(s): I50.32 - Chronic diastolic (congestive) heart failure (10) Atrial fibrillation Qualifiers: Atrial fibrillation type: chronic Qualified Code(s): I48.2 - Chronic atrial fibrillation (11) GERD (gastroesophageal reflux disease) Qualifiers: Esophagitis presence: esophagitis presence not specified Qualified Code(s): K21.9 - Gastro-esophageal reflux disease without esophagitis <Lucas Winters - Last Filed: 05/04/18 01:01> (6) GERD (gastroesophageal reflux disease) Qualifiers: Esophagitis presence: esophagitis presence not specified Qualified Code(s): K21.9 - Gastro-esophageal reflux disease without esophagitis (8) Type 2 diabetes mellitus 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: 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 Diabetes mellitus complication status: with other specified complication Qualified Code(s): E11.69 - Type 2 diabetes mellitus with other specified complication (11) Atrial fibrillation Qualifiers: Atrial fibrillation type: chronic Qualified Code(s): I48.2 - Chronic atrial fibrillation (12) CHF (congestive heart failure) Qualifiers: Heart failure type: diastolic Heart failure chronicity: chronic Qualified Code(s): I50.32 - Chronic diastolic (congestive) heart failure (13) COPD (chronic obstructive pulmonary disease) Qualifiers: COPD type: unspecified COPD Qualified Code(s): J44.9 - Chronic obstructive pulmonary disease, unspecified (14) Hypertension Qualifiers: Hypertension type: essential hypertension Qualified Code(s): I10 - Essential (primary) hypertension
[2018-05-03] MEDS: Insulin DETEMIR 100 UNIT/ML X5UNITS SQ SCH (22:46)
[2018-05-04] MEDS: Potassium Chloride Elixir 20 MEQ/15 ML UDC PO SCH (02:48)
[2018-05-04] MEDS: *HR* Heparin 5,000 UNIT/ML VIAL SQ SCH ×2 (05:42→17:48)
[2018-05-04 05:45] LABS: Basophils # 0.1 K/mcL (0.0-0.2); Basophils % 0.7 %; Eosinophils # 0.3 K/mcL (0.0-0.6); Eosinophils % 3.3 %; Hematocrit 30.8 % (37.5-50.1); Immature Granulocytes % 0.4 % (0-4); Lymphocytes # 2.4 K/mcL (0.6-4.6); Lymphocytes % 29.8 %; Mean Corpuscular HGB Conc 32.5 g/dL (31.6-35.5); Mean Corpuscular Hemoglobin 27.4 pg (28.0-33.3); Mean Corpuscular Volume 84.4 fL (83.0-100.0); Mean Platelet Volume 9.9 fL (9.4-12.4); Monocytes # 0.8 K/mcL (0.0-1.3); Monocytes % 9.2 %; Neutrophils # 4.6 K/mcL (1.6-8.9); Platelet Count 402 K/mcL (140-400); Red Blood Count 3.65 M/mcL (4.19-5.50); Red Cell Distribution Width 13.2 % (11.5-14.5); Segmented Neutrophils % 56.6 %
[2018-05-04 05:57] LABS: Calcium 9.4 mg/dL (8.6-10.3)
[2018-05-04] MEDS: Magnesium Oxide 400 MG TABLET PO SCH (08:37)
[2018-05-04] MEDS: Thiamine (B-1) 100 MG TABLET PO SCH ×3 (08:37→21:03)
[2018-05-04] MEDS: risperiDONE 1 MG TABLET PO SCH (08:37)
[2018-05-04] MEDS: Insulin LISPRO 300 UNITS/3 ML VIAL SQ SCH ×4 (08:38→21:05)
[2018-05-04] MEDS: Aspirin Enteric Coated 81 MG Tablet PO SCH (08:38)
[2018-05-04] MEDS: amLODIPine 5 MG TABLET PO SCH (08:38)
--- NOTE | 2018-05-04 10:01 | Internal Med Progress Note ---
<Vaishali Trevino - Last Filed: 05/04/18 16:10> Hospitalist Progress Note - Encounter Date of Encounter: 05/04/18 Time of Encounter: 09:56 - Subjective Interval History: Pt seen and examined at bedside today resting comfortably in no acute distress. Pleasant mood today, no confusion. AOx3. Back to baseline mental status. POD#7 s/p right femoral-posterior tibial in situ saphenous vein bypass graft and right common femoral endarterectomy and POD #4 s/p right hallux amputation. No acute events overnight. Denies headache, visual disturbances, chest pain, SOB, nausea, vomiting, diarrhea. - Exam Vitals: Temp Pulse Resp BP Pulse Ox 97.4 F L 70 18 131/80 90 05/04/18 06:31 05/04/18 06:31 05/04/18 06:31 05/04/18 06:31 05/04/18 06:31 Exam: GEN: AOx3; NAD; back to baseline mentation; Pleasant HEENT: Atraumatic, normocephalic, EOMI, Full ROM CARDIO: RRR, no murmurs, rubs, gallops RESP: CTAB, no rales, rhonchi, wheezes ABD: Soft, non-tender, non-distended EXT: Left AKA; Right extremity bandage; non-tender to palpation; no edema, swelling, erythema NEURO: CN 2 - 12 intact; no focal defecits; AOx3 - Assessment and Plan (1) S/P amputation Current Visit: Yes Status: Acute Assessment and Plan: POD#4 s/p right hallux amputation Wound stable w/out evidence of infection or ischemia per podiatry F/U with Dr. Ashraf outpatient 1 week after discharge; suture removal 14 days post-op Per PT/OT recommendation, pt will be discharged to short-term rehab facility tomorrow (2) Necrotic toes Current Visit: Yes Status: Acute Assessment and Plan: S/P Right femoral-posterior tibial saphenous vein bypass graft and right common femoral endarterectomy POD#7 S/P Right hallux amputation POD#4 Resolving leukocytosis like secondary to dry gangrene of right hallux Per ID, will stop antibiotics; currently afebrile with resolving leukocytosis; ID will sign off at this point Cont Aspirin and Plavix (3) Acute encephalopathy Current Visit: Yes Status: Resolved Assessment and Plan: Initially developed AMS s/p right femoral-posterior tibial saphenous vein bypass graft and right common femoral endarterectomy POD#7 Workup was negative; per , pt has had similar post operative presentation in the past Evaluated by neurology Pt progressing back to baseline; AOx3 today (4) Acute kidney injury Current Visit: Yes Status: Acute Assessment and Plan: Creatinine progessively worsening - 1.7 today; GFR = 49 Urine Output = 900 D/c'd Vanc and Zosryn - avoiding nephrotoxins 24 hour Urine - 912 Retroperitoneal U/S - Unremarkable appearance of bladder; no significant post void residual Urine protein / creatinine ratio -0.91 F/U with Nephro in 4-6 weeks (5) History of left above knee amputation Current Visit: Yes Status: Acute Assessment and Plan: Hx L AKA in 01/2018 (6) Coronary artery disease Current Visit: No Status: Chronic Assessment and Plan: Hx CAD Cont Aspirin, Plavix Cont lipitor, carvedilol, amlodipine (7) PAD (peripheral artery disease) Current Visit: Yes Status: Chronic Assessment and Plan: S/P right femoral-posterior tibial saphenous vein bypass graft and right common femoral endarterectomy POD#7 Cont Aspirin and Plavix F/U with vascular surgery outpatient (8) Type 2 diabetes mellitus Current Visit: Yes Status: Chronic Assessment and Plan: HgbA1c = 10.1% Cont basal insulin and sliding scale Cont Levemir 15U QHS (9) CHF (congestive heart failure) Current Visit: No Status: Chronic Assessment and Plan: Stable. Euvolemic. No acute exacerbation (10) Atrial fibrillation Current Visit: No Status: Chronic Assessment and Plan: Rate controlled on carvedilol (11) GERD (gastroesophageal reflux disease) Current Visit: No Status: Chronic Assessment and Plan: Cont Prilosec (12) DVT prophylaxis Current Visit: No Status: Acute Assessment and Plan: Heparin SQ BID (13) AICD (automatic cardioverter/defibrillator) present Current Visit: No Status: Chronic DVT Prophylaxis: Heparin SQ BID - Time Spent with Patient Total time spent is greater than 50% in coordination of care (as documented) at patient's floor/unit and/or counseling patient: less than 15 minutes Plan of Care Discussed with: patient Internal Medicine: Result - Labs CBC & Chem 7: 05/04/18 05:18 05/04/18 05:18 Labs: Short CBC 05/04/18 Range/Units 05:18 WBC 8.2 (4.3-11.1) K/mcL Hgb 10.0 L (12.9-16.9) g/dL Hct 30.8 L (37.5-50.1) % Plt Count 402 H (140-400) K/mcL Neutrophils # 4.6 (1.6-8.9) K/mcL BMP 05/04/18 05:18 Sodium 138 Potassium 4.0 Chloride 110 H Carbon Dioxide 23 BUN 13 Creatinine 1.51 H Glucose 169 H Calcium 9.4 - ABG Interpretation ABG results: ABG ABG pH 7.35 pH Units (7.32-7.45) 04/28/18 15:46 ABG pCO2 47 mmHg (35-45) H 04/28/18 15:46 ABG pO2 65 mmHg (85-104) L 04/28/18 15:46 ABG O2 Saturation 91 % (95-98) L 04/28/18 15:46 PT/INR, D-dimer PT 11.6 Seconds (9.4-12.1) 04/26/18 08:05 - Impressions Impressions Retroperitoneum Ultrasound 05/03/18 14:30 IMPRESSION: Calculus within the midpole region of the left kidney without associated hydronephrosis. D/ / 05/03/2018 15:52:47 Georeg Zamora MD / andrey Interpreting Provider: George Zamora MD Consult Discharge Plan - Plan Additional Instructions: Dressing remains intact until 1st follow up appointment after discharge. Follow up with Dr. Juan Ramon Ashraf at [facility] 1 week after discharge. Referrals: Roberto Estrada MD [Partnered Physician] - (Follow-up with Dr. Estrada in vascular surgery clinic in 2 weeks.) Cora Pinto CNP [Primary Care Provider] - <Dalila Linton - Last Filed: 05/04/18 16:48> Hospitalist Progress Note - Encounter Time of Encounter: 16:38 - Exam Vitals: Temp Pulse Resp BP Pulse Ox 97.4 F L 72 18 150/94 98 05/04/18 16:18 05/04/18 16:18 05/04/18 16:18 05/04/18 16:18 05/04/18 16:18 - Assessment and Plan (1) Hypertension Current Visit: No Status: Chronic (2) CHF (congestive heart failure) Current Visit: No Status: Chronic (3) COPD (chronic obstructive pulmonary disease) Current Visit: No Status: Chronic (4) DVT prophylaxis Current Visit: No Status: Acute (5) Atrial fibrillation Current Visit: No Status: Chronic (6) PAD (peripheral artery disease) Current Visit: No Status: Chronic (7) Type 2 diabetes mellitus Current Visit: Yes Status: Chronic (8) Necrotic toes Current Visit: Yes Status: Acute (9) PAD (peripheral artery disease) Current Visit: Yes Status: Chronic (10) GERD (gastroesophageal reflux disease) Current Visit: Yes Status: Chronic (11) AICD (automatic cardioverter/defibrillator) present Current Visit: No Status: Chronic (12) Acute kidney injury Current Visit: Yes Status: Acute (13) Acute encephalopathy Current Visit: Yes Status: Resolved (14) S/P amputation Current Visit: Yes Status: Acute (15) History of left above knee amputation Current Visit: Yes Status: Acute - Time Spent with Patient Total time spent is greater than 50% in coordination of care (as documented) at patient's floor/unit and/or counseling patient: Internal Medicine: Result - Labs CBC & Chem 7: 05/04/18 05:18 05/04/18 05:18 Labs: Short CBC 05/04/18 Range/Units 05:18 WBC 8.2 (4.3-11.1) K/mcL Hgb 10.0 L (12.9-16.9) g/dL Hct 30.8 L (37.5-50.1) % Plt Count 402 H (140-400) K/mcL Neutrophils # 4.6 (1.6-8.9) K/mcL BMP 05/04/18 05:18 Sodium 138 Potassium 4.0 Chloride 110 H Carbon Dioxide 23 BUN 13 Creatinine 1.51 H Glucose 169 H Calcium 9.4 Urine 05/04/18 Range/Units 12:40 Urine Color Yellow (Yellow) Urine Clarity Slightly Hazy (Clear) Urine pH 7.0 (5.0-8.0) pH Units Ur Specific [place] 1.007 L (1.010-1.025) Urine Protein 30 H (Neg-Trace) mg/dL Urine Glucose (UA) Normal (Normal) mg/dL - ABG Interpretation ABG results: ABG ABG pH 7.35 pH Units (7.32-7.45) 04/28/18 15:46 ABG pCO2 47 mmHg (35-45) H 04/28/18 15:46 ABG pO2 65 mmHg (85-104) L 04/28/18 15:46 ABG O2 Saturation 91 % (95-98) L 04/28/18 15:46 PT/INR, D-dimer PT 11.6 Seconds (9.4-12.1) 04/26/18 08:05 - Attending Attestation I saw evaluated and examined this patient and my medical decision-making was reviewed with the Resident Physician. I agree with the documented findings, disposition and treatment plan as described except to any changes set forth below. We independently had [id number] contact with the patient. Patient is awake and alert. Lying in bed. Denies any new complaints at this time. Denies any pain in his feet. No nausea or vomiting. Tolerating diet well. On examination, patient is awake and alert. Heart sounds are normal. Breath sounds are normal. Patient does have left BKA and right foot toes currently bandaged at the site of amputation. Patient is having good urine output. Necrosis of the right great toe status post amputation of right partial first ray. Continue supportive care. Infectious disease recommended stopping antibiotics at this time. We will continue to monitor closely. Peripheral vascular disease: Status post right femoral to posterior tibial artery in situ saphenous vein bypass graft with right common femoral artery endarterectomy. continue aspirin, Plavix and statin. Follow up with vascular s yun[facility] after discharge. Acute kidney injury: Improving. Creatinine 1.51 today. Follow Renal function closely. Patient is awaiting placement to skilled rehabilitation. PTOT consulted. Moderate risk for complications. 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 retirement insulin use status Diabetes mellitus complication status: with other specified complication Qualified Code(s): E11.69 - Type 2 diabetes mellitus with other specified complication (9) CHF (congestive heart failure) Qualifiers: Heart failure type: diastolic Heart failure chronicity: chronic Qualified Code(s): I50.32 - Chronic diastolic (congestive) heart failure (10) Atrial fibrillation Qualifiers: Atrial fibrillation type: chronic Qualified Code(s): I48.2 - Chronic atrial fibrillation (11) GERD (gastroesophageal reflux disease) Qualifiers: Esophagitis presence: esophagitis presence not specified Qualified Code(s): K21.9 - Gastro-esophageal reflux disease without esophagitis <Dalila Linton - Last Filed: 05/04/18 16:48> (1) Hypertension Qualifiers: Hypertension type: essential hypertension Qualified Code(s): I10 - Essential (primary) hypertension (2) CHF (congestive heart failure) Qualifiers: Heart failure type: diastolic Heart failure chronicity: chronic Qualified Code(s): I50.32 - Chronic diastolic (congestive) heart failure (3) COPD (chronic obstructive pulmonary disease) Qualifiers: COPD type: unspecified COPD Qualified Code(s): J44.9 - Chronic obstructive pulmonary disease, unspecified (5) Atrial fibrillation Qualifiers: Atrial fibrillation type: chronic Qualified Code(s): I48.2 - Chronic atrial fibrillation (7) Type 2 diabetes mellitus Qualifiers: 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
--- NOTE | 2018-05-04 11:21 | Infectious Disease Progress No ---
Date of Encounter: 05/04/18 Time of Encounter: 11:10 - Assessment and Plan (1) Leukocytosis Current Visit: No Status: Resolved The patient had leukocytosis on admission. Likely secondary to right great toe gangrene. Resolved. Qualifiers: Leukocytosis type: unspecified Qualified Code(s): D72.829 - Elevated white blood cell count, unspecified (2) Dry gangrene Current Visit: Yes Status: Acute Location: Right foot great toe. Likely secondary to PAD. X-ray of the right foot shows soft tissue swelling, but no bone abnormality or soft tissue gas. No cultures have been obtained since there is no drainage and nothing to culture. ESR 44, CRP 14. Clinically, does not appear infectious. Podiatry consulted. Status post 1st partial ray amputation 04/30/[address] Ashraf. Operative note reviewed. Case discussed with Dr. Ashraf. Low index of suspicion for infection at this point. States toes was removed and MT was resected to assist with wound closure. Pathology pending. Wound care and activity restrictions per the Podiatry team. Continue to observe off antibiotics. (3) Altered mental state Current Visit: No Status: Resolved Etiology unclear, but likely secondary to recent anesthesia. CT head negative. Appears back to baseline. Further workup and management per the primary team. Qualifiers: Altered mental status type: delirium Qualified Code(s): R41.0 - Disorientation, unspecified (4) Acute kidney injury Current Visit: Yes Status: Acute Etiology unclear. Serum creatinine trending down this morning. Continue to trend. Dose-adjust medications. Avoid nephrotoxins as able. Nephrology consulted and following. (5) PAD (peripheral artery disease) Current Visit: No Status: Chronic Vascular surgery consulted. Status post right femoral-tibial in situ saphenous vein bypass graft and right common endarterectomy 04/27/[address] Estrada. (6) Hypertension Current Visit: No Status: Chronic Qualifiers: Hypertension type: essential hypertension Qualified Code(s): I10 - Essential (primary) hypertension (7) Ischemic cardiomyopathy Current Visit: No Status: Chronic (8) COPD (chronic obstructive pulmonary disease) Current Visit: No Status: Chronic Qualifiers: COPD type: unspecified COPD Qualified Code(s): J44.9 - Chronic obstructive pulmonary disease, unspecified (9) Diabetes mellitus Current Visit: No Status: Chronic Uncontrolled. HgbA1C 10.1%. Recommend aggressive glucose monitoring and control to promote wound healing and prevent re-infection. Management per the primary team. Qualifiers: Diabetes mellitus type: type 2 Diabetes mellitus long term care administrator insulin use: with long term care administrator use Diabetes mellitus complication status: with circulatory complication Diabetes mellitus complication detail: with peripheral angiopathy with gangrene Qualified Code(s): 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 2 diabetes mellitus with diabetic peripheral angiopathy with gangrene; Z79.4 - termite control servicer (current) use of insulin; Z79.4 - termite control servicer (current) use of insulin; Z79.4 - residential (current) use of insulin; Z79.4 - residential (current) use of insulin (10) Atrial fibrillation Current Visit: No Status: Chronic Qualifiers: Atrial fibrillation type: chronic Qualified Code(s): I48.2 - Chronic atrial fibrillation (11) History of left below knee amputation Current Visit: No Status: Chronic Status post left AKA 01/2018 secondary to PAD and necrosis of the left foot. (12) AICD (automatic cardioverter/defibrillator) present Current Visit: No Status: Chronic - Subjective Interval history: Patient seen and examined. No acute events noted overnight. Patient states he feels great today. Denies shortness of breath, chest pain, or cough. Denies any nausea or vomiting or diarrhea. Denies any abdominal pain or urinary complaints. Denies any oral thrush or any skin lesions. States he ate breakfast this morning. Incontinent of loose brown stool this morning. Bhagat catheter remains patent. Infect Dis PN-Objective Data - Labs CBC & Chem 7: 05/05/18 04:28 05/05/18 04:28 Labs: Laboratory Results - last 24 hr 05/03/18 05/03/18 05/03/18 11:27 16:23 19:43 WBC RBC Hgb Hct MCV MCH MCHC RDW Plt Count MPV Immature Gran % Seg Neutrophils % Lymphocytes % Monocytes % Eosinophils % Basophils % Neutrophils # Lymphocytes # Monocytes # Eosinophils # Basophils # Sodium Potassium Chloride Carbon Dioxide BUN Creatinine Est GFR ( Amer) Est GFR (Non-Af Amer) BUN/Creatinine Ratio Glucose POC Glucose 227 H 183 H 203 H Calculated Osmolality Calcium 05/04/18 05/04/18 05:18 05:18 WBC 8.2 RBC 3.65 L Hgb 10.0 L Hct 30.8 L MCV 84.4 MCH 27.4 L MCHC 32.5 RDW 13.2 Plt Count 402 H MPV 9.9 Immature Gran % 0.4 Seg Neutrophils % 56.6 Lymphocytes % 29.8 Monocytes % 9.2 Eosinophils % 3.3 Basophils % 0.7 Neutrophils # 4.6 Lymphocytes # 2.4 Monocytes # 0.8 Eosinophils # 0.3 Basophils # 0.1 Sodium 138 Potassium 4.0 Chloride 110 H Carbon Dioxide 23 BUN 13 Creatinine 1.51 H Est GFR ( Amer) 57 L Est GFR (Non-Af Amer) 47 L BUN/Creatinine Ratio 9 Glucose 169 H POC Glucose Calculated Osmolality 290 Calcium 9.4 Cultures: Cultures 05/02/18 22:51 Wound Culture - Preliminary Right Leg No growth. 04/28/18 18:00 Blood Culture - Final Peripheral Venipuncture No growth. Final report. 04/28/18 18:20 Blood Culture - Final Peripheral Venipuncture No growth. Final report. 04/25/18 23:04 Blood Culture - Final Peripheral Venipuncture No growth. Final report. 04/25/18 23:01 Blood Culture - Final Peripheral Venipuncture No growth. Final report. Serology 05/03/18 Range/Units 03:44 Hepatitis A IgM Ab Nonreactive (Nonreactive) Hep Bs Antigen Nonreactive (Nonreactive) Hep B Core IgM Ab Nonreactive (Nonreactive) Hepatitis C Ab Screen Nonreactive (Nonreactive) - Impressions Impressions Retroperitoneum Ultrasound 05/03/18 14:30 IMPRESSION: Calculus within the midpole region of the left kidney without associated hydronephrosis. D/ / 05/03/2018 15:52:47 George Zamora MD / shirayer Interpreting Provider: George Zamora MD Exam - Constitutional Vitals: Temp Pulse Resp BP Pulse Ox 97.4 F L 70 16 136/80 96 05/04/18 10:48 05/04/18 10:48 05/04/18 10:48 05/04/18 10:48 05/04/18 10:48 General appearance: average body habitus, cooperative, no acute distress - Head Head exam: Present: atraumatic, normal inspection, normocephalic - Eye Eye exam: Present: EOMI, normal appearance, PERRL Pupils: Present: normal accommodation - ENT ENT exam: Present: mucous membranes moist - Neck Neck exam: Present: normal inspection - Respiratory Respiratory exam: Present: CTAB. Absent: rales, respiratory distress, rhonchi, wheezes - Cardiovascular Cardiovascular exam: Present: RRR, +S1, +S2 - GI/Abdominal GI/Abdominal exam: Present: normal bowel sounds, soft. Absent: distended, ten derness Additional comments: Bhagat catheter noted to be draining clear yellow urine. - Extremities Exam Extremities exam: Absent: joint swelling, normal inspection (RLE surgical sites MORALES without redness, warmth, or drainage. Site noted to the right inner thigh with small area of dehiscence noted to the proximal aspect without drainage. Right foot dressing C/D/I.), pedal edema, tenderness Additional comments: Left AKA stump without redness, warmth, or drainage noted. - Neurological Exam Neurological exam: Present: alert, oriented X3, no focal deficits - Psychiatric Psychiatric exam: Present: normal affect - Skin Skin exam: Present: dry, intact, normal color, warm Consult Discharge Plan - Plan Instructions: Oxycodone/Acetaminophen (By mouth), Aspirin (By mouth), Gabapentin (By mouth), Atorvastatin (By mouth), Carvedilol (By mouth), Clopidogrel (By mouth), Duloxetine (By mouth), Heart Failure (DC), Atrial Fibril lation (DC), Cellulitis (DC), Diabetes Mellitus Type 2 in Adults (DC), Peripheral Vascular Disorders (DC), Chronic Obstructive Pulmonary Disease (DC), Chronic Hypertension (DC), Diabetic Foot Ulcers (DC), Cigarette Smoking and Your Health, Rug Cleaner (GEN) Additional Instructions: Dressing remains intact until 1st follow up appointment after discharge. Follow up with Dr. Juan Ramon Ashraf at [facility] 1 week after discharge. Referrals: Juan Ramon Ashraf DPM [Partnered Physician] - (in 1-2 weeks) Roberto Estrada MD [Partnered Physician] - (Follow-up with Dr. Estrada in vascular surgery clinic in 2 weeks.) Cora Pinto OYSTER PICKER [Primary Care Provider] - (in1 -2 weeks) Prescriptions: RX: Aspirin Enteric Coated [Aspirin EC] 81 mg PO DAILY #30 tablet. RX: Atorvastatin [Lipitor] 40 mg PO HS #30 tablet RX: Carvedilol [Coreg] 6.25 mg PO BIDWM #60 tablet RX: Clopidogrel [Plavix] 75 mg PO DAILY #30 tablet RX: DULoxetine [Cymbalta] 60 mg PO DAILY #30 capsule. RX: Gabapentin [Neurontin] 300 mg PO HS #30 capsule RX: OxyCODONE/APAP 7.5/325 [Percocet 7.5/325 MG] 1 each PO Q6H PRN 5 Days #15 tablet PRN Reason: Severe pain - Attending Attestation I examined this patient and my medical decision-making was reviewed with the Resident Physician. I agree with the documented findings, disposition and treatment plan as described except to the extent set forth below.
[2018-05-04 12:49] LABS: Total Volume 24 Hour,Urine 2.4 Liters (0.80-1.80)
[2018-05-04 13:02] LABS: Bilirubin,Urine Negative (Negative); Blood,Urine Trace (Negative); Color,Urine Yellow (Yellow); Glucose,Urine (UA) Normal (Normal); Ketones,Urine Negative (Negative); Leukocyte Esterase,Urine Large (Negative); Nitrite,Urine Negative (Negative); Protein,Urine 30 mg/dL (Neg-Trace); Specific Gravity,Urine 1.007 (1.010-1.025); Urobilinogen,Urine Normal (Normal)
[2018-05-04 13:04] LABS: Bacteria,Urine None Seen per hpf (None-Few); Hyaline Casts,Urine None Seen per lpf (None-Few); Squamous Epithelial Cell,Urine Few per lpf (None-Few); WBC,Urine 50-100 per hpf (0-3)
[2018-05-04 13:09] LABS: Clarity,Urine Slightly Hazy (Clear)
[2018-05-04 13:14] LABS: Protein/Creatinine Ratio,Urine 0.91 mg/mg (0.00-0.20); Sodium, Urine 75.8 mEq/L
[2018-05-04] MEDS: *HR* HYDROcodone/Acet 5/325 mg TABLET PO PRN (14:59)
--- NOTE | 2018-05-04 18:28 | Nephrology Progress Note ---
Date of Encounter: 05/04/18 Time of Encounter: 18:26 - Assessment and Plan (1) Acute kidney injury Current Visit: Yes Status: Acute Nonoliguric JARED that appears most likely due nephrotoxins. However his known comorbidities such as PAD, T2DM, Cardiac/AFib to make him more likely to develop CKD. SCr relatively stable today and no TOWERMAN indicated. Volume status was appropriate and not hypervolumic. Recommend following a renal protective/supportive strategy as able by dosing renally cleared Rx by CrCl, avoiding nephrotoxins, strict I/Os, daily weights. I also recommend starting a renal work up with a retroperitoneal U/S, plus checking a UA with microscopy and even a 24hr Urine since his body size is reduced from average (hx of Lt BKA), and I suspect this could alter the eGFR -- and his CrCl may be actually worse than estimated. Will follow with you. Thank you for consulting the [facility] group. (2) Ischemic cardiomyopathy Current Visit: No Status: Chronic (3) PAD (peripheral artery disease) Current Visit: No Status: Chronic (4) Type 2 diabetes mellitus Current Visit: Yes Status: Chronic Qualifiers: Diabetes mellitus termite technician insulin use: unspecified termite technician insulin use status Diabetes mellitus complication status: with other specified complication Qualified Code(s): E11.69 - Type 2 diabetes mellitus with other specified complication (5) S/P amputation Current Visit: Yes Status: Acute Subjective Principal diagnosis: toe gangrene Interval history: Patient seen. No new complaints. Objective - Vital Signs Vital signs: Vital Signs Temp Pulse Resp BP Pulse Ox 05/04/18 16:18 97.4 F L 72 18 150/94 98 05/04/18 10:48 97.4 F L 70 16 136/80 96 05/04/18 06:31 97.4 F L 70 18 131/80 90 05/04/18 04:53 16 139/84 05/03/18 23:37 97.8 F 70 18 148/86 05/03/18 19:45 97.5 F L 70 16 143/89 96 Intake and Output 05/04/18 05/04/18 05/04/18 07:59 15:59 23:59 Intake Total 100 / 100 1080 / 1080 Output Total 1200 / 1200 Balance -1100 / -1100 1080 / 1080 Intake: IV Fluids 100 / 100 Oral 1080 / 1080 Output: Catheter 1200 / 1200 Other: Meal Lunch Percent of Meal Consumed 85% Stool Size Moderate Stool Consistency soft Stool Color Brown # Bowel Movement Diapers 1 Weight 88.6 kg Blood Glucose* 155 125 Patient Weight 05/04/18 23:59 Weight 88.6 kg - General Appearance General appearance: Present: well-developed, well-nourished EENT: Present: ATNC Neck: Present: supple Cardiology: Present: regular rate Integumentary: Present: warm and dry Neurologic: Present: alert and oriented x3 Musculoskeletal: Present: no cyanosis Psychiatric: Present: mood/affect appropriate - Lab 05/04/18 05:18 05/04/18 05:18 Most recent lab results ABG pH 7.35 pH Units (7.32-7.45) 04/28/18 15:46 ABG pCO2 47 mmHg (35-45) H 04/28/18 15:46 ABG pO2 65 mmHg (85-104) L 04/28/18 15:46 ABG HCO3 26 mEq/L (21-27) 04/28/18 15:46 ABG O2 Saturation 91 % (95-98) L 04/28/18 15:46 Calcium 9.4 mg/dL (8.6-10.3) 05/04/18 05:18 Phosphorus 2.7 mg/dL (2.7-4.5) 04/26/18 08:05 Magnesium 1.5 mg/dL (1.6-2.6) L 04/26/18 08:05 Urine Creatinine 42 mg/dL 05/03/18 16:15 Ur Total Protein 24 Hr 912 mg/day (50-80) H 05/03/18 16:15 Urine Sodium 75.8 mEq/L 05/03/18 16:15 Urine Total Protein 38 mg/dL (1-14) H 05/03/18 16:15 Consult Discharge Plan - Plan Additional Instructions: Dressing remains intact until 1st follow up appointment after discharge. Follow up with Dr. Juan Ramon Ashraf at [facility] 1 week after discharge. Referrals: Roberto Estrada MD [Partnered Physician] - (Follow-up with Dr. Estrada in vascular surgery clinic in 2 weeks.) Cora Pinto CNP [Primary Care Provider] -
[2018-05-04] MEDS: Gabapentin 300 MG CAPSULE PO SCH (21:03)
[2018-05-04] MEDS: *HR* OxyCODONE Immed Rel 5 MG TABLET PO PRN (21:03)
[2018-05-04] MEDS: Insulin DETEMIR 100 UNIT/ML X5UNITS SQ SCH (21:18)
[2018-05-05] MEDS: *HR* HYDROcodone/Acet 5/325 mg TABLET PO PRN (02:44)
[2018-05-05 04:55] LABS: Basophils # 0.1 K/mcL (0.0-0.2); Eosinophils # 0.3 K/mcL (0.0-0.6); Eosinophils % 3.1 %; Hematocrit 27.7 % (37.5-50.1); Hemoglobin 9.2 g/dL (12.9-16.9); Immature Granulocytes % 0.4 % (0-4); Lymphocytes # 2.4 K/mcL (0.6-4.6); Lymphocytes % 28.5 %; Mean Corpuscular HGB Conc 33.2 g/dL (31.6-35.5); Mean Corpuscular Volume 84.5 fL (83.0-100.0); Mean Platelet Volume 9.7 fL (9.4-12.4); Monocytes # 0.7 K/mcL (0.0-1.3); Monocytes % 8.7 %; Neutrophils # 4.9 K/mcL (1.6-8.9); Platelet Count 401 K/mcL (140-400); Red Blood Count 3.28 M/mcL (4.19-5.50); Red Cell Distribution Width 13.2 % (11.5-14.5); Segmented Neutrophils % 58.3 %
[2018-05-05 05:10] LABS: Calcium 9.4 mg/dL (8.6-10.3); Potassium 4.2 mEq/L (3.5-5.1)
[2018-05-05] MEDS: *HR* Heparin 5,000 UNIT/ML VIAL SQ SCH ×2 (06:23→17:28)
[2018-05-05] MEDS: *HR* OxyCODONE Immed Rel 5 MG TABLET PO PRN ×2 (06:32→17:40)
[2018-05-05] MEDS: Magnesium Oxide 400 MG TABLET PO SCH (08:53)
[2018-05-05] MEDS: Thiamine (B-1) 100 MG TABLET PO SCH ×3 (08:53→22:24)
[2018-05-05] MEDS: risperiDONE 1 MG TABLET PO SCH (08:54)
[2018-05-05] MEDS: Aspirin Enteric Coated 81 MG Tablet PO SCH (08:54)
[2018-05-05] MEDS: amLODIPine 5 MG TABLET PO SCH (08:54)
[2018-05-05] MEDS: Insulin LISPRO 300 UNITS/3 ML VIAL SQ SCH ×4 (08:54→22:25)
--- NOTE | 2018-05-05 09:31 | Podiatry Progress Note ---
Date of Encounter: 05/05/18 Time of Encounter: 09:29 - Assessment and Plan (1) Dry gangrene Current Visit: Yes Status: Acute Doppler right foot DP/PT pulses. Cleansed right distal incision site and right dorsal foot with warm soap and water, applied Adaptic, covered loosely with 4x4 dry gauze, Kerlex, and secured with NINA bandage Dressing to remain until seen in office. Follow up in office with Dr. Santoro 1 week post discharge. (2) PAD (peripheral artery disease) Current Visit: Yes Status: Chronic Right fem-tib bypass and right femoral endarterectomy 04/27/18. Vascular follo wing (3) Type 2 diabetes mellitus Current Visit: Yes Status: Chronic Recommend strict glucose control to promote wound healing. Blood glucose levels 250-300s. Primary managing Hemoglobin A1c 10.4 04/26/18 Qualifiers: Diabetes mellitus custodial insulin use: unspecified terminal make up operator insulin use status Diabetes mellitus complication status: with other specified complication Qualified Code(s): E11.69 - Type 2 diabetes mellitus with other specified complication Subjective Principal diagnosis: toe gangrene Interval history: Patient awake alert oriented x 2. Confused to place. Laying in bed. Patient denies any pain. Objective - Vital Signs Vital Signs: Vital Signs Temp Pulse Resp BP Pulse Ox 05/05/18 07:46 98.2 F 70 18 131/77 96 05/05/18 04:17 97.8 F 70 16 145/83 92 05/05/18 00:32 97.7 F 70 16 134/81 97 05/04/18 19:46 98.1 F 70 16 134/83 93 05/04/18 16:18 97.4 F L 72 18 150/94 98 05/04/18 10:48 97.4 F L 70 16 136/80 96 Intake and Output 05/04/18 05/05/18 05/05/18 23:59 07:59 15:59 Intake Total 150 / 150 120 / 120 120 / 120 Output Total 700 / 700 1550 / 1550 Balance -550 / -550 -1430 / -1430 120 / 120 Intake: Oral 150 / 150 120 / 120 120 / 120 Output: Catheter 700 / 700 1550 / 1550 Other: Meal Breakfast Percent of Meal Consumed 95% Weight 88.4 kg Blood Glucose* 347 178 Patient Weight 05/05/18 23:59 Weight 88.4 kg - Exam Exam: Constitiutional: Alert and oriented x 2, person and time. Able to describe situation Vascular: doppler DP/PT bilaterally, CFT <3 sec, sluggish, to digits 2-5 right foot, LBKA, warm to warm from tibia to toes RLE, trace edema noted to right lower extremity Neurologic: Diminished sensation to light touch, Abnormal position sense dorsiflexion/plantar flexion Dermatologic: Dorsal right foot wound, with 2 areas of opening, both with eschar noted to wound bed, measuring 1 x 1 centimeters, distal incision site well approximated, no signs or symptoms of infection, minimal erythema and edema/expected postop findings. Right lower extremity incision open to air well approximated, from previous fem-tib bypass Musculoskeletal: 3/5 muscle strength RLE, tremors noted. - Lab Result Diagrams: 05/05/18 04:28 05/05/18 04:28 Labs: Abnormal lab results RBC 3.28 M/mcL (4.19-5.50) L 05/05/18 04:28 Hgb 9.2 g/dL (12.9-16.9) L 05/05/18 04:28 Hct 27.7 % (37.5-50.1) L 05/05/18 04:28 Plt Count 401 K/mcL (140-400) H 05/05/18 04:28 ESR 68 mm/hr (0-10) H 04/29/18 08:29 ABG pCO2 47 mmHg (35-45) H 04/28/18 15:46 ABG pO2 65 mmHg (85-104) L 04/28/18 15:46 ABG Total CO2 27 mEq/L (20-26) H 04/28/18 15:46 ABG O2 Saturation 91 % (95-98) L 04/28/18 15:46 ABG Hematocrit 34.0 % (37.5-50.1) L 04/27/18 13:28 Glucose 141 mg/dL (60-95) H 04/27/18 13:28 Chloride 108 mEq/L (98-107) H 05/05/18 04:28 Creatinine 1.48 mg/dL (0.70-1.30) H 05/05/18 04:28 Est GFR ( Amer) 58 (> 60) L 05/05/18 04:28 Est GFR (Non-Af Amer) 48 (> 60) L 05/05/18 04:28 Glucose 168 mg/dL (70-105) H 05/05/18 04:28 POC Glucose 347 mg/dL (70-99) H 05/04/18 19:50 Hemoglobin A1c 10.1 % (-5.6) H 04/26/18 12:47 Magnesium 1.5 mg/dL (1.6-2.6) L 04/26/18 08:05 AST 8 Units/L (13-39) L 04/28/18 16:23 ALT 5 Units/L (7-52) L 04/28/18 16:23 C-Reactive Protein 180 mg/L (Less than 10) H 04/29/18 04:09 Serum Total Protein 5.5 g/dL (6.4-8.9) L 04/28/18 16:23 Albumin 2.7 g/dL (3.5-5.7) L 04/28/18 16:23 Albumin/Globulin Ratio 1.0 (1.1-2.2) L 04/28/18 16:23 Arterial Blood Ionized Calcium 1.36 mmol/L (1.15-1.35) H 04/27/18 13:28 Ur Specific [place] 1.007 (1.010-1.025) L 05/04/18 12:40 Urine Protein 30 mg/dL (Neg-Trace) H 05/04/18 12:40 Urine Blood Trace (Negative) H 05/04/18 12:40 Ur Leukocyte Esterase Large (Negative) H 05/04/18 12:40 Urine Microscopic RBC 5-15 per hpf (0-3) H 05/04/18 12:40 Urine Microscopic WBC 50-100 per hpf (0-3) H 05/04/18 12:40 Urine Total Volume 2.40 Liters (0.80-1.80) H 05/03/18 16:15 Ur Total Protein 24 Hr 912 mg/day (50-80) H 05/03/18 16:15 Protein/Creatinin Ratio 0.91 mg/mg (0.00-0.20) H 05/03/18 16:15 Ur Urea Nitrogen 24 Hr 4 g/day (12-20) L 05/03/18 16:15 Urine Total Protein 38 mg/dL (1-14) H 05/03/18 16:15 Vancomycin Trough 23 mcg/mL (5-10) H 04/30/18 10:13 Microbiology, Last 48 Hours 05/02/18 22:51 Wound Culture - Final Right Leg No growth. 04/28/18 18:00 Blood Culture - Final Peripheral Venipuncture No growth. Final report. 04/28/18 18:20 Blood Culture - Final Peripheral Venipuncture No growth. Final report. Consult Discharge Plan - Plan Additional Instructions: Dressing remains intact until 1st follow up appointment after discharge. Follow up with Dr. Juan Ramon Ashraf at [facility] 1 week after discharge. Referrals: Roberto Estrada MD [Partnered Physician] - (Follow-up with Dr. Estrada in vascular surgery clinic in 2 weeks.) Cora Pinto CNP [Primary Care Provider] - Juan Ramon Ashraf DPM [Partnered Physician] -
--- NOTE | 2018-05-05 10:41 | Infectious Disease Progress No ---
Date of Encounter: 05/05/18 Time of Encounter: 10:00 - Assessment and Plan (1) Leukocytosis Status: Resolved The patient had leukocytosis on admission. Likely secondary to right great toe gangrene. Resolved. Qualifiers: Leukocytosis type: unspecified Qualified Code(s): D72.829 - Elevated white blood cell count, unspecified (2) Dry gangrene Status: Acute Location: Right foot great toe. Likely secondary to PAD. X-ray of the right foot shows soft tissue swelling, but no bone abnormality or soft tissue gas. No cultures have been obtained since there is no drainage and nothing to culture. ESR 44, CRP 14. Clinically, does not appear infectious. Podiatry consulted. Status post 1st partial ray amputation 04/30/[address] Ashraf. Operative note reviewed. Case discussed with Dr. Ashraf. Low index of suspicion for infection at this point. States toes was removed and MT was re sected to assist with wound closure. Pathology negative for osteomyelitis. Wound care and activity restrictions per the Podiatry team. Continue to observe off antibiotics. No further recommendations from the ID team. We will sign off. Please re-consult if needed. (3) Altered mental state Status: Resolved Etiology unclear, but likely secondary to recent anesthesia. CT head negative. Appears back to baseline. Further workup and management per the primary team. Qualifiers: Altered mental status type: delirium Qualified Code(s): R41.0 - Disorientation, unspecified (4) Acute kidney injury Status: Acute Etiology unclear. Serum creatinine trending down this morning. Continue to trend. Dose-adjust medications. Avoid nephrotoxins as able. Nephrology consulted and following. (5) PAD (peripheral artery disease) Status: Chronic Vascular surgery consulted. Status post right femoral-tibial in situ saphenous vein bypass graft and right common endarterectomy 04/27/[address] Estrada. (6) Hypertension Status: Chronic Qualifiers: Hypertension type: essential hypertension Qualified Code(s): I10 - Essential (primary) hypertension (7) Ischemic cardiomyopathy Status: Chronic (8) COPD (chronic obstructive pulmonary disease) Status: Chronic Qualifiers: COPD type: unspecified COPD Qualified Code(s): J44.9 - Chronic obstructive pulmonary disease, unspecified (9) Diabetes mellitus Status: Chronic Uncontrolled. HgbA1C 10.1%. Recommend aggressive glucose monitoring and control to promote wound healing and prevent re-infection. Management per the primary team. 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 (12) AICD (automatic cardioverter/defibrillator) present Status: Chronic - Subjective Interval history: Patient seen and examined. No acute events noted overnight. Patient states he feels okay today, but has some nausea since eating breakfast. Denies shortness of breath, chest pain, or cough. Denies any vomiting or diarrhea. Denies any abdominal pain or urinary complaints. Denies any oral thrush or any skin lesions. States he ate breakfast this morning. Last BM was yesterday. Leola bates remains patent. Infect Dis PN-Objective Data - Labs CBC & Chem 7: 05/05/18 04:28 05/05/18 04:28 Labs: Laboratory Results - last 24 hr 05/03/18 05/04/18 05/04/18 16:15 07:30 12:27 WBC RBC Hgb Hct MCV MCH MCHC RDW Plt Count MPV Immature Gran % Seg Neutrophils % Lymphocytes % Monocytes % Eosinophils % Basophils % Neutrophils # Lymphocytes # Monocytes # Eosinophils # Basophils # Sodium Potassium Chloride Carbon Dioxide BUN Creatinine Est GFR ( Amer) Est GFR (Non-Af Amer) BUN/Creatinine Ratio Glucose POC Glucose 155 H 125 H Calculated Osmolality Calcium Urine Color Urine Clarity Urine pH Ur Specific [place] Urine Protein Urine Glucose (UA) Urine Ketones Urine Blood Urine Nitrite Urine Bilirubin Urine Urobilinogen Ur Leukocyte Esterase Urine Microscopic RBC Urine Microscopic WBC Ur Squamous Epith Cells Urine Bacteria Hyaline Casts Urine Total Volume 2.40 H Urine Creatinine 42 Ur Creatinine 24 Hour 1008 Ur Total Protein 24 Hr 912 H Protein/Creatinin Ratio 0.91 H Urine Sodium 75.8 Ur Sodium 24 Hour 182 Urine Urea Nitrogen 187 Ur Urea Nitrogen 24 Hr 4 L Urine Total Protein 38 H 05/04/18 05/04/18 05/04/18 12:40 16:22 19:50 WBC RBC Hgb Hct MCV MCH MCHC RDW Plt Count MPV Immature Gran % Seg Neutrophils % Lymphocytes % Monocytes % Eosinophils % Basophils % Neutrophils # Lymphocytes # Monocytes # Eosinophils # Basophils # Sodium Potassium Chloride Carbon Dioxide BUN Creatinine Est GFR ( Amer) Est GFR (Non-Af Amer) BUN/Creatinine Ratio Glucose POC Glucose 257 H 347 H Calculated Osmolality Calcium Urine Color Yellow Urine Clarity Slightly Hazy Urine pH 7.0 Ur Specific [place] 1.007 L Urine Protein 30 H Urine Glucose (UA) Normal Urine Ketones Negative Urine Blood Trace H Urine Nitrite Negative Urine Bilirubin Negative Urine Urobilinogen Normal Ur Leukocyte Esterase Large H Urine Microscopic RBC 5-15 H Urine Microscopic WBC 50-100 H Ur Squamous Epith Cells Few Urine Bacteria None Seen Hyaline Casts None Seen Urine Total Volume Urine Creatinine Ur Creatinine 24 Hour Ur Total Protein 24 Hr Protein/Creatinin Ratio Urine Sodium Ur Sodium 24 Hour Urine Urea Nitrogen Ur Urea Nitrogen 24 Hr Urine Total Protein 05/05/18 05/05/18 04:28 04:28 WBC 8.4 RBC 3.28 L Hgb 9.2 L Hct 27.7 L MCV 84.5 MCH 28.0 MCHC 33.2 RDW 13.2 Plt Count 401 H MPV 9.7 Immature Gran % 0.4 Seg Neutrophils % 58.3 Lymphocytes % 28.5 Monocytes % 8.7 Eosinophils % 3.1 Basophils % 1.0 Neutrophils # 4.9 Lymphocytes # 2.4 Monocytes # 0.7 Eosinophils # 0.3 Basophils # 0.1 Sodium 136 Potassium 4.2 Chloride 108 H Carbon Dioxide 25 BUN 16 Creatinine 1.48 H Est GFR ( Amer) 58 L Est GFR (Non-Af Amer) 48 L BUN/Creatinine Ratio 11 Glucose 168 H POC Glucose Calculated Osmolality 287 Calcium 9.4 Urine Color Urine Clarity Urine pH Ur Specific [place] Urine Protein Urine Glucose (UA) Urine Ketones Urine Blood Urine Nitrite Urine Bilirubin Urine Urobilinogen Ur Leukocyte Esterase Urine Microscopic RBC Urine Microscopic WBC Ur Squamous Epith Cells Urine Bacteria Hyaline Casts Urine Total Volume Urine Creatinine Ur Creatinine 24 Hour Ur Total Protein 24 Hr Protein/Creatinin Ratio Urine Sodium Ur Sodium 24 Hour Urine Urea Nitrogen Ur Urea Nitrogen 24 Hr Urine Total Protein Cultures: Cultures 05/02/18 22:51 Wound Culture - Final Right Leg No growth. 04/28/18 18:00 Blood Culture - Final Peripheral Venipuncture No growth. Final report. 04/28/18 18:20 Blood Culture - Final Peripheral Venipuncture No growth. Final report. 04/25/18 23:04 Blood Culture - Final Peripheral Venipuncture No growth. Final report. 04/25/18 23:01 Blood Culture - Final Peripheral Venipuncture No growth. Final report. Serology 05/04/18 05/03/18 05/03/18 Range/Units 12:40 16:15 03:44 Urine Color Yellow (Yellow) Urine Clarity Slightly Hazy (Clear) Urine pH 7.0 (5.0-8.0) pH Units Ur Specific [place] 1.007 L (1.010-1.025) Urine Protein 30 H (Neg-Trace) mg/dL Urine Glucose (UA) Normal (Normal) mg/dL Urine Ketones Negative (Negative) mg/dL Urine Blood Trace H (Negative) Urine Nitrite Negative (Negative) Urine Bilirubin Negative (Negative) Urine Urobilinogen Normal (Normal) mg/dL Ur Leukocyte Esterase Large H (Negative) Urine Microscopic RBC 5-15 H (0-3) per hpf Urine Microscopic WBC 50-100 H (0-3) per hpf Ur Squamous Epith Cells Few (None-Few) per lpf Urine Bacteria None Seen (None-Few) per hpf Hyaline Casts None Seen (None-Few) per lpf Urine Total Volume 2.40 H (0.80-1.80) Liters Urine Creatinine 42 mg/dL Ur Creatinine 24 Hour 1008 (800-2000) mg/day Ur Total Protein 24 Hr 912 H (50-80) mg/day Protein/Creatinin Ratio 0.91 H (0.00-0.20) mg/mg Urine Sodium 75.8 mEq/L Ur Sodium 24 Hour 182 (40-220) mEq/day Urine Urea Nitrogen 187 mg/dL Ur Urea Nitrogen 24 Hr 4 L (12-20) g/day Urine Total Protein 38 H (1-14) mg/dL Hepatitis A IgM Ab Nonreactive (Nonreactive) Hep Bs Antigen Nonreactive (Nonreactive) Hep B Core IgM Ab Nonreactive (Nonreactive) Hepatitis C Ab Screen Nonreactive (Nonreactive) Exam - Constitutional Vitals: Temp Pulse Resp BP Pulse Ox 98.2 F 70 18 131/77 96 05/05/18 07:46 05/05/18 07:46 05/05/18 07:46 05/05/18 07:46 05/05/18 07:46 General appearance: average body habitus, cooperative, no acute distress - Head Head exam: Present: atraumatic, normal inspection, normocephalic - Eye Eye exam: Present: EOMI, normal appearance, PERRL Pupils: Present: normal accommodation - ENT ENT exam: Present: mucous membranes dry - Neck Neck exam: Present: normal inspection - Respiratory Respiratory exam: Present: CTAB. Absent: rales, respiratory distress, rhonchi, wheezes - Cardiovascular Cardiovascular exam: Present: RRR, +S1, +S2 - GI/Abdominal GI/Abdominal exam: Present: normal bowel sounds, soft. Absent: distended, tenderness Additional comments: Bhagat catheter noted to be draining clear yellow urine. 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 Scabbing noted, no drainage or erythema or warmth noted. Right foot dressing C/D/I.), pedal edema, tenderness Additional comments: Left AKA stump without redness, warmth, drainage, or open lesions. - Neurological Exam Neurological exam: Present: alert, no focal deficits. Absent: oriented X3 (Oriented to time and person only.) - Psychiatric Psychiatric exam: Present: normal affect, normal mood - Skin Skin exam: Present: dry, intact, normal color, warm Consult Discharge Plan - Plan Instructions: Oxycodone/Acetaminophen (By mouth), Aspirin (By mouth), Gabapentin (By mouth), Atorvastatin (By mouth), Carvedilol (By mouth), Clopidogrel (By mouth), Duloxetine (By mouth), Heart Failure (DC), Atrial Fibril lation (DC), Cellulitis (DC), Diabetes Mellitus Type 2 in Adults (DC), Peripheral Vascular Disorders (DC), Chronic Obstructive Pulmonary Disease (DC), Chronic Hypertension (DC), Diabetic Foot Ulcers (DC), Cigarette Smoking and Your Health, Bicycle Rental Clerk (GEN) Additional Instructions: Dressing remains intact until 1st follow up appointment after discharge. Follow up with Dr. Morfin at [facility] 1 week after discharge. Referrals: Marco Tavarez MD [Partnered Physician] - (in 4-6 weeks) Tanmay Morfin DPM [Partnered Physician] - Roberto Estrada MD [Partnered Physician] - (Follow-up with Dr. Estrada in vascular surgery clinic in 2 weeks.) Cora Pinto CNP [Primary Care Provider] - Prescriptions: OxyCODONE/APAP 7.5/325 [Percocet 7.5/325 MG] 1 each PO Q6HR PRN 5 Days #15 tablet PRN Reason: Pain RX: Aspirin Enteric Coated [Aspirin EC] 81 mg PO DAILY #30 tablet. RX: Atorvastatin [Lipitor] 40 mg PO HS #30 tablet RX: Carvedilol [Coreg] 6.25 mg PO BIDWM #60 tablet RX: Clopidogrel [Plavix] 75 mg PO DAILY #30 tablet RX: DULoxetine [Cymbalta] 60 mg PO DAILY #30 capsule. RX: Gabapentin [Neurontin] 300 mg PO HS #30 capsule - Attending Attestation I examined this patient and my medical decision-making was reviewed with the Resident Physician. I agree with the documented findings, disposition and treatment plan as described except to the extent set forth below.
--- NOTE | 2018-05-05 11:02 | Discharge Summary ---
- NOTES TO OUTPATIENT PROVIDER Notes to Outpatient Provider: Patient with history of peripheral arterial disease, diabetes, atrial fibrillation, hypertension and congestive heart failure was hospitalized here with complaints of discoloration in his right great toe. He was diagnosed with necrotic great toe and was evaluated by vascular surgery and podiatry. He first underwent right femoral-posterior tibial in situ saphenous vein bypass graft and right common femoral endarterectomy and then underwent right partial first ray amputation. He did receive IV antibiotics and infectious disease was also consulted in his care. Patient developed acute kidney injury which was believed to be due to vancomycin use. After his amputation, antibiotics were stopped. His renal function has slowly improved. He does need follow up with nephrology as outpatient for further management. At this time is clinically stable to be discharged to skilled rehabilitation for continued care. Orders not resulted at time of discharge: Pending orders 04/30/18 12:57 Surgical Pathology [PTH] Routine 05/03/18 03:44 Immunoelectrophoresis AM 0400 Laurie Lambda Qnt FLC w Ratio AM 0400 Date of Encounter: 05/05/18 Time of Encounter: 11:00 - Discharge Diagnosis (1) Necrotic toes Priority: Primary Status: Acute Assessment and Plan: Necrotic right hallux from dry gangrene status post amputation of first ray (2) Hypertension Priority: Secondary Status: Chronic Qualifiers: Hypertension type: essential hypertension Qualified Code(s): I10 - Essential (primary) hypertension (3) CHF (congestive heart failure) Priority: Secondary Status: Chronic Qualifiers: Heart failure type: diastolic Heart failure chronicity: chronic Qualified Code(s): I50.32 - Chronic diastolic (congestive) heart failure (4) COPD (chronic obstructive pulmonary disease) Priority: Secondary Status: Chronic Qualifiers: COPD type: unspecified COPD Qualified Code(s): J44.9 - Chronic obstructive pulmonary disease, unspecified (5) Atrial fibrillation Priority: Secondary Status: Chronic Qualifiers: Atrial fibrillation type: chronic Qualified Code(s): I48.2 - Chronic atrial fibrillation (6) PAD (peripheral artery disease) Priority: Secondary Status: Chronic (7) Type 2 diabetes mellitus Priority: Secondary Status: Chronic Qualifiers: Diabetes mellitus detention insulin use: unspecified 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 Diabetes mellitus complication status: with other specified complication Qualified Code(s): E11.69 - Type 2 diabetes mellitus with other specified complication (8) PAD (peripheral artery disease) Priority: Secondary Status: Chronic (9) GERD (gastroesophageal reflux disease) Priority: Secondary Status: Chronic Qualifiers: Esophagitis presence: esophagitis presence not specified Qualified Code(s): K21.9 - Gastro-esophageal reflux disease without esophagitis (10) AICD (automatic cardioverter/defibrillator) present Priority: Secondary Status: Chronic (11) Acute kidney injury Priority: Secondary Status: Acute (12) Acute encephalopathy Priority: Secondary Status: Resolved (13) S/P amputation Priority: Secondary Status: Acute (14) History of left above knee amputation Priority: Secondary Status: Acute (15) DVT prophylaxis Priority: Secondary Status: Acute Hospital course: Mr. Wylie is a 63 year old male Patient with history of peripheral arterial dis ease, diabetes, atrial fibrillation, hypertension and congestive heart failure who was hospitalized here with complaints of discoloration in his right great toe. He was diagnosed with necrotic great toe and was evaluated by vascular surgery and podiatry. He first underwent right femoral-posterior tibial in situ saphenous vein bypass graft and right common femoral endarterectomy and then underwent right partial first ray amputation. He did receive IV antibiotics and infectious disease was also consulted in his care. Patient developed acute kidney injury which was believed to be due to vancomycin use. After his amputation, antibiotics were stopped. His renal function has slowly improved. He does need follow up with nephrology as outpatient for further management. At this time is clinically stable to be discharged to skilled rehabilitation for continued care. Discharge discussed with: patient, nurse - Time Spent with Patient Total time spent providing and/or coordinating discharge services: Greater than 30 minutes (40 min) - Discharge Medications Prescriptions: RX: Aspirin Enteric Coated [Aspirin EC] 81 mg PO DAILY #30 tablet. RX: Atorvastatin [Lipitor] 40 mg PO HS #30 tablet RX: Carvedilol [Coreg] 6.25 mg PO BIDWM #60 tablet RX: Clopidogrel [Plavix] 75 mg PO DAILY #30 tablet RX: DULoxetine [Cymbalta] 60 mg PO DAILY #30 capsule. RX: Gabapentin [Neurontin] 300 mg PO HS #30 capsule RX: OxyCODONE/APAP 7.5/325 [Percocet 7.5/325 MG] 1 each PO Q6H PRN 5 Days #15 tablet PRN Reason: Severe pain Home Medications: RX: Acetaminophen [Tylenol] 650 mg PO Q6HR PRN tablet 01/20/18 [Rx] RX: Folic Acid 1 mg PO DAILY tablet 01/20/18 [Rx] RX: Thiamine (B-1) [Vitamin B-1] 100 mg PO TID tablet 01/20/18 [Rx] RX: Omeprazole [PriLOSEC] 20 mg PO DAILY 04/27/18 [History] RX: Sertraline [Zoloft] 25 mg PO DAILY 04/27/18 [History] RX: amLODIPine [Norvasc] 5 mg PO DAILY 04/27/18 [History] RX: risperiDONE [Risperidone] 0.5 mg PO DAILY 04/27/18 [History] RX: Insulin DETEMIR [Levemir] 27 unit SQ HS 04/28/18 [History] RX: Insulin LISPRO [HumaLOG] 14 units SQ TIDAC 04/28/18 [History] RX: Magnesium Oxide [Magnesium] 400 mg PO DAILY 04/28/18 [History] RX: Aspirin Enteric Coated [Aspirin EC] 81 mg PO DAILY #30 tablet. 05/05/18 [Rx] RX: Atorvastatin [Lipitor] 40 mg PO HS #30 tablet 05/05/18 [Rx] RX: Carvedilol [Coreg] 6.25 mg PO BIDWM #60 tablet 05/05/18 [Rx] RX: Clopidogrel [Plavix] 75 mg PO DAILY #30 tablet 05/05/18 [Rx] RX: DULoxetine [Cymbalta] 60 mg PO DAILY #30 capsule. 05/05/18 [Rx] RX: Gabapentin [Neurontin] 300 mg PO HS #30 capsule 05/05/18 [Rx] RX: OxyCODONE/APAP 7.5/325 [Percocet 7.5/325 MG] 1 each PO Q6H PRN 5 Days #15 tablet 05/05/18 [Rx] Allergies/Adverse Reactions: Allergy/AdvReac Type Severity Reaction Status Date / Time ticlopidine [From Ticlid] Allergy Hives Verified 05/25/17 08:37 carbidopa [From Sinemet] AdvReac Confusion Verified 06/08/17 15:42 levodopa [From Sinemet] AdvReac Confusion Verified 06/08/17 15:42 Date of admission: 04/27/18 13:04 Primary care physician: Cora Pinto CNP Consults: 04/28/18 08:26 Consult to Infectious Diseases [CONS] Routine Consulting Provider: Infectious Disease [place] Reason for Consult: antibiotic recommendations. Call Completed: Yes 04/29/18 09:44 Consult to Neurology [CONS] Stat Consulting Provider: Neu[facility] Reason for Consult: Altered mental status s/p right femoral to below knee popliteal artery bypass graft Time Notified: 09:45 Call Completed: Yes 05/01/18 09:52 Consult to Physical Therapy [CONS] Routine Comment: Evaluate, develop and implement POC Reason for Consult: Weakness / discharge planning Does patient have active BEDREST order?: No Is patient medically & hemodynamically stable?: Yes Patient assessed for mobility or mobilized this visit?: Yes 05/01/18 09:53 OT [Consult to Occupational Therapy] [CONS] Routine Comment: Evaluate, develop and implement POC Reason for Consult: discharge planning, weakness Does patient have active BEDREST order?: No Is patient medically & hemodynamically stable?: Yes Patient assessed for mobility or mobilized this visit?: Yes 05/02/18 09:55 Consult to Nephrology [CONS] Routine Consulting Provider: Kidney [facility]/MANINDER/CELIO/ERIS Reason for Consult: JARED Call Completed: Yes 05/02/18 22:44 Consult to Wound Care [CONS] Routine Reason for Consult: Pts. wound on right leg is open. Edges no longer approximated and area is erythematous and warm. Stat wound culture ordered. Please make recommendations for daily wound care. Call Completed: No Discharging clinician: Dalila Linton Anticipated date of discharge: 05/05/18 - Constitutional Vitals: Temp Pulse Resp BP Pulse Ox 98.2 F 70 18 131/77 96 05/05/18 07:46 05/05/18 07:46 05/05/18 07:46 05/05/18 07:46 05/05/18 07:46 General appearance: Present: cooperative, mild distress, A&O X 3, answers questions appropriately Exam: . - Respiratory Respiratory exam: Present: CTAB. Absent: accessory muscle use, rales, rhonchi, wheezes - Cardiovascular Cardiovascular exam: Present: RRR, +S1, +S2. Absent: diastolic murmur, gallop, rubs, systolic murmur - GI/Abdominal GI/Abdominal exam: Present: normal bowel sounds, soft, no peritoneal signs. Absent: distended, tenderness - Extremities Exam Extremities exam: Present: warm, radial pulses palpable and symmetrical. Absent: calf tenderness, cyanotic, pedal edema Additional comments: Status post left AKA. Right foot bandaged over the site of recent partial amputation of 1st ray - Patient Status Disposition: Transfer SNF Condition: Fair Functional capacity at discharge: wheelchair bound Overall status at discharge: patient is progressing back to baseline - Ambulatory Orders Ambulatory Orders: Basic Metabolic Panel [CHEM] Time Frame: 4 Weeks, Facility: [facility], Location: Lab - Discharge Instructions Instructions: Oxycodone/Acetaminophen (By mouth), Aspirin (By mouth), Gabapentin (By mouth), Atorvastatin (By mouth), Carvedilol (By mouth), Clopidogrel (By mouth), Duloxetine (By mouth), Heart Failure (DC), Atrial Fibrillation (DC), Cellulitis (DC), Diabetes Mellitus Type 2 in Adults (DC), Peripheral Vascular Disorders (DC), Chronic Obstructive Pulmonary Disease (DC), Chronic Hypertension (DC), Diabetic Foot Ulcers (DC), Cigarette Smoking and Your Health, Clinical Review Nurse (GEN) Follow Up With: Juan Ramon Ashraf DPM [Partnered Physician] - (in 1-2 weeks) Roberto Estrada MD [Partnered Physician] - (Follow-up with Dr. Estrada in vascular surgery clinic in 2 weeks.) Cora Pinto CNP [Primary Care Provider] - (in1 -2 weeks) Marco Tavarez MD [Partnered Physician] - (in 4-6 weeks) Additional Instructions: Dressing remains intact until 1st follow up appointment after discharge. Follow up with Dr. Juan Ramon Ashraf at [facility] 1 week after discharge. - Diet and Activity Activity: as per physical therapy, increase activity as tolerated Diet: diabetic diet, low fat, low cholesterol, low salt diet
--- NOTE | 2018-05-05 11:17 | Physician Discharge Referral ---
ExtendedCare Referral Info Provider in Charge after Transfer: PCP Institutional Level of Care: Skilled - Diagnosis (1) Necrotic toes Priority: Primary Status: Acute (2) S/P amputation Priority: Secondary Status: Acute (3) Hypertension Priority: Secondary Status: Chronic (4) CHF (congestive heart failure) Priority: Secondary Status: Chronic (5) COPD (chronic obstructive pulmonary disease) Priority: Secondary Status: Chronic (6) Atrial fibrillation Priority: Secondary Status: Chronic (7) PAD (peripheral artery disease) Priority: Secondary Status: Chronic (8) Type 2 diabetes mellitus Priority: Secondary Status: Chronic (9) PAD (peripheral artery disease) Priority: Secondary Status: Chronic (10) GERD (gastroesophageal reflux disease) Priority: Secondary Status: Chronic (11) AICD (automatic cardioverter/defibrillator) present Priority: Secondary Status: Chronic (12) Acute kidney injury Priority: Secondary Status: Acute (13) Acute encephalopathy Priority: Secondary Status: Resolved (14) History of left above knee amputation Priority: Secondary Status: Acute (15) DVT prophylaxis Priority: Secondary Status: Acute Prognosis: Fair Aware of Diagnosis: Patient Aware of Prognosis: Patient - Transfer Medications Prescriptions: RX: Aspirin Enteric Coated [Aspirin EC] 81 mg PO DAILY #30 tablet. RX: Atorvastatin [Lipitor] 40 mg PO HS #30 tablet RX: Carvedilol [Coreg] 6.25 mg PO BIDWM #60 tablet RX: Clopidogrel [Plavix] 75 mg PO DAILY #30 tablet RX: DULoxetine [Cymbalta] 60 mg PO DAILY #30 capsule. RX: Gabapentin [Neurontin] 300 mg PO HS #30 capsule RX: OxyCODONE/APAP 7.5/325 [Percocet 7.5/325 MG] 1 each PO Q6H PRN 5 Days #15 tablet PRN Reason: Severe pain Home Medications: RX: Acetaminophen [Tylenol] 650 mg PO Q6HR PRN tablet 01/20/18 [Rx] RX: Folic Acid 1 mg PO DAILY tablet 01/20/18 [Rx] RX: Thiamine (B-1) [Vitamin B-1] 100 mg PO TID tablet 01/20/18 [Rx] RX: Omeprazole [PriLOSEC] 20 mg PO DAILY 04/27/18 [History] RX: Sertraline [Zoloft] 25 mg PO DAILY 04/27/18 [History] RX: amLODIPine [Norvasc] 5 mg PO DAILY 04/27/18 [History] RX: risperiDONE [Risperidone] 0.5 mg PO DAILY 04/27/18 [History] RX: Insulin DETEMIR [Levemir] 27 unit SQ HS 04/28/18 [History] RX: Insulin LISPRO [HumaLOG] 14 units SQ TIDAC 04/28/18 [History] RX: Magnesium Oxide [Magnesium] 400 mg PO DAILY 04/28/18 [History] RX: Aspirin Enteric Coated [Aspirin EC] 81 mg PO DAILY #30 tablet. 05/05/18 [Rx] RX: Atorvastatin [Lipitor] 40 mg PO HS #30 tablet 05/05/18 [Rx] RX: Carvedilol [Coreg] 6.25 mg PO BIDWM #60 tablet 05/05/18 [Rx] RX: Clopidogrel [Plavix] 75 mg PO DAILY #30 tablet 05/05/18 [Rx] RX: DULoxetine [Cymbalta] 60 mg PO DAILY #30 capsule. 05/05/18 [Rx] RX: Gabapentin [Neurontin] 300 mg PO HS #30 capsule 05/05/18 [Rx] RX: OxyCODONE/APAP 7.5/325 [Percocet 7.5/325 MG] 1 each PO Q6H PRN 5 Days #15 tablet 05/05/18 [Rx] Allergies/Adverse Reactions: Allergy/AdvReac Type Severity Reaction Status Date / Time ticlopidine [From Ticlid] Allergy Hives Verified 05/25/17 08:37 carbidopa [From Sinemet] AdvReac Confusion Verified 06/08/17 15:42 levodopa [From Sinemet] AdvReac Confusion Verified 06/08/17 15:42 - Respiratory Orders Oxygen / L per min (Keep sats> 90%) Smoking Cessation: Smoking cessation has been advised. For more information, call the [place] Tobacco Quit Line at 9-676-ULBL-NOW. - Lab Orders Lab Orders: Other (include drug levels w/frequency) (BMP in 1 week; Please send results to Dr. Tavarez with Nephrology) - Rehabiliation Orders Rehab Orders: Evaluation for Physical Therapy, Evaluation for Occupational Therapy - Diet Orders No Concentrated Sweets (diabetic), Cardiac CERTIFICATION: I certify that the transfer of the above named patient to an Extended Care Facility is necessary for the continuing treatment of the diagnosis listed. The above information is true and accurate reflection of patient's current condition. Confidential - Redisclosure prohibited without a patient's written consent.
[2018-05-05 14:08] LABS: Kappa Qnt Free Light Chains 3.15 mg/dL (0.33-1.94); Lambda Qnt Free Light Chains 2.43 mg/dL (0.57-2.63)
[2018-05-05] MEDS: Gabapentin 300 MG CAPSULE PO SCH (22:24)
[2018-05-05] MEDS: Insulin DETEMIR 100 UNIT/ML X5UNITS SQ SCH (22:24)
[2018-05-06 06:08] LABS: Alpha 2 Globulin (PEP) 0.95 g/dL (0.48-1.05); Beta Globulin (PEP) 0.72 g/dL (0.48-1.10)
[2018-05-06] MEDS: *HR* Heparin 5,000 UNIT/ML VIAL SQ SCH ×2 (06:27→17:05)
[2018-05-06 08:20] LABS: IFE Reflexed NOT DONE
[2018-05-06] MEDS: Insulin LISPRO 300 UNITS/3 ML VIAL SQ SCH ×3 (09:18→17:05)
[2018-05-06] MEDS: Thiamine (B-1) 100 MG TABLET PO SCH ×2 (09:19→15:42)
[2018-05-06] MEDS: amLODIPine 5 MG TABLET PO SCH (09:19)
[2018-05-06] MEDS: Aspirin Enteric Coated 81 MG Tablet PO SCH (09:19)
[2018-05-06] MEDS: risperiDONE 1 MG TABLET PO SCH (09:19)
[2018-05-06] MEDS: *HR* HYDROcodone/Acet 5/325 mg TABLET PO PRN (09:19)
[2018-05-06] MEDS: Magnesium Oxide 400 MG TABLET PO SCH (09:19)
[2018-05-06 11:32] VITALS: BP 128/80
--- NOTE | 2018-05-06 12:56 | Nephrology Progress Note ---
Date of Encounter: 05/06/18 Time of Encounter: 12:52 - Assessment and Plan (1) Acute kidney injury Current Visit: Yes Status: Acute Scr 1.48, GFR 48 from yesterday; no BMP today Discharge note wrote; if discharged today needs BMP in 1 week and f/u in office in 3 weeks If not discharged today would like BMP done. Excellent UOP 2050ml Avoid nephrotoxins if possible (2) Type 2 diabetes mellitus Current Visit: Yes Status: Chronic per primary team Qualifiers: Diabetes mellitus fdc insulin use: unspecified terminal system operator insulin use status Diabetes mellitus complication status: with other specified complication Qualified Code(s): E11.69 - Type 2 diabetes mellitus with other specified complication (3) Necrotic toes Current Visit: Yes Status: Acute per podiatry team Subjective Principal diagnosis: toe gangrene Interval history: Patient seen and examined, sleeping soundly Objective - Vital Signs Vital signs: Vital Signs Temp Pulse Resp BP Pulse Ox 05/06/18 11:30 96 128/80 05/06/18 10:57 94 05/06/18 07:17 98.1 F 70 15 155/74 94 05/06/18 05:06 98.8 F 70 16 138/78 97 05/05/18 23:54 72 16 124/67 96 05/05/18 20:52 98.0 F 70 17 147/82 97 05/05/18 17:22 97.3 F L 70 18 134/83 99 Intake and Output 05/05/18 05/06/18 05/06/18 23:59 07:59 15:59 Intake Total 360 / 360 240 / 240 Output Total 500 / 500 1100 / 1100 Balance -140 / -140 -1100 / -1100 240 / 240 Intake: Oral 360 / 360 240 / 240 Output: Catheter 500 / 500 1100 / 1100 Other: Meal Dinner Breakfast Percent of Meal Consumed 100% 100% Weight 88.8 kg Blood Glucose* 254 169 137 Patient Weight 05/06/18 23:59 Weight 88.8 kg - General Appearance General appearance: Present: well-developed, well-nourished EENT: Present: ATNC, mucous membranes moist, hearing intact, vision intact Neck: Present: supple Cardiology: Present: no edema, regular rate Gastrointestinal: Present: no guarding Integumentary: Present: warm and dry - Lab 05/05/18 04:28 05/05/18 04:28 Most recent lab results ABG pH 7.35 pH Units (7.32-7.45) 04/28/18 15:46 ABG pCO2 47 mmHg (35-45) H 04/28/18 15:46 ABG pO2 65 mmHg (85-104) L 04/28/18 15:46 ABG HCO3 26 mEq/L (21-27) 04/28/18 15:46 ABG O2 Saturation 91 % (95-98) L 04/28/18 15:46 Calcium 9.4 mg/dL (8.6-10.3) 05/05/18 04:28 Phosphorus 2.7 mg/dL (2.7-4.5) 04/26/18 08:05 Magnesium 1.5 mg/dL (1.6-2.6) L 04/26/18 08:05 Urine Creatinine 42 mg/dL 05/03/18 16:15 Ur Total Protein 24 Hr 912 mg/day (50-80) H 05/03/18 16:15 Urine Sodium 75.8 mEq/L 05/03/18 16:15 Urine Total Protein 38 mg/dL (1-14) H 05/03/18 16:15 Consult Discharge Plan - Plan Instructions: Oxycodone/Acetaminophen (By mouth), Aspirin (By mouth), Gabapentin (By mouth), Atorvastatin (By mouth), Carvedilol (By mouth), Clopidogrel (By mouth), Duloxetine (By mouth), Heart Failure (DC), Atrial Fibrillation (DC), Cellulitis (DC), Diabetes Mellitus Type 2 in Adults (DC), Peripheral Vascular Disorders (DC), Chronic Obstructive Pulmonary Disease (DC), Chronic Hypertension (DC), Diabetic Foot Ulcers (DC), Cigarette Smoking and Your Health, Termite Control Technician (GEN) Additional Instructions: Dressing remains intact until 1st follow up appointment after discharge. Follow up with Dr. Juan Ramon Ashraf at [facility] 1 week after discharge. Referrals: Juan Ramon Ashraf DPM [Partnered Physician] - (in 1-2 weeks) Marco Tavarez MD [Partnered Physician] - (in 4-6 weeks) Roberto Estrada MD [Partnered Physician] - (Follow-up with Dr. Estrada in ascular surgery clinic in 2 weeks.) Cora Pitno CNP [Primary Care Provider] - (in1 -2 weeks) Prescriptions: Aspirin Enteric Coated [Aspirin EC] 81 mg PO DAILY #30 tablet. Atorvastatin [Lipitor] 40 mg PO HS #30 tablet Carvedilol [Coreg] 6.25 mg PO BIDWM #60 tablet Clopidogrel [Plavix] 75 mg PO DAILY #30 tablet DULoxetine [Cymbalta] 60 mg PO DAILY #30 capsule. Gabapentin [Neurontin] 300 mg PO HS #30 capsule OxyCODONE/APAP 7.5/325 [Percocet 7.5/325 MG] 1 each PO Q6H PRN 5 Days #15 tablet PRN Reason: Severe pain
--- NOTE | 2018-05-06 15:07 | Internal Med Progress Note ---
Addendum entered and electronically signed by Vaishali Trevino 05/06/18 16:44: Pt planned to be sent to shelter facility. However, upon revistation, patient declined going to SNF. Instead will offer Homehealth which patient was amenable to. Will plan on utilizing HomeHealth services. Original Note: <Vaishali Trevino - Last Filed: 05/06/18 15:04> Hospitalist Progress Note - Encounter Date of Encounter: 05/06/18 Time of Encounter: 15:04 - Subjective Interval History: Pt seen and examined at bedside this morning resting comfortably in no acute distress. AOx3. POD#9 s/p right femoral-posterior tibial in situ saphenous vein bypass graft and right common femoral endarterectomy and POD #6 s/p right hallux amputation. No acute events overnight. Pending insurance approval for SNF. IMproving renal function. Vital signs stable. Denies headache, visual disturbances, chest pain, SOB, nausea, vmoting, diarrhea. - Exam Vitals: Temp Pulse Resp BP Pulse Ox 98.1 F 96 15 128/80 94 05/06/18 07:17 05/06/18 11:30 05/06/18 07:17 05/06/18 11:30 05/06/18 10:57 Exam: GEN: AOx3, NAD HEENT: Atraumatic, normocephalic, EOMI CARDIO: RRR, no murmurs, rubs, gallups PULM: CTAB, no wheezes, rhonchi, rales ABD: soft ,non-tender, non distended EXT: L BKA NEURO: AOx3, No focal deficits, cn 2- 12 intact - Assessment and Plan (1) S/P amputation Current Visit: Yes Status: Acute Assessment and Plan: POD#6 s/p right hallux amputation Wound stable w/out evidence of infection or ischemia per podiatry F/U with Dr. Ashraf outpatient 1 week after discharge; suture removal 14 days post-op Per PT/OT recommendation, pt will be discharged to short-term rehab facility (2) Necrotic toes Current Visit: Yes Status: Acute Assessment and Plan: S/P Right femoral-posterior tibial saphenous vein bypass graft and right common femoral endarterectomy POD#9 S/P Right hallux amputation POD#6 resolved leukocytosis like secondary to dry gangrene of right hallux afebrile Cont Aspirin and Plavix (3) Acute encephalopathy Current Visit: Yes Status: Resolved Assessment and Plan: Initially developed AMS s/p right femoral-posterior tibial saphenous vein bypass graft and right common femoral endarterectomy POD#7 Workup was negative; per , pt has had similar post operative presentation in the past Evaluated by neurology AOx3 today Baseline mental status (4) Acute kidney injury Current Visit: Yes Status: Acute Assessment and Plan: Cr improving - 1.48 at last check Urine Output = 1100 24 hour Urine - 912 Retroperitoneal U/S - Unremarkable appearance of bladder; no significant post void residual Urine protein / creatinine ratio -0.91 F/U with Nephro in 4-6 weeks (5) History of left above knee amputation Current Visit: Yes Status: Acute Assessment and Plan: Hx L AKA in 01/2018 (6) Coronary artery disease Current Visit: No Status: Chronic Assessment and Plan: Hx CAD Cont Aspirin, Plavix Cont lipitor, carvedilol, amlodipine (7) PAD (peripheral artery disease) Current Visit: Yes Status: Chronic Assessment and Plan: S/P right femoral-posterior tibial saphenous vein bypass graft and right common femoral endarterectomy POD#9 Cont Aspirin and Plavix F/U with vascular surgery outpatient (8) Type 2 diabetes mellitus Current Visit: Yes Status: Chronic Assessment and Plan: HgbA1c = 10.1% Cont basal insulin and sliding scale Cont Levemir 15U QHS (9) CHF (congestive heart failure) Current Visit: No Status: Chronic Assessment and Plan: Stable. Euvolemic. No acute exacerbation (10) Atrial fibrillation Current Visit: No Status: Chronic Assessment and Plan: RAte controlled on carvedilol (11) GERD (gastroesophageal reflux disease) Current Visit: No Status: Chronic Assessment and Plan: Cont Prilosec (12) DVT prophylaxis Current Visit: No Status: Acute Assessment and Plan: Heparin SQ BID (13) AICD (automatic cardioverter/defibrillator) present Current Visit: No Status: Chronic - Time Spent with Patient Total time spent is greater than 50% in coordination of care (as documented) at patient's floor/unit and/or counseling patient: less than 15 minutes Plan of Care Discussed with: patient Internal Medicine: Result - Labs CBC & Chem 7: 05/05/18 04:28 05/05/18 04:28 - ABG Interpretation ABG results: ABG ABG pH 7.35 pH Units (7.32-7.45) 04/28/18 15:46 ABG pCO2 47 mmHg (35-45) H 04/28/18 15:46 ABG pO2 65 mmHg (85-104) L 04/28/18 15:46 ABG O2 Saturation 91 % (95-98) L 04/28/18 15:46 PT/INR, D-dimer PT 11.6 Seconds (9.4-12.1) 04/26/18 08:05 Consult Discharge Plan - Plan Instructions: Oxycodone/Acetaminophen (By mouth), Aspirin (By mouth), Gabap entin (By mouth), Atorvastatin (By mouth), Carvedilol (By mouth), Clopidogrel (By mouth), Duloxetine (By mouth), Heart Failure (DC), Atrial Fibrillation (DC), Cellulitis (DC), Diabetes Mellitus Type 2 in Adults (DC), Peripheral Vascular Disorders (DC), Chronic Obstructive Pulmonary Disease (DC), Chronic Hypertension (DC), Diabetic Foot Ulcers (DC), Cigarette Smoking and Your Health, Amortization Schedule Clerk (GEN) Additional Instructions: Dressing remains intact until 1st follow up appointment after discharge. Follow up with Dr. Juan Ramon Ashraf at [facility] 1 week after discharge. Referrals: Juan Ramon Ashraf DPM [Partnered Physician] - (in 1-2 weeks) Marco Tavarez MD [Partnered Physician] - (in 4-6 weeks) Roberto Estrada MD [Partnered Physician] - (Follow-up with Dr. Estrada in vascular surgery clinic in 2 weeks.) Cora Pinto CNP [Primary Care Provider] - 05/06/18 11:30 am (in1 -2 weeks) Prescriptions: Aspirin Enteric Coated [Aspirin EC] 81 mg PO DAILY #30 tablet. Atorvastatin [Lipitor] 40 mg PO HS #30 tablet Carvedilol [Coreg] 6.25 mg PO BIDWM #60 tablet Clopidogrel [Plavix] 75 mg PO DAILY #30 tablet DULoxetine [Cymbalta] 60 mg PO DAILY #30 capsule. Gabapentin [Neurontin] 300 mg PO HS #30 capsule OxyCODONE/APAP 7.5/325 [Percocet 7.5/325 MG] 1 each PO Q6H PRN 5 Days #15 tablet PRN Reason: Severe pain <Dalila Linton - Last Filed: 05/06/18 16:48> Hospitalist Progress Note - Encounter Date of Encounter: 05/06/18 Time of Encounter: 16:47 - Exam Vitals: Temp Pulse Resp BP Pulse Ox 98.1 F 96 15 128/80 94 05/06/18 07:17 05/06/18 11:30 05/06/18 07:17 05/06/18 11:30 05/06/18 10:57 - Assessment and Plan (1) Necrotic toes Current Visit: Yes Status: Acute (2) Hypertension Current Visit: No Status: Chronic (3) CHF (congestive heart failure) Current Visit: No Status: Chronic (4) COPD (chronic obstructive pulmonary disease) Current Visit: No Status: Chronic (5) Atrial fibrillation Current Visit: No Status: Chronic (6) PAD (peripheral artery disease) Current Visit: No Status: Chronic (7) Type 2 diabetes mellitus Current Visit: Yes Status: Chronic (8) PAD (peripheral artery disease) Current Visit: Yes Status: Chronic (9) GERD (gastroesophageal reflux disease) Current Visit: Yes Status: Chronic (10) AICD (automatic cardioverter/defibrillator) present Current Visit: No Status: Chronic (11) Acute kidney injury Current Visit: Yes Status: Acute (12) Acute encephalopathy Current Visit: Yes Status: Resolved (13) S/P amputation Current Visit: Yes Status: Acute (14) History of left above knee amputation Current Visit: Yes Status: Acute (15) DVT prophylaxis Current Visit: No Status: Acute - Time Spent with Patient Total time spent is greater than 50% in coordination of care (as documented) at patient's floor/unit and/or counseling patient: Internal Medicine: Result - Labs CBC & Chem 7: 05/05/18 04:28 05/05/18 04:28 - ABG Interpretation ABG results: ABG ABG pH 7.35 pH Units (7.32-7.45) 04/28/18 15:46 ABG pCO2 47 mmHg (35-45) H 04/28/18 15:46 ABG pO2 65 mmHg (85-104) L 04/28/18 15:46 ABG O2 Saturation 91 % (95-98) L 04/28/18 15:46 PT/INR, D-dimer PT 11.6 Seconds (9.4-12.1) 04/26/18 08:05 - Attending Attestation I saw evaluated and examined this patient and my medical decision-making was reviewed with the Resident Physician, Vaishali Trevino. I agree with the documented findings, disposition and treatment plan as described except to any changes set forth below. We independently had [id number] contact with the patient. Patient is doing well overall. Denies any complaints at this time. Tolerating diet well. No fevers or chills reported. No nausea vomiting diarrhea. On exam, patient is awake and alert. Abdomen is soft, nontender. Heart sounds are normal. Breath sounds are normal. Patient does have bandage over his right toes. Status post left AKA. <Vaishali Trevino - Last Filed: 05/06/18 15:04> (6) Coronary artery disease Qualifiers: Coronary Disease-Associated Artery/Lesion type: unspecified vessel or lesion type Associated angina: angina presence unspecified Qualified Code(s): I25.10 - Atherosclerotic heart disease of [place] coronary artery without angina pectoris (8) Type 2 diabetes mellitus Qualifiers: Diabetes mellitus [facility] insulin use: unspecified [facility] insulin use status Diabetes mellitus complication status: with other specified complication Qualified Code(s): E11.69 - Type 2 diabetes mellitus with other specified complication (9) CHF (congestive heart failure) Qualifiers: Heart failure type: diastolic Heart failure chronicity: chronic Qualified Code(s): I50.32 - Chronic diastolic (congestive) heart failure (10) Atrial fibrillation Qualifiers: Atrial fibrillation type: chronic Qualified Code(s): I48.2 - Chronic atrial fibrillation (11) GERD (gastroesophageal reflux disease) Qualifiers: Esophagitis presence: esophagitis presence not specified Qualified Code(s): K21.9 - Gastro-esophageal reflux disease without esophagitis <Dalila Linton - Last Filed: 05/06/18 16:48> (2) Hypertension Qualifiers: Hypertension type: essential hypertension Qualified Code(s): I10 - Essential (primary) hypertension (3) CHF (congestive heart failure) Qualifiers: Heart failure type: diastolic Heart failure chronicity: chronic Qualified Code(s): I50.32 - Chronic diastolic (congestive) heart failure (4) COPD (chronic obstructive pulmonary disease) Qualifiers: COPD type: unspecified COPD Qualified Code(s): J44.9 - Chronic obstructive pulmonary disease, unspecified (5) Atrial fibrillation Qualifiers: Atrial fibrillation type: chronic Qualified Code(s): I48.2 - Chronic atrial fibrillation (7) Type 2 diabetes mellitus Qualifiers: Diabetes mellitus [facility] insulin use: unspecified [facility] insulin use status Diabetes mellitus complication status: with other specified complication Qualified Code(s): E11.69 - Type 2 diabetes mellitus with other specified complication (9) GERD (gastroesophageal reflux disease) Qualifiers: Esophagitis presence: esophagitis presence not specified Qualified Code(s): K21.9 - Gastro-esophageal reflux disease without esophagitis
--- NOTE | 2018-05-06 16:42 | Physician Discharge Referral ---
Home Health/Hosp Referral Info Transfer to: Home Health Provider in Charge Post Discharge: PCP - Diagnosis (1) S/P amputation Priority: Primary Status: Acute (2) Necrotic toes Priority: Secondary Status: Acute (3) Acute encephalopathy Priority: Secondary Status: Resolved (4) Acute kidney injury Priority: Secondary Status: Acute (5) History of left above knee amputation Priority: Secondary Status: Acute (6) Coronary artery disease Priority: Secondary Status: Chronic (7) PAD (peripheral artery disease) Priority: Secondary Status: Chronic (8) Type 2 diabetes mellitus Priority: Secondary Status: Chronic (9) CHF (congestive heart failure) Priority: Secondary Status: Chronic (10) Atrial fibrillation Priority: Secondary Status: Chronic (11) GERD (gastroesophageal reflux disease) Priority: Secondary Status: Chronic (12) DVT prophylaxis Priority: Secondary Status: Acute (13) AICD (automatic cardioverter/defibrillator) present Priority: Secondary Status: Chronic - Respiratory Orders None Smoking Cessation: Smoking cessation has been advised. For more information, call the [place] Tobacco Quit Line at 6-593-PDDT-NOW. - Diet/Nutrition Diet/Nutrition Orders: Regular - Activity Activity Orders: Chair - Services Needed Following services are medically necessary services: Nursing, Home Health Aide, Physical Therapy, Occupational Therapy - Transfer Medications Prescriptions: Aspirin Enteric Coated [Aspirin EC] 81 mg PO DAILY #30 tablet. Atorvastatin [Lipitor] 40 mg PO HS #30 tablet Carvedilol [Coreg] 6.25 mg PO BIDWM #60 tablet Clopidogrel [Plavix] 75 mg PO DAILY #30 tablet DULoxetine [Cymbalta] 60 mg PO DAILY #30 capsule. Gabapentin [Neurontin] 300 mg PO HS #30 capsule OxyCODONE/APAP 7.5/325 [Percocet 7.5/325 MG] 1 each PO Q6H PRN 5 Days #15 tablet PRN Reason: Severe pain Home Medications: Acetaminophen [Tylenol] 650 mg PO Q6HR PRN tablet 01/20/18 [Rx] Folic Acid 1 mg PO DAILY tablet 01/20/18 [Rx] Thiamine (B-1) [Vitamin B-1] 100 mg PO TID tablet 01/20/18 [Rx] Omeprazole [PriLOSEC] 20 mg PO DAILY 04/27/18 [History] Sertraline [Zoloft] 25 mg PO DAILY 04/27/18 [History] amLODIPine [Norvasc] 5 mg PO DAILY 04/27/18 [History] risperiDONE [Risperidone] 0.5 mg PO DAILY 04/27/18 [History] Insulin DETEMIR [Levemir] 27 unit SQ HS 04/28/18 [History] Insulin LISPRO [HumaLOG] 14 units SQ TIDAC 04/28/18 [History] Magnesium Oxide [Magnesium] 400 mg PO DAILY 04/28/18 [History] Aspirin Enteric Coated [Aspirin EC] 81 mg PO DAILY #30 tablet. 05/05/18 [Rx] Atorvastatin [Lipitor] 40 mg PO HS #30 tablet 05/05/18 [Rx] Carvedilol [Coreg] 6.25 mg PO BIDWM #60 tablet 05/05/18 [Rx] Clopidogrel [Plavix] 75 mg PO DAILY #30 tablet 05/05/18 [Rx] DULoxetine [Cymbalta] 60 mg PO DAILY #30 capsule. 05/05/18 [Rx] Gabapentin [Neurontin] 300 mg PO HS #30 capsule 05/05/18 [Rx] OxyCODONE/APAP 7.5/325 [Percocet 7.5/325 MG] 1 each PO Q6H PRN 5 Days #15 tablet 05/05/18 [Rx] Allergies/Adverse Reactions: Allergy/AdvReac Type Severity Reaction Status Date / Time ticlopidine [From Ticlid] Allergy Hives Verified 05/25/17 08:37 carbidopa [From Sinemet] AdvReac Confusion Verified 06/08/17 15:42 levodopa [From Sinemet] AdvReac Confusion Verified 06/08/17 15:42 Certification: Further, I certify that my clinical findings support that this patient is homebound (i.e. absences from home require considerable and taxing effort and are for medical reasons or zoroastrianism services or infrequently or short duration when for other reasons) because: Homebound Reason: Patient requires assistance of a person or device to safely leave home, Absences from home are contraindicated except to recieve medical care, Post-surgery restriction and or conditions limit ability to leave home, Leaving home requires considerable and taxing effort due to condition Attestation: My signature below is to certify that this patient is under my care and that I, or nurse practitioner, or a physician's news production assistant working with me, has a [id number] encounter with this patient.
== END 2018-05-06 19:40 | DRG 253 ==
LOC: 3ANU 20:17 → EMEROOARM 20:17 → SUATTDRO 23:30 → 3ANU 04-26 00:36 → SUATTDRO 04-27 13:04 → 2NNU 04-27 13:25 → 3ANU 04-28 10:03 → 2NENU 04-28 20:11
PROVIDERS: ADMIT Family Medicine; ATTEND Internal Medicine

== ENCOUNTER 2018-11-30 17:06 | Observation (INO) ==
[2018-11-30] MEDS ORDERED: Ondansetron 4 MG/2 ML VIAL IVP ONE (17:39)
[2018-11-30] MEDS ORDERED: 0.9 % Sodium Chloride 1,000 ML IVC ONE (17:39)
[2018-11-30 17:59] LABS: Basophils # 0.1 K/mcL (0.0-0.2); Basophils % 1.3 %; Eosinophils # 0.1 K/mcL (0.0-0.6); Eosinophils % 1.5 %; Hematocrit 38.2 % (37.5-50.1); Hemoglobin 12.8 g/dL (12.9-16.9); Immature Granulocytes % 0.4 % (0-4); Lymphocytes # 2.3 K/mcL (0.6-4.6); Lymphocytes % 27.4 %; Mean Corpuscular HGB Conc 33.5 g/dL (31.6-35.5); Mean Corpuscular Hemoglobin 27.5 pg (28.0-33.3); Mean Platelet Volume 10.3 fL (9.4-12.4); Monocytes # 0.7 K/mcL (0.0-1.3); Monocytes % 8.5 %; Neutrophils # 5.1 K/mcL (1.6-8.9); Platelet Count 346 K/mcL (140-400); Red Blood Count 4.66 M/mcL (4.19-5.50); Red Cell Distribution Width 14.3 % (11.5-14.5); Segmented Neutrophils % 60.9 %
[2018-11-30 18:12] LABS: Alanine Aminotransferase 9 Units/L (7-52); Albumin 3.4 g/dL (3.5-5.7); Alkaline Phosphatase 129 Units/L (34-104); Aspartate Amino Transferase 8 Units/L (13-39); BUN/Creatinine Ratio 10 (6-26); Bilirubin,Direct 0.1 mg/dL (0.0-0.2); Bilirubin,Indirect 0.4 mg/dL (0.0-1.2); Bilirubin,Total 0.5 mg/dL (0.3-1.0); Blood Urea Nitrogen 11 mg/dL (8-23); Calcium 9.7 mg/dL (8.6-10.3); Carbon Dioxide 22 mEq/L (23-29); Chloride 100 mEq/L (98-107); Globulin 3.4 g/dL (2.4-3.5); Glucose 588 mg/dL (70-105); Osmolality,Calculated 301 (280-300); Potassium 3.6 mEq/L (3.5-5.1); Sodium 132 mEq/L (136-145); Total Protein 6.8 g/dL (6.4-8.9); Troponin I 0.03 ng/mL (< 0.04); eGFR For Non-African Americans > 60 (> 60)
[2018-11-30 18:39] LABS: Bilirubin,Urine Negative (Negative); Blood,Urine Moderate (Negative); Clarity,Urine Turbid (Clear); Color,Urine Yellow (Yellow); Glucose,Urine (UA) >=1000 mg/dL (Normal); Ketones,Urine Negative (Negative); Leukocyte Esterase,Urine Moderate (Negative); Nitrite,Urine Negative (Negative); PH,Urine 6.5 pH Units (5.0-8.0); Protein,Urine >=300 mg/dL (Neg-Trace); Specific Gravity,Urine 1.017 (1.010-1.025); Urobilinogen,Urine Normal (Normal)
[2018-11-30 18:41] LABS: Bacteria,Urine None Seen per hpf (None-Few); Hyaline Casts,Urine None Seen per lpf (None-Few); Squamous Epithelial Cell,Urine Many per lpf (None-Few); WBC,Urine TNTC per hpf (0-3)
[2018-11-30 18:46] LABS: VBG HCO3 22 mEq/L (21-27); VBG PCO2 42 mmHg (41-51); VBG PH 7.33 pH Units (7.32-7.42); VBG PO2 88 mmHg (25-50)
[2018-11-30 18:57] LABS: Yeast,Urine Moderate per hpf (None Seen)
[2018-11-30 18:58] LABS: RBC,Urine 15-30 per hpf (0-3)
[2018-11-30] MEDS ORDERED: 0.9 % Sodium Chloride 500 ML IVC ONE (19:09)
[2018-11-30] MEDS ORDERED: Insulin Human Regular 10 UNIT in 0.9 % Sodium Chloride 10 ML IV ONE (19:09)
[2018-11-30] MEDS ORDERED: cefTRIAXone 1,000 MG in 0.9 % Sodium Chloride Mini Bag 100 ML IVPB ONE (19:10)
[2018-11-30] MEDS ORDERED: *HR* OxyCODONE/APAP 5/325 TABLET PO ONE (19:46)
[2018-11-30] MEDS: 0.9 % Sodium Chloride 1,000 ML IVC SCH (20:14)
--- NOTE | 2018-11-30 20:33 | Emergency Department Note ---
Disposition Clinical Impression: Hyperglycemia, Weakness UTI (urinary tract infection) Qualifiers: Urinary tract infection type: site unspecified Hematuria presence: without hematuria Qualified Code(s): N39.0 - Urinary tract infection, site not specified Disposition: Admitted As Inpatient Condition: Good Referrals: Cora Pinto CNP [Primary Care Provider] - Time of Disposition: 20:00 General Adult HPI - General Chief complaint: ED Weakness Stated complaint: weakness Time Seen by Provider: 11/30/18 17:29 Source: patient, family Limitations: no limitations Nursing Notes Reviewed: Yes Vital Signs Reviewed: Yes - History of Present Illness HPI Narrative: 63-year-old gentleman with history of poorly controlled diabetes presents for chief complaint of generalized weakness, malaise, nausea, intermittent loose stools. Symptoms have been progressive over the last 48-72 hours. he notes that his sugar has been running 300-500 over the last week. He believes he has been taking his Lantus as directed as well as his oral diabetic medications. He denies any fevers. No chest pain, but he does have exertional dyspnea. No abdominal pain, vomiting. He notes 2 loose stools yesterday which were nonbloody and non-melanotic. No sick contacts. He notes foul smelling urine. He has wounds to his right foot which are reportedly improving per his wound care team which he sees weekly. He denies any remitting or exacerbating factors. Symptoms have been constant. Pain Scale: 0 - Related Data Home Medications Medication Instructions Recorded Confirmed Omeprazole [PriLOSEC] 20 mg PO DAILY 04/27/18 11/30/18 Sertraline [Zoloft] 25 mg PO DAILY 04/27/18 11/30/18 amLODIPine [Norvasc] 5 mg PO DAILY 04/27/18 11/30/18 risperiDONE [Risperidone] 1 mg PO DAILY 04/27/18 11/30/18 Atorvastatin [Lipitor] 40 mg PO HS 11/04/18 11/30/18 Gabapentin [Neurontin] 400 mg PO 11/04/18 11/30/18 Insulin Glargine [Lantus] 15 unit SQ BID 11/04/18 11/30/18 Metformin HCl 1,000 mg PO BID 11/04/18 11/30/18 Pantoprazole Sodium [Protonix] 40 mg PO DAILY 11/04/18 11/30/18 Oxycodone HCl/Acetaminophen 1 each PO TID 11/30/18 11/30/18 [Percocet 7.5-325 mg Tablet] Previous Rx's Medication Instructions Recorded Acetaminophen [Tylenol] 650 mg PO Q6HR PRN tablet 01/20/18 Thiamine (B-1) [Vitamin B-1] 100 mg PO TID tablet 01/20/18 Aspirin Enteric Coated [Aspirin EC] 81 mg PO DAILY #30 tablet. 05/05/18 Carvedilol [Coreg] 6.25 mg PO BIDWM #60 tablet 05/05/18 DULoxetine [Cymbalta] 60 mg PO DAILY #30 capsule. 05/05/18 Allergies Allergy/AdvReac Type Severity Reaction Status Date / Time ticlopidine [From Ticlid] Allergy Hives Verified 11/30/18 17:18 carbidopa [From Sinemet] AdvReac Confusion Verified 11/30/18 17:18 levodopa [From Sinemet] AdvReac Confusion Verified 11/30/18 17:18 Constitutional: Reports: chills, weakness Eyes: Denies: eye pain, eye discharge Cardiovascular: Denies: chest pain, palpitations Respiratory: Denies: cough, wheezes Gastrointestinal: Denies: abdominal pain, vomiting Genitourinary: Denies: urgency, dysuria Musculoskeletal: Denies: joint swelling, arthralgia Neurological: Denies: numbness, paresthesias Psychiatric: Denies: anxiety, depression Hematological/Lymphatic: Denies: easy bleeding, easy bruising Allergic/Immunologic: Denies: facial swelling, urticaria Past Medical History - Past Medical History Source: patient Medical history: Reports: arthritis, asthma, atrial fibrillation, cardiomyopathy, CHF, COPD, coronary artery disease, diabetes, GERD, hyperlipidemia, hypertension, myocardial infarction Surgical history: Reports: angioplasty/stent, coronary bypass (CABG), orthopedic, other, pacemaker/AICD, other Psychiatric history: Reports: anxiety, depression - Social History Smoking Status: Current every day smoker Smokeless Tobacco Status: No Alcohol use: Reports: none Drug use: Reports: none Physical Exam - General Limitations: no limitations General appearance: alert, in no apparent distress - Head Head exam: atraumatic, normocephalic, normal inspection - Eye Eye exam: Present: normal appearance, PERRL, EOMI - ENT ENT exam: mucous membranes dry, normal external ear exam - Neck Neck exam: Present: normal inspection, full ROM, trachea midline - Chest Chest inspection: Present: normal inspection, symmetric chest wall rise - Respiratory Respiratory exam: Present: normal lung sounds bilaterally. Absent: respiratory distress - Cardiovascular Cardiovascular exam: Present: regular rate, normal rhythm - Abdominal Exam Abdominal exam: Present: soft, Non-Tender - Extremities Exam Extremities exam: Present: other (Patient is status post amputation at the knee on the left. He has chronic diabetic foot ulcers on the right without any stranding cellulitis or significant drainage.) - Back Exam Back exam: Present: normal inspection, full ROM - Neurological Exam Neurological exam: Present: alert, oriented X3 - Psychiatric Psychiatric exam: Present: normal affect, normal mood - Skin Skin exam: Present: warm, dry Course Course Narrative: Patient is hyperglycemic at 588 on arrival. This is improved after 1 L of normal saline to 413. Symptomatically, he is feeling partially better. He has no other acute bloodwork abnormality, but does appear to have a urinary tract infection which I covered with Rocephin and sent for culture. Patient was given further IV fluids and IV insulin without a drip. He is admitted to medicine for further evaluation and management. EKG interpreted by me shows ventricular paced rhythm at [address] changes. No further interpretation available. Vital Signs Temperature 98.3 F 11/30/18 17:18 Pulse Rate 70 11/30/18 17:18 Respiratory Rate 18 11/30/18 17:18 Blood Pressure 168/90 11/30/18 17:18 O2 Sat by Pulse Oximetry 99 11/30/18 17:18 Temperature 98.3 F 11/30/18 17:18 Pulse Rate 70 11/30/18 19:44 Respiratory Rate 16 11/30/18 19:44 Blood Pressure 163/88 11/30/18 19:44 O2 Sat by Pulse Oximetry 98 11/30/18 19:44 Oxygen Delivery Oxygen Delivery Room Air Medical Decision Making - Lab Data Result diagrams: 11/30/18 17:26 11/30/18 17:26 Lab Results 11/30/18 11/30/18 11/30/18 Range/Units 17:26 17:26 17:26 WBC 8.4 (4.3-11.1) K/mcL RBC 4.66 (4.19-5.50) M/mcL Hgb 12.8 L (12.9-16.9) g/dL Hct 38.2 (37.5-50.1) % MCV 82.0 L (83.0-100.0) fL MCH 27.5 L (28.0-33.3) pg MCHC 33.5 (31.6-35.5) g/dL RDW 14.3 (11.5-14.5) % Plt Count 346 (140-400) K/mcL MPV 10.3 (9.4-12.4) fL Immature Gran % 0.4 (0-4) % Seg Neutrophils % 60.9 % Lymphocytes % 27.4 % Monocytes % 8.5 % Eosinophils % 1.5 % Basophils % 1.3 % Neutrophils # 5.1 (1.6-8.9) K/mcL Lymphocytes # 2.3 (0.6-4.6) K/mcL Monocytes # 0.7 (0.0-1.3) K/mcL Eosinophils # 0.1 (0.0-0.6) K/mcL Basophils # 0.1 (0.0-0.2) K/mcL VBG pH (7.32-7.42) pH Units VBG pCO2 (41-51) mmHg VBG pO2 (25-50) mmHg VBG HCO3 (21-27) mEq/L Sodium 132 L (136-145) mEq/L Potassium 3.6 (3.5-5.1) mEq/L Chloride 100 (98-107) mEq/L Carbon Dioxide 22 L (23-29) mEq/L BUN 11 (8-23) mg/dL Creatinine 1.11 (0.70-1.30) mg/dL Est GFR ( Amer) > 60 (> 60) Est GFR (Non-Af Amer) > 60 (> 60) BUN/Creatinine Ratio 10 (6-26) Glucose 588 H* (70-105) mg/dL Calculated Osmolality 301 H (280-300) Lactic Acid 1.6 (0.5-2.2) mmol/L Calcium 9.7 (8.6-10.3) mg/dL Total Bilirubin 0.5 (0.3-1.0) mg/dL Direct Bilirubin 0.1 (0.0-0.2) mg/dL Indirect Bilirubin 0.4 (0.0-1.2) mg/dL AST 8 L (13-39) Units/L ALT 9 (7-52) Units/L Alkaline Phosphatase 129 H (34-104) Units/L Troponin I 0.03 (< 0.04) ng/mL Serum Total Protein 6.8 (6.4-8.9) g/dL Albumin 3.4 L (3.5-5.7) g/dL Globulin 3.4 (2.4-3.5) g/dL Albumin/Globulin Ratio 1.0 L (1.1-2.2) Beta-Hydroxybutyric Acd (0.02-0.27) mmol/L Urine Color (Yellow) Urine Clarity (Clear) Urine pH (5.0-8.0) pH Units Ur Specific [place] (1.010-1.025) Urine Protein (Neg-Trace) mg/dL Urine Glucose (UA) (Normal) mg/dL Urine Ketones (Negative) mg/dL Urine Blood (Negative) Urine Nitrite (Negative) Urine Bilirubin (Negative) Urine Urobilinogen (Normal) mg/dL Ur Leukocyte Esterase (Negative) Urine Microscopic RBC (0-3) per hpf Urine Microscopic WBC (0-3) per hpf Ur Squamous Epith Cells (None-Few) per lpf Urine Bacteria (None-Few) per hpf Hyaline Casts (None-Few) per lpf Urine Yeast (None Seen) per hpf Ur Culture Indicated? (NO) 11/30/18 11/30/18 11/30/18 Range/Units 17:26 18:22 18:44 WBC (4.3-11.1) K/mcL RBC (4.19-5.50) M/mcL Hgb (12.9-16.9) g/dL Hct (37.5-50.1) % MCV (83.0-100.0) fL MCH (28.0-33.3) pg MCHC (31.6-35.5) g/dL RDW (11.5-14.5) % Plt Count (140-400) K/mcL MPV (9.4-12.4) fL Immature Gran % (0-4) % Seg Neutrophils % % Lymphocytes % % Monocytes % % Eosinophils % % Basophils % % Neutrophils # (1.6-8.9) K/mcL Lymphocytes # (0.6-4.6) K/mcL Monocytes # (0.0-1.3) K/mcL Eosinophils # (0.0-0.6) K/mcL Basophils # (0.0-0.2) K/mcL VBG pH 7.33 (7.32-7.42) pH Units VBG pCO2 42 (41-51) mmHg VBG pO2 88 H (25-50) mmHg VBG HCO3 22 (21-27) mEq/L Sodium (136-145) mEq/L Potassium (3.5-5.1) mEq/L Chloride (98-107) mEq/L Carbon Dioxide (23-29) mEq/L BUN (8-23) mg/dL Creatinine (0.70-1.30) mg/dL Est GFR ( Amer) (> 60) Est GFR (Non-Af Amer) (> 60) BUN/Creatinine Ratio (6-26) Glucose (70-105) mg/dL Calculated Osmolality (280-300) Lactic Acid (0.5-2.2) mmol/L Calcium (8.6-10.3) mg/dL Total Bilirubin (0.3-1.0) mg/dL Direct Bilirubin (0.0-0.2) mg/dL Indirect Bilirubin (0.0-1.2) mg/dL AST (13-39) Units/L ALT (7-52) Units/L Alkaline Phosphatase (34-104) Units/L Troponin I (< 0.04) ng/mL Serum Total Protein (6.4-8.9) g/dL Albumin (3.5-5.7) g/dL Globulin (2.4-3.5) g/dL Albumin/Globulin Ratio (1.1-2.2) Beta-Hydroxybutyric Acd 0.34 H (0.02-0.27) mmol/L Urine Color Yellow (Yellow) Urine Clarity Turbid A (Clear) Urine pH 6.5 (5.0-8.0) pH Units Ur Specific [place] 1.017 (1.010-1.025) Urine Protein >=300 H (Neg-Trace) mg/dL Urine Glucose (UA) >=1000 H (Normal) mg/dL Urine Ketones Negative (Negative) mg/dL Urine Blood Moderate H (Negative) Urine Nitrite Negative (Negative) Urine Bilirubin Negative (Negative) Urine Urobilinogen Normal (Normal) mg/dL Ur Leukocyte Esterase Moderate H (Negative) Urine Microscopic RBC 15-30 H (0-3) per hpf Urine Microscopic WBC TNTC H (0-3) per hpf Ur Squamous Epith Cells Many H (None-Few) per lpf Urine Bacteria None Seen (None-Few) per hpf Hyaline Casts None Seen (None-Few) per lpf Urine Yeast Moderate H (None Seen) per hpf Ur Culture Indicated? YES A (NO)
[2018-12-01] MEDS: 0.9 % Sodium Chloride 1,000 ML IVC SCH (03:12)
[2018-12-01] MEDS ORDERED: Ondansetron 4 MG/2 ML VIAL IVP PRN (03:13)
[2018-12-01] MEDS ORDERED: Naloxone 0.4 MG/ML INJ IVP PRN (03:13)
[2018-12-01] MEDS ORDERED: Dextrose Gel 15 GM/37.5 ML TUBE PO PRN ×2 (03:16)
[2018-12-01] MEDS ORDERED: *HR* Dextrose 50 % in Water (Syg) 50 ML SYRINGE IVP PRN (03:16)
[2018-12-01] MEDS ORDERED: D5% in Water 1,000 ML IVC PRN (03:17)
--- NOTE | 2018-12-01 03:36 | Internal Med History&Physical ---
Date of Encounter: 12/01/18 Time of Encounter: 03:00 Internal Medicine - H&P: HPI Chief complaint: Hyperglycemia Admitted From: Emergency Dept Plans for Post Hospital Care: Home History of present illness: Mr. Wylie is a 63 year old male Patient presented to the emergency room with poorly controlled diabetes. He has been feeling weak and nauseated at home for the last 2-3 days. He has noted his blood sugar has been in the 300-500 range over the last week, despite taking his diabetic medication as directed. He is also had foul-smelling urine and loose stools over the last day. He has a diabetic wound on his right foot for which she sees wound care weekly. In the emergency room patient's initial vital signs were within normal limits. CBC was also within normal limits. A BMP was performed that showed a glucose level of 588 and a sodium of 132. Osmolality was 301, lactic acid 1.6 troponin 0.03 and beta hydroxybutyric acid 0.34. VBG demonstrated a pH of 7.33. Urinalysis was performed that showed negative nitrites, moderate leukocyte esterase with too numerous to count white blood cells. Patient also had greater than 1000 leukosis and greater than 300 protein. Chest x-ray was performed that showed no acute process. He was given 1.5 L of normal saline in the emergency room and a dose of ceftriaxone. He was given 10 units of regular insulin, and was sent to the medical floor for further management. Upon my evaluation, patient is resting comfortably in the hospital bed in no acute distress. He was initially resistant to answering questions stating that it was too early in the morning to answer questions. He did deny chest pain, abdominal pain, nausea, vomiting, diarrhea and constipation however. He indicates that he has been taking his diabetes medicine as directed. He has had similar blood sugar presentations before. He was last admitted in May of last year for DKA. He denies significant family medical history, and is a full code. Past Med Surg Social Fam HX - Past Medical History Medical history: arthritis, asthma, atrial fibrillation, cardiomyopathy, CHF, COPD, coronary artery disease, diabetes, GERD, hyperlipidemia, hypertension, myocardial infarction Additional medical history: MRSA Psychiatric history: anxiety, depression - Past Surgical History Surgical History: angioplasty/stent, coronary bypass (CABG), orthopedic, other, pacemaker/AICD, other Additional surgical history: left BKA, rt leg bypass rt great toe amp., Pacemaker/defibillator - Social History Smoking Status: Current every day smoker Packs per day: 1.25 Smokeless Tobacco Status: No Alcohol use: none Drug use: none - Family History Mother Living Status: Still Living Hx Family Cancer: Yes (kidney cancer) Father Living Status: Hx Family Cancer: Yes Internal Medicine - H&P: Meds Acetaminophen [Tylenol] 650 mg PO Q6HR PRN tablet 01/20/18 [Rx] Thiamine (B-1) [Vitamin B-1] 100 mg PO TID tablet 01/20/18 [Rx] Omeprazole [PriLOSEC] 20 mg PO DAILY 04/27/18 [History] Sertraline [Zoloft] 25 mg PO DAILY 04/27/18 [History] amLODIPine [Norvasc] 5 mg PO DAILY 04/27/18 [History] risperiDONE [Risperidone] 1 mg PO DAILY 04/27/18 [History] Aspirin Enteric Coated [Aspirin EC] 81 mg PO DAILY #30 tablet. 05/05/18 [Rx] Carvedilol [Coreg] 6.25 mg PO BIDWM #60 tablet 05/05/18 [Rx] DULoxetine [Cymbalta] 60 mg PO DAILY #30 capsule. 05/05/18 [Rx] Atorvastatin [Lipitor] 40 mg PO HS 11/04/18 [History] Gabapentin [Neurontin] 400 mg PO HS 11/04/18 [History] Insulin Glargine [Lantus] 15 unit SQ BID 11/04/18 [History] Metformin HCl 1,000 mg PO BID 11/04/18 [History] Pantoprazole Sodium [Protonix] 40 mg PO DAILY 11/04/18 [History] Oxycodone HCl/Acetaminophen [Percocet 7.5-325 mg Tablet] 1 each PO TID 11/30/18 [History] Allergy/AdvReac Type Severity Reaction Status Date / Time ticlopidine [From Ticlid] Allergy Hives Verified 11/30/18 17:18 carbidopa [From Sinemet] AdvReac Confusion Verified 11/30/18 17:18 levodopa [From Sinemet] AdvReac Confusion Verified 11/30/18 17:18 All Systems PM: A 10-system review of systems was performed and is negative for pertinent findings except as documented above in the HPI. - Constitutional Vitals: Temp Pulse Resp BP Pulse Ox 97.7 F 70 16 157/81 98 12/01/18 01:03 12/01/18 01:03 12/01/18 01:03 12/01/18 01:03 12/01/18 01:03 General appearance: Present: cooperative, A&O X 3, pleasant, no acute distress, answers questions appropriately Exam: - - Head Head exam: Present: normal inspection - Eye Eye exam: Present: EOMI, normal appearance - Respiratory Respiratory exam: Present: CTAB. Absent: rales, respiratory distress, rhonchi, wheezes - Cardiovascular Cardiovascular exam: Present: RRR. Absent: diastolic murmur, systolic murmur - GI/Abdominal GI/Abdominal exam: Present: normal bowel sounds, soft. Absent: tenderness - Extremities Exam Extremities exam: Present: warm, radial pulses palpable and symmetrical. Absent: tenderness Additional comments: Left leg AKA, Right foot in boot - Neurological Exam Neurological exam: Present: no focal deficits, strengths equal and symetr throughout. Absent: motor sensory deficit, facial droop, speech deficit - Skin Skin exam: Present: dry, normal color, warm Internal Med - H&P Results - Labs CBC & Chem 7: 11/30/18 17:26 11/30/18 17:26 Labs: Short CBC 11/30/18 Range/Units 17:26 WBC 8.4 (4.3-11.1) K/mcL Hgb 12.8 L (12.9-16.9) g/dL Hct 38.2 (37.5-50.1) % Plt Count 346 (140-400) K/mcL Neutrophils # 5.1 (1.6-8.9) K/mcL BMP 11/30/18 17:26 Sodium 132 L Potassium 3.6 Chloride 100 Carbon Dioxide 22 L BUN 11 Creatinine 1.11 Glucose 588 H* Calcium 9.7 Cardiac Enzymes 11/30/18 Range/Units 17:26 Troponin I 0.03 (< 0.04) ng/mL Liver Function 11/30/18 Range/Units 17:26 Total Bilirubin 0.5 (0.3-1.0) mg/dL Direct Bilirubin 0.1 (0.0-0.2) mg/dL AST 8 L (13-39) Units/L ALT 9 (7-52) Units/L Alkaline Phosphatase 129 H (34-104) Units/L Albumin 3.4 L (3.5-5.7) g/dL Urine 11/30/18 Range/Units 18:22 Urine Color Yellow (Yellow) Urine Clarity Turbid A (Clear) Urine pH 6.5 (5.0-8.0) pH Units Ur Specific [place] 1.017 (1.010-1.025) Urine Protein >=300 H (Neg-Trace) mg/dL Urine Glucose (UA) >=1000 H (Normal) mg/dL - ABG Interpretation ABG results: 11/30/18 18:44 VBG pH 7.33 VBG pCO2 42 VBG pO2 88 H VBG HCO3 22 - Impressions ITS Impressions Chest X-Ray 11/30/18 17:38 IMPRESSION: No acute process. D/ / Jared Tabor MD / Jared Tabor MD Interpreting Provider: Jared Tabor MD - Assessment and Plan (1) Hyperglycemia Current Visit: Yes Status: Acute Assessment and plan: Secondary to poorly controlled diabetes. Not in DKA or HHS at this time, patient received 10 units of regular insulin in the emergency room, and his sugars did improve from 588 to the 400s. No further documentation of the glucose has been put in the computer, I spoke with the patient's nurse and they indicate that his blood sugar has improved to the 200s at this point. Repeat BMP at 4 AM Continue to monitor blood sugars every 6 hours Medium sliding scale insulin Nothing by mouth Will restart home meds when blood sugar better controlled and patient on a diabetic diet in the morning (2) Urinary tract infection Current Visit: Yes Status: Acute Assessment and plan: Patient's urinalysis showed numerous white blood cells and moderate leukocyte esterase. Patient has also had foul-smelling urine. Urine culture was ordered, patient's previous urine culture from last May was sensitive to ceftriaxone, and grew out Proteus mirabilis. Patient received a dose of ceftriaxone in the emergency room Continue ceftriaxone Follow-up urine culture when available Qualifiers: Urinary tract infection type: site unspecified Hematuria presence: without hematuria Qualified Code(s): N39.0 - Urinary tract infection, site not specified (3) Diabetes mellitus Current Visit: No Status: Chronic Assessment and plan: Patient is poorly controlled diabetic. Presented with hyperglycemia without DKA. Patient noncompliant to medications. 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 (current) use of insulin (4) Diabetic foot Current Visit: No Status: Acute Assessment and plan: Continue wound care daily while in the hospital (5) S/P amputation Current Visit: No Status: Acute Assessment and plan: Left leg amputation (6) Tobacco dependence Current Visit: No Status: Chronic Assessment and plan: Nicotine patch as needed (7) DVT prophylaxis Current Visit: No Status: Acute Assessment and plan: Subcutaneous heparin - Time Spent With Patient Total time spent is greater than 50% in coordination of care (as documented) at patient's floor/unit and/or counseling patient: Greater than 35 minutes
[2018-12-01] MEDS ORDERED: Nicotine 21 MG PATCH.TD24 TD PRN (03:46)
[2018-12-01 05:00] LABS: Hematocrit 34.9 % (37.5-50.1); Hemoglobin 11.3 g/dL (12.9-16.9); Mean Corpuscular HGB Conc 32.4 g/dL (31.6-35.5); Mean Corpuscular Hemoglobin 26.7 pg (28.0-33.3); Mean Corpuscular Volume 82.3 fL (83.0-100.0); Mean Platelet Volume 10.4 fL (9.4-12.4); Platelet Count 314 K/mcL (140-400); Red Blood Count 4.24 M/mcL (4.19-5.50); Red Cell Distribution Width 14.2 % (11.5-14.5)
[2018-12-01] MEDS ORDERED: *HR* Heparin 5,000 UNIT/ML VIAL SQ SCH (06:00)
[2018-12-01] MEDS ORDERED: Insulin LISPRO 300 UNITS/3 ML VIAL SQ SCH ×2 (06:00→21:00)
[2018-12-01 06:35] LABS: BUN/Creatinine Ratio 10 (6-26); Blood Urea Nitrogen 10 mg/dL (8-23); Calcium 8.6 mg/dL (8.6-10.3); Carbon Dioxide 22 mEq/L (23-29); Chloride 106 mEq/L (98-107); Glucose 276 mg/dL (70-105); Osmolality,Calculated 295 (280-300); Potassium 3.1 mEq/L (3.5-5.1); Sodium 138 mEq/L (136-145); eGFR For Non-African Americans > 60 (> 60)
[2018-12-01] MEDS ORDERED: cefTRIAXone 1,000 MG in Water for inj. (sterile) 20 ML 10 ML IVP SCH (09:00)
[2018-12-01] MEDS ORDERED: Insulin DETEMIR 100 UNIT/ML X5UNITS SQ SCH (09:30)
[2018-12-01] MEDS ORDERED: amLODIPine 5 MG TABLET PO SCH (11:15)
[2018-12-01] MEDS: Insulin LISPRO 300 UNITS/3 ML VIAL SQ SCH ×2 (13:30→16:40)
[2018-12-01] MEDS ORDERED: amLODIPine 5 MG TABLET PO ONE (14:15)
[2018-12-01] MEDS ORDERED: *HR* OxyCODONE/APAP 7.5/325 TABLET PO SCH (15:00)
[2018-12-01] MEDS ORDERED: Thiamine (B-1) 100 MG TABLET PO SCH (15:00)
--- NOTE | 2018-12-01 15:03 | Discharge Summary ---
- NOTES TO OUTPATIENT PROVIDER Notes to Outpatient Provider: Follow up with PCP in one week. Please quit smoking. Please start taking Lantus at 25 U SQ inj twice a day. Please check your blood sugars 3-4 times a day Orders not resulted at time of discharge: Pending orders 11/30/18 18:22 Culture,Urine [RM] Stat 12/01/18 14:06 Hgb A1C Routine Troponin I Q6H Date of Encounter: 12/01/18 Time of Encounter: 15:01 - Discharge Diagnosis (1) Hyperglycemia Priority: Primary Status: Acute (2) Urinary tract infection Priority: Primary Status: Acute Qualifiers: Urinary tract infection type: site unspecified Hematuria presence: without hematuria Qualified Code(s): N39.0 - Urinary tract infection, site not specified (3) Foot ulcer, right Priority: Secondary Status: Chronic Qualifiers: Non-pressure ulcer stage: unspecified non-pressure ulcer stage Qualified Code(s): L97.519 - Non-pressure chronic ulcer of other part of right foot with unspecified severity (4) History of left above knee amputation Priority: Secondary Status: Acute (5) CHF (congestive heart failure) Priority: Secondary Status: Chronic Qualifiers: Heart failure type: diastolic Heart failure chronicity: chronic Qualified Code(s): I50.32 - Chronic diastolic (congestive) heart failure (6) COPD (chronic obstructive pulmonary disease) Priority: Secondary Status: Chronic Qualifiers: COPD type: unspecified COPD Qualified Code(s): J44.9 - Chronic obstructive pulmonary disease, unspecified (7) Coronary artery disease Priority: Secondary Status: Chronic Qualifiers: Coronary Disease-Associated Artery/Lesion type: unspecified vessel or lesion type Associated angina: angina presence unspecified Qualified Code(s): I25.10 - Atherosclerotic heart disease of [place] coronary artery without angina pectoris (8) Diabetes mellitus Priority: Secondary Status: Chronic Qualifiers: Diabetes mellitus type: type 2 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 Wylie is a 63 year old male with known PMH of Paroxysmal Afib, Diastolic CHF, HTN, HLD, COPD,CAD and DM2 on Lantus and Metformin [facility] Hb A1C 10.1 0n 04/2018 now he presented to ER with poorly controlled diabetes. He has been feeling weak and nauseated at home for the last 2-3 days. He has noted his blood sugar has been in the 300-500 range over the last week, despite taking his diabetic medication as directed. He is also had foul-smelling urine and loose stools over the last day. His blood sugar was @ 588. His UA was abnormal noticed bacteria and yeast. He was admitted in the hospital and started him on insulin sliding scale, IV hydration and abx for UTI. His BS are little better now. He seems to be noncompliance with his medications, which might contributed to his uncontrolled blood sugars, as well as uncontrolled blood pressure. I requested the pt to go on ISS along with Lantus, he does not want to go for regular insulin. So I increased Lantus to 25 U twice a day and added Glipizide 5mg BID for his home regiment. Also adjusted his BP meds too. Will d/c him home in stable condition today. - Time Spent with Patient Total time spent providing and/or coordinating discharge services: - Discharge Medications Prescriptions: New Amlodipine Besylate 10 mg PO DAILY #30 tablet glipiZIDE [Glucotrol] 5 mg PO BIDWM #60 tablet Nicotine Patch [Nicoderm] 21 mg TD Q24H PRN #30 patch.td24 PRN Reason: Nicotine Cravings Fluconazole [Diflucan] 100 mg PO DAILY #7 tablet Cephalexin [Keflex] 500 mg PO TID #15 capsule Continued Acetaminophen [Tylenol] 650 mg PO Q6HR PRN tablet PRN Reason: Mild Pain/Fever Thiamine (B-1) [Vitamin B-1] 100 mg PO TID tablet Omeprazole [PriLOSEC] 20 mg PO DAILY Sertraline [Zoloft] 25 mg PO DAILY risperiDONE [Risperidone] 1 mg PO DAILY Aspirin Enteric Coated [Aspirin EC] 81 mg PO DAILY #30 tablet. Carvedilol [Coreg] 6.25 mg PO BIDWM #60 tablet DULoxetine [Cymbalta] 60 mg PO DAILY #30 capsule. Oxycodone HCl/Acetaminophen [Percocet 7.5-325 mg Tablet] 1 each PO TID Atorvastatin [Lipitor] 40 mg PO HS Gabapentin [Neurontin] 400 mg PO HS Metformin HCl 1,000 mg PO BID Pantoprazole Sodium [Protonix] 40 mg PO DAILY Changed Insulin Glargine [Lantus] 25 unit SQ BID #0 Discontinued amLODIPine [Norvasc] 5 mg PO DAILY Home Medications: Acetaminophen [Tylenol] 650 mg PO Q6HR PRN tablet 01/20/18 [Rx] Thiamine (B-1) [Vitamin B-1] 100 mg PO TID tablet 01/20/18 [Rx] Omeprazole [PriLOSEC] 20 mg PO DAILY 04/27/18 [History] Sertraline [Zoloft] 25 mg PO DAILY 04/27/18 [History] risperiDONE [Risperidone] 1 mg PO DAILY 04/27/18 [History] Aspirin Enteric Coated [Aspirin EC] 81 mg PO DAILY #30 tablet. 05/05/18 [Rx] Carvedilol [Coreg] 6.25 mg PO BIDWM #60 tablet 05/05/18 [Rx] DULoxetine [Cymbalta] 60 mg PO DAILY #30 capsule. 05/05/18 [Rx] Atorvastatin [Lipitor] 40 mg PO HS 11/04/18 [History] Gabapentin [Neurontin] 400 mg PO HS 11/04/18 [History] Metformin HCl 1,000 mg PO BID 11/04/18 [History] Pantoprazole Sodium [Protonix] 40 mg PO DAILY 11/04/18 [History] Oxycodone HCl/Acetaminophen [Percocet 7.5-325 mg Tablet] 1 each PO TID 11/30/18 [History] Amlodipine Besylate 10 mg PO DAILY #30 tablet 12/01/18 [Rx] Cephalexin [Keflex] 500 mg PO TID #15 capsule 12/01/18 [Rx] Fluconazole [Diflucan] 100 mg PO DAILY #7 tablet 12/01/18 [Rx] Insulin Glargine [Lantus] 25 unit SQ BID #0 12/01/18 [Rx] Nicotine Patch [Nicoderm] 21 mg TD Q24H PRN #30 patch.td24 12/01/18 [Rx] glipiZIDE [Glucotrol] 5 mg PO BIDWM #60 tablet 12/01/18 [Rx] Allergies/Adverse Reactions: Allergy/AdvReac Type Severity Reaction Status Date / Time ticlopidine [From Ticlid] Allergy Hives Verified 11/30/18 17:18 carbidopa [From Sinemet] AdvReac Confusion Verified 11/30/18 17:18 levodopa [From Sinemet] AdvReac Confusion Verified 11/30/18 17:18 Date of admission: 11/30/18 20:02 Primary care physician: Cora Pinto CNP - Constitutional Vitals: Temp Pulse Resp BP Pulse Ox 97.7 F 68 16 187/78 98 12/01/18 12:12 12/01/18 12:12 12/01/18 12:12 12/01/18 12:12 12/01/18 12:12 General appearance: Present: cooperative, A&O X 3, pleasant, no acute distress, answers questions appropriately Exam: Gen: Alert, awake, Oriented to time,place and person Chest: Diminished breath sounds B/L, No wheezing, No crackles, No rales Heart: S1S2+ RRR No murmurs Abd: Soft, NT, BS +, No organomegaly Ext: Left AKA, chronic healing ulcer over Rt foot lateral region noticed Neuro : Benign findings Skin: No rash. - Patient Status Disposition: Home, Self-Care Condition: Good Overall status at discharge: patient is back to baseline - Discharge Instructions Follow Up With: Cora Pinto CNP [Primary Care Provider] - Forms: ED Satisfaction Letter - Diet and Activity Activity: increase activity as tolerated Diet: diabetic diet, low salt diet
[2018-12-01 15:16] VITALS: BP 164/91
[2018-12-01 15:29] LABS: Estimated Average Glucose 283 mg/dl; Hemoglobin A1C 11.5 %
[2018-12-01] MEDS ORDERED: Gabapentin 400 MG CAPSULE PO SCH (21:00)
[2018-12-02] MEDS ORDERED: risperiDONE 1 MG TABLET PO SCH (09:00)
[2018-12-02] MEDS ORDERED: NON-FORMULARY MEDICATION 1 EACH EACH (Pantoprazole Sodium [Protonix] 40 MG) PO SCH (09:00)
[2018-12-02] MEDS ORDERED: Aspirin Enteric Coated 81 MG Tablet PO SCH (09:00)
--- NOTE | 2018-12-02 12:18 | Electrocardiograph Report ---
[address] [address] Test Date: 2018-11-30 Pat Name: Sidney Wylie Department: [id number] Room: 3B22 Gender: M New Grad Rn: : 1955 Requested By: Gaudencio Arias Order Number: [id number] Reading MD: Alejandro Blount Measurements Intervals [place] Rate: 69 P: 0 KS: 59 QRS: 233 QRSD: 126 T: 93 QT: 427 QTc: 458 Interpretive Statements Ventricular-paced complexes PVCs Electronically Signed On 12-02-2018 12:16:07 EDT by Alejandro Blount
== END 2018-12-01 19:11 | disposition home or self-care (01) ==
LOC: EMEROOARM 17:06 → 3BNU 17:06 → SUATTDRO 20:02 → 3BNU 20:34
PROVIDERS: ADMIT Pediatrics; ATTEND Family Medicine

== ENCOUNTER 2019-01-15 21:47 | Inpatient (IN) ==
[2019-01-15] MEDS ORDERED: 0.9 % Sodium Chloride 500 ML IVC ONE ×2 (22:38→23:36)
[2019-01-15] MEDS ORDERED: Ondansetron 4 MG/2 ML VIAL IVP ONE (22:43)
[2019-01-15 22:47] LABS: Basophils # 0.2 K/mcL (0.0-0.2); Basophils % 1.8 %; Eosinophils # 0.3 K/mcL (0.0-0.6); Eosinophils % 3.4 %; Hematocrit 44.1 % (37.5-50.1); Hemoglobin 14.4 g/dL (12.9-16.9); Immature Granulocytes % 0.3 % (0-4); Lymphocytes # 3.5 K/mcL (0.6-4.6); Lymphocytes % 35.5 %; Mean Corpuscular HGB Conc 32.7 g/dL (31.6-35.5); Mean Corpuscular Hemoglobin 27.6 pg (28.0-33.3); Mean Corpuscular Volume 84.5 fL (83.0-100.0); Mean Platelet Volume 10.2 fL (9.4-12.4); Monocytes # 0.6 K/mcL (0.0-1.3); Monocytes % 5.9 %; Neutrophils # 5.3 K/mcL (1.6-8.9); Platelet Count 314 K/mcL (140-400); Red Blood Count 5.22 M/mcL (4.19-5.50); Red Cell Distribution Width 14.9 % (11.5-14.5); Segmented Neutrophils % 53.1 %
[2019-01-15 22:53] LABS: VBG HCO3 24 mEq/L (21-27); VBG PCO2 44 mmHg (41-51); VBG PH 7.36 pH Units (7.32-7.42); VBG PO2 80 mmHg (25-50)
[2019-01-15 23:03] LABS: INR 0.9; Prothrombin Time 10.2 Seconds (9.4-12.1)
--- NOTE | 2019-01-15 23:03 | Emergency Department Note ---
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: unspecified custodial insulin use status Qualified Code(s): E11.65 - Type 2 diabetes mellitus with hyperglycemia Disposition: Admitted As Inpatient Condition: Good Time of Disposition: 00:50 General Adult HPI - General Chief complaint: ED General Medical Stated complaint: high blood sugar Time Seen by Provider: 01/15/19 21:58 Source: patient Mode of arrival: ambulatory Limitations: no limitations Nursing Notes Reviewed: Yes Vital Signs Reviewed: Yes - History of Present Illness HPI Narrative: The patient is a 63 year old male with a PMH of Afib, Diastolic CHF, HTN, HLD, COPD, CAD and DM2 on Lantus and Metformin presented with hyperglycemia and blurry vision. He says that for the past day he has been feeling generally unwell and that his vision is becoming more blurry. He does not typically wear glasses or contacts. At home he measured his blood glucose to be around 500. He says that he has been inconsistently taking his insulin since he has a hard time keeping track of it. He denies any dysuria, polyuria. However he does endorse increased thirst. Also endorses some nausea. Patient denies any vomiting, fevers, chills. Denies any chest pain, shortness of breath, palpitations. Denies any numbness or weakness. Eyes any coughing or wheezing. Pain Scale: 8 - Related Data Home Medications Medication Instructions Recorded Confirmed Omeprazole [PriLOSEC] 20 mg PO DAILY 04/27/18 01/16/19 Sertraline [Zoloft] 25 mg PO DAILY 04/27/18 01/16/19 risperiDONE [Risperidone] 1 mg PO DAILY 04/27/18 01/16/19 Atorvastatin [Lipitor] 40 mg PO HS 11/04/18 01/16/19 Gabapentin [Neurontin] 400 mg PO HS 11/04/18 01/16/19 Metformin HCl 1,000 mg PO BID 11/04/18 01/16/19 Pantoprazole Sodium [Protonix] 40 mg PO DAILY 11/04/18 01/16/19 Oxycodone HCl/Acetaminophen 1 each PO TID 11/30/18 01/16/19 [Percocet 7.5-325 mg Tablet] Previous Rx's Medication Instructions Recorded Acetaminophen [Tylenol] 650 mg PO Q6HR PRN tablet 01/20/18 Thiamine (B-1) [Vitamin B-1] 100 mg PO TID tablet 01/20/18 Aspirin Enteric Coated [Aspirin EC] 81 mg PO DAILY #30 tablet. 05/05/18 Carvedilol [Coreg] 6.25 mg PO BIDWM #60 tablet 05/05/18 DULoxetine [Cymbalta] 60 mg PO DAILY #30 capsule. 05/05/18 Amlodipine Besylate 10 mg PO DAILY #30 tablet 12/01/18 GlipiZIDE [Glucotrol] 5 mg PO BIDWM #60 tablet 12/01/18 Insulin Glargine [Lantus] 25 unit SQ BID #0 12/01/18 Allergies Allergy/AdvReac Type Severity Reaction Status Date / Time ticlopidine [From Ticlid] Allergy Hives Verified 11/30/18 17:18 carbidopa [From Sinemet] AdvReac Confusion Verified 11/30/18 17:18 levodopa [From Sinemet] AdvReac Confusion Verified 11/30/18 17:18 All systems ED: reviewed and negative except as stated. Review of Systems: As Per HPI Constitutional: Denies: fever, chills, weakness Eyes: Reports: vision change. Denies: eye pain ENT ED: Denies: ear pain, throat pain Cardiovascular: Denies: chest pain, palpitations, dyspnea on exertion, syncope Respiratory: Denies: cough, dyspnea, wheezes Gastrointestinal: Reports: nausea. Denies: abdominal pain, vomiting Genitourinary: Denies: urgency, dysuria, frequency Musculoskeletal: Denies: back pain, neck pain Integumentary: Denies: rash, lesions Neurological: Denies: headache, weakness, numbness, paresthesias Psychiatric: Denies: anxiety, depression, suicidal thoughts Endocrine: Reports: polydipsia. Denies: fatigue Past Medical History - Past Medical History Attestation: Yes The following information was validated with the patient. Source: patient Medical history: Reports: arthritis, asthma, atrial fibrillation, cardiomyopathy, CHF, COPD, coronary artery disease, diabetes, GERD, hyperlipidemia, hypertension, myocardial infarction Surgical history: Reports: angioplasty/stent, coronary bypass (CABG), orthopedi c, other, pacemaker/AICD, other Psychiatric history: Reports: anxiety, depression - Social History Smoking Status: Current every day smoker Smokeless Tobacco Status: No Alcohol use: Reports: none Drug use: Reports: none Physical Exam - General Limitations: no limitations General appearance: alert, anxious - Head Head exam: atraumatic, normocephalic, normal inspection - Eye Eye exam: Present: normal appearance, PERRL, EOMI. Absent: scleral icterus - ENT ENT exam: normal exam, normal oropharynx, mucous membranes moist - Neck Neck exam: Present: normal inspection, full ROM, trachea midline - Chest Chest inspection: Present: normal inspection, symmetric chest wall rise - Respiratory Respiratory exam: Present: normal lung sounds bilaterally. Absent: respiratory distress - Cardiovascular Cardiovascular exam: Present: regular rate, normal rhythm, normal heart sounds - Abdominal Exam Abdominal exam: Present: soft, Non-Tender. Absent: tenderness, distention, guarding, rebound, rigidity - Extremities Exam Extremities exam: Present: normal inspection (Patient has left below-knee amputation.), full ROM. Absent: tenderness - Neurological Exam Neurological exam: Present: alert, oriented X3 - Psychiatric Psychiatric exam: Present: normal affect, normal mood - Skin Skin exam: Present: warm, dry, intact, normal color Course Course Narrative: He was seen and examined. Plan is to obtain CBC, CMP, troponins, BNP, chest x- ray, urinalysis, VBG, beta hydroxybutyrate, EKG. A 500 mL bolus of saline was given. Vital Signs Temperature 97.8 F 01/15/19 21:49 Pulse Rate 117 01/15/19 21:49 Respiratory Rate 18 01/15/19 21:49 Blood Pressure 96/64 01/15/19 21:49 O2 Sat by Pulse Oximetry 100 01/15/19 21:49 Temperature 97.8 F 01/15/19 21:49 Pulse Rate 69 01/16/19 00:34 Respiratory Rate 20 01/16/19 00:34 Blood Pressure 132/73 01/16/19 00:34 O2 Sat by Pulse Oximetry 94 01/16/19 00:34 Oxygen Delivery Oxygen Delivery Room Air Medical Decision Making - MDM Narrative Medical decision making narrative: The patient is a 63-year-old male who is presenting with hyperglycemia. Blood sugars have been poorly controlled at home, mentions that he has trouble taking his meds as instructed. Differential includes controlled hyperglycemia, DKA, HHS. He had a blood sugar of over 600 initially. He was given 2x 500 mL normal saline boluses. Last notable for slightly elevated creatinine. Adjusted sodium was 137. Initial EKG showed a flutter consistent with previous EKG. X-ray was normal. Findings are reassuring that infection was not a trigger. He also had negative ketones, hydroxybutyrate acid making DKA less likely. Patient was communicated to the hospitalist for admission for hyperglycemia and blood sugar control. - Medical Records Medical records reviewed: Yes I reviewed the patient's medical records. - Lab Data Lab results reviewed: Yes I reviewed the patient's lab results. Result diagrams: 01/15/19 22:25 01/15/19 22:25 Lab Results 01/15/19 01/15/19 01/15/19 Range/Units 22:25 22:25 22:25 WBC 10.0 (4.3-11.1) K/mcL RBC 5.22 (4.19-5.50) M/mcL Hgb 14.4 (12.9-16.9) g/dL Hct 44.1 (37.5-50.1) % MCV 84.5 (83.0-100.0) fL MCH 27.6 L (28.0-33.3) pg MCHC 32.7 (31.6-35.5) g/dL RDW 14.9 H (11.5-14.5) % Plt Count 314 (140-400) K/mcL MPV 10.2 (9.4-12.4) fL Immature Gran % 0.3 (0-4) % Seg Neutrophils % 53.1 % Lymphocytes % 35.5 % Monocytes % 5.9 % Eosinophils % 3.4 % Basophils % 1.8 % Neutrophils # 5.3 (1.6-8.9) K/mcL Lymphocytes # 3.5 (0.6-4.6) K/mcL Monocytes # 0.6 (0.0-1.3) K/mcL Eosinophils # 0.3 (0.0-0.6) K/mcL Basophils # 0.2 (0.0-0.2) K/mcL PT (9.4-12.1) Seconds INR VBG pH (7.32-7.42) pH Units VBG pCO2 (41-51) mmHg VBG pO2 (25-50) mmHg VBG HCO3 (21-27) mEq/L Sodium 123 L (136-145) mEq/L Potassium 4.4 (3.5-5.1) mEq/L Chloride 91 L (98-107) mEq/L Carbon Dioxide 22 L (23-29) mEq/L BUN 19 (8-23) mg/dL Creatinine 1.46 H (0.70-1.30) mg/dL Est GFR ( Amer) 59 L (> 60) Est GFR (Non-Af Amer) 49 L (> 60) BUN/Creatinine Ratio 13 (6-26) Glucose 687 H* (70-105) mg/dL POC Glucose > 600 H* (70-99) mg/dL Calculated Osmolality 291 (280-300) Lactic Acid (0.5-2.2) mmol/L Calcium 9.4 (8.6-10.3) mg/dL Total Bilirubin 0.4 (0.3-1.0) mg/dL AST 14 (13-39) Units/L ALT 12 (7-52) Units/L Alkaline Phosphatase 111 H (34-104) Units/L Troponin I < 0.03 (< 0.04) ng/mL B-Natriuretic Peptide (Less than 100) pg/mL Serum Total Protein 6.0 L (6.4-8.9) g/dL Albumin 3.2 L (3.5-5.7) g/dL Globulin 2.8 (2.4-3.5) g/dL Albumin/Globulin Ratio 1.1 (1.1-2.2) Beta-Hydroxybutyric Acd (0.02-0.27) mmol/L Urine Color (Yellow) Urine Clarity (Clear) Urine pH (5.0-8.0) pH Units Ur Specific Julian (1.010-1.025) Urine Protein (Neg-Trace) mg/dL Urine Glucose (UA) (Normal) mg/dL Urine Ketones (Negative) mg/dL Urine Blood (Negative) Urine Nitrite (Negative) Urine Bilirubin (Negative) Urine Urobilinogen (Normal) mg/dL Ur Leukocyte Esterase (Negative) Urine Microscopic RBC (0-3) per hpf Urine Microscopic WBC (0-3) per hpf Ur Squamous Epith Cells (None-Few) per lpf Urine Bacteria (None-Few) per hpf Hyaline Casts (None-Few) per lpf Ur Culture Indicated? (NO) 01/15/19 01/15/19 01/15/19 Range/Units 22:25 22:25 22:25 WBC (4.3-11.1) K/mcL RBC (4.19-5.50) M/mcL Hgb (12.9-16.9) g/dL Hct (37.5-50.1) % MCV (83.0-100.0) fL MCH (28.0-33.3) pg MCHC (31.6-35.5) g/dL RDW (11.5-14.5) % Plt Count (140-400) K/mcL MPV (9.4-12.4) fL Immature Gran % (0-4) % Seg Neutrophils % % Lymphocytes % % Monocytes % % Eosinophils % % Basophils % % Neutrophils # (1.6-8.9) K/mcL Lymphocytes # (0.6-4.6) K/mcL Monocytes # (0.0-1.3) K/mcL Eosinophils # (0.0-0.6) K/mcL Basophils # (0.0-0.2) K/mcL PT (9.4-12.1) Seconds INR VBG pH (7.32-7.42) pH Units VBG pCO2 (41-51) mmHg VBG pO2 (25-50) mmHg VBG HCO3 (21-27) mEq/L Sodium (136-145) mEq/L Potassium (3.5-5.1) mEq/L Chloride (98-107) mEq/L Carbon Dioxide (23-29) mEq/L BUN (8-23) mg/dL Creatinine (0.70-1.30) mg/dL Est GFR ( Amer) (> 60) Est GFR (Non-Af Amer) (> 60) BUN/Creatinine Ratio (6-26) Glucose (70-105) mg/dL POC Glucose (70-99) mg/dL Calculated Osmolality (280-300) Lactic Acid 3.2 H (0.5-2.2) mmol/L Calcium (8.6-10.3) mg/dL Total Bilirubin (0.3-1.0) mg/dL AST (13-39) Units/L ALT (7-52) Units/L Alkaline Phosphatase (34-104) Units/L Troponin I (< 0.04) ng/mL B-Natriuretic Peptide 72 (Less than 100) pg/mL Serum Total Protein (6.4-8.9) g/dL Albumin (3.5-5.7) g/dL Globulin (2.4-3.5) g/dL Albumin/Globulin Ratio (1.1-2.2) Beta-Hydroxybutyric Acd 0.19 (0.02-0.27) mmol/L Urine Color (Yellow) Urine Clarity (Clear) Urine pH (5.0-8.0) pH Units Ur Specific [place] (1.010-1.025) Urine Protein (Neg-Trace) mg/dL Urine Glucose (UA) (Normal) mg/dL Urine Ketones (Negative) mg/dL Urine Blood (Negative) Urine Nitrite (Negative) Urine Bilirubin (Negative) Urine Urobilinogen (Normal) mg/dL Ur Leukocyte Esterase (Negative) Urine Microscopic RBC (0-3) per hpf Urine Microscopic WBC (0-3) per hpf Ur Squamous Epith Cells (None-Few) per lpf Urine Bacteria (None-Few) per hpf Hyaline Casts (None-Few) per lpf Ur Culture Indicated? (NO) 01/15/19 01/15/19 01/15/19 Range/Units 22:25 22:26 22:50 WBC (4.3-11.1) K/mcL RBC (4.19-5.50) M/mcL Hgb (12.9-16.9) g/dL Hct (37.5-50.1) % MCV (83.0-100.0) fL MCH (28.0-33.3) pg MCHC (31.6-35.5) g/dL RDW (11.5-14.5) % Plt Count (140-400) K/mcL MPV (9.4-12.4) fL Immature Gran % (0-4) % Seg Neutrophils % % Lymphocytes % % Monocytes % % Eosinophils % % Basophils % % Neutrophils # (1.6-8.9) K/mcL Lymphocytes # (0.6-4.6) K/mcL Monocytes # (0.0-1.3) K/mcL Eosinophils # (0.0-0.6) K/mcL Basophils # (0.0-0.2) K/mcL PT 10.2 (9.4-12.1) Seconds INR 0.9 VBG pH 7.36 (7.32-7.42) pH Units VBG pCO2 44 (41-51) mmHg VBG pO2 80 H (25-50) mmHg VBG HCO3 24 (21-27) mEq/L Sodium (136-145) mEq/L Potassium (3.5-5.1) mEq/L Chloride (98-107) mEq/L Carbon Dioxide (23-29) mEq/L BUN (8-23) mg/dL Creatinine (0.70-1.30) mg/dL Est GFR ( Amer) (> 60) Est GFR (Non-Af Amer) (> 60) BUN/Creatinine Ratio (6-26) Glucose (70-105) mg/dL POC Glucose > 600 H* (70-99) mg/dL Calculated Osmolality (280-300) Lactic Acid (0.5-2.2) mmol/L Calcium (8.6-10.3) mg/dL Total Bilirubin (0.3-1.0) mg/dL AST (13-39) Units/L ALT (7-52) Units/L Alkaline Phosphatase (34-104) Units/L Troponin I (< 0.04) ng/mL B-Natriuretic Peptide (Less than 100) pg/mL Serum Total Protein (6.4-8.9) g/dL Albumin (3.5-5.7) g/dL Globulin (2.4-3.5) g/dL Albumin/Globulin Ratio (1.1-2.2) Beta-Hydroxybutyric Acd (0.02-0.27) mmol/L Urine Color (Yellow) Urine Clarity (Clear) Urine pH (5.0-8.0) pH Units Ur Specific Julian (1.010-1.025) Urine Protein (Neg-Trace) mg/dL Urine Glucose (UA) (Normal) mg/dL Urine Ketones (Negative) mg/dL Urine Blood (Negative) Urine Nitrite (Negative) Urine Bilirubin (Negative) Urine Urobilinogen (Normal) mg/dL Ur Leukocyte Esterase (Negative) Urine Microscopic RBC (0-3) per hpf Urine Microscopic WBC (0-3) per hpf Ur Squamous Epith Cells (None-Few) per lpf Urine Bacteria (None-Few) per hpf Hyaline Casts (None-Few) per lpf Ur Culture Indicated? (NO) 07/13/19 07/14/19 07/14/19 Range/Units 23:30 00:53 00:54 WBC (4.3-11.1) K/mcL RBC (4.19-5.50) M/mcL Hgb (12.9-16.9) g/dL Hct (37.5-50.1) % MCV (83.0-100.0) fL MCH (28.0-33.3) pg MCHC (31.6-35.5) g/dL RDW (11.5-14.5) % Plt Count (140-400) K/mcL MPV (9.4-12.4) fL Immature Gran % (0-4) % Seg Neutrophils % % Lymphocytes % % Monocytes % % Eosinophils % % Basophils % % Neutrophils # (1.6-8.9) K/mcL Lymphocytes # (0.6-4.6) K/mcL Monocytes # (0.0-1.3) K/mcL Eosinophils # (0.0-0.6) K/mcL Basophils # (0.0-0.2) K/mcL PT (9.4-12.1) Seconds INR VBG pH (7.32-7.42) pH Units VBG pCO2 (41-51) mmHg VBG pO2 (25-50) mmHg VBG HCO3 (21-27) mEq/L Sodium (136-145) mEq/L Potassium (3.5-5.1) mEq/L Chloride (98-107) mEq/L Carbon Dioxide (23-29) mEq/L BUN (8-23) mg/dL Creatinine (0.70-1.30) mg/dL Est GFR ( Amer) (> 60) Est GFR (Non-Af Amer) (> 60) BUN/Creatinine Ratio (6-26) Glucose (70-105) mg/dL POC Glucose 568 H* 600 H* (70-99) mg/dL Calculated Osmolality (280-300) Lactic Acid (0.5-2.2) mmol/L Calcium (8.6-10.3) mg/dL Total Bilirubin (0.3-1.0) mg/dL AST (13-39) Units/L ALT (7-52) Units/L Alkaline Phosphatase (34-104) Units/L Troponin I (< 0.04) ng/mL B-Natriuretic Peptide (Less than 100) pg/mL Serum Total Protein (6.4-8.9) g/dL Albumin (3.5-5.7) g/dL Globulin (2.4-3.5) g/dL Albumin/Globulin Ratio (1.1-2.2) Beta-Hydroxybutyric Acd (0.02-0.27) mmol/L Urine Color Yellow (Yellow) Urine Clarity Clear (Clear) Urine pH 6.0 (5.0-8.0) pH Units Ur Specific Julian 1.027 H (1.010-1.025) Urine Protein >=300 H (Neg-Trace) mg/dL Urine Glucose (UA) >=1000 H (Normal) mg/dL Urine Ketones Negative (Negative) mg/dL Urine Blood Trace H (Negative) Urine Nitrite Negative (Negative) Urine Bilirubin Negative (Negative) Urine Urobilinogen Normal (Normal) mg/dL Ur Leukocyte Esterase Negative (Negative) Urine Microscopic RBC 5-15 H (0-3) per hpf Urine Microscopic WBC 30-50 H (0-3) per hpf Ur Squamous Epith Cells Many H (None-Few) per lpf Urine Bacteria None Seen (None-Few) per hpf Hyaline Casts None Seen (None-Few) per lpf Ur Culture Indicated? YES A (NO) - Radiology Data Radiology results reviewed: Yes I reviewed the patient's radiology results. - EKG Data EKG #1 EKG attestation: Yes I reviewed and interpreted this EKG. EKG results narrative: An EKG was obtained at 6 PM. EKG on my interpretation was notable for a flutter, right axis deviation, normal intervals, no hypertrophy, no T-wave inversions, no ST elevations or depressions with regard to Sgarbossa's criteria. Left Bundle-branch block noted. Compared to prior EKG from Nov 30 2018.
[2019-01-15 23:04] LABS: Alanine Aminotransferase 12 Units/L (7-52); Albumin 3.2 g/dL (3.5-5.7); Albumin/Globulin Ratio 1.1 (1.1-2.2); Alkaline Phosphatase 111 Units/L (34-104); Aspartate Amino Transferase 14 Units/L (13-39); BUN/Creatinine Ratio 13 (6-26); Bilirubin,Total 0.4 mg/dL (0.3-1.0); Blood Urea Nitrogen 19 mg/dL (8-23); Calcium 9.4 mg/dL (8.6-10.3); Carbon Dioxide 22 mEq/L (23-29); Chloride 91 mEq/L (98-107); Globulin 2.8 g/dL (2.4-3.5); Glucose 687 mg/dL (70-105); Osmolality,Calculated 291 (280-300); Potassium 4.4 mEq/L (3.5-5.1); Sodium 123 mEq/L (136-145); Troponin I < 0.03 ng/mL (< 0.04); eGFR For African Americans 59 (> 60); eGFR For Non-African Americans 49 (> 60)
[2019-01-15 23:44] LABS: Bilirubin,Urine Negative (Negative); Blood,Urine Trace (Negative); Clarity,Urine Clear (Clear); Color,Urine Yellow (Yellow); Glucose,Urine (UA) >=1000 mg/dL (Normal); Ketones,Urine Negative (Negative); Leukocyte Esterase,Urine Negative (Negative); Nitrite,Urine Negative (Negative); Protein,Urine >=300 mg/dL (Neg-Trace); Specific Gravity,Urine 1.027 (1.010-1.025); Urobilinogen,Urine Normal (Normal)
[2019-01-15 23:46] LABS: Bacteria,Urine None Seen per hpf (None-Few); Hyaline Casts,Urine None Seen per lpf (None-Few); Squamous Epithelial Cell,Urine Many per lpf (None-Few); WBC,Urine 30-50 per hpf (0-3)
[2019-01-16] MEDS ORDERED: Insulin Human Regular 8 UNIT in 0.9 % Sodium Chloride 10 ML IV ONE (00:52)
--- NOTE | 2019-01-16 01:27 | Emergency Department Note ---
Disposition Clinical Impression: Hyperglycemia due to type 2 diabetes mellitus Qualifiers: Diabetes mellitus long term care pharmacist insulin use: with senior care use Qualified Code(s): E11.65 - Type 2 diabetes mellitus with hyperglycemia Disposition: Admitted As Inpatient Condition: Good Time of Disposition: 00:50 General Adult HPI - General Chief complaint: ED General Medical Stated complaint: high blood sugar Time Seen by Provider: 01/15/19 21:58 Source: patient Mode of arrival: ambulatory Limitations: no limitations - History of Present Illness Pain Scale: 8 - Related Data Home Medications Medication Instructions Recorded Confirmed Omeprazole [PriLOSEC] 20 mg PO DAILY 04/27/18 01/16/19 Sertraline [Zoloft] 25 mg PO DAILY 04/27/18 01/16/19 risperiDONE [Risperidone] 1 mg PO DAILY 04/27/18 01/16/19 Atorvastatin [Lipitor] 40 mg PO HS 11/04/18 01/16/19 Gabapentin [Neurontin] 400 mg PO HS 11/04/18 01/16/19 Metformin HCl 1,000 mg PO BID 11/04/18 01/16/19 Pantoprazole Sodium [Protonix] 40 mg PO DAILY 11/04/18 01/16/19 Oxycodone HCl/Acetaminophen 1 each PO TID 11/30/18 01/16/19 [Percocet 7.5-325 mg Tablet] Previous Rx's Medication Instructions Recorded Acetaminophen [Tylenol] 650 mg PO Q6HR PRN tablet 01/20/18 Thiamine (B-1) [Vitamin B-1] 100 mg PO TID tablet 01/20/18 Aspirin Enteric Coated [Aspirin EC] 81 mg PO DAILY #30 tablet. 05/05/18 Carvedilol [Coreg] 6.25 mg PO BIDWM #60 tablet 05/05/18 DULoxetine [Cymbalta] 60 mg PO DAILY #30 capsule. 05/05/18 Amlodipine Besylate 10 mg PO DAILY #30 tablet 12/01/18 GlipiZIDE [Glucotrol] 5 mg PO BIDWM #60 tablet 12/01/18 Insulin Glargine [Lantus] 25 unit SQ BID #0 12/01/18 Allergies Allergy/AdvReac Type Severity Reaction Status Date / Time ticlopidine [From Ticlid] Allergy Hives Verified 11/30/18 17:18 carbidopa [From Sinemet] AdvReac Confusion Verified 11/30/18 17:18 levodopa [From Sinemet] AdvReac Confusion Verified 11/30/18 17:18 Constitutional: Denies: fever, chills, weakness Eyes: Reports: vision change. Denies: eye pain ENT ED: Denies: ear pain, throat pain Cardiovascular: Denies: chest pain, palpitations, dyspnea on exertion, syncope Respiratory: Denies: cough, dyspnea, wheezes Gastrointestinal: Reports: nausea. Denies: abdominal pain, vomiting Genitourinary: Denies: urgency, dysuria, frequency Musculoskeletal: Denies: back pain, neck pain Integumentary: Denies: rash, lesions Neurological: Denies: headache, weakness, numbness, paresthesias Psychiatric: Denies: anxiety, depression, suicidal thoughts Endocrine: Reports: polydipsia. Denies: fatigue Past Medical History - Past Medical History Medical history: Reports: arthritis, asthma, atrial fibrillation, cardiomyopathy, CHF, COPD, coronary artery disease, diabetes, GERD, hyperlipidemia, hypertension, myocardial infarction Surgical history: Reports: angioplasty/stent, coronary bypass (CABG), orthopedic, other, pacemaker/AICD, other Psychiatric history: Reports: anxiety, depression - Social History Smoking Status: Current every day smoker Smokeless Tobacco Status: No Alcohol use: Reports: none Drug use: Reports: none Physical Exam - General Limitations: no limitations General appearance: alert, anxious Course Vital Signs Temperature 97.8 F 01/15/19 21:49 Pulse Rate 117 01/15/19 21:49 Respiratory Rate 18 01/15/19 21:49 Blood Pressure 96/64 01/15/19 21:49 O2 Sat by Pulse Oximetry 100 01/15/19 21:49 Temperature 97.6 F 01/16/19 19:59 Pulse Rate 69 01/16/19 19:59 Respiratory Rate 16 01/16/19 19:59 Blood Pressure 126/77 01/16/19 19:59 O2 Sat by Pulse Oximetry 98 01/16/19 19:59 Oxygen Delivery Oxygen Delivery Room Air Medical Decision Making - Lab Data Result diagrams: 01/16/19 06:39 01/16/19 06:39 Lab Results 01/15/19 01/15/19 01/15/19 Range/Units 22:25 22:25 22:25 WBC 10.0 (4.3-11.1) K/mcL RBC 5.22 (4.19-5.50) M/mcL Hgb 14.4 (12.9-16.9) g/dL Hct 44.1 (37.5-50.1) % MCV 84.5 (83.0-100.0) fL MCH 27.6 L (28.0-33.3) pg MCHC 32.7 (31.6-35.5) g/dL RDW 14.9 H (11.5-14.5) % Plt Count 314 (140-400) K/mcL MPV 10.2 (9.4-12.4) fL Immature Gran % 0.3 (0-4) % Seg Neutrophils % 53.1 % Lymphocytes % 35.5 % Monocytes % 5.9 % Eosinophils % 3.4 % Basophils % 1.8 % Neutrophils # 5.3 (1.6-8.9) K/mcL Lymphocytes # 3.5 (0.6-4.6) K/mcL Monocytes # 0.6 (0.0-1.3) K/mcL Eosinophils # 0.3 (0.0-0.6) K/mcL Basophils # 0.2 (0.0-0.2) K/mcL PT (9.4-12.1) Seconds INR VBG pH (7.32-7.42) pH Units VBG pCO2 (41-51) mmHg VBG pO2 (25-50) mmHg VBG HCO3 (21-27) mEq/L Sodium 123 L (136-145) mEq/L Potassium 4.4 (3.5-5.1) mEq/L Chloride 91 L (98-107) mEq/L Carbon Dioxide 22 L (23-29) mEq/L BUN 19 (8-23) mg/dL Creatinine 1.46 H (0.70-1.30) mg/dL Est GFR ( Amer) 59 L (> 60) Est GFR (Non-Af Amer) 49 L (> 60) BUN/Creatinine Ratio 13 (6-26) Glucose 687 H* (70-105) mg/dL POC Glucose > 600 H* (70-99) mg/dL Calculated Osmolality 291 (280-300) Lactic Acid (0.5-2.2) mmol/L Calcium 9.4 (8.6-10.3) mg/dL Total Bilirubin 0.4 (0.3-1.0) mg/dL AST 14 (13-39) Units/L ALT 12 (7-52) Units/L Alkaline Phosphatase 111 H (34-104) Units/L Troponin I < 0.03 (< 0.04) ng/mL B-Natriuretic Peptide (Less than 100) pg/mL Serum Total Protein 6.0 L (6.4-8.9) g/dL Albumin 3.2 L (3.5-5.7) g/dL Globulin 2.8 (2.4-3.5) g/dL Albumin/Globulin Ratio 1.1 (1.1-2.2) Beta-Hydroxybutyric Acd (0.02-0.27) mmol/L Urine Color (Yellow) Urine Clarity (Clear) Urine pH (5.0-8.0) pH Units Ur Specific [place] (1.010-1.025) Urine Protein (Neg-Trace) mg/dL Urine Glucose (UA) (Normal) mg/dL Urine Ketones (Negative) mg/dL Urine Blood (Negative) Urine Nitrite (Negative) Urine Bilirubin (Negative) Urine Urobilinogen (Normal) mg/dL Ur Leukocyte Esterase (Negative) Urine Microscopic RBC (0-3) per hpf Urine Microscopic WBC (0-3) per hpf Ur Squamous Epith Cells (None-Few) per lpf Urine Bacteria (None-Few) per hpf Hyaline Casts (None-Few) per lpf Ur Culture Indicated? (NO) 01/15/19 01/15/19 01/15/19 Range/Units 22:25 22:25 22:25 WBC (4.3-11.1) K/mcL RBC (4.19-5.50) M/mcL Hgb (12.9-16.9) g/dL Hct (37.5-50.1) % MCV (83.0-100.0) fL MCH (28.0-33.3) pg MCHC (31.6-35.5) g/dL RDW (11.5-14.5) % Plt Count (140-400) K/mcL MPV (9.4-12.4) fL Immature Gran % (0-4) % Seg Neutrophils % % Lymphocytes % % Monocytes % % Eosinophils % % Basophils % % Neutrophils # (1.6-8.9) K/mcL Lymphocytes # (0.6-4.6) K/mcL Monocytes # (0.0-1.3) K/mcL Eosinophils # (0.0-0.6) K/mcL Basophils # (0.0-0.2) K/mcL PT (9.4-12.1) Seconds INR VBG pH (7.32-7.42) pH Units VBG pCO2 (41-51) mmHg VBG pO2 (25-50) mmHg VBG HCO3 (21-27) mEq/L Sodium (136-145) mEq/L Potassium (3.5-5.1) mEq/L Chloride (98-107) mEq/L Carbon Dioxide (23-29) mEq/L BUN (8-23) mg/dL Creatinine (0.70-1.30) mg/dL Est GFR ( Amer) (> 60) Est GFR (Non-Af Amer) (> 60) BUN/Creatinine Ratio (6-26) Glucose (70-105) mg/dL POC Glucose (70-99) mg/dL Calculated Osmolality (280-300) Lactic Acid 3.2 H (0.5-2.2) mmol/L Calcium (8.6-10.3) mg/dL Total Bilirubin (0.3-1.0) mg/dL AST (13-39) Units/L ALT (7-52) Units/L Alkaline Phosphatase (34-104) Units/L Troponin I (< 0.04) ng/mL B-Natriuretic Peptide 72 (Less than 100) pg/mL Serum Total Protein (6.4-8.9) g/dL Albumin (3.5-5.7) g/dL Globulin (2.4-3.5) g/dL Albumin/Globulin Ratio (1.1-2.2) Beta-Hydroxybutyric Acd 0.19 (0.02-0.27) mmol/L Urine Color (Yellow) Urine Clarity (Clear) Urine pH (5.0-8.0) pH Units Ur Specific [place] (1.010-1.025) Urine Protein (Neg-Trace) mg/dL Urine Glucose (UA) (Normal) mg/dL Urine Ketones (Negative) mg/dL Urine Blood (Negative) Urine Nitrite (Negative) Urine Bilirubin (Negative) Urine Urobilinogen (Normal) mg/dL Ur Leukocyte Esterase (Negative) Urine Microscopic RBC (0-3) per hpf Urine Microscopic WBC (0-3) per hpf Ur Squamous Epith Cells (None-Few) per lpf Urine Bacteria (None-Few) per hpf Hyaline Casts (None-Few) per lpf Ur Culture Indicated? (NO) 01/15/19 01/15/19 01/15/19 Range/Units 22:25 22:26 22:50 WBC (4.3-11.1) K/mcL RBC (4.19-5.50) M/mcL Hgb (12.9-16.9) g/dL Hct (37.5-50.1) % MCV (83.0-100.0) fL MCH (28.0-33.3) pg MCHC (31.6-35.5) g/dL RDW (11.5-14.5) % Plt Count (140-400) K/mcL MPV (9.4-12.4) fL Immature Gran % (0-4) % Seg Neutrophils % % Lymphocytes % % Monocytes % % Eosinophils % % Basophils % % Neutrophils # (1.6-8.9) K/mcL Lymphocytes # (0.6-4.6) K/mcL Monocytes # (0.0-1.3) K/mcL Eosinophils # (0.0-0.6) K/mcL Basophils # (0.0-0.2) K/mcL PT 10.2 (9.4-12.1) Seconds INR 0.9 VBG pH 7.36 (7.32-7.42) pH Units VBG pCO2 44 (41-51) mmHg VBG pO2 80 H (25-50) mmHg VBG HCO3 24 (21-27) mEq/L Sodium (136-145) mEq/L Potassium (3.5-5.1) mEq/L Chloride (98-107) mEq/L Carbon Dioxide (23-29) mEq/L BUN (8-23) mg/dL Creatinine (0.70-1.30) mg/dL Est GFR ( Amer) (> 60) Est GFR (Non-Af Amer) (> 60) BUN/Creatinine Ratio (6-26) Glucose (70-105) mg/dL POC Glucose > 600 H* (70-99) mg/dL Calculated Osmolality (280-300) Lactic Acid (0.5-2.2) mmol/L Calcium (8.6-10.3) mg/dL Total Bilirubin (0.3-1.0) mg/dL AST (13-39) Units/L ALT (7-52) Units/L Alkaline Phosphatase (34-104) Units/L Troponin I (< 0.04) ng/mL B-Natriuretic Peptide (Less than 100) pg/mL Serum Total Protein (6.4-8.9) g/dL Albumin (3.5-5.7) g/dL Globulin (2.4-3.5) g/dL Albumin/Globulin Ratio (1.1-2.2) Beta-Hydroxybutyric Acd (0.02-0.27) mmol/L Urine Color (Yellow) Urine Clarity (Clear) Urine pH (5.0-8.0) pH Units Ur Specific [place] (1.010-1.025) Urine Protein (Neg-Trace) mg/dL Urine Glucose (UA) (Normal) mg/dL Urine Ketones (Negative) mg/dL Urine Blood (Negative) Urine Nitrite (Negative) Urine Bilirubin (Negative) Urine Urobilinogen (Normal) mg/dL Ur Leukocyte Esterase (Negative) Urine Microscopic RBC (0-3) per hpf Urine Microscopic WBC (0-3) per hpf Ur Squamous Epith Cells (None-Few) per lpf Urine Bacteria (None-Few) per hpf Hyaline Casts (None-Few) per lpf Ur Culture Indicated? (NO) 01/15/19 01/16/19 01/16/19 Range/Units 23:30 00:53 00:54 WBC (4.3-11.1) K/mcL RBC (4.19-5.50) M/mcL Hgb (12.9-16.9) g/dL Hct (37.5-50.1) % MCV (83.0-100.0) fL MCH (28.0-33.3) pg MCHC (31.6-35.5) g/dL RDW (11.5-14.5) % Plt Count (140-400) K/mcL MPV (9.4-12.4) fL Immature Gran % (0-4) % Seg Neutrophils % % Lymphocytes % % Monocytes % % Eosinophils % % Basophils % % Neutrophils # (1.6-8.9) K/mcL Lymphocytes # (0.6-4.6) K/mcL Monocytes # (0.0-1.3) K/mcL Eosinophils # (0.0-0.6) K/mcL Basophils # (0.0-0.2) K/mcL PT (9.4-12.1) Seconds INR VBG pH (7.32-7.42) pH Units VBG pCO2 (41-51) mmHg VBG pO2 (25-50) mmHg VBG HCO3 (21-27) mEq/L Sodium (136-145) mEq/L Potassium (3.5-5.1) mEq/L Chloride (98-107) mEq/L Carbon Dioxide (23-29) mEq/L BUN (8-23) mg/dL Creatinine (0.70-1.30) mg/dL Est GFR ( Amer) (> 60) Est GFR (Non-Af Amer) (> 60) BUN/Creatinine Ratio (6-26) Glucose (70-105) mg/dL POC Glucose 568 H* 600 H* (70-99) mg/dL Calculated Osmolality (280-300) Lactic Acid (0.5-2.2) mmol/L Calcium (8.6-10.3) mg/dL Total Bilirubin (0.3-1.0) mg/dL AST (13-39) Units/L ALT (7-52) Units/L Alkaline Phosphatase (34-104) Units/L Troponin I (< 0.04) ng/mL B-Natriuretic Peptide (Less than 100) pg/mL Serum Total Protein (6.4-8.9) g/dL Albumin (3.5-5.7) g/dL Globulin (2.4-3.5) g/dL Albumin/Globulin Ratio (1.1-2.2) Beta-Hydroxybutyric Acd (0.02-0.27) mmol/L Urine Color Yellow (Yellow) Urine Clarity Clear (Clear) Urine pH 6.0 (5.0-8.0) pH Units Ur Specific [place] 1.027 H (1.010-1.025) Urine Protein >=300 H (Neg-Trace) mg/dL Urine Glucose (UA) >=1000 H (Normal) mg/dL Urine Ketones Negative (Negative) mg/dL Urine Blood Trace H (Negative) Urine Nitrite Negative (Negative) Urine Bilirubin Negative (Negative) Urine Urobilinogen Normal (Normal) mg/dL Ur Leukocyte Esterase Negative (Negative) Urine Microscopic RBC 5-15 H (0-3) per hpf Urine Microscopic WBC 30-50 H (0-3) per hpf Ur Squamous Epith Cells Many H (None-Few) per lpf Urine Bacteria None Seen (None-Few) per hpf Hyaline Casts None Seen (None-Few) per lpf Ur Culture Indicated? YES A (NO) Attestation Statement - Attestation Attestation: I examined this patient and my medical decision-making was reviewed with the Resident Physician. I agree with the documented findings, disposition and treatment plan as described except to the extent set forth below. Patient is a 63-year-old gentleman who presents to the emergency department with chief complaint of elevated blood sugar. The patient reports she has had a little bit of blurry vision with this and has also had a cough with this. Physical exam patient awake alert no acute distress Medical decision management the patient's family significant hyperglycemic the patient was hydrated in the emergency Department gently due to his history of congestive heart failure. Patient was given an IV bolus of insulin in the emergency department the patient will be admitted to the medical floor for fur ther management of his hyperglycemia.
[2019-01-16] MEDS ORDERED: *HR* Dextrose 50 % in Water (Syg) 50 ML SYRINGE IVP PRN (03:58)
[2019-01-16] MEDS ORDERED: Naloxone 0.4 MG/ML INJ IVP PRN (03:58)
[2019-01-16] MEDS ORDERED: Acetaminophen 325 MG TABLET PO PRN (03:58)
[2019-01-16] MEDS ORDERED: D5% in Water 1,000 ML IVC PRN (03:58)
[2019-01-16] MEDS ORDERED: Dextrose Gel 15 GM/37.5 ML TUBE PO PRN ×2 (03:58)
[2019-01-16] MEDS ORDERED: Ondansetron 4 MG/2 ML VIAL IVP PRN (03:58)
[2019-01-16] MEDS ORDERED: *HR* OxyCODONE/APAP 7.5/325 TABLET PO PRN (04:03)
--- NOTE | 2019-01-16 04:11 | Internal Med History&Physical ---
Date of Encounter: 01/16/19 Time of Encounter: 03:15 Internal Medicine - H&P: HPI Chief complaint: high glucose Admitted From: Emergency Dept Plans for Post Hospital Care: Home History of present illness: Mr. Wylie is a 63 year old male who presents to the ER tonight with complaints of high glucose, vision changes, polyuria, and polydipsia. He noticed his glucose was greater than 500. He therefore came to ER where his glucose was in excess of 600. He was not in DKA and did not have any evidence of acidosis and/or ketosis. He was given IV fluids and a dose of IV insulin in the ER and admitted to hospitalist service. Currently, his glucose is 264. He states he feels better. He complains of having some dysuria, but he denies any fever, cough, congestion, nausea, vomiting, or diarrhea. He is on metformin, glipizide, and Lantus insulin. He seldom checks his glucose, and his diet is suboptimal. He appears to be depressed and informs me that his no longer wants him in the house since he had his left leg amputated several months ago. He states he has nowhere to go now and is homeless. He denies any suicidal or homicidal thoughts. However, he admits to feeling depressed since told him she does not want him in the house. Past Med Surg Social Fam HX - Past Medical History Attestation: Yes The following information was validated with the patient. Source: patient, old records reviewed Medical history: arthritis, asthma, atrial fibrillation, cardiomyopathy, CHF, COPD, coronary artery disease, diabetes, GERD, hyperlipidemia, hypertension, myocardial infarction Additional medical history: MRSA Psychiatric history: anxiety, depression - Past Surgical History Surgical History: angioplasty/stent, coronary bypass (CABG), orthopedic, other, pacemaker/AICD, other Additional surgical history: left AKA, rt leg bypass rt great toe amp., Pacemaker/defibillator - Social History Smoking Status: Current every day smoker Packs per day: 1 Smokeless Tobacco Status: No Alcohol use: none Drug use: none Current living situation: Home, With Family Activity Level: Wheelchair bound Recent Out of Country Travel Within the Last 8 Weeks: No - Family History Mother Living Status: Still Living Hx Family Cancer: Yes (kidney cancer) Father Living Status: Hx Family Cancer: Yes Internal Medicine - H&P: Meds Acetaminophen [Tylenol] 650 mg PO Q6HR PRN tablet 01/20/18 [Rx] Thiamine (B-1) [Vitamin B-1] 100 mg PO TID tablet 01/20/18 [Rx] Omeprazole [PriLOSEC] 20 mg PO DAILY 04/27/18 [History] Sertraline [Zoloft] 25 mg PO DAILY 04/27/18 [History] risperiDONE [Risperidone] 1 mg PO DAILY 04/27/18 [History] Aspirin Enteric Coated [Aspirin EC] 81 mg PO DAILY #30 tablet. 05/05/18 [Rx] Carvedilol [Coreg] 6.25 mg PO BIDWM #60 tablet 05/05/18 [Rx] DULoxetine [Cymbalta] 60 mg PO DAILY #30 capsule. 05/05/18 [Rx] Atorvastatin [Lipitor] 40 mg PO HS 11/04/18 [History] Gabapentin [Neurontin] 400 mg PO HS 11/04/18 [History] Metformin HCl 1,000 mg PO BID 11/04/18 [History] Pantoprazole Sodium [Protonix] 40 mg PO DAILY 11/04/18 [History] Oxycodone HCl/Acetaminophen [Percocet 7.5-325 mg Tablet] 1 each PO TID 11/30/18 [History] Amlodipine Besylate 10 mg PO DAILY #30 tablet 12/01/18 [Rx] GlipiZIDE [Glucotrol] 5 mg PO BIDWM #60 tablet 12/01/18 [Rx] Insulin Glargine [Lantus] 25 unit SQ BID #0 12/01/18 [Rx] Allergy/AdvReac Type Severity Reaction Status Date / Time ticlopidine [From Ticlid] Allergy Hives Verified 11/30/18 17:18 carbidopa [From Sinemet] AdvReac Confusion Verified 11/30/18 17:18 levodopa [From Sinemet] AdvReac Confusion Verified 11/30/18 17:18 - Constitutional Constitutional: no chills, no fever(s), no night sweats - EENT Eyes: blurry vision Ears: no ear pain, no tinnitus Nose, mouth and throat: no nasal congestion, no sinus pressure, no sore throat - Cardiovascular Cardiovascular ROS IM: no chest pain, no dyspnea, no dyspnea on exertion - Respiratory Respiratory: no cough, no chest congestion, no excessive phlegm production, no change in phlegm color - Gastrointestinal Gastrointestinal: no abdominal pain, no diarrhea, no hematemesis, no hematochezia, no melena, no nausea, no vomiting - Genitourinary Genitourinary ROS male: dysuria, no flank pain, no hematuria - Musculoskeletal Musculoskeletal ROS IM: no arthralgias, no back pain - Integumentary Integumentary IM: no rash, no jaundice - Neurological Neurological ROS: no convulsions, no disequilibrium, no dizziness, no focal weakness, no frequent falls, no headache(s) - Psychiatric Psychiatric: depression, no anxiety, no homicidal ideation, no suicidal ideation - Endocrine Endocrine IM: polydipsia, polyuria, no polyphagia - Allergic/Immunologic Allergic/Immunologic: no GI upset with certain foods - Constitutional Vitals: Temp Pulse Resp BP Pulse Ox 97.8 F 69 20 132/73 94 01/15/19 21:49 01/16/19 00:34 01/16/19 00:34 01/16/19 00:34 01/16/19 00:34 General appearance: Present: cooperative, A&O X 3, pleasant, no acute distress, answers questions appropriately Exam: looks dry - Head Head exam: Present: atraumatic, normal inspection - Eye Eye exam: Present: EOMI, PERRL. Absent: scleral icterus Pupils: Present: normal accommodation - ENT ENT exam: Present: mucous membranes dry, normal exam, normal oropharynx - Neck Neck exam general surgery: Present: full ROM, supple, trachea midline. Absent: tenderness, nuchal rigidity, thyromegaly - Respiratory Respiratory exam: Present: CTAB. Absent: chest wall tenderness, rales, rhonchi, wheezes - Cardiovascular Cardiovascular exam: Present: distant heart sounds, +S1, +S2. Absent: diastolic murmur, systolic murmur - GI/Abdominal GI/Abdominal exam: Present: normal bowel sounds, soft. Absent: guarding, hepatomegaly, mass, rebound, splenomegaly, tenderness - Extremities Exam Extremities exam: Present: full ROM, normal capillary refill, warm, radial pulses palpable and symmetrical. Absent: calf tenderness, joint swelling, pedal edema, tenderness Additional comments: L AKA - Back Exam Back exam: Absent: CVA tenderness (L), CVA tenderness (R) - Neurological Exam Neurological exam: Present: alert, CN II-XII intact, oriented X3, no focal deficits, strengths equal and symetr throughout - Psychiatric Psychiatric exam: Present: normal affect, normal mood - Skin Skin exam: Present: dry, intact, warm Internal Med - H&P Results - Labs CBC & Chem 7: 01/15/19 22:25 01/15/19 22:25 Labs: Short CBC 01/15/19 Range/Units 22:25 WBC 10.0 (4.3-11.1) K/mcL Hgb 14.4 (12.9-16.9) g/dL Hct 44.1 (37.5-50.1) % Plt Count 314 (140-400) K/mcL Neutrophils # 5.3 (1.6-8.9) K/mcL BMP 01/15/19 22:25 Sodium 123 L Potassium 4.4 Chloride 91 L Carbon Dioxide 22 L BUN 19 Creatinine 1.46 H Glucose 687 H* Calcium 9.4 Cardiac Enzymes 01/15/19 Range/Units 22:25 Troponin I < 0.03 (< 0.04) ng/mL Liver Function 01/15/19 Range/Units 22:25 Total Bilirubin 0.4 (0.3-1.0) mg/dL AST 14 (13-39) Units/L ALT 12 (7-52) Units/L Alkaline Phosphatase 111 H (34-104) Units/L Albumin 3.2 L (3.5-5.7) g/dL Urine 01/15/19 Range/Units 23:30 Urine Color Yellow (Yellow) Urine Clarity Clear (Clear) Urine pH 6.0 (5.0-8.0) pH Units Ur Specific [place] 1.027 H (1.010-1.025) Urine Protein >=300 H (Neg-Trace) mg/dL Urine Glucose (UA) >=1000 H (Normal) mg/dL - ABG Interpretation ABG results: 01/15/19 22:50 VBG pH 7.36 VBG pCO2 44 VBG pO2 80 H VBG HCO3 24 - Impressions ITS Impressions Chest X-Ray 01/15/19 22:35 IMPRESSION: No acute disease. D/ / Gama Verde MD / Gama Verde MD Interpreting Provider: Gama Verde MD - Diagnostic Studies Chest x-ray Status: image reviewed by me (negative) - Assessment and Plan (1) Hyperglycemia due to type 2 diabetes mellitus Current Visit: Yes Status: Acute Assessment and plan: 1. Will place on Lantus and SSI. 2. Continue IVF. 3. Monitor glucose closely. 4. Diabetic education and counseling. Qualifiers: Diabetes mellitus group home insulin use: with bed bug exterminator use Qualified Code(s): E11.65 - Type 2 diabetes mellitus with hyperglycemia; Z79.4 - senior care (current) use of insulin (2) Lactic acidosis Current Visit: Yes Status: Acute Assessment and plan: 1. Likely due to Metformin use in the setting of JARED. 2. Stop oral diabetic meds. 3. IVF hydration. 4. Trend lactate levels. (3) Acute kidney injury Current Visit: Yes Status: Acute Assessment and plan: 1. IVF hydration. 2. Hold BP meds. 3. Monitor renal function and I/O's. 4. Consult nephrology if renal function does not improve. (4) Urinary tract infection Current Visit: Yes Status: Acute Assessment and plan: 1. Urine culture obtained. 2. Start Rocephin. Qualifiers: Urinary tract infection type: acute cystitis Hematuria presence: without hematuria Qualified Code(s): N30.00 - Acute cystitis without hematuria (5) Homelessness Current Visit: Yes Status: Acute Assessment and plan: 1. Consult social work case manager. (6) DVT prophylaxis Current Visit: Yes Status: Acute Assessment and plan: 1. Heparin SQ.
[2019-01-16] MEDS: *HR* Heparin 5,000 UNIT/ML VIAL SQ SCH ×2 (04:45→16:54)
[2019-01-16] MEDS: cefTRIAXone 1,000 MG in Water for inj. (sterile) 10 ML IVP SCH (04:46)
[2019-01-16] MEDS: 0.9 % Sodium Chloride 1,000 ML IVC SCH ×2 (04:47→11:30)
[2019-01-16 06:52] LABS: Basophils # 0.2 K/mcL (0.0-0.2); Basophils % 1.6 %; Eosinophils # 0.5 K/mcL (0.0-0.6); Eosinophils % 4.5 %; Hematocrit 40.2 % (37.5-50.1); Hemoglobin 13.4 g/dL (12.9-16.9); Immature Granulocytes % 0.4 % (0-4); Lymphocytes # 4.2 K/mcL (0.6-4.6); Mean Corpuscular HGB Conc 33.3 g/dL (31.6-35.5); Mean Corpuscular Hemoglobin 27.8 pg (28.0-33.3); Mean Corpuscular Volume 83.4 fL (83.0-100.0); Monocytes # 0.7 K/mcL (0.0-1.3); Monocytes % 6.8 %; Neutrophils # 4.9 K/mcL (1.6-8.9); Platelet Count 284 K/mcL (140-400); Red Blood Count 4.82 M/mcL (4.19-5.50); Red Cell Distribution Width 14.9 % (11.5-14.5); Segmented Neutrophils % 46.7 %; White Blood Count 10.6 K/mcL (4.3-11.1)
[2019-01-16] MEDS ORDERED: NON-FORMULARY MEDICATION 1 EACH EACH (Insulin Glargine [Lantus] 25 UNIT) SQ SCH (07:00)
[2019-01-16] MEDS ORDERED: Insulin DETEMIR 100 UNIT/ML X5UNITS SQ SCH (07:00)
[2019-01-16 07:17] LABS: Alanine Aminotransferase 10 Units/L (7-52); Albumin 2.8 g/dL (3.5-5.7); Alkaline Phosphatase 106 Units/L (34-104); Aspartate Amino Transferase 11 Units/L (13-39); BUN/Creatinine Ratio 16 (6-26); Bilirubin,Total 0.3 mg/dL (0.3-1.0); Blood Urea Nitrogen 20 mg/dL (8-23); Calcium 9.1 mg/dL (8.6-10.3); Carbon Dioxide 24 mEq/L (23-29); Chloride 100 mEq/L (98-107); Globulin 2.7 g/dL (2.4-3.5); Glucose 222 mg/dL (70-105); Osmolality,Calculated 281 (280-300); Potassium 4.1 mEq/L (3.5-5.1); Sodium 131 mEq/L (136-145); Total Protein 5.5 g/dL (6.4-8.9); eGFR For African Americans > 60 (> 60); eGFR For Non-African Americans 57 (> 60)
[2019-01-16] MEDS: Aspirin Enteric Coated 81 MG Tablet PO SCH (09:07)
[2019-01-16] MEDS: risperiDONE 1 MG TABLET PO SCH (09:07)
[2019-01-16] MEDS: Insulin LISPRO 300 UNITS/3 ML VIAL SQ SCH ×3 (09:08→16:47)
--- NOTE | 2019-01-16 12:18 | Event Note ---
Date of Encounter: 01/16/19 Time of Encounter: 12:16 Started today. Tolerating oral diet. Hyperosmolar hyperglycemic state now resolved. Continue subcutaneous insulin. Lactic acidosis and acute kidney injury have also resolved. Monitor blood sugars closely. Consult social services technician for discharge needs
[2019-01-16] MEDS: Insulin DETEMIR 100 UNIT/ML X5UNITS SQ SCH (20:43)
[2019-01-16] MEDS: Gabapentin 400 MG CAPSULE PO SCH (20:43)
[2019-01-17] MEDS: *HR* Heparin 5,000 UNIT/ML VIAL SQ SCH ×2 (05:34→17:54)
[2019-01-17 06:16] LABS: Basophils # 0.2 K/mcL (0.0-0.2); Basophils % 1.4 %; Eosinophils # 0.4 K/mcL (0.0-0.6); Eosinophils % 3.8 %; Hematocrit 41.3 % (37.5-50.1); Hemoglobin 13.4 g/dL (12.9-16.9); Immature Granulocytes % 0.4 % (0-4); Lymphocytes # 3.6 K/mcL (0.6-4.6); Lymphocytes % 34.6 %; Mean Corpuscular HGB Conc 32.4 g/dL (31.6-35.5); Mean Corpuscular Volume 86.4 fL (83.0-100.0); Mean Platelet Volume 10.3 fL (9.4-12.4); Monocytes # 0.7 K/mcL (0.0-1.3); Monocytes % 6.3 %; Neutrophils # 5.6 K/mcL (1.6-8.9); Platelet Count 318 K/mcL (140-400); Red Blood Count 4.78 M/mcL (4.19-5.50); Red Cell Distribution Width 15.4 % (11.5-14.5); Segmented Neutrophils % 53.5 %; White Blood Count 10.4 K/mcL (4.3-11.1)
[2019-01-17 07:08] LABS: BUN/Creatinine Ratio 13 (6-26); Blood Urea Nitrogen 18 mg/dL (8-23); Calcium 9.6 mg/dL (8.6-10.3); Carbon Dioxide 25 mEq/L (23-29); Chloride 108 mEq/L (98-107); Glucose 48 mg/dL (70-105); Osmolality,Calculated 291 (280-300); Potassium 3.7 mEq/L (3.5-5.1); Sodium 141 mEq/L (136-145); eGFR For African Americans > 60 (> 60); eGFR For Non-African Americans 54 (> 60)
[2019-01-17] MEDS: Insulin LISPRO 300 UNITS/3 ML VIAL SQ SCH ×3 (08:03→17:52)
[2019-01-17] MEDS: cefTRIAXone 1,000 MG in Water for inj. (sterile) 10 ML IVP SCH (08:57)
[2019-01-17] MEDS: risperiDONE 1 MG TABLET PO SCH (08:58)
[2019-01-17] MEDS: Aspirin Enteric Coated 81 MG Tablet PO SCH (08:58)
[2019-01-17] MEDS: Insulin DETEMIR 100 UNIT/ML X5UNITS SQ SCH ×2 (09:17→21:55)
[2019-01-17 10:50] LABS: Estimated Average Glucose 355 mg/dl
--- NOTE | 2019-01-17 15:17 | Internal Med Progress Note ---
Hospitalist Progress Note - Encounter Date of Encounter: 01/17/19 Time of Encounter: 11:30 - Subjective Interval History: Mr. Wylie is a 63 year old male with known PMH of asthma, cardiomyopathy, CAD, hypertension, hyperlipidemia, GERD and systolci CHF pt presented to the ER with complaints of high blood sugars, vision changes, polyuria, and polydipsia. He noticed his glucose was greater than 500. He therefore came to ER where his glucose was in excess of 600. He was not in DKA and did not have any evidence of acidosis and/or ketosis. Was admitted in the hospital and started him on IV hydration. Also patient was started on insulin sliding scale along with levemir 20 U BID. Patient still having fluctuations in his blood sugar. This morning his BS dropped down to 48. Now he is alert, awake , O x 3 . Denied any CP / SOB. Looks pale and lethargic. - Exam Vitals: Temp Pulse Resp BP Pulse Ox 97.6 F 72 15 92/61 93 01/17/19 11:52 01/17/19 11:52 01/17/19 11:52 01/17/19 11:52 01/17/19 11:52 Exam: Gen: Alert, awake, Oriented to time,place and person.. Looks pale and lethargic Chest: Diminished breath sounds B/L, No wheezing, No crackles, No rales Heart: S1S2+ RRR No murmurs Abd: Soft, NT, BS +, No organomegaly Ext: No edema, pulses are palpable, No calf tenderness Neuro : No acute focal neuro deficits noticed Skin: No rash. - Assessment and Plan (1) Hyperglycemia due to type 2 diabetes mellitus Current Visit: Yes Status: Acute Assessment and Plan: Due to to noncompliance with his medications His HbA1C @ 14.0 He does need to be on Insulin Since his BS still fluctuating, does need close monitoring of his sugars cut down on Levemir to 10 U BID cont ISS @ low Patient does need to stay in the hospital more than 2 midnights due to his complex medical problems with fluctuation BS, need close monitoring on tele. So we will change him to full admission today. I did review my colleague Dr. Ray's H & P including HPI, PMH, PSH, FH, SH, and ROS no changes noticed (2) Acute kidney injury Current Visit: Yes Status: Acute Assessment and Plan: JARED vs CKD-3 It does look like he does have CKD-3 His baseline Creatinine might be @ 1.3 need outpatient follow-up with post framer (3) Urinary tract infection Current Visit: Yes Status: Acute Assessment and Plan: UA - abnormal cont empirical abx Rocephin will f/u on urine cx (4) Cardiomyopathy Current Visit: Yes Status: Chronic Assessment and Plan: Reviewed his 2 D Echo from 2014 showed slightly reduced LVEF will check 2 D Echo not in exacerbation (5) Lactic acidosis Current Visit: Yes Status: Acute Assessment and Plan: Likely due to dehydration and Metformin use in the setting of JARED. Held oral diabetic meds. Gentle IVF hydration improved lactic acid (6) Homelessness Current Visit: Yes Status: Acute Assessment and Plan: Consulted social worker psychiatric for placement (7) DVT prophylaxis Current Visit: Yes Status: Chronic Assessment and Plan: Heparin SQ. - Time Spent with Patient Total time spent is greater than 50% in coordination of care (as documented) at patient's floor/unit and/or counseling patient: Internal Medicine: Result - Labs CBC & Chem 7: 01/17/19 05:22 01/17/19 05:22 Labs: Short CBC 01/17/19 Range/Units 05:22 WBC 10.4 (4.3-11.1) K/mcL Hgb 13.4 (12.9-16.9) g/dL Hct 41.3 (37.5-50.1) % Plt Count 318 (140-400) K/mcL Neutrophils # 5.6 (1.6-8.9) K/mcL BMP 01/17/19 05:22 Sodium 141 D Potassium 3.7 Chloride 108 H Carbon Dioxide 25 BUN 18 Creatinine 1.34 H Glucose 48 L Calcium 9.6 - ABG Interpretation ABG results: PT/INR, D-dimer PT 10.2 Seconds (9.4-12.1) 01/15/19 22:25 Consult Discharge Plan - Plan Referrals: Cora Pinto, ON CAR SUPERVISOR [Primary Care Provider] - (1) Hyperglycemia due to type 2 diabetes mellitus Qualifiers: Diabetes mellitus care home insulin use: with terminal gauger use Qualified Code(s): E11.65 - Type 2 diabetes mellitus with hyperglycemia; Z79.4 - skilled nursing (current) use of insulin (3) Urinary tract infection Qualifiers: Urinary tract infection type: acute cystitis Hematuria presence: without hematuria Qualified Code(s): N30.00 - Acute cystitis without hematuria (4) Cardiomyopathy Qualifiers: Cardiomyopathy type: unspecified Qualified Code(s): I42.9 - Cardiomyopathy, unspecified
--- NOTE | 2019-01-17 17:03 | Electrocardiograph Report ---
[address] [address] Test Date: 2019-01-16 Pat Name: Sidney Wylie Department: 113 Room: [facility] Gender: M Services Clerk: : 1955 Requested By: Jurgen Ray Order Number: [id number] Reading MD: Tanmay Mattson Measurements Intervals [place] Rate: 70 P: MT: 0 QRS: 238 QRSD: 164 T: 77 QT: 457 QTc: 477 Interpretive Statements ELECTRONIC VENTRICULAR PACEMAKER ABNORMAL RHYTHM ECG Electronically Signed On 01-17-2019 17:01:35 EDT by Tanmay Mattson
[2019-01-17] MEDS: Gabapentin 400 MG CAPSULE PO SCH (21:55)
[2019-01-18] MEDS: *HR* Heparin 5,000 UNIT/ML VIAL SQ SCH ×2 (04:41→17:53)
[2019-01-18] MEDS: risperiDONE 1 MG TABLET PO SCH (09:49)
[2019-01-18] MEDS: cefTRIAXone 1,000 MG in Water for inj. (sterile) 10 ML IVP SCH (09:49)
[2019-01-18] MEDS: Insulin LISPRO 300 UNITS/3 ML VIAL SQ SCH ×3 (09:50→17:53)
[2019-01-18] MEDS: Aspirin Enteric Coated 81 MG Tablet PO SCH (09:51)
[2019-01-18] MEDS: Insulin DETEMIR 100 UNIT/ML X5UNITS SQ SCH ×2 (10:54→21:21)
[2019-01-18] MEDS ORDERED: Haloperidol Lactate 5 MG/ML VIAL IVP ONE (11:19)
[2019-01-18] MEDS ORDERED: Haloperidol Lactate 5 MG/ML VIAL ONE (11:20)
--- NOTE | 2019-01-18 14:07 | Internal Med Progress Note ---
Hospitalist Progress Note - Encounter Date of Encounter: 01/18/19 Time of Encounter: 14:01 - Subjective Interval History: Mr. Wylie is a 63 year old male with known PMH of asthma, cardiomyopathy, CAD, hypertension, hyperlipidemia, GERD and systolci CHF pt presented to the ER with complaints of high blood sugars, vision changes, polyuria, and polydipsia. He noticed his glucose was greater than 500. He therefore came to ER where his glucose was in excess of 600. He was not in DKA and did not have any evidence of acidosis and/or ketosis. Was admitted in the hospital and started him on IV hydration. Also patient was started on insulin sliding scale along with levemir BID. He had fluctuating blood sugars y/d, which are better today. However this morning he became more agitated and confused. Now he is more alert, awake and O x 4. - Exam Vitals: Temp Pulse Resp BP Pulse Ox 98.1 F 70 15 135/78 98 01/18/19 08:20 01/18/19 08:20 01/18/19 08:20 01/18/19 08:20 01/18/19 08:20 Exam: Gen: Alert, awake, Oriented to time,place and person.. Looks pale and lethargic Chest: Diminished breath sounds B/L, No wheezing, No crackles, No rales Heart: S1S2+ RRR No murmurs Abd: Soft, NT, BS +, No organomegaly Ext: No edema, pulses are palpable, No calf tenderness Neuro : No acute focal neuro deficits noticed Skin: No rash. - Assessment and Plan (1) Hyperglycemia due to type 2 diabetes mellitus Current Visit: Yes Status: Acute Assessment and Plan: Due to to noncompliance with his medications His HbA1C @ 14.0 He does need to be on Insulin His blood sugars are better now with Levemir 10 U BID and ISS @ low (2) Acute metabolic encephalopathy Current Visit: Yes Status: Acute Assessment and Plan: Cont close monitoring Had given Haldol IV x 1 dose this morning started him on Haldol PO PRN (3) Acute kidney injury Current Visit: Yes Status: Acute Assessment and Plan: JARED vs CKD-3 It does look like he does have CKD-3 His baseline Creatinine might be @ 1.3 need outpatient follow-up with runner worker (4) Urinary tract infection Current Visit: Yes Status: Acute Assessment and Plan: UA - abnormal cont empirical abx Rocephin urine cx grew mixed organisms (5) Cardiomyopathy Current Visit: Yes Status: Chronic Assessment and Plan: Reviewed his 2 D Echo from 2014 showed slightly reduced LVEF 2 D Echo - P not in exacerbation (6) Lactic acidosis Current Visit: Yes Status: Acute Assessment and Plan: Likely due to dehydration and Metformin use in the setting of JARED. Held oral diabetic meds. improved lactic acid (7) Homelessness Current Visit: Yes Status: Acute Assessment and Plan: Consulted social work supervisor for placement (8) DVT prophylaxis Current Visit: Yes Status: Chronic Assessment and Plan: Heparin SQ. - Time Spent with Patient Total time spent is greater than 50% in coordination of care (as documented) at patient's floor/unit and/or counseling patient: Internal Medicine: Result - Labs CBC & Chem 7: 01/17/19 05:22 01/17/19 05:22 - ABG Interpretation ABG results: PT/INR, D-dimer PT 10.2 Seconds (9.4-12.1) 01/15/19 22:25 Consult Discharge Plan - Plan Referrals: Cora Pinto, ERADICATOR [Primary Care Provider] - (1) Hyperglycemia due to type 2 diabetes mellitus Qualifiers: Diabetes mellitus fci insulin use: with buttermaker helper use Qualified Code(s): E11.65 - Type 2 diabetes mellitus with hyperglycemia; Z79.4 - [facility] (current) use of insulin (4) Urinary tract infection Qualifiers: Urinary tract infection type: acute cystitis Hematuria presence: without hematuria Qualified Code(s): N30.00 - Acute cystitis without hematuria (5) Cardiomyopathy Qualifiers: Cardiomyopathy type: unspecified Qualified Code(s): I42.9 - Cardiomyopathy, unspecified
[2019-01-18] MEDS: Magnesium Oxide 400 MG TABLET PO SCH (17:53)
[2019-01-18] MEDS: Gabapentin 400 MG CAPSULE PO SCH ×2 (17:53→21:21)
--- NOTE | 2019-01-18 23:09 | Electrocardiograph Report ---
[place] [employer] Test Date: 2019-01-15 Pat Name: Sidney Wylie Department: EXAM17 Room: 3B Gender: M Accordion Tuner: : 1955 Requested By: [id number] Order Number: [id number] Reading MD: Iglesia Reese Measurements Intervals [place] Rate: 70 P: [place]: QRS: 183 QRSD: 117 T: 149 QT: 434 QTc: 469 Interpretive Statements Afib/flutter and ventricular-paced rhythm No further analysis attempted due to paced rhythm Electronically Signed On 01-18-2019 23:07:51 EDT by Iglesia Reese
[2019-01-19] MEDS: *HR* Heparin 5,000 UNIT/ML VIAL SQ SCH ×2 (05:36→17:27)
[2019-01-19 06:58] LABS: BUN/Creatinine Ratio 15 (6-26); Blood Urea Nitrogen 15 mg/dL (8-23); Calcium 9.5 mg/dL (8.6-10.3); Carbon Dioxide 22 mEq/L (23-29); Chloride 106 mEq/L (98-107); Glucose 286 mg/dL (70-105); Magnesium 1.8 mg/dL (1.6-2.6); Osmolality,Calculated 295 (280-300); Sodium 137 mEq/L (136-145); eGFR For African Americans > 60 (> 60); eGFR For Non-African Americans > 60 (> 60)
[2019-01-19] MEDS: Insulin LISPRO 300 UNITS/3 ML VIAL SQ SCH ×3 (09:06→17:25)
[2019-01-19] MEDS: Insulin DETEMIR 100 UNIT/ML X5UNITS SQ SCH ×2 (09:08→21:31)
[2019-01-19] MEDS: cefTRIAXone 1,000 MG in Water for inj. (sterile) 10 ML IVP SCH (09:08)
[2019-01-19] MEDS: risperiDONE 1 MG TABLET PO SCH (09:12)
[2019-01-19] MEDS: Aspirin Enteric Coated 81 MG Tablet PO SCH (09:13)
[2019-01-19] MEDS: Gabapentin 400 MG CAPSULE PO SCH ×4 (09:13→21:30)
[2019-01-19] MEDS: Thiamine (B-1) 100 MG TABLET PO SCH (09:20)
--- NOTE | 2019-01-19 13:10 | Internal Med Progress Note ---
Hospitalist Progress Note - Encounter Date of Encounter: 01/19/19 Time of Encounter: 13:08 - Subjective Interval History: Mr. Wylie is a 63 year old male with known PMH of asthma, cardiomyopathy, CAD, hypertension, hyperlipidemia, GERD and systolci CHF pt presented to the ER with complaints of high blood sugars, vision changes, polyuria, and polydipsia. He noticed his glucose was greater than 500. He therefore came to ER where his glucose was in excess of 600. He was not in DKA and did not have any evidence of acidosis and/or ketosis. Was admitted in the hospital and started him on IV hydration. Also patient was started on insulin sliding scale along with levemir BID. He had fluctuating blood sugars initially, which are better today. He became more agitated and confused y/d. Now he is more alert, awake and O x 4. No events over night. - Exam Vitals: Temp Pulse Resp BP Pulse Ox 98.1 F 69 16 152/91 100 01/19/19 10:58 01/19/19 10:58 01/19/19 10:58 01/19/19 10:58 01/19/19 10:58 Exam: Gen: Alert, awake, Oriented to time,place and person.. Looks pale and lethargic Chest: Diminished breath sounds B/L, No wheezing, No crackles, No rales Heart: S1S2+ RRR No murmurs Abd: Soft, NT, BS +, No organomegaly Ext: No edema, pulses are palpable, No calf tenderness Neuro : No acute focal neuro deficits noticed Skin: No rash. - Assessment and Plan (1) Hyperglycemia due to type 2 diabetes mellitus Current Visit: Yes Status: Acute Assessment and Plan: Due to to noncompliance with his medications His HbA1C @ 14.0 He does need to be on Insulin His blood sugars are better now will inc his Levemir to 15 U BID (2) Acute metabolic encephalopathy Current Visit: Yes Status: Acute Assessment and Plan: Improving Cont close monitoring cont Haldol PO PRN (3) Acute kidney injury Current Visit: Yes Status: Acute Assessment and Plan: His Cr improved to 1.0 He does not have CKD avoid nephro toxic meds (4) Urinary tract infection Current Visit: Yes Status: Acute Assessment and Plan: UA - abnormal cont empirical abx Rocephin # 4/5 Urine cx grew mixed organisms (5) Cardiomyopathy Current Visit: Yes Status: Chronic Assessment and Plan: Reviewed his 2 D Echo from 2014 showed slightly reduced LVEF 2 D Echo - showed LVEF 35-40%, indeterminate diastolic function not in exacerbation (6) Lactic acidosis Current Visit: Yes Status: Acute Assessment and Plan: Likely due to dehydration and Metformin use in the setting of JARED. Held oral diabetic meds. improved lactic acid (7) Homelessness Current Visit: Yes Status: Acute Assessment and Plan: Consulted mental health social worker for placement (8) DVT prophylaxis Current Visit: Yes Status: Chronic Assessment and Plan: Heparin SQ. - Time Spent with Patient Total time spent is greater than 50% in coordination of care (as documented) at patient's floor/unit and/or counseling patient: Internal Medicine: Result - Labs CBC & Chem 7: 01/17/19 05:22 01/19/19 06:00 Labs: BMP 01/19/19 06:00 Sodium 137 Potassium 4.0 Chloride 106 Carbon Dioxide 22 L BUN 15 Creatinine 1.00 Glucose 286 H Calcium 9.5 - ABG Interpretation ABG results: PT/INR, D-dimer PT 10.2 Seconds (9.4-12.1) 01/15/19 22:25 - Impressions Impressions Echocardiogram 01/18/19 08:00 Impressions: LVEF 35-40%. Indeterminate diastolic function. Normal right ventricular structure and function. Severely dilated left atrium. Mild tricuspid regurgitation. A device lead was visualized in the right atrium and right ventricle. No evidence of pulmonary hypertension by TR jet assessment. Left Ventricular Wall Motion: Rest Echo Findings The apex, apical inferior, mid inferior, basal inferior, apical anterior, mid anterior, basal anterior, apical septal, mid inferior septal, basal inferior septal, apical lateral, mid anterior lateral, basal anterior lateral, mid anterior septal, mid inferior lateral, basal anterior septal and basal inferior lateral mcbride were hypokinetic. Findings: Study Quality * Technically adequate exam. ECG Findings * Atrial fibrillation. Left Ventricle * LVEF 35-40%. * Indeterminate diastolic function. * Atypical septal motion consistent with bundle branch block. * Normal LV chamber size, wall thickness Right Ventricle * Normal right ventricular structure and function. Left Atrium * Severely dilated left atrium. Right Atrium * Moderately dilated right atrium. Aortic Valve * Aortic valve not well visualized. * No aortic regurgitation. * No aortic stenosis. Mitral Valve * Normal mitral valve structure. * No mitral stenosis. * Trace mitral regurgitation. Tricuspid Valve * Mild tricuspid regurgitation. * No tricuspid stenosis. * Normal tricuspid valve structure. * No evidence of pulmonary hypertension. Pulmonic Valve * Pulmonic valve not well visualized. Aorta * Normally sized aortic root. Pericardium * There is a trivial pericardial effusion present. IVC * The IVC is not well evaluated. Device lead * A device lead was visualized in the right atrium and right ventricle. Consult Discharge Plan - Plan Referrals: Cora Pinto, ELECTRICIAN SUPERVISOR [Primary Care Provider] - 01/24/19 12:30 pm (1) Hyperglycemia due to type 2 diabetes mellitus Qualifiers: Diabetes mellitus remote computer terminal operator insulin use: with snf use Qualified Code(s): E11.65 - Type 2 diabetes mellitus with hyperglycemia; Z79.4 - terminal carman (current) use of insulin (4) Urinary tract infection Qualifiers: Urinary tract infection type: acute cystitis Hematuria presence: without hematuria Qualified Code(s): N30.00 - Acute cystitis without hematuria (5) Cardiomyopathy Qualifiers: Cardiomyopathy type: unspecified Qualified Code(s): I42.9 - Cardiomyopathy, unspecified
[2019-01-19] MEDS: Magnesium Oxide 400 MG TABLET PO SCH (17:26)
[2019-01-20] MEDS: *HR* Heparin 5,000 UNIT/ML VIAL SQ SCH (05:29)
[2019-01-20] MEDS: Insulin LISPRO 300 UNITS/3 ML VIAL SQ SCH ×2 (08:47→13:28)
[2019-01-20] MEDS: Gabapentin 400 MG CAPSULE PO SCH (08:48)
[2019-01-20] MEDS: Thiamine (B-1) 100 MG TABLET PO SCH (08:48)
[2019-01-20] MEDS: risperiDONE 1 MG TABLET PO SCH (08:48)
[2019-01-20] MEDS: Insulin DETEMIR 100 UNIT/ML X5UNITS SQ SCH (08:48)
[2019-01-20] MEDS: cefTRIAXone 1,000 MG in Water for inj. (sterile) 10 ML IVP SCH (08:48)
[2019-01-20] MEDS: Aspirin Enteric Coated 81 MG Tablet PO SCH (08:48)
--- NOTE | 2019-01-20 11:07 | Discharge Summary ---
- NOTES TO OUTPATIENT PROVIDER Notes to Outpatient Provider: f/u with PCP in one week. Please take abx Keflex for 1 more day. Please take Lantus 15 U SQ Inj at Bed time only. Date of Encounter: 01/20/19 Time of Encounter: 10:58 - Discharge Diagnosis (1) Hyperglycemia due to type 2 diabetes mellitus Priority: Primary Status: Acute Qualifiers: Diabetes mellitus chcf insulin use: with chcf use Qualified Code(s): E11.65 - Type 2 diabetes mellitus with hyperglycemia; Z79.4 - terminal makeup operator (current) use of insulin (2) Acute metabolic encephalopathy Priority: Primary Status: Acute (3) Acute kidney injury Priority: Secondary Status: Acute (4) Urinary tract infection Priority: Secondary Status: Acute Qualifiers: Urinary tract infection type: acute cystitis Hematuria presence: without hematuria Qualified Code(s): N30.00 - Acute cystitis without hematuria (5) Cardiomyopathy Priority: Secondary Status: Chronic Qualifiers: Cardiomyopathy type: unspecified Qualified Code(s): I42.9 - Cardiomyopathy, unspecified (6) Lactic acidosis Priority: Secondary Status: Acute (7) Homelessness Priority: Secondary Status: Acute (8) DVT prophylaxis Priority: Secondary Status: Chronic Hospital course: Mr. Wylie is a 63 year old male with known PMH of asthma, cardiomyopathy, CAD, hypertension, hyperlipidemia, GERD and systolci CHF pt presented to the ER with complaints of high blood sugars, vision changes, polyuria, and polydipsia. He noticed his glucose was greater than 500. He therefore came to ER where his glucose was in excess of 600. He was not in DKA and did not have any evidence of acidosis and/or ketosis. Was admitted in the hospital and started him on IV hydration. Also patient was started on insulin sliding scale along with Levemir BID. He had fluctuating blood sugars initially, which are better now. However he still has some low blood sugars in the evening at 6 PM so stopped his AM long acting insulin dose. Recommended to take HS dose only, along with his PO and ISS. He was given IV abx for his suspecting UTI. Pt was evaluated by PT / OT who recommend ECF placement. So will d/c him to ECF in stable condition today. - Time Spent with Patient Total time spent providing and/or coordinating discharge services: - Discharge Medications Prescriptions: New Cephalexin [Keflex] 500 mg PO TID #3 capsule Continued Acetaminophen [Tylenol] 650 mg PO Q6HR PRN tablet PRN Reason: Mild Pain/Fever Omeprazole [PriLOSEC] 20 mg PO DAILY Sertraline [Zoloft] 25 mg PO DAILY risperiDONE [Risperidone] 1 mg PO DAILY Aspirin Enteric Coated [Aspirin EC] 81 mg PO DAILY #30 tablet. Amlodipine Besylate 10 mg PO DAILY #30 tablet GlipiZIDE [Glucotrol] 5 mg PO BIDWM #60 tablet Carvedilol [Coreg] 6.25 mg PO BID Duloxetine HCl [Cymbalta] 60 mg PO DAILY Lisinopril [Zestril] 10 mg PO DAILY Magnesium Oxide [Magnesium] 400 mg PO QPM Metformin HCl [Metformin ER Osmotic] 1,000 mg PO BID Mirtazapine [Remeron] 7.5 - 15 mg PO HS Thiamine (B-1) [Vitamin B-1] 100 mg PO DAILY Gabapentin [Neurontin] 400 mg PO TID Oxycodone HCl/Acetaminophen [Percocet 7.5-325 mg Tablet] 1 tab PO QID PRN 5 Days #15 tablet PRN Reason: Pain Atorvastatin [Lipitor] 40 mg PO DAILY Pantoprazole Sodium [Protonix] 40 mg PO DAILY Changed Insulin Glargine [Lantus] 15 unit SQ HS #1 Home Medications: Acetaminophen [Tylenol] 650 mg PO Q6HR PRN tablet 01/20/18 [Rx] Omeprazole [PriLOSEC] 20 mg PO DAILY 04/27/18 [History] Sertraline [Zoloft] 25 mg PO DAILY 04/27/18 [History] risperiDONE [Risperidone] 1 mg PO DAILY 04/27/18 [History] Aspirin Enteric Coated [Aspirin EC] 81 mg PO DAILY #30 tablet. 05/05/18 [Rx] Atorvastatin [Lipitor] 40 mg PO DAILY 11/04/18 [History] Pantoprazole Sodium [Protonix] 40 mg PO DAILY 11/04/18 [History] Amlodipine Besylate 10 mg PO DAILY #30 tablet 12/01/18 [Rx] GlipiZIDE [Glucotrol] 5 mg PO BIDWM #60 tablet 12/01/18 [Rx] Carvedilol [Coreg] 6.25 mg PO BID 01/17/19 [History] Duloxetine HCl [Cymbalta] 60 mg PO DAILY 01/17/19 [History] Gabapentin [Neurontin] 400 mg PO TID 01/17/19 [History] Lisinopril [Zestril] 10 mg PO DAILY 01/17/19 [History] Magnesium Oxide [Magnesium] 400 mg PO QPM 01/17/19 [History] Metformin HCl [Metformin ER Osmotic] 1,000 mg PO BID 01/17/19 [History] Mirtazapine [Remeron] 7.5 - 15 mg PO HS 01/17/19 [History] Thiamine (B-1) [Vitamin B-1] 100 mg PO DAILY 01/17/19 [History] Cephalexin [Keflex] 500 mg PO TID #3 capsule 01/20/19 [Rx] Insulin Glargine [Lantus] 15 unit SQ HS #1 01/20/19 [Rx] Oxycodone HCl/Acetaminophen [Percocet 7.5-325 mg Tablet] 1 tab PO QID PRN 5 Days #15 tablet 01/20/19 [Rx] Allergies/Adverse Reactions: Allergy/AdvReac Type Severity Reaction Status Date / Time ticlopidine [From Ticlid] Allergy Hives Verified 11/30/18 17:18 carbidopa [From Sinemet] AdvReac Confusion Verified 11/30/18 17:18 levodopa [From Sinemet] AdvReac Confusion Verified 11/30/18 17:18 Date of admission: 01/17/19 14:20 Primary care physician: Cora Pinto CNP Consults: 01/16/19 04:33 Consult to Director Insurance [CONS] Routine Reason for SW Consult: homelessness 01/17/19 12:57 Consult to Physical Therapy [CONS] Routine Comment: Evaluate, develop and implement POC Reason for Consult: Physical deconditioning Does patient have active BEDREST order?: No Is patient medically & hemodynamically stable?: Yes Patient assessed for mobility or mobilized this visit?: Yes OT [Consult to Occupational Therapy] [CONS] Routine Comment: Evaluate, develop and implement POC Reason for Consult: physical deconditioning Does patient have active BEDREST order?: No Is patient medically & hemodynamically stable?: Yes Patient assessed for mobility or mobilized this visit?: Yes - Constitutional Vitals: Temp Pulse Resp BP Pulse Ox 97.7 F 69 16 120/73 99 01/20/19 08:24 01/20/19 08:24 01/20/19 08:24 01/20/19 08:24 01/20/19 08:24 General appearance: Present: cooperative, A&O X 3, pleasant, no acute distress, answers questions appropriately Exam: Gen: Alert, awake, Oriented to time,place and person.. Looks pale and lethargic Chest: Diminished breath sounds B/L, No wheezing, No crackles, No rales Heart: S1S2+ RRR No murmurs Abd: Soft, NT, BS +, No organomegaly Ext: No edema, pulses are palpable, No calf tenderness.. Left BKA. Neuro : No acute focal neuro deficits noticed Skin: No rash. - Patient Status Disposition: Transfer SNF Condition: Good Overall status at discharge: patient is back to baseline - Discharge Instructions Follow Up With: Cora Pinto CNP [Primary Care Provider] - 01/24/19 12:30 pm - Diet and Activity Activity: increase activity as tolerated Diet: low salt diet
--- NOTE | 2019-01-20 11:09 | Physician Discharge Referral ---
ExtendedCare Referral Info Transfer To: F Provider in Charge after Transfer: PCP Institutional Level of Care: Skilled - Diagnosis (1) Hyperglycemia due to type 2 diabetes mellitus Status: Acute (2) Acute metabolic encephalopathy Status: Acute (3) Acute kidney injury Status: Acute (4) Urinary tract infection Status: Acute (5) Cardiomyopathy Status: Chronic (6) Lactic acidosis Status: Acute (7) Homelessness Status: Acute (8) DVT prophylaxis Status: Chronic - Transfer Medications Prescriptions: Cephalexin [Keflex] 500 mg PO TID #3 capsule Oxycodone HCl/Acetaminophen [Percocet 7.5-325 mg Tablet] 1 tab PO QID PRN 5 Days #15 tablet PRN Reason: Pain Home Medications: Acetaminophen [Tylenol] 650 mg PO Q6HR PRN tablet 01/20/18 [Rx] Omeprazole [PriLOSEC] 20 mg PO DAILY 04/27/18 [History] Sertraline [Zoloft] 25 mg PO DAILY 04/27/18 [History] risperiDONE [Risperidone] 1 mg PO DAILY 04/27/18 [History] Aspirin Enteric Coated [Aspirin EC] 81 mg PO DAILY #30 tablet.dr 05/05/18 [Rx] Atorvastatin [Lipitor] 40 mg PO DAILY 11/04/18 [History] Pantoprazole Sodium [Protonix] 40 mg PO DAILY 11/04/18 [History] Amlodipine Besylate 10 mg PO DAILY #30 tablet 12/01/18 [Rx] GlipiZIDE [Glucotrol] 5 mg PO BIDWM #60 tablet 12/01/18 [Rx] Carvedilol [Coreg] 6.25 mg PO BID 01/17/19 [History] Duloxetine HCl [Cymbalta] 60 mg PO DAILY 01/17/19 [History] Gabapentin [Neurontin] 400 mg PO TID 01/17/19 [History] Lisinopril [Zestril] 10 mg PO DAILY 01/17/19 [History] Magnesium Oxide [Magnesium] 400 mg PO QPM 01/17/19 [History] Metformin HCl [Metformin ER Osmotic] 1,000 mg PO BID 01/17/19 [History] Mirtazapine [Remeron] 7.5 - 15 mg PO HS 01/17/19 [History] Thiamine (B-1) [Vitamin B-1] 100 mg PO DAILY 01/17/19 [History] Cephalexin [Keflex] 500 mg PO TID #3 capsule 01/20/19 [Rx] Insulin Glargine [Lantus] 15 unit SQ HS #1 01/20/19 [Rx] Insulin LISPRO [HumaLOG] 0 units SQ TIDAC vial 01/20/19 [Rx] Oxycodone HCl/Acetaminophen [Percocet 7.5-325 mg Tablet] 1 tab PO QID PRN 5 Days #15 tablet 01/20/19 [Rx] Allergies/Adverse Reactions: Allergy/AdvReac Type Severity Reaction Status Date / Time ticlopidine [From Ticlid] Allergy Hives Verified 11/30/18 17:18 carbidopa [From Sinemet] AdvReac Confusion Verified 11/30/18 17:18 levodopa [From Sinemet] AdvReac Confusion Verified 11/30/18 17:18 - Respiratory Orders Smoking Cessation: Smoking cessation has been advised. For more information, call the [place] Tobacco Quit Line at 3-547-VCXT-NOW. CERTIFICATION: I certify that the transfer of the above named patient to an Extended Care Facility is necessary for the continuing treatment of the diagnosis listed. The above information is true and accurate reflection of patient's current condition. Confidential - Redisclosure prohibited without a patient's written consent.
[2019-01-20 12:19] VITALS: BP 132/77
== END 2019-01-20 13:48 | DRG 637 ==
LOC: 3BNU 21:47 → EMEROOARM 21:47 → SUATTDRO 01-16 00:59 → 3BNU 01-16 01:49
PROVIDERS: ADMIT Family Medicine; ATTEND Family Medicine

== ENCOUNTER 2019-08-30 04:41 | Inpatient (IN) ==
[2019-08-30] MEDS ORDERED: D5% in Water 1,000 ML IVC PRN (06:12)
[2019-08-30] MEDS ORDERED: Dextrose Gel 15 GM/37.5 ML TUBE PO PRN (06:12)
[2019-08-30] MEDS ORDERED: Naloxone 0.4 MG/ML INJ IVP PRN (07:12)
[2019-08-30] MEDS ORDERED: Ondansetron 4 MG/2 ML VIAL IVP PRN (07:12)
[2019-08-30 08:49] LABS: Basophils # 0.1 K/mcL (0.0-0.2); Eosinophils # 0.3 K/mcL (0.0-0.6); Eosinophils % 2.4 %; Hematocrit 38.1 % (37.5-50.1); Hemoglobin 12.2 g/dL (12.9-16.9); Immature Granulocytes % 0.4 % (0-4); Lymphocytes # 3.2 K/mcL (0.6-4.6); Lymphocytes % 25.5 %; Mean Corpuscular Hemoglobin 27.8 pg (28.0-33.3); Mean Corpuscular Volume 86.8 fL (83.0-100.0); Mean Platelet Volume 9.6 fL (9.4-12.4); Monocytes # 0.8 K/mcL (0.0-1.3); Monocytes % 6.5 %; Neutrophils # 8.1 K/mcL (1.6-8.9); Platelet Count 295 K/mcL (140-400); Red Blood Count 4.39 M/mcL (4.19-5.50); Red Cell Distribution Width 13.6 % (11.5-14.5); Segmented Neutrophils % 64.2 %; White Blood Count 12.7 K/mcL (4.3-11.1)
[2019-08-30 09:27] LABS: BUN/Creatinine Ratio 16 (6-26); Blood Urea Nitrogen 16 mg/dL (8-23); Calcium 8.8 mg/dL (8.6-10.3); Carbon Dioxide 22 mEq/L (23-29); Chloride 112 mEq/L (98-107); Glucose 33 mg/dL (70-105); Osmolality,Calculated 282 (280-300); Potassium 3.9 mEq/L (3.5-5.1); Sodium 137 mEq/L (136-145); eGFR For African Americans > 60 (> 60); eGFR For Non-African Americans > 60 (> 60)
[2019-08-30] MEDS ORDERED: *HR* Dextrose 50 % in Water (Syg) 50 ML SYRINGE IVP ONE ×2 (09:48→14:00)
[2019-08-30 12:48] LABS: Amphetamine Screen,Urine Negative ng/mL (Cutoff=1000); Barbiturate Screen,Urine Negative ng/mL (Cutoff=200); Benzodiazepines Screen,Urine Negative ng/mL (Cutoff=200); Cannabinoid Screen,Urine Negative ng/mL (Cutoff = 50); Cocaine Screen,Urine Negative ng/mL (Cutoff= 300); Opiate Screen,Urine Negative ng/mL (Cutoff=300); Phencyclidine Screen,Urine Negative ng/mL (Cutoff=25)
[2019-08-30] MEDS ORDERED: *HR* Dextrose 50 % in Water (Syg) 50 ML SYRINGE IVP STA (17:23)
[2019-08-30] MEDS: *HR* Heparin 5,000 UNIT/ML VIAL SQ SCH (17:33)
[2019-08-30] MEDS: D10% in Water 500 ML IVC SCH ×2 (17:40→23:47)
[2019-08-30] MEDS ORDERED: *HR* LORazepam 0.5 MG TABLET PO PRN (18:03)
[2019-08-30] MEDS ORDERED: Haloperidol Lactate 5 MG/ML VIAL IVP ONE (21:36)
[2019-08-31] MEDS: *HR* Dextrose 50 % in Water (Syg) 50 ML SYRINGE IVP PRN ×5 (04:11→22:36)
[2019-08-31] MEDS: *HR* Heparin 5,000 UNIT/ML VIAL SQ SCH ×2 (04:51→16:55)
[2019-08-31] MEDS: D10% in Water 500 ML IVC SCH ×2 (05:55→22:35)
[2019-08-31 07:01] LABS: Hematocrit 39.4 % (37.5-50.1); Hemoglobin 12.4 g/dL (12.9-16.9); Mean Corpuscular HGB Conc 31.5 g/dL (31.6-35.5); Mean Corpuscular Volume 85.7 fL (83.0-100.0); Mean Platelet Volume 10.1 fL (9.4-12.4); Platelet Count 292 K/mcL (140-400); Red Cell Distribution Width 13.6 % (11.5-14.5); White Blood Count 9.4 K/mcL (4.3-11.1)
[2019-08-31 07:22] LABS: BUN/Creatinine Ratio 13 (6-26); Blood Urea Nitrogen 13 mg/dL (8-23); Carbon Dioxide 24 mEq/L (23-29); Chloride 109 mEq/L (98-107); Glucose 102 mg/dL (70-105); Osmolality,Calculated 282 (280-300); Potassium 3.9 mEq/L (3.5-5.1); Sodium 136 mEq/L (136-145); eGFR For African Americans > 60 (> 60); eGFR For Non-African Americans > 60 (> 60)
[2019-08-31] MEDS ORDERED: *HR* LORazepam 2 MG/ML VIAL IVP PRN ×3 (08:53)
[2019-08-31] MEDS: Dextrose Gel 15 GM/37.5 ML TUBE PO PRN ×2 (10:44→16:53)
[2019-08-31] MEDS: Thiamine (B-1) 100 MG TABLET PO SCH (10:54)
[2019-08-31] MEDS: Nicotine 7 MG PATCH.TD24 TD SCH (10:54)
[2019-08-31] MEDS: Gabapentin 400 MG CAPSULE PO SCH (16:56)
[2019-08-31] MEDS ORDERED: Dextrose Gel 15 GM/37.5 ML TUBE PO PRN ×2 (21:00)
[2019-08-31] MEDS ORDERED: D5% in Water 1,000 ML IVC PRN (21:00)
[2019-09-01 03:24] LABS: Hematocrit 39.4 % (37.5-50.1); Hemoglobin 12.7 g/dL (12.9-16.9); Mean Corpuscular HGB Conc 32.2 g/dL (31.6-35.5); Mean Corpuscular Hemoglobin 27.9 pg (28.0-33.3); Mean Corpuscular Volume 86.4 fL (83.0-100.0); Mean Platelet Volume 9.5 fL (9.4-12.4); Platelet Count 300 K/mcL (140-400); Red Blood Count 4.56 M/mcL (4.19-5.50); Red Cell Distribution Width 13.4 % (11.5-14.5); White Blood Count 8.5 K/mcL (4.3-11.1)
[2019-09-01] MEDS: D10% in Water 500 ML IVC SCH ×2 (03:27→09:10)
[2019-09-01 03:43] LABS: BUN/Creatinine Ratio 12 (6-26); Blood Urea Nitrogen 11 mg/dL (8-23); Calcium 9.2 mg/dL (8.6-10.3); Carbon Dioxide 23 mEq/L (23-29); Chloride 110 mEq/L (98-107); Glucose 152 mg/dL (70-105); Osmolality,Calculated 290 (280-300); Potassium 3.6 mEq/L (3.5-5.1); Sodium 139 mEq/L (136-145); eGFR For African Americans > 60 (> 60); eGFR For Non-African Americans > 60 (> 60)
[2019-09-01] MEDS: *HR* Heparin 5,000 UNIT/ML VIAL SQ SCH ×2 (06:25→18:09)
[2019-09-01] MEDS: Nicotine 7 MG PATCH.TD24 TD SCH (07:45)
[2019-09-01] MEDS: Thiamine (B-1) 100 MG TABLET PO SCH (07:47)
[2019-09-01] MEDS: Gabapentin 300 MG CAPSULE PO SCH (07:47)
[2019-09-01] MEDS: Gabapentin 400 MG CAPSULE PO SCH (18:08)
[2019-09-01] MEDS ORDERED: *HR* LORazepam 2 MG/ML VIAL IVP STA (20:03)
[2019-09-02 01:32] LABS: Basophils # 0.1 K/mcL (0.0-0.2); Basophils % 1.6 %; Eosinophils # 0.3 K/mcL (0.0-0.6); Eosinophils % 3.1 %; Hematocrit 42.1 % (37.5-50.1); Hemoglobin 13.4 g/dL (12.9-16.9); Immature Granulocytes % 0.2 % (0-4); Lymphocytes # 2.8 K/mcL (0.6-4.6); Lymphocytes % 33.1 %; Mean Corpuscular HGB Conc 31.8 g/dL (31.6-35.5); Mean Corpuscular Hemoglobin 27.7 pg (28.0-33.3); Mean Corpuscular Volume 87.2 fL (83.0-100.0); Monocytes # 0.7 K/mcL (0.0-1.3); Monocytes % 7.9 %; Neutrophils # 4.5 K/mcL (1.6-8.9); Platelet Count 359 K/mcL (140-400); Red Blood Count 4.83 M/mcL (4.19-5.50); Red Cell Distribution Width 13.5 % (11.5-14.5); Segmented Neutrophils % 54.1 %; White Blood Count 8.3 K/mcL (4.3-11.1)
[2019-09-02 01:48] LABS: BUN/Creatinine Ratio 12 (6-26); Blood Urea Nitrogen 15 mg/dL (8-23); Calcium 8.9 mg/dL (8.6-10.3); Carbon Dioxide 24 mEq/L (23-29); Chloride 107 mEq/L (98-107); Glucose 268 mg/dL (70-105); Osmolality,Calculated 288 (280-300); Sodium 134 mEq/L (136-145); eGFR For African Americans > 60 (> 60); eGFR For Non-African Americans 59 (> 60)
[2019-09-02] MEDS: *HR* Heparin 5,000 UNIT/ML VIAL SQ SCH ×2 (05:06→17:17)
[2019-09-02] MEDS: Nicotine 7 MG PATCH.TD24 TD SCH (08:00)
[2019-09-02] MEDS: Thiamine (B-1) 100 MG TABLET PO SCH (08:01)
[2019-09-02] MEDS: Gabapentin 300 MG CAPSULE PO SCH (08:01)
[2019-09-02] MEDS: Gabapentin 400 MG CAPSULE PO SCH (17:16)
[2019-09-02] MEDS ORDERED: *HR* Metoprolol 5 MG/5 ML VIAL IVP ONE (19:46)
[2019-09-03] MEDS: *HR* Heparin 5,000 UNIT/ML VIAL SQ SCH ×2 (05:18→18:08)
[2019-09-03] MEDS: Thiamine (B-1) 100 MG TABLET PO SCH (07:43)
[2019-09-03] MEDS: Gabapentin 300 MG CAPSULE PO SCH (07:43)
[2019-09-03] MEDS: Nicotine 7 MG PATCH.TD24 TD SCH (07:44)
[2019-09-03] MEDS: Insulin LISPRO 300 UNITS/3 ML VIAL SQ SCH ×3 (12:38→21:08)
[2019-09-03] MEDS: Gabapentin 400 MG CAPSULE PO SCH (19:02)
[2019-09-03] MEDS ORDERED: *HR* OxyCODONE Immed Rel 5 MG TABLET PO STA (20:52)
[2019-09-03] MEDS ORDERED: Insulin LISPRO 300 UNITS/3 ML VIAL SQ SCH (21:00)
[2019-09-04] MEDS: Insulin LISPRO 300 UNITS/3 ML VIAL SQ SCH ×5 (00:09→21:46)
[2019-09-04] MEDS: *HR* Heparin 5,000 UNIT/ML VIAL SQ SCH ×2 (05:43→17:54)
[2019-09-04 05:51] LABS: Basophils # 0.1 K/mcL (0.0-0.2); Basophils % 1.8 %; Eosinophils # 0.4 K/mcL (0.0-0.6); Eosinophils % 5.4 %; Hemoglobin 13.7 g/dL (12.9-16.9); Immature Granulocytes % 0.4 % (0-4); Lymphocytes # 2.9 K/mcL (0.6-4.6); Lymphocytes % 40.7 %; Mean Corpuscular HGB Conc 31.9 g/dL (31.6-35.5); Mean Corpuscular Hemoglobin 27.4 pg (28.0-33.3); Mean Platelet Volume 9.4 fL (9.4-12.4); Monocytes # 0.6 K/mcL (0.0-1.3); Monocytes % 8.1 %; Neutrophils # 3.1 K/mcL (1.6-8.9); Platelet Count 360 K/mcL (140-400); Red Cell Distribution Width 13.2 % (11.5-14.5); Segmented Neutrophils % 43.6 %; White Blood Count 7.2 K/mcL (4.3-11.1)
[2019-09-04 06:08] LABS: BUN/Creatinine Ratio 17 (6-26); Blood Urea Nitrogen 20 mg/dL (8-23); Calcium 9.4 mg/dL (8.6-10.3); Carbon Dioxide 24 mEq/L (23-29); Chloride 108 mEq/L (98-107); Glucose 170 mg/dL (70-105); Osmolality,Calculated 291 (280-300); Potassium 4.1 mEq/L (3.5-5.1); Sodium 137 mEq/L (136-145); eGFR For African Americans > 60 (> 60); eGFR For Non-African Americans > 60 (> 60)
[2019-09-04] MEDS: Gabapentin 300 MG CAPSULE PO SCH (08:29)
[2019-09-04] MEDS: Thiamine (B-1) 100 MG TABLET PO SCH (08:29)
[2019-09-04] MEDS: Nicotine 7 MG PATCH.TD24 TD SCH (08:30)
[2019-09-04] MEDS: Nystatin Cream 15 GM TUBE TP SCH ×2 (12:15→21:47)
[2019-09-04] MEDS: D10% in Water 500 ML IVC SCH ×6 (14:23→17:10)
[2019-09-04] MEDS: Gabapentin 400 MG CAPSULE PO SCH (17:54)
[2019-09-04] MEDS: Insulin DETEMIR 100 UNIT/ML X5UNITS SQ SCH (21:47)
[2019-09-05] MEDS: *HR* Heparin 5,000 UNIT/ML VIAL SQ SCH ×2 (05:40→17:34)
[2019-09-05] MEDS: Insulin LISPRO 300 UNITS/3 ML VIAL SQ SCH ×4 (08:56→17:36)
[2019-09-05] MEDS: Gabapentin 300 MG CAPSULE PO SCH (08:59)
[2019-09-05] MEDS: Thiamine (B-1) 100 MG TABLET PO SCH (08:59)
[2019-09-05] MEDS: Nicotine 7 MG PATCH.TD24 TD SCH (08:59)
[2019-09-05] MEDS: Gabapentin 400 MG CAPSULE PO SCH (17:34)
[2019-09-06] MEDS: Nystatin Cream 15 GM TUBE TP SCH ×4 (02:06→21:39)
[2019-09-06] MEDS: Insulin DETEMIR 100 UNIT/ML X5UNITS SQ SCH ×2 (02:08→21:38)
[2019-09-06] MEDS: Insulin LISPRO 300 UNITS/3 ML VIAL SQ SCH ×4 (02:08→11:18)
[2019-09-06] MEDS: *HR* Heparin 5,000 UNIT/ML VIAL SQ SCH ×2 (05:16→17:17)
[2019-09-06] MEDS: D10% in Water 500 ML IVC SCH ×4 (05:16→05:20)
[2019-09-06] MEDS: Gabapentin 300 MG CAPSULE PO SCH (08:04)
[2019-09-06] MEDS: Thiamine (B-1) 100 MG TABLET PO SCH (08:04)
[2019-09-06] MEDS: Nicotine 7 MG PATCH.TD24 TD SCH (08:06)
[2019-09-06] MEDS: Gabapentin 400 MG CAPSULE PO SCH (17:17)
[2019-09-06] MEDS ORDERED: Insulin LISPRO 300 UNITS/3 ML VIAL SQ SCH (21:00)
[2019-09-07] MEDS: *HR* Heparin 5,000 UNIT/ML VIAL SQ SCH (05:27)
[2019-09-07] MEDS: Thiamine (B-1) 100 MG TABLET PO SCH (08:51)
[2019-09-07] MEDS: Gabapentin 300 MG CAPSULE PO SCH (08:51)
[2019-09-07] MEDS: Insulin LISPRO 300 UNITS/3 ML VIAL SQ SCH ×2 (08:56→12:26)
[2019-09-07] MEDS: Nystatin Cream 15 GM TUBE TP SCH (08:56)
[2019-09-07] MEDS: Nicotine 7 MG PATCH.TD24 TD SCH (09:53)
[2019-09-07 10:47] VITALS: BP 169/96
== END 2019-09-07 14:23 | DRG 917 ==
LOC: 3NENU → SUATTDRO 05:53 → 3ANU 09-05 16:39
PROVIDERS: ADMIT Family Medicine; ATTEND Internal Medicine

== ENCOUNTER 2021-05-02 12:57 | Inpatient (IN) ==
[2021-05-02] MEDS ORDERED: Acetaminophen IV 1,000 MG/100 ML BAG IVPB ONE (13:32)
[2021-05-02] MEDS ORDERED: Famotidine 20 MG/2 ML VIAL IVP ONE (13:32)
[2021-05-02] MEDS ORDERED: Lidocaine HCL 4 ML Topical Solution (Laryng-O-Jet Kit Sterile Pak) TP ONE (13:56)
[2021-05-02] MEDS ORDERED: *HR* FentaNYL (PF) 100 MCG/2 ML VIAL ONE (14:00)
[2021-05-02] MEDS ORDERED: *HR* Midazolam HCl 2 MG/2 ML VIAL ONE (14:00)
[2021-05-02] MEDS ORDERED: Ondansetron 4 MG/2 ML VIAL ONE (14:00)
[2021-05-02] MEDS ORDERED: Ringers Solution, Lactated 1,000 ML IVC SCH (14:00)
[2021-05-02] MEDS ORDERED: *HR* Propofol 200 MG/20 ML VIAL IVP ONE (14:00)
[2021-05-02] MEDS ORDERED: *HR* Succinylcholine 200 MG/10 ML VIAL IVP ONE (14:00)
[2021-05-02] MEDS ORDERED: CeFAZolin Syr 2,000MG/20 ML 2,000 MG/20 ML SYRINGE IVPB ONE (14:00)
[2021-05-02] MEDS ORDERED: *HR* Labetalol 20 MG/4 ML SYRINGE IVP PRN (14:17)
[2021-05-02] MEDS ORDERED: Ondansetron 4 MG/2 ML VIAL IVP PRN ×2 (14:17→17:52)
[2021-05-02] MEDS ORDERED: *HR* OxyCODONE Immed Rel 5 MG TABLET PO PRN (14:17)
[2021-05-02 14:29] LABS: Basophils # 0.1 K/mcL (0.0-0.2); Basophils % 1.4 %; Eosinophils # 0.4 K/mcL (0.0-0.6); Eosinophils % 4.2 %; Hematocrit 34.7 % (37.5-50.1); Hemoglobin 10.6 g/dL (12.9-16.9); Immature Granulocytes % 0.3 % (0-4); Lymphocytes # 1.9 K/mcL (0.6-4.6); Lymphocytes % 19.5 %; Mean Corpuscular HGB Conc 30.5 g/dL (31.6-35.5); Mean Corpuscular Hemoglobin 28.7 pg (28.0-33.3); Mean Platelet Volume 9.5 fL (9.4-12.4); Monocytes # 0.9 K/mcL (0.0-1.3); Monocytes % 9.2 %; Neutrophils # 6.3 K/mcL (1.6-8.9); Platelet Count 298 K/mcL (140-400); Red Blood Count 3.69 M/mcL (4.19-5.50); Red Cell Distribution Width 14.7 % (11.5-14.5); Segmented Neutrophils % 65.4 %; White Blood Count 9.6 K/mcL (4.3-11.1)
[2021-05-02] MEDS ORDERED: ROPIVACAINE/PF/NS 0.25% 1 EACH SYRINGE INTRAART ONE (14:32)
[2021-05-02] MEDS ORDERED: Ropivacaine/PF 0.5% 30 ML VIAL ONE (14:32)
[2021-05-02 14:37] LABS: INR 1.3; Prothrombin Time 14.2 Seconds (9.4-12.1)
[2021-05-02 14:39] LABS: Activated Partial Thrombo Time 40.6 Seconds (26.0-36.0)
[2021-05-02 14:49] LABS: Calcium 8.8 mg/dL (8.6-10.3); Estimated Average Glucose 163 mg/dl; Hemoglobin A1C 7.3 %; Potassium 4.2 mEq/L (3.5-5.1)
[2021-05-02] MEDS ORDERED: ceFAZolin 1,000 MG, Sodium Chloride IRRigation 1,000 ML IR ONE (15:00)
[2021-05-02] MEDS ORDERED: *HR* HYDROMORPHONE 2 MG/ML VIAL ONE (16:01)
[2021-05-02] MEDS ORDERED: *HR* HYDROmorphone PF 0.5 MG/0.5 ML SYRINGE IVP PRN (17:52)
[2021-05-02] MEDS ORDERED: Ondansetron ODT 4 MG TAB.RAPDIS SL PRN (18:41)
[2021-05-02] MEDS ORDERED: NON-FORMULARY MEDICATION 1 EACH EACH (Gabapentin [Neurontin] 600 MG Tablet) PO SCH (18:41)
[2021-05-02] MEDS ORDERED: 0.9 % Sodium Chloride 1,000 ML IVC SCH (18:41)
[2021-05-02] MEDS ORDERED: *HR* HYDROmorphone (PF) 1 MG/ML SYRINGE IVP PRN (18:41)
[2021-05-02] MEDS: *HR* OxyCODONE/APAP 7.5/325 TABLET PO PRN (21:37)
[2021-05-02] MEDS: Gabapentin 300 MG CAPSULE PO SCH (21:38)
[2021-05-02] MEDS: Insulin DETEMIR 100 UNIT/ML X5UNITS SUBQ SCH (21:38)
[2021-05-02] MEDS ORDERED: Acetaminophen IV 500 MG/50 ML BAG IVPB ONE (22:00)
[2021-05-03] MEDS: CeFAZolin 2 GM/120 ML BAG IVPB SCH ×3 (00:33→15:46)
[2021-05-03 03:09] LABS: Calcium 8.3 mg/dL (8.6-10.3); Potassium 4.4 mEq/L (3.5-5.1)
[2021-05-03 03:27] LABS: Basophils # 0.1 K/mcL (0.0-0.2); Basophils % 0.5 %; Hematocrit 30.6 % (37.5-50.1); Hemoglobin 9.5 g/dL (12.9-16.9); Immature Granulocytes % 0.6 % (0-4); Lymphocytes # 0.8 K/mcL (0.6-4.6); Lymphocytes % 7.7 %; Mean Corpuscular Hemoglobin 29.3 pg (28.0-33.3); Mean Corpuscular Volume 94.4 fL (83.0-100.0); Mean Platelet Volume 9.4 fL (9.4-12.4); Monocytes # 0.3 K/mcL (0.0-1.3); Monocytes % 2.5 %; Neutrophils # 8.7 K/mcL (1.6-8.9); Platelet Count 285 K/mcL (140-400); Red Blood Count 3.24 M/mcL (4.19-5.50); Red Cell Distribution Width 14.6 % (11.5-14.5); Segmented Neutrophils % 88.7 %; White Blood Count 9.8 K/mcL (4.3-11.1)
[2021-05-03] MEDS: Gabapentin 300 MG CAPSULE PO SCH ×2 (08:24→20:52)
[2021-05-03] MEDS ORDERED: NON-FORMULARY MEDICATION 1 EACH EACH (Gabapentin [Neurontin] 600 MG Tablet) PO SCH (09:00)
[2021-05-03] MEDS: *HR* OxyCODONE/APAP 7.5/325 TABLET PO PRN (15:58)
[2021-05-03] MEDS: Insulin DETEMIR 100 UNIT/ML X5UNITS SUBQ SCH (20:52)
[2021-05-04] MEDS: *HR* OxyCODONE/APAP 7.5/325 TABLET PO PRN (05:30)
[2021-05-04] MEDS: Gabapentin 300 MG CAPSULE PO SCH ×2 (09:12→20:54)
[2021-05-04] MEDS ORDERED: Apixaban 5 MG TABLET PO SCH (12:30)
[2021-05-04] MEDS: Apixaban 2.5 MG TABLET PO SCH ×2 (17:43→20:54)
[2021-05-04] MEDS: Insulin DETEMIR 100 UNIT/ML X5UNITS SUBQ SCH (20:55)
[2021-05-05 00:33] VITALS: BP 168/77; PULSE 70; TEMP 98; O2SAT 98
== END 2021-05-05 00:33 | DRG 240 ==
LOC: SAMDAY 12:57 → 3ANU 18:25
PROVIDERS: ADMIT Surgery Vascular Surgery; ATTEND Surgery Vascular Surgery